=== PATIENT | male | born 1955 | race Caucasian/White ===

== ENCOUNTER → 2019-01-16 10:43 | Outpatient (CLI) | payer MEDICARE, SELFPAY ==
[2015-07-16 13:28] VITALS: BMI 28.0
[2019-01-16 12:12] LABS: Absolute Lymphocyte Count 1.48 X10^3/ul (0.83-4.51); Basophil# 0.03 X10^3/uL; Basophil% 0.5 % (0-1); Eosinophil# 0.41 X10^3/uL; Eosinophils% 6.5 % (0-5); Hematocrit 42.1 % (40-54); Hemoglobin 13.4 g/dl (13.0-16.5); Lymphocyte # 1.48 X10^3/ul (4.0); Lymphocyte % 23.5 % (19-41); Mean Corp Hgb Conc 31.8 g/gl (32-36); Mean Corpuscular Hgb 29.3 pg (27.0-32.0); Mean Corpuscular Volume 92.1 fL (80-94); Mean Platelet Vol. 10.6 fl (6.2-12.0); Monocyte# 0.39 X10^3/uL; Monocyte% 6.2 % (0-10); Neutrophil # 3.96 X10^3/uL (2.7-7.7); Platelet Count 262 K/mm3 (150-450); RBC Distribution Width CV 14.1 % (11.6-14.6); RBC Distribution Width SD 47.5 fl (35.1-43.9); Red Blood Count 4.57 M/mm3 (4.6-6.2); White Blood Count 6.3 K/mm3 (4.4-11.0)
[2019-01-16 12:13] LABS: POSITIVE COUNT NO; POSITIVE DIFFERENTIAL NO; POSITIVE MORPHOLOGY NO
[2019-01-16 13:02] LABS: ALB/GLOB Ratio 0.8 RATIO (0.9-2.4); AST(SGOT) 31 U/L (15-37); Alanine Aminotransfer ALT/SGPT 56 U/L (16-61); Albumin, Serum 3.7 g/dL (3.2-5.0); Alkaline Phosphatase 74 U/L (45-117); Anion Gap 12 (5-15); BUN 27 mg/dL (7-18); Calcium,Total 8.5 mg/dL (8.5-10.1); Chloride 110 mmol/L (98-107); Creatinine, Serum 2.07 mg/dL (0.70-1.30); EST Glomerular Filtration Rate 34 mL/min (>60); Est Glom Filt Rate - Afr Amer 42 mL/min (>60); Globulin 4.7 g/dL (2.2-4.2); Glucose 130 mg/dL (74-106); Potassium 4.5 mmol/L (3.5-5.1); Protein, Total 8.4 g/dL (6.4-8.2); Sodium Level 143 mmol/L (136-145); Thyroid Stim Hormone (TSH) 2.42 uIU/mL (0.358-3.74)
[2019-01-17 05:07] LABS: HEPATITIS B SURFACE AG Negative (Negative); Hepatitis A AB, Total Positive (Negative); Hepatitis A IgM Antibody Negative (Negative); Hepatitis B Core AB IgM Negative (Negative); Hepatitis B Core Ab Total Negative (Negative)
[2019-01-17 14:34] LABS: Hep B Surface Antibodies Non Reactive (.)
[2019-01-17 14:37] LABS: Hepatitis C Ab >11.0 s/co ratio (0.0-0.9)
== END ==
PROVIDERS: Family Provider Family Medicine; PCP Family Medicine; Referring Provider Family Medicine; Visit Provider Family Medicine
DX: R06.02 Shortness of breath (principal); Z86.19 Personal history of other infectious and parasitic diseases
CPT/HCPCS: 36415; 80053; 84403; 84443; 85025; 86704; 86705; 86706; 86708; 86709; 86803; 87340

== ENCOUNTER → 2019-02-02 17:03 | Outpatient (CLI) | payer MEDICARE, SELFPAY | PROVIDERS: Family Provider Family Medicine; PCP Family Medicine; Visit Provider Family Medicine | DX: B19.20 Unspecified viral hepatitis C without hepatic coma (principal) | CPT/HCPCS: 36415 ==

== ENCOUNTER → 2019-03-07 | Outpatient (CLI) | payer MEDICARE, SELFPAY ==
[2015-07-16 13:28] VITALS: BMI 28.0
[2019-03-11 03:05] LABS: HCV Quant. RNA PCR HCV Not Detected IU/mL (.)
== END | disposition home or self-care (01) ==
LOC: LAB 16:52
PROVIDERS: Family Provider Family Medicine; PCP Family Medicine; Referring Provider Internal Medicine Gastroenterology; Visit Provider Internal Medicine Gastroenterology
DX: B19.20 Unspecified viral hepatitis C without hepatic coma (principal)
CPT/HCPCS: 36415; 87522; 87902

== ENCOUNTER → 2019-05-25 | Outpatient (CLI) | payer MEDICARE, SELFPAY ==
[2015-07-16 13:28] VITALS: BMI 28.0
[2019-05-25 10:18] LABS: ALB/GLOB Ratio 0.8 RATIO (0.9-2.4); AST(SGOT) 34 U/L (15-37); Alanine Aminotransfer ALT/SGPT 54 U/L (16-61); Albumin, Serum 3.5 g/dL (3.2-5.0); Alkaline Phosphatase 79 U/L (45-117); Anion Gap 10 (5-15); BUN 23 mg/dL (7-18); BUN/Creat Ratio 13.3 RATIO (10-20); Calcium,Total 8.7 mg/dL (8.5-10.1); Chloride 108 mmol/L (98-107); Creatinine, Serum 1.73 mg/dL (0.70-1.30); EST Glomerular Filtration Rate 42 mL/min (>60); Est Glom Filt Rate - Afr Amer 51 mL/min (>60); Globulin 4.2 g/dL (2.2-4.2); Glucose 123 mg/dL (74-106); Potassium 4.1 mmol/L (3.5-5.1); Protein, Total 7.7 g/dL (6.4-8.2); Sodium Level 140 mmol/L (136-145)
== END | disposition home or self-care (01) ==
LOC: MFPLAB 08:49
PROVIDERS: Family Provider Family Medicine; PCP Family Medicine; Referring Provider Family Medicine; Visit Provider Family Medicine
DX: I10 Essential (primary) hypertension (principal)
CPT/HCPCS: 36415; 80053

== ENCOUNTER → 2019-10-17 16:52 | Outpatient (CLI) | payer MEDICARE, SELFPAY ==
[2015-07-16 13:28] VITALS: BMI 28.0
[2019-10-17 18:27] LABS: Anion Gap 5 (5-15); BUN 26 mg/dL (7-18); BUN/Creat Ratio 13.9 RATIO (10-20); Calcium,Total 8.7 mg/dL (8.5-10.1); Chloride 106 mmol/L (98-107); Cholesterol 174 mg/dL (200); Creatinine, Serum 1.87 mg/dL (0.70-1.30); EST Glomerular Filtration Rate 39 mL/min (>60); Est Glom Filt Rate - Afr Amer 47 mL/min (>60); Glucose 89 mg/dL (74-106); High Density Lipoprotein 21 mg/dL; Potassium 4.2 mmol/L (3.5-5.1); Sodium Level 137 mmol/L (136-145); Triglycerides 439 mg/dL
== END ==
PROVIDERS: Family Provider Family Medicine; PCP Family Medicine; Referring Provider Family Medicine; Visit Provider Family Medicine
DX: I10 Essential (primary) hypertension (principal)
CPT/HCPCS: 36415; 80048; 80061

== ENCOUNTER → 2020-11-26 16:30 | Outpatient (CLI) | payer MEDICARE, SELFPAY ==
[2015-07-16 13:28] VITALS: BMI 28.0
[2020-11-26 18:44] LABS: ALB/GLOB Ratio 0.8 RATIO (0.9-2.4); AST(SGOT) 38 U/L (15-37); Alanine Aminotransfer ALT/SGPT 50 U/L (16-61); Albumin, Serum 3.8 g/dL (3.2-5.0); Alkaline Phosphatase 73 U/L (45-117); Anion Gap 6 (5-15); BUN 32 mg/dL (7-18); BUN/Creat Ratio 17.8 RATIO (10-20); Calcium,Total 8.9 mg/dL (8.5-10.1); Chloride 109 mmol/L (98-107); Cholesterol 130 mg/dL (200); EST Glomerular Filtration Rate 40 mL/min (>60); Est Glom Filt Rate - Afr Amer 49 mL/min (>60); Globulin 4.9 g/dL (2.2-4.2); Glucose 82 mg/dL (74-106); High Density Lipoprotein 25 mg/dL; Potassium 3.9 mmol/L (3.5-5.1); Protein, Total 8.7 g/dL (6.4-8.2); Sodium Level 137 mmol/L (136-145); Triglycerides 412 mg/dL
[2020-11-27 08:16] LABS: SARS-COV-2 TOTAL ABS Reactive (Nonreactive)
== END ==
PROVIDERS: PCP Family Medicine; Referring Provider Family Medicine; Visit Provider Family Medicine
DX: E78.5 Hyperlipidemia, unspecified (principal); U07.1 COVID-19
CPT/HCPCS: 36415; 80053; 80061; 86769

== ENCOUNTER 2021-01-15 15:40 | Outpatient (RCR) | payer MEDICARE, SELFPAY ==
[2021-01-15] MEDS: COVID-19 VACC, MRNA(PFIZER)/PF 30 MCG/0.3 ML SYRINGE IM (17:08)
[2021-02-05] MEDS: COVID-19 VACC, MRNA(PFIZER)/PF 30 MCG/0.3 ML SYRINGE IM (16:54)
== END 2021-04-14 23:59 ==
LOC: IMMUN 15:40
PROVIDERS: PCP Family Medicine; Visit Provider Family Medicine
DX: Z23 Encounter for immunization (principal)
CPT/HCPCS: 0001A; 0002A; 91300

== ENCOUNTER → 2021-08-18 11:24 | Outpatient (CLI) | payer MEDICARE, SELFPAY ==
[2021-08-18 15:33] LABS: Anion Gap 6 (5-15); BUN 32 mg/dL (7-18); BUN/Creat Ratio 14.1 RATIO (10-20); Calcium,Total 9.1 mg/dL (8.5-10.1); Chloride 109 mmol/L (98-107); Creatinine, Serum 2.27 mg/dL (0.70-1.30); EST Glomerular Filtration Rate 31 mL/min (>60); Est Glom Filt Rate - Afr Amer 37 mL/min (>60); Glucose 147 mg/dL (74-106); Potassium 4.6 mmol/L (3.5-5.1); Sodium Level 141 mmol/L (136-145)
== END ==
PROVIDERS: PCP Family Medicine; Referring Provider Family Medicine; Visit Provider Family Medicine
DX: N40.0 Benign prostatic hyperplasia without lower urinary tract symptoms (principal); Z12.5 Encounter for screening for malignant neoplasm of prostate
CPT/HCPCS: 36415; 80048; 84153; G0103

== ENCOUNTER → 2022-05-20 | Outpatient (CLI) | payer MEDICARE, SELFPAY ==
--- NOTE | 2022-05-20 11:50 | RAD_ITS ---
STUDY: X-RAY - ABDOMEN/PELVIS REASON FOR EXAM: Male, 66 years old. ABDOMINAL PAIN TECHNIQUE: Supine and upright views. 4 images. COMPARISON: None. FINDINGS: Mildly dilated small bowel in the upper abdomen. Large amount stool in the ascending colon. Relative paucity of bowel gas in the left lower abdomen. No free air. No abnormal mass or calcification is seen. Lung bases are clear. RAD/Abd Inc Decub and/or Erect IMPRESSION: Nonspecific bowel gas pattern. Mildly dilated small bowel pattern may be consistent with enteritis or partial small bowel obstruction. Electronically Signed: Joyce Oliver MD at 5:51 EDT ,
[2022-05-20 14:59] LABS: Hemoglobin 11.3 g/dL (13.0-16.5); Mean Corp Hgb Conc 31.4 g/dL (32-36); Mean Corpuscular Volume 85.9 fL (80-94); Mean Platelet Vol. 10.2 fl (6.2-12.0); Platelet Count 374 K/mm3 (150-450); RBC Distribution Width CV 14.6 % (11.6-14.6); RBC Distribution Width SD 45.8 fl (35.1-43.9); Red Blood Count 4.19 M/mm3 (4.6-6.2); White Blood Count 8.1 K/mm3 (4.4-11.0)
[2022-05-20 15:20] LABS: ALB/GLOB Ratio 0.6 RATIO (0.9-2.4); AST(SGOT) 30 U/L (15-37); Alanine Aminotransfer ALT/SGPT 40 U/L (16-61); Albumin, Serum 3.4 g/dL (3.2-5.0); Alkaline Phosphatase 85 U/L (45-117); Anion Gap 6 (5-15); BUN 28 mg/dL (7-18); BUN/Creat Ratio 12.6 RATIO (10-20); Calcium,Total 9.6 mg/dL (8.5-10.1); Chloride 107 mmol/L (98-107); Creatinine, Serum 2.23 mg/dL (0.70-1.30); EST Glomerular Filtration Rate 31 mL/min (>60); Est Glom Filt Rate - Afr Amer 38 mL/min (>60); Globulin 5.8 g/dL (2.2-4.2); Glucose 166 mg/dL (74-106); Potassium 4.2 mmol/L (3.5-5.1); Protein, Total 9.2 g/dL (6.4-8.2); Sodium Level 136 mmol/L (136-145)
== END | disposition home or self-care (01) ==
PROVIDERS: PCP Family Medicine; Referring Provider Family Medicine; Visit Provider Family Medicine
DX: R10.9 Unspecified abdominal pain (principal)
CPT/HCPCS: 36415; 74019; 80053; 85027

== ENCOUNTER 2022-11-18 16:06 | Observation (INO) | payer MEDICARE, SELFPAY ==
[2022-11-18 16:07] VITALS: BP 104/67; PULSE 110; RESP 18; TEMP 36.1; O2SAT 98; BMI 34.9
[2022-11-18 16:16] VITALS: O2SAT 93
[2022-11-18 16:18] VITALS: BP 110/77; PULSE 113; RESP 18; TEMP 36.1; O2SAT 98
--- NOTE | 2022-11-18 16:26 | EKG12_ITS ---
Test Reason : SOB Blood Pressure : / mmHG Vent. Rate : 107 BPM Atrial Rate : 107 BPM P-R Int : 162 ms QRS Dur : 092 ms QT Int : 336 ms P-R-T Axes : 029 -34 045 degrees QTc Int : 448 ms Sinus tachycardia Left axis deviation Abnormal ECG Confirmed by ANGELITA CHERRY, ALYSSA ([id number]), continuity editor BARBARA VIEIRA ([id number]) on 11/22/2022 12:11:40 PM Referred By: Confirmed By:ALYSSA GOLDSTEIN MD
--- NOTE | 2022-11-18 16:27 | ED.VIS.DYS ---
HPI History of Present Illness Chief Complaint: Shortness of Breath Narrative Narrative: Patient presents with dyspnea. He also has about a 10 pound weight loss in the past few weeks. He thinks he has some night sweats and subjective fevers at times. Stools are normal color. He has no cough. He has no sick contacts. No abdominal pain no back pain no headache. PFSH PFSH Medical History (Updated 11/18/22 @ 21:[address] Bobby Alvarenga MD) BPH (benign prostatic hyperplasia) GERD (gastroesophageal reflux disease) History of B-cell lymphoma HTN (hypertension) Stroke Home Medications Acid Relief 1 ea PO/SL DAILY GERD 11/18/22 [History Last Taken 11/17/22] ibuprofen 200 mg tablet (Motrin IB) 800 mg PO Q6H PRN Fever 11/18/22 [History Last Taken 11/16/22] losartan 25 mg tablet 25 mg PO QHS BP 11/18/22 [History Last Taken 11/17/22] tamsulosin 0.4 mg capsule 0.4 mg PO DAILY PROSTATE 11/18/22 [History Last Taken 11/17/22] Allergy/AdvReac Type Severity Reaction Status Date / Time RAPID ACTING ANTIHYPERTENSIVE AdvReac Other Uncoded 11/18/22 16:07 Family History (Updated 11/18/22 @ 19:[address] Melodie Baker MD) Father COPD (chronic obstructive pulmonary disease) Lung cancer Mother COPD (chronic obstructive pulmonary disease) Surgical History (Updated 11/18/22 @ 19:[address] Melodie Baker MD) S/P bilateral inguinal hernia repair S/P tonsillectomy Social History (Updated 11/18/22 @ 19:[address] Melodie Baker MD) household members: spouse Smoking Status: Former smoker how long ago did patient quit smoking: Quit ~ 30 years prior, smoked 1.5 ppd since teen until quit. alcohol intake: current alcohol intake frequency: holidays/special occasions only substance use type: does not use ROS ROS ED ROS Narrative Past medical history: Reviewed Medications: Reviewed Social history: Noncontributory Review of systems: All systems negative except as indicated General: Generalized weakness, some subjective fevers Eyes: No visual changes ENT: No upper airway congestion, normal voice Neck: No neck pain Cardiovascular: No chest pain Respiratory: Exertional dyspnea Gastrointestinal: No abdominal pain, nausea vomiting or diarrhea Genitourinary: No dysuria Musculoskeletal: Denies myalgias Skin: No rash Neurological: No memory loss, confusion or any focal weakness Psych: No recent behavioral changes Hematologic: No easy bleeding or easy bruising EXAM Physical Exam Narrative Exam Narrative: Physical exam General: Patient appears pale he does not appear in any distress Head: Normocephalic, Atraumatic Eyes: Pale conjunctiva ENT: Slightly dry mucous membranes Neck: Supple, Nontender, No lymphadenopathy Cardiovascular: Regular rate, Regular rhythm Respiratory: No distress, CTA bilaterally Abdomen: Soft, Nontender, Nondistended Rectal: Normal rectal exam yellow stool. I did send for guaiac Back: Nontender, Normal Inspection. Negative for: CVA tenderness Extremities: Nontender, No edema Skin: He appears pale Neurological: Alert, Normal Strength, Normal Sensation Const Vital Signs: 11/18/22 16:07 11/18/22 16:16 11/18/22 16:18 Temperature 97.0 F L 97.0 F L Temperature Source Temporal Temporal Pulse Rate 110 H 113 H Respiratory Rate 18 18 Respiratory Effort Short of Breath Blood Pressure 104/67 110/77 Blood Pressure Mean 79 88 Pulse Ox 98 98 Oxygen Delivery Method Room Air Room Air Room Air MDM MDM MDM Narrative Medical decision making narrative: A. Problems addressed ( does not have to be diagnoses) Patient is anemic. He has weight loss and night sweats, therefore I am worried about potential malignancy. He also has a GI bleed. B. Amount and/or complexity of the data (2 out of 3) 1. I discussed the patient with who is in the room who was in the room 2. Independent interpretation of test Telemetry: Sinus rhythm with a rate in the 100s. No ectopy. Patient is found to have microcytic anemia. Electrolytes and coags were unremarkable. 3. Discussion of management with external healthcare provider Patient was discussed by Dr. Rehman with Dr. Salguero, his PCP who knows the patient well, he gave us history of present illness of the patient and his concerns about anemia, possible cancer. I discussed the patient with the hospitalist will admit. C. Risk of complications and/or morbidity Patient is quite anemic requiring transfusion. He is also quite symptomatic with shortness of breath. My worry is also for malignancy. He is given up packed red blood cells in the emergency department. I did not find any evidence of lung or cardiac involvement. I did think about ACS but he is an unremarkable EKG. I did think about pneumonia, pneumothorax or PE, these are less likely since the patient has a normal x-ray has clear lungs and I have an alternate diagnosis. He will be admitted for further work-up. Lab Data Labs: Laboratory Results - last 24 hr 11/18/22 11/18/22 11/18/22 16:30 16:30 16:30 WBC 11.6 H RBC 3.69 L Hgb 7.4 L Hct 26.4 L MCV 71.5 L MCH 20.1 L MCHC 28.0 L RDW Std Deviation 45.8 H RDW Coeff of Angel 17.9 H Plt Count 565 H MPV 9.3 Immature Gran % (Auto) 0.900 Neut % (Auto) 87.2 H Lymph % (Auto) 5.9 L [place] % (Auto) 4.5 Eos % (Auto) 1.1 Baso % (Auto) 0.4 Absolute Neuts (auto) 10.1 H Absolute Lymphs (auto) 0.69 L Nucleated RBC % 0 PT 16.3 H INR 1.3 Sodium 135 L Potassium 4.3 Chloride 107 Carbon Dioxide 19.0 L Anion Gap 9 BUN 38 H Creatinine 2.86 H Estim Creat Clear Calc 19.90 Est GFR (MDRD) Af Amer 28 L Est GFR (MDRD) Non-Af 23 L BUN/Creatinine Ratio 13.3 Glucose 176 H Calcium 8.7 Phosphorus Magnesium Total Bilirubin 0.40 AST 21 ALT 16 Alkaline Phosphatase 70 Troponin I High Sens < 3 L Total Protein 8.6 H Albumin 2.4 L Globulin 6.2 H Albumin/Globulin Ratio 0.4 L Blood Type Antibody Screen Crossmatch 11/18/22 11/18/22 16:30 17:15 WBC RBC Hgb Hct MCV MCH MCHC RDW Std Deviation RDW Coeff of Angel Plt Count MPV Immature Gran % (Auto) Neut % (Auto) Lymph % (Auto) [place] % (Auto) Eos % (Auto) Baso % (Auto) Absolute Neuts (auto) Absolute Lymphs (auto) Nucleated RBC % PT INR Sodium Potassium Chloride Carbon Dioxide Anion Gap BUN Creatinine Estim Creat Clear Calc Est GFR (MDRD) Af Amer Est GFR (MDRD) Non-Af BUN/Creatinine Ratio Glucose Calcium Phosphorus 3.7 Magnesium 2.3 Total Bilirubin AST ALT Alkaline Phosphatase Troponin I High Sens Total Protein Albumin Globulin Albumin/Globulin Ratio Blood Type O POSITIVE Antibody Screen NEGATIVE Crossmatch See Detail Radiography Diagnostic Testing: Clinical Impression(s) from Imaging Studies Chest X-Ray 11/18/22 16:53 IMPRESSION: No acute cardiopulmonary disease or major interval change. Electronically Signed: Tomás Quigley DO at 17:39 EST Reading Location ID and State: [address] [place] [address] Tel [phone], Service support , EKG Initial EKG: Comments: Sinus rhythm with a rate of 107. Normal [place] and QTc intervals, left axis deviation is seen. No obvious ischemic changes. Interpreted by emergency doctor. Discharge Plan Dx/Rx/DC Orders Clinical Impression: Anemia, Microcytosis, Acute dyspnea, Abnormal weight loss, GI bleed Disposition Disposition: Acute Care Hospital [facility] Discharge Date/Time: 11/18/22 18:51
[2022-11-18 16:47] LABS: Absolute Lymphocyte Count 0.69 X10^3/uL (0.83-4.51); Absolute Neutrophil Count 10.1 X10^3/uL (2.0-7.7); Basophil# 0.05 X10^3/uL; Basophil% 0.4 % (0-1); Eosinophil# 0.13 X10^3/uL; Eosinophils% 1.1 % (0-5); Hematocrit 26.4 % (40-54); Hemoglobin 7.4 g/dL (13.0-16.5); Lymphocyte # 0.69 X10^3/ul (0.83-4.51); Lymphocyte % 5.9 % (19-41); Mean Corpuscular Hgb 20.1 pg (27.0-32.0); Mean Corpuscular Volume 71.5 fL (80-94); Mean Platelet Vol. 9.3 fl (6.2-12.0); Monocyte# 0.52 X10^3/uL; Monocyte% 4.5 % (0-10); NRBC Flagged by Analyzer 0 % (0-5); Neutrophil # 10.11 X10^3/uL (2.7-7.7); Neutrophil % 87.2 % (47-70); Platelet Count 565 K/mm3 (150-450); RBC Distribution Width CV 17.9 % (11.6-14.6); RBC Distribution Width SD 45.8 fl (35.1-43.9); Red Blood Count 3.69 M/mm3 (4.6-6.2); White Blood Count 11.6 K/mm3 (4.4-11.0)
--- NOTE | 2022-11-18 16:53 | RAD_ITS ---
STUDY: X-RAY CHEST REASON FOR EXAM: Male, 66 years old. Increased shortness of breath. Sent in by PCP. TECHNIQUE: Single AP portable view of the chest. COMPARISON: May 13, 2015. FINDINGS: The lungs are clear and expanded. There is no demonstrated pleural abnormality. Normal size heart. Normal mediastinum and archana. Normal visualized pulmonary arteries. There is atherosclerotic calcification of the aortic arch with tortuosity. The thoracic spine is obscured by the mediastinum. Normal visualized ribs, clavicles, and shoulders. There is no demonstrated abnormality of the visualized soft tissue structures of the upper abdomen. RAD/Chest 1 View (Portable) IMPRESSION: No acute cardiopulmonary disease or major interval change. Electronically Signed: Tomás Quigley DO at 17:39 EST ,
[2022-11-18 16:57] LABS: International Normalized Ratio 1.3; Prothrombin Time (Protime)PT. 16.3 SECONDS (11.7-14.9)
[2022-11-18 17:06] LABS: ALB/GLOB Ratio 0.4 RATIO (0.9-2.4); AST(SGOT) 21 U/L (15-37); Alanine Aminotransfer ALT/SGPT 16 U/L (16-61); Albumin, Serum 2.4 g/dL (3.2-5.0); Alkaline Phosphatase 70 U/L (45-117); Anion Gap 9 (5-15); BUN 38 mg/dL (7-18); BUN/Creat Ratio 13.3 RATIO (10-20); Calcium,Total 8.7 mg/dL (8.5-10.1); Chloride 107 mmol/L (98-107); Creatinine, Serum 2.86 mg/dL (0.70-1.30); EST Glomerular Filtration Rate 23 mL/min (>60); Est Glom Filt Rate - Afr Amer 28 mL/min (>60); Globulin 6.2 g/dL (2.2-4.2); Glucose 176 mg/dL (74-106); Potassium 4.3 mmol/L (3.5-5.1); Protein, Total 8.6 g/dL (6.4-8.2); Sodium Level 135 mmol/L (136-145); Troponin-I HS < 3 pg/mL (3.0-78.0)
--- NOTE | 2022-11-18 17:31 | HP.PCM.HOS_ITS ---
HPI - General General Date of Admission: 11/18/22 Date of Service: 11/18/22 Chief Complaint: Dyspnea, worse with exertion, weight loss, fevers, night sweats. HPI Narrative The patient is a 66 y/o M w/ PMHx: Obesity, BPH, Hx Hepatitis C, GERD, Hx CVA with residual notable emotional lability, Hx B cell lymphoma s/p 6 rounds chemotherapy with declined radiation treatments at that time, Chronic anemia who presents to the [facility] ED on 11/18/22 with history of 6-8 weeks of progressively worsening dyspnea, worse with exertion, weight loss, subjective fevers, night sweats and intermittent diarrhea/constipation, abdominal bloating and severe intermittent abdominal cramping 10/10 sharp stabbing when occurs resolving usually over days and per his report often potentially related to certain foods, especially he reports vegetables with pale-yellow appearing stools but no overt BRBPR or tarry or maroon colored stools. In the ED upon current evaluation patient denies significant abdominal bloating or cramping at this time. Work-up in the ED included T 97, heart rate 113, BP 110/77, respiratory rate 18, 98% room air, CBC with WC 11.6, globin 7.4, MCV 71.5, platelet 565 with left shift and lymphopenia, coags with PT 16.3, INR 1.3, CMP with sodium 135, carbon oxide 19, BUN/creatinine 38/2.86, glucose 176, troponin less than 3, chest x-ray with no acute cardiopulmonary findings, guaiac noted to be occult blood positive. In the ED patient ordered 2 unit PRBC per ED physician and maintained on low-dose maintenance IV fluids. [facility] Medical History (Updated 11/18/22 @ 19:[address] Melodie Baker MD) BPH (benign prostatic hyperplasia) GERD (gastroesophageal reflux disease) History of B-cell lymphoma HTN (hypertension) Stroke Home Medications Acid Relief 1 ea PO/SL DAILY GERD 11/18/22 [History Last Taken 11/17/22] ibuprofen 200 mg tablet (Motrin IB) 800 mg PO Q6H PRN Fever 11/18/22 [History Last Taken 11/16/22] losartan 25 mg tablet 25 mg PO QHS BP 11/18/22 [History Last Taken 11/17/22] tamsulosin 0.4 mg capsule 0.4 mg PO DAILY PROSTATE 11/18/22 [History Last Taken 11/17/22] Allergy/AdvReac Type Severity Reaction Status Date / Time RAPID ACTING ANTIHYPERTENSIVE AdvReac Other Uncoded 11/18/22 16:07 Family History (Updated 11/18/22 @ 19:[address] Melodie Baker MD) Father COPD (chronic obstructive pulmonary disease) Lung cancer Mother COPD (chronic obstructive pulmonary disease) Surgical History (Updated 11/18/22 @ 19:[address] Melodie Baker MD) S/P bilateral inguinal hernia repair S/P tonsillectomy Social History (Updated 11/18/22 @ 19:[address] Melodie Baker MD) household members: spouse Smoking Status: Former smoker how long ago did patient quit smoking: Quit ~ 30 years prior, smoked 1.5 ppd since teen until quit. alcohol intake: current alcohol intake frequency: holidays/special occasions only substance use type: does not use ROS ROS Narrative Admission Review of Systems: CONSTITUTIONAL: No weight loss, + fever, weakness or fatigue. HEENT: + Dry mouth frequently. Eyes: No visual loss, blurred vision, double vision or yellow sclerae. Ears, Nose, Throat: No hearing loss, sneezing, congestion, runny nose or sore throat. SKIN: No rash or itching, lesions, wounds. CARDIOVASCULAR: No chest pain, chest pressure or chest discomfort, palpitations, edema, orthopnea, syncopal events. RESPIRATORY: + shortness of breath, No cough or sputum, wheezing, hemoptysis. GASTROINTESTINAL: + Anorexia, nausea without vomiting, intermittent diarrhea- constipation, abdominal pain and bloating, beltching, No melena, BRBPR. GENITOURINARY: No dysuria, frequency, urgency or retention. NEUROLOGICAL: No headache, dizziness, syncope, paralysis, ataxia, numbness or tingling in the extremities, focal weakness, change in bowel or bladder control, seizure. MUSCULOSKELETAL: + muscle, back pain, joint pain or stiffness. HEMATOLOGIC: + anemia, bleeding or bruising. LYMPHATICS: No enlarged nodes. No history of splenectomy. PSYCHIATRIC: + history of depression or anxiety. ENDOCRINOLOGIC: No reports of sweating, cold or heat intolerance. No polyuria or polydipsia. ALLERGIES: No history of asthma, hives, eczema or rhinitis. Vital Signs Vital Signs Vital Signs: 11/18/22 16:07 11/18/22 16:16 11/18/22 16:18 Temperature 97.0 F L 97.0 F L Temperature Source Temporal Temporal Pulse Rate 110 H 113 H Respiratory Rate 18 18 Respiratory Effort Short of Breath Blood Pressure 104/67 110/77 Blood Pressure Mean 79 88 Pulse Ox 98 98 Oxygen Delivery Method Room Air Room Air Room Air Weight Weight: 197 lb Body Mass Index (BMI) 34.9 Physical Exam Narrative Physical Examination: General: Awake, alert, oriented x 3 and cooperative, seated upright in the ED bed, fatigued, pale appearing, intermittently emotionally labile. Skin: Extremely pale color, normal turgor, no icterus, no cyanosis. HEENT: AT/NC, EOMI, PERRLA, dry MM, no carotid bruits or JVD noted. Lungs: Mildly diminished, greater bases, mildly decreased effort,, no rales, ronchi or wheezing. Heart: Mildly tachycardic with regular rhythm; no gallop, rub audible. Abdomen: Soft, obese, no obvious tenderness palpation all quadrants, currently does not appear distended which patient agrees, mildly hyperactive bowel sounds, mild HM concern. Extremities: No cyanosis, clubbing, or edema. Neurological: Patient awake, alert, oriented as noted, cognitive function intact; pupils equally reactive to light and accommodation, cranial nerves II- XII grossly normal, moving all 4 extremities, no focal deficits, strength moderately to severely Decreased secondary to acute presentation complaints. Psychiatric: Affect appears flat, fatigued with intermittent near crying with evidence of increased anxiety concurrently and depressive feelings with emotional liability which is chronic for this patient. Results Lab / Micro Data Result Diagrams: 11/18/22 16:30 11/18/22 16:30 Labs: Laboratory Results - last 24 hr 11/18/22 16:30: WBC 11.6 H, RBC 3.69 L, Hgb 7.4 L, Hct 26.4 L, MCV 71.5 L, MCH 20.1 L, MCHC 28.0 L, RDW Std Deviation 45.8 H, RDW Coeff of Angel 17.9 H, Plt Count 565 H, MPV 9.3, Immature Gran % (Auto) 0.900, Neut % (Auto) 87.2 H, Lymph % (Auto) 5.9 L, [place] % (Auto) 4.5, Eos % (Auto) 1.1, Baso % (Auto) 0.4, Absolute Neuts (auto) 10.1 H, Absolute Lymphs (auto) 0.69 L, Nucleated RBC % 0 11/18/22 16:30: PT 16.3 H, INR 1.3 11/18/22 16:30: Sodium 135 L, Potassium 4.3, Chloride 107, Carbon Dioxide 19.0 L , Anion Gap 9, BUN 38 H, Creatinine 2.86 H, Estim Creat Clear Calc 19.90, Est GFR (MDRD) Af Amer 28 L, Est GFR (MDRD) Non-Af 23 L, BUN/Creatinine Ratio 13.3, Glucose 176 H, Calcium 8.7, Total Bilirubin 0.40, AST 21, ALT 16, Alkaline Phosphatase 70, Troponin I High Sens < 3 L, Total Protein 8.6 H, Albumin 2.4 L, Globulin 6.2 H, Albumin/Globulin Ratio 0.4 L 11/18/22 17:15: Crossmatch See Detail Micro: Microbiology 11/18/22 15:25 Stool Stool Occult Blood (ROSALIE) - Final Occult Blood Positive Assessment & Plan Assessment/Plan (1) GI bleed: PLAN: Plan The patient is a 66 y/o M w/ PMHx: Obesity, BPH, Hx Hepatitis C, GERD, Hx CVA with residual notable emotional lability, Hx B cell lymphoma s/p 6 rounds chemotherapy with declined radiation treatments at that time, Chronic anemia who presents to the [facility] ED on 11/18/22 with history of 6-8 weeks of progressively worsening dyspnea, worse with exertion, weight loss, subjective fevers, night sweats and intermittent diarrhea/constipation, abdominal bloating and severe intermittent abdominal cramping 10/10 sharp stabbing when occurs resolving usually over days and per his report often potentially related to certain foods, especially he reports vegetables with pale-yellow appearing stools but no overt BRBPR or tarry or maroon colored stools. #1. Acute GI Bleed w/ resultant Acute Blood Loss Anemia on Chronic: Admission Hgb 7.4 with most recent prior to the 05/20/22 11.3 and prior to this 01/16/19 Hgb 13.4, but had been 9 range 2014 likely related with treatments, 2 u PRBC per ED initiated, will admit to [facility] given stable VS, maintain on IVFs, obtain serial H+Hs, maintain on IV PPI, given notable CA history and presentation symptoms concerned CA as source/possibly friable mass, awaiting GI evaluation. #2. Hyperglycemia: Admission glucose 176, no prior diabetic history, possibly stress response however to cautious will obtain hemoglobin A1c and if it is significant we will transition to Accu-Cheks every 6 hours with sliding scale. #3. Acute Renal Insufficiency on CKD stage III, unclear subtype: Admission BUN/creatinine 38/2.86, baseline creatinine noted prior 1.7-2.2, likely mild increase secondary to recent poor oral intake as well as intermittent diarrhea, if renal function does not improve or worsens would obtain UFeNa/renal US, UA requested. #4. Hyponatremia, mild, hypovolemic: Admission sodium 135, mildly decreased, likely secondary to GI losses and poor intake, will continue judicious hydration and repeat level in AM. #5. History CVA: Patient with emotional lability, given his description do suspect possibly frontal involvement, will hold aspirin, given low BP with acute presentation we will temporarily hold losartan and add back as long as things remain stable, not on statin therapy, defer at this time. Hemoglobin A1c has been requested given hyperglycemia as noted. #6. Hypertension: Patient with low normal BP upon presentation, holding regimen given acute presentation, add back once appropriate. #7. Obesity: Patient with reported weight loss despite patient's BMI, given current presentation and decreased oral intake nutrition will be involved. #8. History hepatitis C: Patient with noted prior history, status posttreatment, encourage continued out follow-up. #9. BPH: We will continue patient home Flomax. #10. GERD: Maintained on IV PPI. #11. DVT prophylaxis: SCDs, hold chemoprophylaxis given acute presentation. #12. CODE STATUS: Full code. Admission Evaluation Time spent evaluating chart, patient history, patient evaluation, care planning and discussion with specialists: 75 minutes. Charges/Coding Visit Charges Inpatient E&M: 69804 Init Hosp L3
[2022-11-18 18:30] VITALS: BMI 35.2
[2022-11-18 19:52] LABS: Magnesium 2.3 mg/dL (1.6-2.6); Phosphorus 3.7 mg/dL (2.5-4.9)
[2022-11-18 20:07] VITALS: BP 122/79; PULSE 101; RESP 18; TEMP 36.7; O2SAT 98
[2022-11-18] MEDS: 0.9% Normal Saline 1,000 ML 100 ML IV (20:28)
[2022-11-18 22:32] VITALS: BP 126/81; PULSE 98; RESP 18; TEMP 37.2; O2SAT 96
[2022-11-18 22:34] LABS: Hematocrit 24.5 % (40-54); Hemoglobin 6.8 g/dL (13.0-16.5)
--- NOTE | 2022-11-18 23:00 | CON.PCM.GI_ITS ---
HPI Consult Data Date of Consult: 11/19/22 HPI Narrative Reason for Consultation: anemia HPI Narrative: DARWIN MILLER, is a 66 M who presents with dyspnea.? He also has about a 10 pound weight loss in the past few weeks.? He thinks he has some night sweats and subjective fevers at times.? Stools are normal color.? He has no cough.? He has no sick contacts.? No abdominal pain no back pain no headache. He also has a past medical history of obesity, BPH, Hx Hepatitis C, GERD, Hx CVA with residual notable emotional lability, Hx B cell lymphoma s/p 6 rounds chemotherapy with declined radiation treatments at that time, Chronic anemia who presents to the [facility] ED on 11/18/22 with history of 6-8 weeks of progressively worsening dyspnea, worse with exertion, weight loss, subjective fevers, night sweats and intermittent diarrhea/constipation, abdominal bloating and severe intermittent abdominal cramping. Initial imaging with a chest x-ray and an abdominal x-ray did not show any acute findings. He was also discovered to have acute on chronic renal failure so a CT scan was not ordered. I was consulted for acute drop in hemoglobin. He has never had a colonoscopy. His hemoglobin was determined to be 6.8. [facility] Medical History (Updated 11/18/22 @ 21:[address] Bobby Alvarenga MD) BPH (benign prostatic hyperplasia) GERD (gastroesophageal reflux disease) History of B-cell lymphoma HTN (hypertension) Stroke Home Medications Acid Relief 1 ea PO/SL DAILY GERD 11/18/22 [History Last Taken 11/17/22] ibuprofen 200 mg tablet (Motrin IB) 800 mg PO Q6H PRN Fever 11/18/22 [History Last Taken 11/16/22] losartan 25 mg tablet 25 mg PO QHS BP 11/18/22 [History Last Taken 11/17/22] tamsulosin 0.4 mg capsule 0.4 mg PO DAILY PROSTATE 11/18/22 [History Last Taken 11/17/22] Allergy/AdvReac Type Severity Reaction Status Date / Time RAPID ACTING ANTIHYPERTENSIVE AdvReac Other Uncoded 11/18/22 16:07 Family History (Updated 11/18/22 @ 19:[address] Melodie Baker MD) Father COPD (chronic obstructive pulmonary disease) Lung cancer Mother COPD (chronic obstructive pulmonary disease) Surgical History (Updated 11/18/22 @ 19:[address] Melodie Baker MD) S/P bilateral inguinal hernia repair S/P tonsillectomy Social History (Updated 11/18/22 @ 19:[address] Melodie Baker MD) household members: spouse Smoking Status: Former smoker how long ago did patient quit smoking: Quit ~ 30 years prior, smoked 1.5 ppd since teen until quit. alcohol intake: current alcohol intake frequency: holidays/special occasions only substance use type: does not use ROS ROS Narrative Admission Review of Systems: CONSTITUTIONAL: No weight loss, + fever, weakness or fatigue. HEENT: + Dry mouth frequently. Eyes: No visual loss, blurred vision, double vision or yellow sclerae. Ears, Nose, Throat: No hearing loss, sneezing, congestion, runny nose or sore throat. SKIN: No rash or itching, lesions, wounds. CARDIOVASCULAR: No chest pain, chest pressure or chest discomfort, palpitations, edema, orthopnea, syncopal events. RESPIRATORY: + shortness of breath, No cough or sputum, wheezing, hemoptysis. GASTROINTESTINAL: + Anorexia, nausea without vomiting, intermittent diarrhea- constipation, abdominal pain and bloating, beltching, No melena, BRBPR. GENITOURINARY: No dysuria, frequency, urgency or retention. NEUROLOGICAL: No headache, dizziness, syncope, paralysis, ataxia, numbness or tingling in the extremities, focal weakness, change in bowel or bladder control, seizure. MUSCULOSKELETAL: + muscle, back pain, joint pain or stiffness. HEMATOLOGIC: + anemia, bleeding or bruising. LYMPHATICS: No enlarged nodes. No history of splenectomy. PSYCHIATRIC: + history of depression or anxiety. ENDOCRINOLOGIC: No reports of sweating, cold or heat intolerance. No polyuria or polydipsia. ALLERGIES: No history of asthma, hives, eczema or rhinitis. Physical Exam Narrative GENERAL: cooperative HEENT: Atraumatic; normocephalic EYES; Anicteric, Normal Conjunctiva NECK; supple, normal thyroid, RESPIRATORY: Diminished to auscultation CARDIOVASCULAR: Regular S1 S2, GI: soft, normoactive bowel sounds, : No Renal angle tenderness; EXTREMITIES: No edema, no clubbing, MUSCULOSKELETAL: no muscle wasting NEURO: Awake; no lateralizing signs. SKIN: No Rash PSYCH; Flat affect Medical Records Data Medical Nutrition Assessment Dietitian: Malnutrition Criteria Met Start: 11/19/22 09:52 Freq: Status: Active Protocol: Document 11/19/22 09:52 JASON (Rec: 11/19/22 09:52 SLA [id number]) Nutrition Malnutrition Evidence of Malnutrition Exists Yes Malnutrition (severe): Acute Illness/Injury Evidenced By Suboptimal Energy Intake ( Severe),Weight Loss (Severe) Clinical Problem Acute Disease or Injury Related Malnutrition Etiology related to impaired GI function w/ pt having issues w / intermittent constipation/ diarrhea/blood in stools making it difficult for pt to consume adequate nutrition to meet est nutritional needs Signs/Symptoms as evidenced by 7.2% wt loss and po intake meeting <75% of est 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 Problem Recommendation Dietitian Recommendations/Changes As medically able, rec diet as tolerated to Transitional w/ goal of Cardiac As medically able, rec ensure plus high protein w/ medpass for increased nutrition if consumed Lab / Micro Data Result Diagrams: 11/19/22 05:40 11/19/22 05:40 Labs: Laboratory Results - last 24 hr 11/18/22 16:30: WBC 11.6 H, RBC 3.69 L, Hgb 7.4 L, Hct 26.4 L, MCV 71.5 L, MCH 20.1 L, MCHC 28.0 L, RDW Std Deviation 45.8 H, RDW Coeff of Angel 17.9 H, Plt Count 565 H, MPV 9.3, Immature Gran % (Auto) 0.900, Neut % (Auto) 87.2 H, Lymph % (Auto) 5.9 L, [place] % (Auto) 4.5, Eos % (Auto) 1.1, Baso % (Auto) 0.4, Absolute Neuts (auto) 10.1 H, Absolute Lymphs (auto) 0.69 L, Nucleated RBC % 0 11/18/22 16:30: PT 16.3 H, INR 1.3 11/18/22 16:30: Sodium 135 L, Potassium 4.3, Chloride 107, Carbon Dioxide 19.0 L , Anion Gap 9, BUN 38 H, Creatinine 2.86 H, Estim Creat Clear Calc 19.90, Est GFR (MDRD) Af Amer 28 L, Est GFR (MDRD) Non-Af 23 L, BUN/Creatinine Ratio 13.3, Glucose 176 H, Calcium 8.7, Total Bilirubin 0.40, AST 21, ALT 16, Alkaline Phosphatase 70, Troponin I High Sens < 3 L, Total Protein 8.6 H, Albumin 2.4 L, Globulin 6.2 H, Albumin/Globulin Ratio 0.4 L 11/18/22 16:30: Phosphorus 3.7, Magnesium 2.3 11/18/22 17:15: Blood Type O POSITIVE, Antibody Screen NEGATIVE, Crossmatch See Detail 11/18/22 21:50: Hgb 6.8 L, Hct 24.5 L 11/18/22 22:55: POC Glucose 99 11/19/22 02:40: Hgb 8.0 L, Hct 28.2 L 11/19/22 04:52: POC Glucose 105 11/19/22 05:40: WBC 9.0, RBC 4.06 L, Hgb 8.9 L, Hct 31.0 L, MCV 76.4 L D, MCH 21.9 L, MCHC 28.7 L, RDW Std Deviation 54.7 H, RDW Coeff of Angel 20.0 H, Plt Count 439, MPV 9.4, Immature Gran % (Auto) 0.400, Neut % (Auto) 79.6 H, Lymph % (Auto) 11.4 L, [place] % (Auto) 6.3, Eos % (Auto) 1.7, Baso % (Auto) 0.6, Absolute Neuts (auto) 7.2, Absolute Lymphs (auto) 1.03, Nucleated RBC % 0 11/19/22 05:40: Sodium 136, Potassium 4.9, Chloride 110 H, Carbon Dioxide 17.0 L , Anion Gap 9, BUN 37 H, Creatinine 2.64 H, Estim Creat Clear Calc 21.55, Est GFR (MDRD) Af Amer 31 L, Est GFR (MDRD) Non-Af 26 L, BUN/Creatinine Ratio 14.0, Glucose 104, Calcium 8.2 L, Total Bilirubin 0.70, AST 22, ALT 11 L, Alkaline Phosphatase 59, Total Protein 7.4, Albumin 2.0 L, Globulin 5.4 H, Albumin/Globulin Ratio 0.4 L 11/19/22 05:40: Hemoglobin A1c 6.5 H Micro: Microbiology 11/18/22 15:25 Stool Stool Occult Blood (ROSALIE) - Final Occult Blood Positive Radiology Impression Chest X-Ray 11/18/22 16:53 IMPRESSION: No acute cardiopulmonary disease or major interval change. Electronically Signed: Tomás Quigley, DO at 17:39 EST Reading Location ID and State: [address] [place] [address] Tel [phone], Service support , Assessment & Plan Assessment/Plan (1) GI bleed: PLAN: The differential diagnosis for acute onset of abdominal pain with decreased hemoglobin and occasional melanotic stool would be an upper GI bleed or a GI bleed in the right side of the colon. He should undergo an upper endoscopy to evaluate his upper GI tract. If that is negative then he should get a colonoscopy has not had a colonoscopy recently. (2) Hepatitis C: PLAN: He should get work-up for chronic hepatitis C and undergo treatment. The differential diagnosis for his weight loss and fever is a associated vasculitis with his chronic hepatitis C and particularly polyarteritis nodosum. He does not have any lesions but he is at risk of other extraintestinal manifestations of chronic hepatitis C and particularly renal failure, liver failure and skin diseases. Charges/Coding Visit Charges Inpatient E&M: 09263 Init Hosp L2
[2022-11-18 23:02] VITALS: BP 111/79; PULSE 94; RESP 18; TEMP 37.2; O2SAT 97
[2022-11-18] MEDS: Ondansetron 4 MG/2 ML Vial IV (23:29)
[2022-11-18 23:36] LABS: Bedside Glucose 99 mg/dL (74-106)
[2022-11-19] VITALS (17 sets, daily range): BP systolic 93–134; BP diastolic 62–95; PULSE 71–108; RESP 16–20; TEMP 36.4–37.1; O2SAT 92–98
--- NOTE | 2022-11-19 | IMM_PTH ---
PATIENT: DARWIN MILLER LOC: MS2 U#:[id number] AGE/SX: 66/M [place] [facility] [place]18/[address]: Dr. Carlos Rocha MD : 1955 BED: 1 DIS: 11/20/2022 SPEC #: [id number] RECD: 11/22/22 14:10 STATUS: COLIN REQ #: [id number] YAIMA: 11/19/22 00:[address]: Rei Frazier DEPT: IMMUNOHISTOCHEMISTRY RECD BY: Anai Mathew ENTERED: 11/22/22 14:11 SP TYPE: IMMUNO OTHR DR: MD Dr. Carlos Hernandez MD Dr. Paul Nielsen, MD Tissues: Esophagus, NOS Procedures: P53 (initial) KI-67 (add) PHYSICIAN & INSTITUTION [place] [address] SPECIMEN INFORMATION: Tissue Source: Distal esophagus Clinical Info: Anemia Specimen Number: [id number] CPT code: 19233, 03542 METHODOLOGY: Deparaffinized sections of prefer/formalin-fixed tissue or PAP/DQ stained slides are incubated with monoclonal/polyclonal antibodies/oligonucleotide probes. Localization is made via biotin free immunoperoxidase method. Appropriate controls are performed and reacted as expected. Results on target cell population are indicated in the following table: RESULTS: ANTIBODY / CLONE RESULT P53 (DO-7) negative Ki-67 (30-9) negative These tests were developed and their performance characteristics determined by [facility]. They may not have been cleared or approved by the U.S. Food and Drug Administration. The FDA has determined that such clearance or approval is not necessary. The above immunohistochemical/dualISH markers are ordered and reviewed by the Pathologist. INTERPRETATION: Distal esophagus, biopsy: No evidence of dysplasia. AM:eddie 11/23/2022
[2022-11-19 02:58] LABS: Hematocrit 28.2 % (40-54)
[2022-11-19] MEDS: 0.9% Normal Saline 1,000 ML 100 ML IV ×2 (04:38→17:24)
[2022-11-19 05:16] LABS: Bedside Glucose 105 mg/dL (74-106)
[2022-11-19 05:57] LABS: Absolute Lymphocyte Count 1.03 X10^3/uL (0.83-4.51); Absolute Neutrophil Count 7.2 X10^3/uL (2.0-7.7); Basophil# 0.05 X10^3/uL; Basophil% 0.6 % (0-1); Eosinophil# 0.15 X10^3/uL; Eosinophils% 1.7 % (0-5); Hemoglobin 8.9 g/dL (13.0-16.5); Lymphocyte # 1.03 X10^3/ul (0.83-4.51); Lymphocyte % 11.4 % (19-41); Mean Corp Hgb Conc 28.7 g/dL (32-36); Mean Corpuscular Hgb 21.9 pg (27.0-32.0); Mean Corpuscular Volume 76.4 fL (80-94); Mean Platelet Vol. 9.4 fl (6.2-12.0); Monocyte# 0.57 X10^3/uL; Monocyte% 6.3 % (0-10); NRBC Flagged by Analyzer 0 % (0-5); Neutrophil # 7.16 X10^3/uL (2.7-7.7); Neutrophil % 79.6 % (47-70); Platelet Count 439 K/mm3 (150-450); RBC Distribution Width SD 54.7 fl (35.1-43.9); Red Blood Count 4.06 M/mm3 (4.6-6.2)
[2022-11-19 06:22] LABS: ALB/GLOB Ratio 0.4 RATIO (0.9-2.4); AST(SGOT) 22 U/L (15-37); Alanine Aminotransfer ALT/SGPT 11 U/L (16-61); Alkaline Phosphatase 59 U/L (45-117); Anion Gap 9 (5-15); BUN 37 mg/dL (7-18); Calcium,Total 8.2 mg/dL (8.5-10.1); Chloride 110 mmol/L (98-107); Creatinine, Serum 2.64 mg/dL (0.70-1.30); EST Glomerular Filtration Rate 26 mL/min (>60); Est Glom Filt Rate - Afr Amer 31 mL/min (>60); Estimated Creatinine Clearance 21.55 ml/min; Globulin 5.4 g/dL (2.2-4.2); Glucose 104 mg/dL (74-106); Potassium 4.9 mmol/L (3.5-5.1); Protein, Total 7.4 g/dL (6.4-8.2); Sodium Level 136 mmol/L (136-145)
--- NOTE | 2022-11-19 07:26 | PCM.PN.HOSP ---
Subjective Subjective Follow-up anemia Patient is a 66-year-old gentleman with history of B-cell lymphoma status post chemo sent from primary care physician's office with increasing shortness of breath with activity. Patient was found to be anemic with hemoglobin of 6.8 admitted to regular nursing floor for further management Objective Data Objective Data Vital Signs: Vital Signs Temp Pulse Resp BP Pulse Ox O2 Del Method 98 F 86 18 103/75 92 Room Air 11/19/22 04:05 11/19/22 04:05 11/19/22 04:05 11/19/22 04:05 11/19/22 04:05 11/19/22 04:05 Oxygen Delivery Method Room Air Weight: 91.8 kg Body Mass Index (BMI) 35.2 Intake & Output: Intake and Output for Last 24 Hours 11/17/22 11/18/22 11/19/22 23:59 23:59 23:59 Intake Total 110 / 110 1616.67 / 1616.67 Balance 110 / 110 1616.67 / 1616.67 Lab / Micro Data Result Diagrams: 11/19/22 05:40 11/19/22 05:40 Labs: Laboratory Results - last 24 hr 11/18/22 16:30: WBC 11.6 H, RBC 3.69 L, Hgb 7.4 L, Hct 26.4 L, MCV 71.5 L, MCH 20.1 L, MCHC 28.0 L, RDW Std Deviation 45.8 H, RDW Coeff of Angel 17.9 H, Plt Count 565 H, MPV 9.3, Immature Gran % (Auto) 0.900, Neut % (Auto) 87.2 H, Lymph % (Auto) 5.9 L, [place] % (Auto) 4.5, Eos % (Auto) 1.1, Baso % (Auto) 0.4, Absolute Neuts (auto) 10.1 H, Absolute Lymphs (auto) 0.69 L, Nucleated RBC % 0 11/18/22 16:30: PT 16.3 H, INR 1.3 11/18/22 16:30: Sodium 135 L, Potassium 4.3, Chloride 107, Carbon Dioxide 19.0 L, Anion Gap 9, BUN 38 H, Creatinine 2.86 H, Estim Creat Clear Calc 19.90, Est GFR (MDRD) Af Amer 28 L, Est GFR (MDRD) Non-Af 23 L, BUN/Creatinine Ratio 13.3, Glucose 176 H, Calcium 8.7, Total Bilirubin 0.40, AST 21, ALT 16, Alkaline Phosphatase 70, Troponin I High Sens < 3 L, Total Protein 8.6 H, Albumin 2.4 L, Globulin 6.2 H, Albumin/Globulin Ratio 0.4 L 11/18/22 16:30: Phosphorus 3.7, Magnesium 2.3 11/18/22 17:15: Blood Type O POSITIVE, Antibody Screen NEGATIVE, Crossmatch See Detail 11/18/22 21:50: Hgb 6.8 L, Hct 24.5 L 11/18/22 22:55: POC Glucose 99 11/19/22 02:40: Hgb 8.0 L, Hct 28.2 L 11/19/22 04:52: POC Glucose 105 11/19/22 05:40: WBC 9.0, RBC 4.06 L, Hgb 8.9 L, Hct 31.0 L, MCV 76.4 L D, MCH 21.9 L, MCHC 28.7 L, RDW Std Deviation 54.7 H, RDW Coeff of Angel 20.0 H, Plt Count 439, MPV 9.4, Immature Gran % (Auto) 0.400, Neut % (Auto) 79.6 H, Lymph % (Auto) 11.4 L, [place] % (Auto) 6.3, Eos % (Auto) 1.7, Baso % (Auto) 0.6, Absolute Neuts (auto) 7.2, Absolute Lymphs (auto) 1.03, Nucleated RBC % 0 11/19/22 05:40: Sodium 136, Potassium 4.9, Chloride 110 H, Carbon Dioxide 17.0 L, Anion Gap 9, BUN 37 H, Creatinine 2.64 H, Estim Creat Clear Calc 21.55, Est GFR (MDRD) Af Amer 31 L, Est GFR (MDRD) Non-Af 26 L, BUN/Creatinine Ratio 14.0, Glucose 104, Calcium 8.2 L, Total Bilirubin 0.70, AST 22, ALT 11 L, Alkaline Phosphatase 59, Total Protein 7.4, Albumin 2.0 L, Globulin 5.4 H, Albumin/Globulin Ratio 0.4 L Micro: Microbiology 11/18/22 15:25 Stool Stool Occult Blood (ROSALIE) - Final Occult Blood Positive Radiography Diagnostic Testing: Radiology Impression Chest X-Ray 11/18/22 16:53 IMPRESSION: No acute cardiopulmonary disease or major interval change. Electronically Signed: Tomás Quigley DO at 17:39 EST Reading Location ID and State: [address] [place] [address] Tel [phone], Service support , Physical Exam Narrative GENERAL: cooperative HEENT: Atraumatic; normocephalic EYES; Anicteric, Normal Conjunctiva NECK; supple, normal thyroid, RESPIRATORY: Diminished to auscultation CARDIOVASCULAR: Regular S1 S2, GI: soft, normoactive bowel sounds, : No Renal angle tenderness; EXTREMITIES: No edema, no clubbing, MUSCULOSKELETAL: no muscle wasting NEURO: Awake; no lateralizing signs. SKIN: No Rash PSYCH; Flat affect Assessment & Plan Assessment/Plan (1) GI bleed: PLAN: Plan Patient is a 66-year-old gentleman with history of B-cell lymphoma status post chemo sent from primary care physician's office with increasing shortness of breath with activity. Patient was found to be anemic with hemoglobin of 6.8 admitted to regular nursing floor for further management 1. Symptomatic anemia ? Hemoglobin on admission was 6.8. There is a suspicion of GI bleed. Patient has been admitted to regular nursing floor. Was transfused with 2 unit PRBC started on PPI and consultation placed to gastroenterology 2. Chronic kidney disease stage IV ? Patient kidney function close to baseline on IV fluid with daily BMPs ordered 3. History of B-cell lymphoma ? Status post chemo; patient has remained in remission for 6 years 4. History of frontal lobe CVA ? With history of emotional fragility. We will continue with monitoring 5. Essential hypertension ? Patient blood pressure on admission was low, patient is on losartan held 6. BPH ? Patient is on tamsulosin 0.4 mg p.o. daily did continue 7. Class II obesity with BMI of 36 ? Weight loss advised 8. History of hep C ? Patient did complete treatment has remained in remission 9. DVT prophylaxis -SCDs only given patient significant anemia Time spent in the patient's overall evaluation,decision-making process, review of diagnostic data, adjustment of management, discussion with other providers, nursing nursing and ancillary staff involved in patient's care documentation, 56 Minutes Charges/Coding Visit Charges Inpatient E&M: 62195 Subs Hosp L3
[2022-11-19 07:37] LABS: Hemoglobin A1c 6.5 % (3.8-5.6)
--- NOTE | 2022-11-19 10:12 | CASEMGMT ---
ZOHAIB CM in to pt room to complete assessment, pt is off of floor at this time.
--- NOTE | 2022-11-19 11:30 | EGD_PTH ---
PATIENT: DARWIN MILLER LOC: MS2 U#:[id number] AGE/SX: 66/M ROOM: [facility] [place] RE11/18/[address]: Dr. Carlos Rocha MD : 1955 BED: 1 DIS: 11/20/2022 SPEC #: [id number] RECD: 11/19/22 12:33 STATUS: COLIN [place] #: [id number] YAIMA: 11/19/22 11:[address]: Rei Frazier DEPT: SURGICAL PATHOLOGY RECD BY: Donna Tellez ENTERED: 11/19/22 13:07 SP TYPE: EGD BIOPSY OTHR DR: MD Dr. Carlos Hernandez MD Dr. Paul Nielsen, MD Tissues: Esophagus, NOS Procedures: Special Stain Group II Surgery Specimen Level IV Alcian Blue/PAS (control) Comments: @ Ordering doctor for SUIV edited from to @ by ROSA at 11/19/22 1450 @ Submitting doctor edited from to @ by RGOOD at 11/19/22 1457 HEADER OPERATION: EGD (MAC) PRE-OP DIAGNOSIS: Anemia TISSUE SUBMITTED: Distal esophagus biopsy MICROSCOPIC DIAGNOSIS Distal esophagus, biopsy: Gastroesophageal junctional mucosa with chronic inflammation. Goblet cell metaplasia consistent with Resendiz's esophagus. No evidence of dysplasia. See comment. AM:eddie 11/22/2022 COMMENT Alcian blue/PAS stain with matched control supports the above diagnosis. Immunohistochemistry ([id number]) for P53 and Ki-67 will be performed and results will be reported separately. MICROSCOPIC DESCRIPTION Slides are reviewed. GROSS DESCRIPTION Received in fixative is one container labeled with the patient's name and designated distal esophagus biopsy. The specimen consists of two irregular fragments of light desai soft tissue that in aggregate measure 0.8 x 0.4 x 0.1 cm. The specimen is totally submitted in one cassette. / SJ:eddie 11/19/2022 TC:3 CPT: 25463, 31065
--- NOTE | 2022-11-19 12:09 | OP.EGD_ITS ---
Patient Name: Lincoln Cedillo Procedure Date: 11/19/2022 11:45 AM Date of : 1955 Age: 66 Procedure: Upper GI endoscopy Indications: Iron deficiency anemia Providers: Rei Frazier DO Medicines: Monitored Anesthesia Care Patient Profile: This is a 66 year old male. Refer to note in patient chart for documentation of history and physical. Patient has symptoms of acute abdominal cramping and chronic heartburn. Complications: No immediate complications. Procedure: Pre-Anesthesia Assessment: - Prior to the procedure, a History and Physical was performed, and patient medications and allergies were reviewed. The risks and benefits of the procedure and the sedation options and risks were discussed with the patient. All questions were answered and informed consent was obtained. Patient identification and proposed procedure were verified by the physician in the pre-procedure area. Mental Status Examination: alert and oriented. Airway Examination: normal oropharyngeal airway and neck mobility. Respiratory Examination: clear to auscultation. CV Examination: normal. Prophylactic Antibiotics: The patient does not require prophylactic antibiotics. Prior Anticoagulants: The patient has taken no previous anticoagulant or antiplatelet agents. ASA Grade Assessment: II - A patient with mild systemic disease. After reviewing the risks and benefits, the patient was deemed in satisfactory condition to undergo the procedure. The anesthesia plan was to use monitored anesthesia care (MAC). Immediately prior to administration of medications, the patient was re-assessed for adequacy to receive sedatives. The heart rate, respiratory rate, oxygen saturations, blood pressure, adequacy of pulmonary ventilation, and response to care were monitored throughout the procedure. The physical status of the patient was re-assessed after the procedure. After obtaining informed consent, the endoscope was passed under direct vision. Throughout the procedure, the patient's blood pressure, pulse, and oxygen saturations were monitored continuously. The gastroscope was introduced through the mouth, and advanced to the second part of duodenum. The upper GI endoscopy was accomplished without difficulty. The patient tolerated the procedure well. Scope In: 11:59:30 AM Scope Out: 12:02:29 PM Total Procedure Duration Time 0 hours 2 minutes 59 seconds Findings: LA Grade A (one or more mucosal breaks less than 5 mm, not extending between tops of 2 mucosal folds) esophagitis with no bleeding was found 35 to 37 cm from the incisors. Biopsies were taken with a cold forceps for histology. Verification of patient identification for the specimen was done. Estimated blood loss was minimal. A small hiatal hernia was present. No other significant abnormalities were identified in a careful examination of the stomach. No gross lesions were noted in the second portion of the duodenum. One 5 mm sessile polyp with no bleeding and no stigmata of recent bleeding was found in the gastric body. The polyp was removed with a cold snare. Resection and retrieval were complete. Verification of patient identification for the specimen was done. Estimated blood loss was minimal. Impression: - LA Grade A reflux esophagitis. Biopsied. - Small hiatal hernia. - No gross lesions in the second portion of the duodenum. Recommendation: - Colonoscopy inpatient vs outpatient. No signs of active bleeding at this time. - Resume previous diet. - Continue present medications. - Await pathology results. Procedure Code(s): --- Professional --- 49092, Esophagogastroduodenoscopy, flexible, transoral; with removal of tumor(s), polyp(s), or other lesion(s) by snare technique 77321, 59, Esophagogastroduodenoscopy, flexible, transoral; with biopsy, single or multiple CPT copyright 2017 [employer]. All rights reserved. The codes documented in this report are preliminary and upon air intercept controller supervisor review may be revised to meet current compliance requirements. Rei Frazier DO 11/19/2022 12:09:13 PM This report has been signed electronically. Number of Addenda: 0 Note Initiated On: 11/19/2022 11:45 AM
--- NOTE | 2022-11-19 12:10 | OP.CCLET_ITS ---
11/19/2022 Bobby Salguero MD [address] [place] [address] Re : Upper GI endoscopy procedure for Lincoln Cedillo Dear Dr. Salguero This procedure was performed on Saturday, November 19, 2022. My impressions and recommendations are as follows: Impressions : - LA Grade A reflux esophagitis. Biopsied. - Small hiatal hernia. - No gross lesions in the second portion of the duodenum. Recommendations : - Colonoscopy inpatient vs outpatient. No signs of active bleeding at this time. - Resume previous diet. - Continue present medications. - Await pathology results. My findings are described in the full procedure note, which is enclosed. If I can be of further assistance, please feel free to contact me at . Sincerely, Rei Frazier, 11/19/2022 12:09:13 PM This report has been signed electronically.
--- NOTE | 2022-11-19 16:29 | CASEMGMT ---
ZOHAIB DALEY DC Planning Assessment: Face to face with patient for initial transition planning/care coordination assessment. ZOHAIB DALEY introduced self and role at [facility]. Pt voiced understanding. Pt alert, oriented x4, and agreeable to participating in assessment. Pt's at bedside. Care providers, pharmacy, and demographics verified. PCP: Augusto Specialists: denies Preferred Pharmacy: [facility] Insurance: [employer] MCR Prescription Benefit: yes Living Will/HPOA: None LNOK: Sandy Living arrangements: pt lives with his in a single story home with four steps to enter. Pt states he is independent with ADLs including household tasks and denies issues with navigating steps. Pt states he does become dyspneic with any activity and requires rest breaks when ambulating across the living room. Pt denies using any DME to assist with ambulation but states he does use a motorized scooter at the grocery store. Transportation: pt's drives, pt does not drive DME: grab bars, shower chair, hand held shower. Has but does not use: cane, walker, BSC, raised toilet seat. SNF/HHC: Pt denies any previous providers. Plan: Pt plans to return home with the support of his . Pt denies any questions or concerns at this time. Chris Rubio RN CM
[2022-11-19] MEDS: Tamsulosin HCl 0.4 MG Capsule PO (17:25)
[2022-11-19] MEDS: MELATONIN 3 MG TABLET PO (20:46)
[2022-11-19 22:01] LABS: Bedside Glucose 88 mg/dL (74-106)
[2022-11-20] MEDS: 0.9% Normal Saline 1,000 ML 100 ML IV (03:33)
[2022-11-20 03:34] VITALS: BP 110/62; PULSE 78; RESP 18; TEMP 37.1; O2SAT 92
[2022-11-20 06:17] LABS: Absolute Lymphocyte Count 0.91 X10^3/uL (0.83-4.51); Absolute Neutrophil Count 6.5 X10^3/uL (2.0-7.7); Basophil# 0.04 X10^3/uL; Basophil% 0.5 % (0-1); Eosinophil# 0.48 X10^3/uL; Eosinophils% 5.7 % (0-5); Hematocrit 28.4 % (40-54); Hemoglobin 8.4 g/dL (13.0-16.5); Lymphocyte # 0.91 X10^3/ul (0.83-4.51); Lymphocyte % 10.8 % (19-41); Mean Corp Hgb Conc 29.6 g/dL (32-36); Mean Corpuscular Hgb 22.3 pg (27.0-32.0); Mean Corpuscular Volume 75.3 fL (80-94); Mean Platelet Vol. 9.1 fl (6.2-12.0); Monocyte# 0.54 X10^3/uL; Monocyte% 6.4 % (0-10); NRBC Flagged by Analyzer 0 % (0-5); Neutrophil # 6.46 X10^3/uL (2.7-7.7); Neutrophil % 76.2 % (47-70); Platelet Count 397 K/mm3 (150-450); RBC Distribution Width CV 19.5 % (11.6-14.6); RBC Distribution Width SD 52.5 fl (35.1-43.9); Red Blood Count 3.77 M/mm3 (4.6-6.2); White Blood Count 8.5 K/mm3 (4.4-11.0)
[2022-11-20 06:46] LABS: AST(SGOT) 20 U/L (15-37); Alanine Aminotransfer ALT/SGPT 11 U/L (16-61); Albumin, Serum 1.8 g/dL (3.2-5.0); Alkaline Phosphatase 54 U/L (45-117); Anion Gap 9 (5-15); BUN 37 mg/dL (7-18); BUN/Creat Ratio 15.4 RATIO (10-20); Calcium,Total 7.8 mg/dL (8.5-10.1); Chloride 112 mmol/L (98-107); Creatinine, Serum 2.41 mg/dL (0.70-1.30); EST Glomerular Filtration Rate 29 mL/min (>60); Est Glom Filt Rate - Afr Amer 35 mL/min (>60); Estimated Creatinine Clearance 23.61 ml/min; Globulin 4.9 g/dL (2.2-4.2); Glucose 89 mg/dL (74-106); Phosphorus 3.8 mg/dL (2.5-4.9); Potassium 4.2 mmol/L (3.5-5.1); Protein, Total 6.7 g/dL (6.4-8.2); Sodium Level 139 mmol/L (136-145)
[2022-11-20 07:00] LABS: Bedside Glucose 91 mg/dL (74-106)
--- NOTE | 2022-11-20 07:42 | PN.HOSP_ITS ---
Subjective Subjective Follow-up anemia Patient underwent EGD by Dr. Frazier on 11/19/2022 findings included - LA Grade A reflux esophagitis.? Biopsied. - Small hiatal hernia. - No gross lesions in the second portion of the duodenum. Objective Data Objective Data Vital Signs: Vital Signs Temp Pulse Resp BP Pulse Ox O2 Del Method O2 Flow Rate 98.7 F 78 18 110/62 92 Room Air 2 11/20/22 03:34 11/20/22 03:34 11/20/22 03:34 11/20/22 03:34 11/20/22 03:34 11/20/22 03:35 11/19/22 12:15 Oxygen Flow Rate (L/min) 2 Oxygen Delivery Method Room Air Weight: 92.1 kg Body Mass Index (BMI) 35.2 Intake & Output: Intake and Output for Last 24 Hours 11/18/22 11/19/22 11/20/22 23:59 23:59 23:59 Intake Total 110 / 110 2726.67 / 2726.67 1000 / 1000 Balance 110 / 110 2726.67 / 2726.67 1000 / 1000 Medical Nutrition Assessment Dietitian: Malnutrition Criteria Met Start: 11/19/22 09:52 Freq: Status: Active Protocol: Document 11/19/22 09:52 [facility] (Rec: 11/19/22 09:52 [facility] [id number]) Nutrition Malnutrition Evidence of Malnutrition Exists Yes Malnutrition (severe): Acute Illness/Injury Evidenced By Suboptimal Energy Intake ( Severe),Weight Loss (Severe) Clinical Problem Acute Disease or Injury Related Malnutrition Etiology related to impaired GI function w/ pt having issues w / intermittent constipation/ diarrhea/blood in stools making it difficult for pt to consume adequate nutrition to meet est nutritional needs Signs/Symptoms as evidenced by 7.2% wt loss and po intake meeting <75% of est 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 Problem Recommendation Dietitian Recommendations/Changes As medically able, rec diet as tolerated to Transitional w/ goal of Cardiac As medically able, rec ensure plus high protein w/ medpass for increased nutrition if consumed Lab / Micro Data Result Diagrams: 11/20/22 06:02 11/20/22 06:02 Labs: Laboratory Results - last 24 hr 11/19/22 20:51: POC Glucose 88 11/20/22 03:40: POC Glucose 91 11/20/22 06:02: WBC 8.5, RBC 3.77 L, Hgb 8.4 L, Hct 28.4 L, MCV 75.3 L, MCH 22.3 L, MCHC 29.6 L, RDW Std Deviation 52.5 H, RDW Coeff of Angel 19.5 H, Plt Count 397, MPV 9.1, Immature Gran % (Auto) 0.400, Neut % (Auto) 76.2 H, Lymph % (Auto) 10.8 L, [place] % (Auto) 6.4, Eos % (Auto) 5.7 H, Baso % (Auto) 0.5, Absolute Neuts (auto) 6.5, Absolute Lymphs (auto) 0.91, Nucleated RBC % 0 11/20/22 06:02: Sodium 139, Potassium 4.2, Chloride 112 H, Carbon Dioxide 18.0 L , Anion Gap 9, BUN 37 H, Creatinine 2.41 H, Estim Creat Clear Calc 23.61, Est GFR (MDRD) Af Amer 35 L, Est GFR (MDRD) Non-Af 29 L, BUN/Creatinine Ratio 15.4, Glucose 89, Calcium 7.8 L, Phosphorus 3.8, Magnesium 2.0, Total Bilirubin 0.40, Direct Bilirubin 0.20, AST 20, ALT 11 L, Alkaline Phosphatase 54, Total Protein 6.7, Albumin 1.8 L, Globulin 4.9 H Micro: Microbiology 11/18/22 15:25 Stool Stool Occult Blood (ROSALIE) - Final Occult Blood Positive Physical Exam Narrative GENERAL: cooperative HEENT: Atraumatic; normocephalic EYES; Anicteric, Normal Conjunctiva NECK; supple, normal thyroid, RESPIRATORY: Diminished to auscultation CARDIOVASCULAR: Regular S1 S2, GI: soft, normoactive bowel sounds, : No Renal angle tenderness; EXTREMITIES: No edema, no clubbing, MUSCULOSKELETAL: no muscle wasting NEURO: Awake; no lateralizing signs. SKIN: No Rash PSYCH; Flat affect Assessment & Plan Assessment/Plan (1) GI bleed: PLAN: Plan Patient is a 66-year-old gentleman with history of B-cell lymphoma status post chemo sent from primary care physician's office with increasing shortness of breath with activity. Patient was found to be anemic with hemoglobin of 6.8 admitted to regular nursing floor for further management 1. Symptomatic anemia ? Hemoglobin on admission was 6.8. There is a suspicion of GI bleed. Patient has been admitted to regular nursing floor. Was transfused with 2 unit PRBC started on PPI and consultation placed to gastroenterology -11/20/2022 patient underwent EGD by Dr. Frazier on 11/19/2022 findings included - LA Grade A reflux esophagitis.? Biopsied. - Small hiatal hernia. - No gross lesions in the second portion of the duodenum. Patient placed on PPI. Plan is for patient to follow-up with GI as outpatient for colonoscopy 2. Chronic kidney disease stage IV ? Patient kidney function close to baseline on IV fluid with daily BMPs ordered 3. History of B-cell lymphoma ? Status post chemo; patient has remained in remission for 6 years 4. History of frontal lobe CVA ? With history of emotional fragility. We will continue with monitoring 5. Essential hypertension ? Patient blood pressure on admission was low, patient is on losartan held 6. BPH ? Patient is on tamsulosin 0.4 mg p.o. daily did continue 7. Class II obesity with BMI of 36 ? Weight loss advised 8. History of hep C ? Patient did complete treatment has remained in remission 9. DVT prophylaxis -SCDs only given patient significant anemia Time spent in the patient's overall evaluation,decision-making process, review of diagnostic data, adjustment of management, discussion with other providers, nursing nursing and ancillary staff involved in patient's care documentation, 36 Minutes Charges/Coding Visit Charges Inpatient E&M: 75451 Subs Hosp L2
--- NOTE | 2022-11-20 08:32 | PCM.PROGNOTE ---
Subjective Subjective Patient underwent an upper endoscopy yesterday for iron deficiency microcytic anemia. No etiology was seen and regarding his iron deficiency anemia and his not had a colonoscopy. Objective Data Objective Data Vital Signs: Vital Signs Temp Pulse Resp BP Pulse Ox O2 Del Method O2 Flow Rate 98.7 F 78 18 110/62 92 Room Air 2 11/20/22 03:34 11/20/22 03:34 11/20/22 03:34 11/20/22 03:34 11/20/22 03:34 11/20/22 07:54 11/19/22 12:15 Oxygen Flow Rate (L/min) 2 Oxygen Delivery Method Room Air Weight: 203 lb 0.732 oz Body Mass Index (BMI) 35.2 Intake & Output: Intake and Output for Last 24 Hours 11/18/22 11/19/22 11/20/22 23:59 23:59 23:59 Intake Total 110 / 110 2726.67 / 2726.67 1000 / 1000 Balance 110 / 110 2726.67 / 2726.67 1000 / 1000 Medical Nutrition Assessment Dietitian: Malnutrition Criteria Met Start: 11/19/22 09:52 Freq: Status: Active Protocol: Document 11/19/22 09:52 [facility] (Rec: 11/19/22 09:52 [facility] [id number]) Nutrition Malnutrition Evidence of Malnutrition Exists Yes Malnutrition (severe): Acute Illness/Injury Evidenced By Suboptimal Energy Intake ( Severe),Weight Loss (Severe) Clinical Problem Acute Disease or Injury Related Malnutrition Etiology related to impaired GI function w/ pt having issues w / intermittent constipation/ diarrhea/blood in stools making it difficult for pt to consume adequate nutrition to meet est nutritional needs Signs/Symptoms as evidenced by 7.2% wt loss and po intake meeting <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 Recommendation Dietitian Recommendations/Changes As medically able, rec diet as tolerated to Transitional w/ goal of Cardiac As medically able, rec ensure plus high protein w/ medpass for increased nutrition if consumed Lab / Micro Data Result Diagrams: 11/20/22 06:02 11/20/22 06:02 Labs: Laboratory Results - last 24 hr 11/19/22 20:51: POC Glucose 88 11/20/22 03:40: POC Glucose 91 11/20/22 06:02: WBC 8.5, RBC 3.77 L, Hgb 8.4 L, Hct 28.4 L, MCV 75.3 L, MCH 22.3 L, MCHC 29.6 L, RDW Std Deviation 52.5 H, RDW Coeff of Angel 19.5 H, Plt Count 397, MPV 9.1, Immature Gran % (Auto) 0.400, Neut % (Auto) 76.2 H, Lymph % (Auto) 10.8 L, [place] % (Auto) 6.4, Eos % (Auto) 5.7 H, Baso % (Auto) 0.5, Absolute Neuts (auto) 6.5, Absolute Lymphs (auto) 0.91, Nucleated RBC % 0 11/20/22 06:02: Sodium 139, Potassium 4.2, Chloride 112 H, Carbon Dioxide 18.0 L, Anion Gap 9, BUN 37 H, Creatinine 2.41 H, Estim Creat Clear Calc 23.61, Est GFR (MDRD) Af Amer 35 L, Est GFR (MDRD) Non-Af 29 L, BUN/Creatinine Ratio 15.4, Glucose 89, Calcium 7.8 L, Phosphorus 3.8, Magnesium 2.0, Total Bilirubin 0.40, Direct Bilirubin 0.20, AST 20, ALT 11 L, Alkaline Phosphatase 54, Total Protein 6.7, Albumin 1.8 L, Globulin 4.9 H Micro: Microbiology 11/18/22 15:25 Stool Stool Occult Blood (ROSALIE) - Final Occult Blood Positive Physical Exam Narrative GENERAL: cooperative HEENT: Atraumatic; normocephalic EYES; Anicteric, Normal Conjunctiva NECK; supple, normal thyroid, RESPIRATORY: Diminished to auscultation CARDIOVASCULAR: Regular S1 S2, GI: soft, normoactive bowel sounds, : No Renal angle tenderness; EXTREMITIES: No edema, no clubbing, MUSCULOSKELETAL: no muscle wasting NEURO: Awake; no lateralizing signs. SKIN: No Rash PSYCH; Flat affect Assessment & Plan Assessment/Plan (1) GI bleed: PLAN: He should have a colonoscopy for evaluation of his lower GI tract and possible capsule endoscopy to look for the etiology of his iron deficiency anemia. (2) Hepatitis C: PLAN: Genotyping with hepatitis C PCR RNA quantitative load and treatment as an outpatient Charges/Coding Visit Charges Inpatient E&M: 91101 Subs Hosp L2
[2022-11-20 09:35] VITALS: BP 132/86; PULSE 86; RESP 16; TEMP 36.8; O2SAT 95
--- NOTE | 2022-11-20 11:47 | PCM.DC.SUM ---
Providers Date of Admission: 11/18/22 Date of Discharge: 11/20/22 Primary Care Physician: Dr. Bobby Salguero MD Consultations 11/18/22 19:26 Consult: Gastroenterology Routine Consulting Provider: Maria T Gastroenterology Reason for Consult: Acute blood loss anemia, GI bleed EMERGENT Consult: No MD Notified: Yes Date Notified: 11/18/22 Time Notified: 19:02 Method of Notification: Text Reason For Visit: GI BLEED Diagnosis Discharge Diagnosis (1) GI bleed: Status: Acute Code(s): K92.2 - Gastrointestinal hemorrhage, unspecified Plan Patient is a 66-year-old gentleman with history of B-cell lymphoma status post chemo sent from primary care physician's office with increasing shortness of breath with activity. Patient was found to be anemic with hemoglobin of 6.8 admitted to regular nursing floor for further management 1. Symptomatic anemia ? Hemoglobin on admission was 6.8. There is a suspicion of GI bleed. Patient has been admitted to regular nursing floor. Was transfused with 2 unit PRBC started on PPI and consultation placed to gastroenterology -11/20/2022 patient underwent EGD by Dr. Frazier on 11/19/2022 findings included - LA Grade A reflux esophagitis.? Biopsied. - Small hiatal hernia. - No gross lesions in the second portion of the duodenum. Patient placed on PPI. Plan is for patient to follow-up with GI as outpatient for colonoscopy 2. Chronic kidney disease stage IV ? Patient kidney function close to baseline on IV fluid with daily BMPs ordered 3. History of B-cell lymphoma ? Status post chemo; patient has remained in remission for 6 years 4. History of frontal lobe CVA ? With history of emotional fragility. We will continue with monitoring 5. Essential hypertension ? Patient blood pressure on admission was low, patient is on losartan held 6. BPH ? Patient is on tamsulosin 0.4 mg p.o. daily did continue 7. Class II obesity with BMI of 36 ? Weight loss advised 8. History of hep C ? Patient did complete treatment has remained in remission 9. DVT prophylaxis -SCDs only given patient significant anemia Time spent in the patient's overall evaluation,decision-making process, review of diagnostic data, adjustment of management, discussion with other providers, nursing nursing and ancillary staff involved in patient's care documentation, 36 Minutes Medications at Discharge Home Medications Acid Relief 1 ea PO/SL DAILY GERD 11/18/22 losartan 25 mg tablet 25 mg PO QHS BP 11/18/22 tamsulosin 0.4 mg capsule 0.4 mg PO DAILY PROSTATE 11/18/22 pantoprazole 40 mg tablet,delayed release 40 mg PO BID #120 tabs 11/20/22 Hospital Course Summary of Care Provided Minutes Spent on Discharge: 36 Physical Exam Narrative GENERAL: cooperative HEENT: Atraumatic; normocephalic EYES; Anicteric, Normal Conjunctiva NECK; supple, normal thyroid, RESPIRATORY: Diminished to auscultation CARDIOVASCULAR: Regular S1 S2, GI: soft, normoactive bowel sounds, : No Renal angle tenderness; EXTREMITIES: No edema, no clubbing, MUSCULOSKELETAL: no muscle wasting NEURO: Awake; no lateralizing signs. SKIN: No Rash PSYCH; Flat affect Medical Records Data Medical Nutrition Assessment Dietitian: Malnutrition Criteria Met Start: 11/19/22 09:52 Freq: Status: Active Protocol: Document 11/19/22 09:52 [facility] (Rec: 11/19/22 09:52 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 Dietitian Recommendations/Changes As medically able, rec diet as tolerated to Transitional w/ goal of Cardiac As medically able, rec ensure plus high protein w/ medpass for increased nutrition if consumed Weight / BMI Weight Weight: 92.1 kg Body Mass Index (BMI) 35.2 ABG / Lab / Microbiology Data Result Diagrams: 11/20/22 06:02 11/20/22 06:02 Laboratory: Laboratory Results - last 24 hr 11/19/22 20:51: POC Glucose 88 11/20/22 03:40: POC Glucose 91 11/20/22 06:02: WBC 8.5, RBC 3.77 L, Hgb 8.4 L, Hct 28.4 L, MCV 75.3 L, MCH 22.3 L, MCHC 29.6 L, RDW Std Deviation 52.5 H, RDW Coeff of Angel 19.5 H, Plt Count 397, MPV 9.1, Immature Gran % (Auto) 0.400, Neut % (Auto) 76.2 H, Lymph % (Auto) 10.8 L, [place] % (Auto) 6.4, Eos % (Auto) 5.7 H, Baso % (Auto) 0.5, Absolute Neuts (auto) 6.5, Absolute Lymphs (auto) 0.91, Nucleated RBC % 0 11/20/22 06:02: Sodium 139, Potassium 4.2, Chloride 112 H, Carbon Dioxide 18.0 L, Anion Gap 9, BUN 37 H, Creatinine 2.41 H, Estim Creat Clear Calc 23.61, Est GFR (MDRD) Af Amer 35 L, Est GFR (MDRD) Non-Af 29 L, BUN/Creatinine Ratio 15.4, Glucose 89, Calcium 7.8 L, Phosphorus 3.8, Magnesium 2.0, Total Bilirubin 0.40, Direct Bilirubin 0.20, AST 20, ALT 11 L, Alkaline Phosphatase 54, Total Protein 6.7, Albumin 1.8 L, Globulin 4.9 H Microbiology: Microbiology 11/18/22 15:25 Stool Stool Occult Blood (ROSALIE) - Final Occult Blood Positive D/C Instructions Discharge Diet: No restrictions Discharge Activity: Return to Normal Activity Call your doctor if you observe: Fever of 101 or Higher, Shortness of breath, Fainting spells and Chest pain Meaningful Use Info Meaningful Use Diagnoses (Choose all that apply): None applicable Discharge Plan Admission Admit Date/Time: 11/18/22 17:32 Attending Provider: Carlos Rocha Primary Care Provider: Bobby Salguero Consulting Providers: Melodie Baker Discharge Orders/Prescriptions Prescriptions: New pantoprazole 40 mg tablet,delayed release (DR/EC) 40 mg PO BID Qty: 120 0RF Continued tamsulosin 0.4 mg capsule 0.4 mg PO DAILY Label Comments: TAKE 1 CAPSULE BY MOUTH EVERY DAY losartan 25 mg tablet 25 mg PO QHS Label Comments: TAKE 1 TABLET BY MOUTH EVERY DAY Acid Relief 1 ea PO/SL DAILY Discontinued ibuprofen [Motrin IB] 200 mg Tablet 800 mg PO Q6H PRN (Reason: Fever) Referrals / Follow Up: Bobby Salguero MD [Primary Care Provider] - In 1 Week FriendRei DO [Med Staff - Active Staff] - Within 2 Weeks (For outpatient colonoscopy) Disposition Disposition (needs filled in before D/C Order can be placed): Home, Self Care Charges/Coding Visit Charges Inpatient E&M: 16594 Disch Hosp >30min
[2022-11-20 15:30] VITALS: BP 128/76; PULSE 95; RESP 18; TEMP 36.6; O2SAT 95
[2022-11-20] MEDS: Loperamide 2 MG Capsule 4 MG PO (16:19)
== END 2022-11-20 16:20 | disposition home or self-care (01) | DRG 378 ==
LOC: ED 17:31 → MS2 11-19 06:49
PROVIDERS: Internal Medicine Gastroenterology; Admitting Provider Family Medicine; Emergency Provider Emergency Medicine; PCP Family Medicine; Visit Provider Internal Medicine
PROC: 0DJ08ZZ Inspection of Upper Intestinal Tract, Via Natural or Artificial Opening Endoscopic (ICD-10-PCS; CPT 43235; principal; 2022-11-19 11:25)
DX: K92.2 Gastrointestinal hemorrhage, unspecified (principal); N18.4 Chronic kidney disease, stage 4 (severe); D62 Acute posthemorrhagic anemia; E87.1 Hypo-osmolality and hyponatremia; K21.00 Gastro-esophageal reflux disease with esophagitis, without bleeding; I12.9 Hypertensive chronic kidney disease with stage 1 through stage 4 chronic kidney disease, or unspecified chronic kidney disease; K44.9 Diaphragmatic hernia without obstruction or gangrene; K31.7 Polyp of stomach and duodenum; R63.4 Abnormal weight loss; R73.9 Hyperglycemia, unspecified; N40.0 Benign prostatic hyperplasia without lower urinary tract symptoms; E66.9 Obesity, unspecified; Z68.34 Body mass index [BMI] 34.0-34.9, adult; Z79.899 Other long term (current) drug therapy; Z85.72 Personal history of non-Hodgkin lymphomas; Z92.21 Personal history of antineoplastic chemotherapy; Z87.891 Personal history of nicotine dependence; Z86.19 Personal history of other infectious and parasitic diseases; Z86.73 Personal history of transient ischemic attack (TIA), and cerebral infarction without residual deficits
CPT/HCPCS: 43239; 43251; 49082; 36415; 36430; 71045; 80048; 80053; 80076; 82274; 82962; 83036; 83735; 84100; 84484; 85014; 85018; 85025; 85610; 86850; 86900; 86901; 86920; 86922; 88305; 88313; 88341; 88342; 93005; 96361; 96365; 96366; 96375; 97802; 99221; 99252; 99283; J7030; P9016; A4216; G0378; G0463; J2405

== ENCOUNTER → 2022-11-26 | Outpatient (CLI) | payer MEDICARE, SELFPAY ==
[2022-11-26 15:22] LABS: Absolute Lymphocyte Count 0.74 X10^3/uL (0.83-4.51); Absolute Neutrophil Count 10.1 X10^3/uL (2.0-7.7); Basophil# 0.07 X10^3/uL; Basophil% 0.6 % (0-1); Eosinophil# 0.21 X10^3/uL; Eosinophils% 1.8 % (0-5); Hematocrit 35.5 % (40-54); Hemoglobin 10.3 g/dL (13.0-16.5); Lymphocyte # 0.74 X10^3/ul (0.83-4.51); Lymphocyte % 6.3 % (19-41); Mean Corpuscular Hgb 22.3 pg (27.0-32.0); Mean Corpuscular Volume 76.8 fL (80-94); Mean Platelet Vol. 9.9 fl (6.2-12.0); Monocyte# 0.54 X10^3/uL; Monocyte% 4.6 % (0-10); NRBC Flagged by Analyzer 0 % (0-5); Neutrophil # 10.13 X10^3/uL (2.7-7.7); POSITIVE MORPHOLOGY YES; Platelet Count 586 K/mm3 (150-450); RBC Distribution Width CV 21.4 % (11.6-14.6); RBC Distribution Width SD 58.4 fl (35.1-43.9); Red Blood Count 4.62 M/mm3 (4.6-6.2); White Blood Count 11.8 K/mm3 (4.4-11.0)
[2022-11-26 15:48] LABS: Differential Indicated SCAN CRITERIA MET
[2022-11-26 16:17] LABS: Anisocytosis 2+; Differential Comment SCANNED; Hypochromasia 1+; Macrocytosis 1+; Microcytosis 1+; Poikilocytosis 1+
== END | disposition home or self-care (01) ==
LOC: MFPLAB 14:32
PROVIDERS: PCP Family Medicine; Referring Provider Family Medicine; Visit Provider Family Medicine
DX: K92.2 Gastrointestinal hemorrhage, unspecified (principal)
CPT/HCPCS: 36415; 85025

== ENCOUNTER 2022-11-29 11:58 | Inpatient (IN) | payer MEDICARE, SELFPAY ==
[2022-11-29 12:00] VITALS: BP 88/71; PULSE 105; RESP 17; TEMP 35.8; O2SAT 99; BMI 36.6
--- NOTE | 2022-11-29 12:34 | EKG12_ITS ---
Test Reason : Blood Pressure : / mmHG Vent. Rate : 099 BPM Atrial Rate : 099 BPM P-R Int : 154 ms QRS Dur : 090 ms QT Int : 350 ms P-R-T Axes : 030 -37 047 degrees QTc Int : 449 ms Normal sinus rhythm Left axis deviation Low voltage QRS Poor R wave progression Abnormal ECG Confirmed by IAM CHERRY, DARIO ([id number]), editor department BARBARA VIEIRA ([id number]) on 12/01/2022 8:56:56 AM Referred By: MARIELENA Confirmed By:DARIO VITALE MD
--- NOTE | 2022-11-29 12:34 | ED.VIS.DYS ---
HPI <Dr. Star Titus MD - Last Filed: 11/30/22 16:50> History of Present Illness Chief Complaint: Shortness of Breath Informant: patient, spouse/S.O. and PCP Onset/Context/Timing Onset: Weeks (1-2) Context: gradual Timing: Continuous Quality: Positive for Dyspnea on exertion Current Severity: Severe Maximum Severity: Severe Worsened by: Exertion Relieved by: Rest Associated Symptoms Chest Pain: Positive for Intermittent (Substernal heaviness with exertion, resolves with rest) Narrative Narrative: Patient recently admitted for occult GI bleeding, had EGD inpatient, transfused with 2 units of packed red blood cells according to the hospitalist discharge summary that are reviewed independently. He was seen as an outpatient, his hemoglobin went from 7.4 up to 10.3 which was measured last 3 days ago. He was seen as a follow-up today in the office, his PCP was concerned because he looked poorly, his abdomen is very distended which the patient states has been the case but it is worse, he has not had imaging of that except for the scope, he has a history of B-cell lymphoma that apparently has been in remission for 6 years, and with this persistent distention and nausea and difficulty eating, he was sent in for further evaluation out of concern for something else going on. Patient states he still has chest pain and dyspnea with exertion. He denies any syncope. His dyspnea improves with rest but does not resolve, his chest pain does resolve with rest. He was started on a PPI, he has been on before or after the occult GI bleeding. He has seen no melena or bright red blood per rectum recently. No vomiting. He states his abdomen feels tight but denies any abdominal pains otherwise. He feels weak and denies any fevers recently since he was last seen. Additionally, for the past month or so since the patient had his EGD, he has had pain in the back of his throat with swallowing that has persisted. His PCP told him that his uvula was swollen and inflamed. [facility] <Dr. Star Titus MD - Last Filed: 11/30/22 16:50> [facility] Medical History BPH (benign prostatic hyperplasia) GERD (gastroesophageal reflux disease) History of B-cell lymphoma HTN (hypertension) Stroke Home Medications Acid Relief 1 ea PO/SL DAILY GERD 11/18/22 [History Last Taken 11/17/22] losartan 25 mg tablet 25 mg PO QHS BP 11/18/22 [History Last Taken 11/17/22] tamsulosin 0.4 mg capsule 0.4 mg PO DAILY PROSTATE 11/18/22 [History Last Taken 11/17/22] pantoprazole 40 mg tablet,delayed release 40 mg PO BID #120 tabs 11/20/22 [Rx Last Taken Unknown] Allergy/AdvReac Type Severity Reaction Status Date / Time RAPID ACTING ANTIHYPERTENSIVE AdvReac Other Uncoded 11/29/22 11:59 Family History (Updated 11/18/22 @ 19:[address] Melodie Baker MD) Father COPD (chronic obstructive pulmonary disease) Lung cancer Mother COPD (chronic obstructive pulmonary disease) Surgical History S/P bilateral inguinal hernia repair S/P tonsillectomy Social History household members: spouse Smoking Status: Former smoker how long ago did patient quit smoking: Quit ~ 30 years prior, smoked 1.5 ppd since teen until quit. alcohol intake: current alcohol intake frequency: holidays/special occasions only substance use type: does not use ROS <Dr. Star Titus MD - Last Filed: 11/30/22 16:50> ROS ED Constitutional Constitutional ED: Reports malaise and weakness; Denies chills or fever(s) Eyes Eyes: Denies change in vision or diplopia ENT ENT ED: Denies rhinorrhea or sore throat Cardiovascular Cardiovascular: Reports chest pain; Denies leg edema or palpitations Respiratory/Chest Respiratory/Chest: Reports dyspnea and dyspnea on exertion; Denies cough Gastrointestinal Gastrointestinal: Reports as per HPI, abdominal pain and nausea; Denies diarrhea, melena or vomiting Genitourinary Genitourinary ED: Denies dysuria or hematuria Musculoskeletal Musculoskeletal: Denies back pain or neck pain Integumentary Denies abscess or rash Neurologic Neurologic: Denies headache(s), paresthesias or weakness Psychiatric Psychiatric: Denies anxiety or suicidal thoughts EXAM <Dr. Star Titus MD - Last Filed: 11/30/22 16:50> Physical Exam Const Vital Signs: 11/29/22 16:53 11/29/22 17:30 Temperature 97.7 F L Temperature Source Oral Pulse Rate 99 Respiratory Rate 18 Respiratory Effort Normal Non-Labored Respiratory Depth Normal Respiratory Pattern Normal Blood Pressure 111/69 Blood Pressure Mean 82 Blood Pressure Source Monitor Blood Pressure Position Semi-Fowlers Blood Pressure Location Left Arm Pulse Ox 98 Oxygen Delivery Method Room Air Room Air Positive well nourished and well developed General Appearance ED: well developed and NAD HEENT Reports moist mucous membranes HEENT Narrative: Uvula mildly swollen mildly erythematous, no stridor, no trismus. normocephalic and atraumatic Eyes PERRL and EOMs intact bilaterally Neck full ROM, no lymphadenopathy, supple and no JVD Resp normal respiratory effort and clear to auscultation bilaterally Cardio regular rate, regular rhythm and no murmurs Rate: tachycardic GI GI Narrative: Hypoactive bowel sounds are present, abdomen grossly distended and taut. Nontender throughout. No palpable hernias. Auscultation: hypoactive bowel sounds Palpation: soft Back/Spine no CVA tenderness General Back: other FROM Extremity normal to inspection General Extremety ED: Negative for edema, pulses abnormal or tenderness General Extremity: Negative for edema or pulses abnormal Neuro oriented x3, CN's II-XII intact bilaterally and no sensory deficits noted Sensorium / Orientation: awake and alert Motor Exam: strength 5/5 throughout Skin no rashes or lesions noted and no wounds <Mauricio Amaya MD - Last Filed: 11/29/22 17:21> Physical Exam Const Vital Signs: 11/29/22 16:53 11/29/22 17:30 Temperature 97.7 F L Temperature Source Oral Pulse Rate 99 Respiratory Rate 18 Respiratory Effort Normal Non-Labored Respiratory Depth Normal Respiratory Pattern Normal Blood Pressure 111/69 Blood Pressure Mean 82 Blood Pressure Source Monitor Blood Pressure Position Semi-Fowlers Blood Pressure Location Left Arm Pulse Ox 98 Oxygen Delivery Method Room Air Room Air MDM <Dr. Star Titus MD - Last Filed: 11/30/22 16:50> [facility] MDM Narrative Medical decision making narrative: Concerned because patient has dyspnea and abdominal distention, the latter may be causing the former. He has not had any imaging of his chest and abdomen/pelvis except for a chest x-ray, which are repeated since it was unremarkable 1 or 2 weeks ago, it is not majorly different on my interpretation of the 1 view, but may show atelectasis versus infiltrate in the bases of which radiology is in agreement with. He does not have symptoms of pneumonia. His abdomen is very distended. Prior to advanced imaging, I obtained a D-dimer in addition to the rest of the work-up. His BNP is well within normal limits, however his D-dimer significantly elevated and his renal function is unexpectedly significantly worsening to the point where his EGFR is only 13. Therefore, I do not think it would be safe for his kidneys to inject contrast for CTA and IV contrast a CT of the abdomen/pelvis. Therefore these were canceled and I obtained a noncontrast CT of the abdomen/pelvis in addition to a VQ scan to evaluate for pulmonary embolus in this patient who was relatively low risk prior to getting the abnormal D-dimer. He was not anticoagulated prior to having the GI bleeding issues, nor is he now. His hemoglobin appears stable, 9.9 today. His troponin and EKG show no acute signs of myocardial infarction. Imaging is pending at this time, delayed due to other patients emergently bumping him from the CT scanner; plan is for admission. With regards to the patient's swollen/inflamed uvula I believe this is probably mechanical and there is nothing indicated for that right now except for symptomatic treatment and time. Since he recently had occult GI bleeding, I am not treated him empirically with anticoagulants until we see whether or not he truly has pulmonary embolus. Of note he was mildly hypotensive when he first was evaluated 88/71, he was given IV fluids 500 cc, and on reevaluation he is breathing well at rest, 132/81, 98% on room air, and his heart rate is decreased to around 100. Given this stability, I think it is safe for him to wait for the above testing prior to admission. Lab Data Attestation: I reviewed the patient's lab results. Labs: Laboratory Results - last 24 hr 11/29/22 11/29/22 11/29/22 12:40 12:40 12:40 WBC 11.3 H RBC 4.52 L Hgb 9.9 L Hct 34.5 L MCV 76.3 L MCH 21.9 L MCHC 28.7 L RDW Std Deviation 58.8 H RDW Coeff of Angel 21.5 H Plt Count 705 H MPV 9.2 Immature Gran % (Auto) 0.800 Neut % (Auto) 88.9 H Lymph % (Auto) 4.9 L Fayette % (Auto) 4.3 Eos % (Auto) 0.6 Baso % (Auto) 0.5 Absolute Neuts (auto) 10.1 H Absolute Lymphs (auto) 0.56 L Nucleated RBC % 0 Differential Comment Anisocytosis 2+ D-Dimer Quant (PE/DVT) Sodium 134 L Potassium 4.8 Chloride 110 H Carbon Dioxide 14.0 L Anion Gap 10 BUN 49 H Creatinine 4.90 H Estim Creat Clear Calc 11.61 Est GFR (MDRD) Af Amer 15 L Est GFR (MDRD) Non-Af 13 L BUN/Creatinine Ratio 10.0 Glucose 154 H Calcium 8.4 L Total Bilirubin 0.30 AST 42 H ALT 11 L Alkaline Phosphatase 64 Troponin I High Sens < 3 L B-Natriuretic Peptide 16.5 Total Protein 8.3 H Albumin 2.1 L Globulin 6.2 H Albumin/Globulin Ratio 0.3 L Lipase 130 Urine Color Urine Clarity Urine pH Ur Specific Marshall Urine Protein Urine Glucose (UA) Urine Ketones Urine Occult Blood Urine Nitrite Urine Bilirubin Urine Urobilinogen Ur Leukocyte Esterase Urine RBC Urine WBC Ur Squamous Epith Cells Amorphous Sediment Urine Bacteria Coarse Granular Casts Urine Mucus 11/29/22 11/29/22 12:50 14:10 WBC RBC Hgb Hct MCV MCH MCHC RDW Std Deviation RDW Coeff of Angel Plt Count MPV Immature Gran % (Auto) Neut % (Auto) Lymph % (Auto) Fayette % (Auto) Eos % (Auto) Baso % (Auto) Absolute Neuts (auto) Absolute Lymphs (auto) Nucleated RBC % Differential Comment Anisocytosis D-Dimer Quant (PE/DVT) > 20.00 H* Sodium Potassium Chloride Carbon Dioxide Anion Gap BUN Creatinine Estim Creat Clear Calc Est GFR (MDRD) Af Amer Est GFR (MDRD) Non-Af BUN/Creatinine Ratio Glucose Calcium Total Bilirubin AST ALT Alkaline Phosphatase Troponin I High Sens B-Natriuretic Peptide Total Protein Albumin Globulin Albumin/Globulin Ratio Lipase Urine Color Shabnam Urine Clarity Sl. Cloudy Urine pH 5.0 Ur Specific Marshall 1.025 Urine Protein 30 H Urine Glucose (UA) Normal Urine Ketones Negative Urine Occult Blood 25 H Urine Nitrite Negative Urine Bilirubin Negative Urine Urobilinogen Normal Ur Leukocyte Esterase 25 H Urine RBC 0 SEEN Urine WBC 0-5 SEEN Ur Squamous Epith Cells 0 SEEN Amorphous Sediment 2+ Urine Bacteria 0 SEEN Coarse Granular Casts 0-5 SEEN Urine Mucus 0 SEEN Radiography Diagnostic Testing: Clinical Impression(s) from Imaging Studies Chest X-Ray 11/29/22 13:03 IMPRESSION: Elevation of the right hemidiaphragm with increased markings at the lung bases more prominent at the left lung base suggestive of either bibasilar atelectasis and/or early infiltrates. Electronically Signed: John Paul Kahn MD at 13:19 EST , Abdomen/Pelvis CT 11/29/22 14:38 IMPRESSION: 1. Thick-walled ascending colon suspicious for malignancy versus infectious or inflammatory colitis. 2. Retroperitoneal adenopathy concerning for metastatic disease. Right lower quadrant adenopathy is nonspecific and may be due to malignancy versus infectious or inflammatory colon etiology. 3. Ascites. 4. Right renal hypodensities not characterized without contrast. Follow-up is not indicated per ACR guidelines. Electronically Signed: Sandrita Maya MD at 16:54 EST Reading Location ID and State: [place] / Tel , Service support , ADDENDUM: 11/29/22 1735 IMPRESSION: 1. Thick-walled ascending colon suspicious for malignancy versus infectious or inflammatory colitis. 2. Retroperitoneal adenopathy concerning for metastatic disease. Right lower quadrant adenopathy is nonspecific and may be due to malignancy versus infectious or inflammatory colon etiology. 3. Ascites. 4. Right renal hypodensities not characterized without contrast. Follow-up is not indicated per ACR guidelines. N.B. : Matthew Martínez RN, confirmed on 11/29/2022 17:28:11 (ET) that the healthcare facility has received the radiology report. Electronically Signed: Sandrita Maya MD at 16:54 EST Reading Location ID and State: [place] / Tel , Service support , Lung Scan-VQ NM 11/29/22 14:43 IMPRESSION: 1. NORMAL 99m Tc MAA pulmonary perfusion imaging examination, according to PIOPED II interpretive criteria. (Sotsnico et al, Radiology 246: 941, 2008 Solloyd et al, J Nucl Med 49: 1741, 2008). 2. Central clumping of the aerosol may be secondary to obstructive airway mechanics and or clinical tachypnea. Electronically Signed: Kumar Mccain, at 16:02 EST , Rhythm Strip Rhythm Strip: Sinus Tach Rate: 114 Ectopy: None EKG Initial EKG: Attestation: I personally reviewed and interpreted this EKG as follows: Interpretation: Sinus Rhythm, No Acute Injury Pattern and LAFB Prior EKG tracings: available for review Prior: Unchanged <Mauricio Amaya MD - Last Filed: 11/29/22 17:21> [facility] Lab Data Labs: Laboratory Results - last 24 hr 11/29/22 11/29/22 11/29/22 12:40 12:40 12:40 WBC 11.3 H RBC 4.52 L Hgb 9.9 L Hct 34.5 L MCV 76.3 L MCH 21.9 L MCHC 28.7 L RDW Std Deviation 58.8 H RDW Coeff of Angel 21.5 H Plt Count 705 H MPV 9.2 Immature Gran % (Auto) 0.800 Neut % (Auto) 88.9 H Lymph % (Auto) 4.9 L Fayette % (Auto) 4.3 Eos % (Auto) 0.6 Baso % (Auto) 0.5 Absolute Neuts (auto) 10.1 H Absolute Lymphs (auto) 0.56 L Nucleated RBC % 0 Differential Comment Anisocytosis 2+ D-Dimer Quant (PE/DVT) Sodium 134 L Potassium 4.8 Chloride 110 H Carbon Dioxide 14.0 L Anion Gap 10 BUN 49 H Creatinine 4.90 H Estim Creat Clear Calc 11.61 Est GFR (MDRD) Af Amer 15 L Est GFR (MDRD) Non-Af 13 L BUN/Creatinine Ratio 10.0 Glucose 154 H Calcium 8.4 L Total Bilirubin 0.30 AST 42 H ALT 11 L Alkaline Phosphatase 64 Troponin I High Sens < 3 L B-Natriuretic Peptide 16.5 Total Protein 8.3 H Albumin 2.1 L Globulin 6.2 H Albumin/Globulin Ratio 0.3 L Lipase 130 Urine Color Urine Clarity Urine pH Ur Specific Marshall Urine Protein Urine Glucose (UA) Urine Ketones Urine Occult Blood Urine Nitrite Urine Bilirubin Urine Urobilinogen Ur Leukocyte Esterase Urine RBC Urine WBC Ur Squamous Epith Cells Amorphous Sediment Urine Bacteria Coarse Granular Casts Urine Mucus 11/29/22 11/29/22 12:50 14:10 WBC RBC Hgb Hct MCV MCH MCHC RDW Std Deviation RDW Coeff of Angel Plt Count MPV Immature Gran % (Auto) Neut % (Auto) Lymph % (Auto) Fayette % (Auto) Eos % (Auto) Baso % (Auto) Absolute Neuts (auto) Absolute Lymphs (auto) Nucleated RBC % Differential Comment Anisocytosis D-Dimer Quant (PE/DVT) > 20.00 H* Sodium Potassium Chloride Carbon Dioxide Anion Gap BUN Creatinine Estim Creat Clear Calc Est GFR (MDRD) Af Amer Est GFR (MDRD) Non-Af BUN/Creatinine Ratio Glucose Calcium Total Bilirubin AST ALT Alkaline Phosphatase Troponin I High Sens B-Natriuretic Peptide Total Protein Albumin Globulin Albumin/Globulin Ratio Lipase Urine Color Shabnam Urine Clarity Sl. Cloudy Urine pH 5.0 Ur Specific Marshall 1.025 Urine Protein 30 H Urine Glucose (UA) Normal Urine Ketones Negative Urine Occult Blood 25 H Urine Nitrite Negative Urine Bilirubin Negative Urine Urobilinogen Normal Ur Leukocyte Esterase 25 H Urine RBC 0 SEEN Urine WBC 0-5 SEEN Ur Squamous Epith Cells 0 SEEN Amorphous Sediment 2+ Urine Bacteria 0 SEEN Coarse Granular Casts 0-5 SEEN Urine Mucus 0 SEEN Radiography Diagnostic Testing: Clinical Impression(s) from Imaging Studies Chest X-Ray 11/29/22 13:03 IMPRESSION: Elevation of the right hemidiaphragm with increased markings at the lung bases more prominent at the left lung base suggestive of either bibasilar atelectasis and/or early infiltrates. Electronically Signed: John Paul Kahn MD at 13:19 EST , Abdomen/Pelvis CT 11/29/22 14:38 IMPRESSION: 1. Thick-walled ascending colon suspicious for malignancy versus infectious or inflammatory colitis. 2. Retroperitoneal adenopathy concerning for metastatic disease. Right lower quadrant adenopathy is nonspecific and may be due to malignancy versus infectious or inflammatory colon etiology. 3. Ascites. 4. Right renal hypodensities not characterized without contrast. Follow-up is not indicated per ACR guidelines. Electronically Signed: Sandrita Maya MD at 16:54 EST Reading Location ID and State: [id number] / Tel , Service support , ADDENDUM: 11/29/22 1735 IMPRESSION: 1. Thick-walled ascending colon suspicious for malignancy versus infectious or inflammatory colitis. 2. Retroperitoneal adenopathy concerning for metastatic disease. Right lower quadrant adenopathy is nonspecific and may be due to malignancy versus infectious or inflammatory colon etiology. 3. Ascites. 4. Right renal hypodensities not characterized without contrast. Follow-up is not indicated per ACR guidelines. N.B. : Matthew Martínez RN, confirmed on 11/29/2022 17:28:11 (ET) that the healthcare facility has received the radiology report. Electronically Signed: Sandrita Maya MD at 16:54 EST Reading Location ID and State: [id number] / Tel , Service support , Lung Scan-VQ NM 11/29/22 14:43 IMPRESSION: 1. NORMAL 99m Tc MAA pulmonary perfusion imaging examination, according to PIOPED II interpretive criteria. (Sotsman et al, Radiology 246: 941, 2008 Solloyd et al, J Nucl Med 49: 1741, 2008). 2. Central clumping of the aerosol may be secondary to obstructive airway mechanics and or clinical tachypnea. Electronically Signed: Kumar Mccain, at 16:02 EST , Treatment and Re-Evaluation Narrative: Dr. Amaya: Patient was endorsed to me by Dr. Titus to check the VQ scan and the CT of the abdomen and pelvis in this patient being admitted. VQ scan has really turned normal according to PIOPED criteria, no VQ mismatch. I reviewed the radiology report of the CT and it does mention ascites and thick-walled ascending colon concerned for malignancy versus colitis. Given the patient's elevated D-dimer and with the presence of ascites and abdominal distention, the concern is more for malignancy. As he is being admitted, I will inform the hospitalist of the CT findings, and that they are available. Disposition is admit in stable condition. Discharge Plan Dx/Rx/DC Orders Clinical Impression: Acute renal failure (ARF), Abdominal distension, Dyspnea, Exertional chest pain Disposition Disposition: Acute Care Hospital [facility]
[2022-11-29 12:49] LABS: Absolute Lymphocyte Count 0.56 X10^3/uL (0.83-4.51); Absolute Neutrophil Count 10.1 X10^3/uL (2.0-7.7); Basophil# 0.06 X10^3/uL; Basophil% 0.5 % (0-1); Eosinophil# 0.07 X10^3/uL; Eosinophils% 0.6 % (0-5); Hematocrit 34.5 % (40-54); Hemoglobin 9.9 g/dL (13.0-16.5); Lymphocyte # 0.56 X10^3/ul (0.83-4.51); Lymphocyte % 4.9 % (19-41); Mean Corp Hgb Conc 28.7 g/dL (32-36); Mean Corpuscular Hgb 21.9 pg (27.0-32.0); Mean Corpuscular Volume 76.3 fL (80-94); Mean Platelet Vol. 9.2 fl (6.2-12.0); Monocyte# 0.49 X10^3/uL; Monocyte% 4.3 % (0-10); NRBC Flagged by Analyzer 0 % (0-5); Neutrophil # 10.05 X10^3/uL (2.7-7.7); Neutrophil % 88.9 % (47-70); POSITIVE DIFFERENTIAL YES; POSITIVE MORPHOLOGY YES; Platelet Count 705 K/mm3 (150-450); RBC Distribution Width CV 21.5 % (11.6-14.6); RBC Distribution Width SD 58.8 fl (35.1-43.9); Red Blood Count 4.52 M/mm3 (4.6-6.2); White Blood Count 11.3 K/mm3 (4.4-11.0)
--- NOTE | 2022-11-29 13:03 | RAD_ITS ---
STUDY: X-RAY CHEST REASON FOR EXAM: Male, 66 years old. Sob, cp TECHNIQUE: Single AP portable view of the chest. COMPARISON: Comparison is made with prior study dated 11/18/2022. FINDINGS: EKG electrodes are seen. Stable elevation of the right hemidiaphragm. Mild degree of increased linear markings at the lung bases more prominent at the left lung base suggestive of either atelectasis and/or early infiltrates. Follow-up is recommended. There is no demonstrated pleural abnormality. Normal size heart. Normal mediastinum and archana. Normal visualized pulmonary arteries. There is atherosclerotic tortuosity of the aortic arch and descending thoracic aorta. There are degenerative changes of the visualized thoracic spine. Normal visualized ribs, clavicles, and shoulders. There is no demonstrated abnormality of the visualized soft tissue structures of the upper abdomen. RAD/Chest 1 View (Portable) IMPRESSION: Elevation of the right hemidiaphragm with increased markings at the lung bases more prominent at the left lung base suggestive of either bibasilar atelectasis and/or early infiltrates. Electronically Signed: John Paul Kahn MD at 13:19 EST ,
[2022-11-29 13:12] LABS: ALB/GLOB Ratio 0.3 RATIO (0.9-2.4); AST(SGOT) 42 U/L (15-37); Alanine Aminotransfer ALT/SGPT 11 U/L (16-61); Albumin, Serum 2.1 g/dL (3.2-5.0); Alkaline Phosphatase 64 U/L (45-117); Anion Gap 10 (5-15); BUN 49 mg/dL (7-18); Calcium,Total 8.4 mg/dL (8.5-10.1); Chloride 110 mmol/L (98-107); EST Glomerular Filtration Rate 13 mL/min (>60); Est Glom Filt Rate - Afr Amer 15 mL/min (>60); Estimated Creatinine Clearance 11.61 ml/min; Globulin 6.2 g/dL (2.2-4.2); Glucose 154 mg/dL (74-106); Lipase 130 U/L (73-393); Potassium 4.8 mmol/L (3.5-5.1); Protein, Total 8.3 g/dL (6.4-8.2); Sodium Level 134 mmol/L (136-145); Troponin-I HS < 3 pg/mL (3.0-78.0)
[2022-11-29 13:16] LABS: Anisocytosis 2+; Differential Indicated SCAN CRITERIA MET
[2022-11-29 13:29] LABS: BNP,B-Type NATRIURETIC PEPTIDE 16.5 pg/mL (0-100)
[2022-11-29 14:00] VITALS: BP 132/81; PULSE 102; RESP 18; O2SAT 98
[2022-11-29 14:16] LABS: Bacteria 0 SEEN /hpf (None Seen); Mucous, Urine 0 SEEN /hpf (<or=2+); Red Blood Cells-Urine 0 SEEN /hpf (0-5); Squamous Epithelial Cells - UA 0 SEEN /hpf (0-5)
[2022-11-29 14:29] LABS: D-Dimer Quantitative (DVT/PE) > 20.00 FEU/ug/m (0.27-0.49)
[2022-11-29 14:30] LABS: Color, Urine Amber (Yellow); Glucose, Dipstick Normal (Normal); Ketone-Dipstick Negative (Negative); Leukocyte Esterase-Dipstick 25 /ul (Negative); Nitrite-Dipstick Negative (Negative); Occult Blood-Urine 25 /ul (Negative); Protein-Dipstick 30 mg/dl (Negative); Specific Gravity, Urine 1.025 (1.002-1.030); Urine Bilirubin Dipstick Negative (Negative); Urine Clarity Sl. Cloudy (Clear); Urine Urobilinogen Normal (Normal)
--- NOTE | 2022-11-29 14:38 | CT_ITS ---
ACR Level 3 findings have been noted. An addendum which confirms receipt of the report will follow. EXAM: CT ABDOMEN AND PELVIS WITHOUT INTRAVENOUS CONTRAST CLINICAL INDICATION: abd distension TECHNIQUE: Helically acquired images were obtained of the abdomen and pelvis without intravenous contrast. This CT exam was performed using one or more of the following dose reduction techniques: automated exposure control, adjustment of the mA and/or kV according to patient size, and/or use of iterative reconstruction technique. This report was created using [employer] report generation technology. COMPARISON: 05/10/2015. FINDINGS: LOWER THORAX: Unremarkable. Lung bases are clear. No cardiomegaly. No significant pericardial effusion. ABDOMEN: LIVER: Unremarkable. Homogeneous. GALLBLADDER AND BILE DUCTS: Unremarkable. No calcified gallstones. No gallbladder distention or wall edema. No intra- or extrahepatic biliary ductal dilation. PANCREAS: Unremarkable. No focal cystic mass. SPLEEN: Unremarkable. Normal size without focal cystic or solid mass. ADRENALS: Unremarkable. No nodules. KIDNEYS AND URETERS: Low-attenuation lesions arising from the right kidney measuring up to 2.2 cm, not characterized without contrast. Kidneys are otherwise unremarkable. No stones or hydronephrosis. STOMACH AND BOWEL: Moderate wall thickening of the cecum and distal ascending colon concerning for infectious or inflammatory colitis, or malignancy. No obstruction. PELVIS: APPENDIX: Normal visualized appendix. BLADDER: Unremarkable. REPRODUCTIVE: Unremarkable as visualized. No mass. ABDOMEN and PELVIS: INTRAPERITONEAL SPACE: Moderate ascites. No free air. BONES/JOINTS: Unremarkable. No suspicious lytic or blastic abnormality. SOFT TISSUES: Unremarkable. No discrete abdominal or pelvic wall hernia. VASCULATURE: Unremarkable. Abdominal aorta is normal in caliber. LYMPH NODES: Mild right lower quadrant adenopathy is nonspecific and may be due to infectious process or malignancy. Mild para-aortic adenopathy is concerning for malignancy. CT/Abdomen/Pelvis without Cont IMPRESSION: 1. Thick-walled ascending colon suspicious for malignancy versus infectious or inflammatory colitis. 2. Retroperitoneal adenopathy concerning for metastatic disease. Right lower quadrant adenopathy is nonspecific and may be due to malignancy versus infectious or inflammatory colon etiology. 3. Ascites. 4. Right renal hypodensities not characterized without contrast. Follow-up is not indicated per ACR guidelines. Electronically Signed: Sandrita Maya MD at 16:54 EST Reading Location ID and State: [place] / Tel , Service support ,
[2022-11-29 14:41] LABS: White Blood Cells 0-5 SEEN /hpf (0-5)
[2022-11-29 14:43] LABS: Amorphous Sediment 2+; Coarse Granular Cast 0-5 SEEN /lpf (0-5 /lpf)
--- NOTE | 2022-11-29 14:43 | NM_ITS ---
CLINICAL: 66-year-old male with history of shortness of breath and elevation of the d-dimer. VENTILATION-PERFUSION LUNG SCINTIGRAPHY COMPARISON: Plain film chest radiograph report 11/29/2022 FINDINGS: The patient was administered 42.7 mCi 99m Tc DTPA aerosol. The aerosol ventilation study demonstrates relatively uniform ventilation identified throughout the bilateral lung luna. Central clumping of the aerosol is noted in the bilateral hemithorax. Following the intravenous administration of 5.0 mCi of 99m Tc MAA the pulmonary perfusion study reveals uniform perfusion throughout both lung luna. There are no segmental or subsegmental perfusion defects identified. There are no ventilation-perfusion mismatches observed. NM/Lung Scan Vent/Perf IMPRESSION: 1. NORMAL 99m Tc MAA pulmonary perfusion imaging examination, according to PIOPED II interpretive criteria. (Sotsman et al, Radiology 246: 941, 2008 Solloyd et al, J Nucl Med 49: 1741, 2008). 2. Central clumping of the aerosol may be secondary to obstructive airway mechanics and or clinical tachypnea. Electronically Signed: Kumar Mccain, at 16:02 [facility] ,
--- NOTE | 2022-11-29 15:19 | HP.PCM.HOS_ITS ---
HPI - General General Date of Admission: 11/29/22 Date of Service: 11/29/22 Chief Complaint: shortness of breath HPI Narrative DARWIN MILLER, is a 66 M with a PMh as outlined who presents via the ED on 11/29/2022 with a complaint of shortness of breath. He went to see his PCP today with a complaitn of shortness of breath. He was admitted recently for acute on chronic anemia due to GI bleed. He got blood during that admission, and had an E GD which showed esophagitis,and was discharged home, to follow up for colonoscopy on outpatient basis. He saw his PCP today, who was concerned that he was looking very unwell, with abdominal distension. HE had associated chest pain and shortness of breath, and said his abdominal distension had been worsening. He denied any syncope, nausea, vomiting or diarrhea. He states he not been able to eat or drink and he feels satisfied quickly when he does eat. He is lost about 30 pounds since September and this was corroborated by his . He denies any bloody or dark stools but says he has difficulty with bowel movements and feels like he has to strain before he can go. Review of systems is otherwise negative. Vitals were blood pressure 111/69, pulse rate of 99 and respiratory of 18 and temperature of 97.7 Fahrenheit. Was saturating at 98% on room air. CBC showed hemoglobin of 9.9 with WBC of 11.3 and platelets of 705. D-dimer was markedly elevated at more than 20. Chemistry shows sodium of 134 with bicarb of 14 and anion gap of 10. Creatinine was 4.9 and EGFR was 13. Initial troponin was negative. Lipase was 130. Urinalysis showed no evidence of UTI with 0 bacteria and only [address] abdomen and pelvis showed ascites with thick-walled ascending colon suspicious for malignancy versus infectious or inflammatory colitis and retroperitoneal lymphadenopathy as well as right renal hypodensities. VQ scan done showed normal pulmonary perfusion and central clu mping of the aerosols may be secondary to obstructive airway mechanics and no clinical tachypnea. He has been admitted to be managed for ascites concerning for malignancy. [facility] Medical History BPH (benign prostatic hyperplasia) GERD (gastroesophageal reflux disease) History of B-cell lymphoma HTN (hypertension) Stroke Home Medications Acid Relief 1 ea PO/SL DAILY GERD 11/18/22 [History Last Taken 11/17/22] losartan 25 mg tablet 25 mg PO QHS BP 11/18/22 [History Last Taken 11/17/22] tamsulosin 0.4 mg capsule 0.4 mg PO DAILY PROSTATE 11/18/22 [History Last Taken 11/17/22] pantoprazole 40 mg tablet,delayed release 40 mg PO BID #120 tabs 11/20/22 [Rx Last Taken Unknown] Allergy/AdvReac Type Severity Reaction Status Date / Time RAPID ACTING ANTIHYPERTENSIVE AdvReac Other Uncoded 11/29/22 11:59 Family History (Updated 11/18/22 @ 19:[address] Melodie Baker MD) Father COPD (chronic obstructive pulmonary disease) Lung cancer Mother COPD (chronic obstructive pulmonary disease) Surgical History S/P bilateral inguinal hernia repair S/P tonsillectomy Social History household members: spouse Smoking Status: Former smoker how long ago did patient quit smoking: Quit ~ 30 years prior, smoked 1.5 ppd since teen until quit. alcohol intake: current alcohol intake frequency: holidays/special occasions only substance use type: does not use ROS Constitutional Constitutional: Reports anorexia, change in weight, fatigue and weakness; Denies chills or fever(s) Eyes Eyes: Denies change in vision ENT HEENT: Denies dysphagia, headache(s), hearing loss, nasal congestion or sore throat Cardiovascular Cardiovascular: Denies chest pain, dyspnea on exertion, edema, lightheadedness, orthopnea, palpitations, paroxysmal nocturnal dyspnea, rapid heart rate or syncope Respiratory/Chest Respiratory/Chest: Denies cough, dyspnea, shortness of breath at rest or shortness of breath with exertion Gastrointestinal Gastrointestinal: Reports abdominal pain, constipation, nausea and other Details: early satiety, abdominal distension ; Denies diarrhea, dyspepsia, hematemesis, hematochezia, loose stools, melena or vomiting Genitourinary Genitourinary: Denies burning urination, difficulty urinating or dysuria Musculoskeletal Musculoskeletal: Denies arthralgias or joint pain Neurologic Neurologic: Denies confusion, dizziness, focal weakness, headache(s), numbness, seizures or syncope Psychiatric Psychiatric: Denies anxiety or depression Endocrine Endocrinology: Reports change in body appearance Hematologic/Lymphatic Hematologic/Lymphatic: Denies anemia Vital Signs Vital Signs Vital Signs: 11/29/22 12:00 11/29/22 12:25 11/29/22 14:00 Temperature 96.4 F L Temperature Source Temporal Pulse Rate 105 H 102 H Respiratory Rate 17 18 Respiratory Effort Short of Breath Respiratory Pattern Tachypnea Blood Pressure 88/71 L 132/81 H Blood Pressure Mean 76 98 Pulse Ox 99 98 Oxygen Delivery Method Room Air Room Air Room Air Weight Weight: 206 lb 9.6 oz Body Mass Index (BMI) 36.6 Physical Exam Const alert and oriented x3 Constitutional Narrative: looks uncomfortable due to abdominal distension General Appearance: cooperative HEENT normocephalic, head/scalp atraumatic, hearing grossly normal bilaterally and moist oral mucous membranes Eyes PERRL, EOMs intact bilaterally and conjunctivae normal Neck no lymphadenopathy and supple Resp normal respiratory effort, no retractions, no use of accessory muscles and clear to auscultation bilaterally Cardio regular rate, regular rhythm, S1 normal heart sound, S2 normal heart sound and no murmurs GI GI Narrative: abdomen markedly distended, positive fluid thrill, mild generalised tenderness, no organomegaly. Extremity normal to inspection, full ROM and no clubbing, cyanosis or edema Neuro oriented x3, CN's II-XII intact bilaterally, moves all extremities and no focal motor deficits Sensorium / Orientation: awake and alert Speech: speech normal Motor Exam: strength 5/5 throughout Results Lab / Micro Data Result Diagrams: 11/29/22 12:40 11/29/22 12:40 Labs: Laboratory Results - last 24 hr 11/29/22 12:40: Sodium 134 L, Potassium 4.8, Chloride 110 H, Carbon Dioxide 14.0 L, Anion Gap 10, BUN 49 H, Creatinine 4.90 H, Estim Creat Clear Calc 11.61, Est GFR (MDRD) Af Amer 15 L, Est GFR (MDRD) Non-Af 13 L, BUN/Creatinine Ratio 10.0, Glucose 154 H, Calcium 8.4 L, Total Bilirubin 0.30, AST 42 H, ALT 11 L, Alkaline Phosphatase 64, Troponin I High Sens < 3 L, Total Protein 8.3 H, Albumin 2.1 L, Globulin 6.2 H, Albumin/Globulin Ratio 0.3 L, Lipase 130 11/29/22 12:40: B-Natriuretic Peptide 16.5 11/29/22 12:40: WBC 11.3 H, RBC 4.52 L, Hgb 9.9 L, Hct 34.5 L, MCV 76.3 L, MCH 21.9 L, MCHC 28.7 L, RDW Std Deviation 58.8 H, RDW Coeff of Angel 21.5 H, Plt Count 705 H, MPV 9.2, Immature Gran % (Auto) 0.800, Neut % (Auto) 88.9 H, Lymph % (Auto) 4.9 L, [place] % (Auto) 4.3, Eos % (Auto) 0.6, Baso % (Auto) 0.5, Absolute Neuts (auto) 10.1 H, Absolute Lymphs (auto) 0.56 L, Nucleated RBC % 0, Differential Comment , Anisocytosis 2+ 11/29/22 12:50: D-Dimer Quant (PE/DVT) > 20.00 H* 11/29/22 14:10: Urine Color Shabnam, Urine Clarity Sl. Cloudy, Urine pH 5.0, Ur Specific [place] 1.025, Urine Protein 30 H, Urine Glucose (UA) Normal, Urine Ketones Negative, Urine Occult Blood 25 H, Urine Nitrite Negative, Urine Bilirubin Negative, Urine Urobilinogen Normal, Ur Leukocyte Esterase 25 H, Urine RBC 0 SEEN, Urine WBC 0-5 SEEN, Ur Squamous Epith Cells 0 SEEN, Amorphous S ediment 2+, Urine Bacteria 0 SEEN, Coarse Granular Casts 0-5 SEEN, Urine Mucus 0 SEEN Rhythm Strip Rhythm Strip: Sinus Tach Rate: 114 Ectopy: None Radiology Impression Chest X-Ray 11/29/22 13:03 IMPRESSION: Elevation of the right hemidiaphragm with increased markings at the lung bases more prominent at the left lung base suggestive of either bibasilar atelectasis and/or early infiltrates. Electronically Signed: John Paul Kahn MD at 13:19 EST , Assessment & Plan Assessment/Plan (1) Acute renal failure (ARF): (2) Abdominal distension: PLAN: Plan #Marked ascites, concerning for malignancy * admit to PCU o.a of chest pain, though I think chest pain is more likely due to discomfort from massive ascites * CT abdomen and pelvis showed evidence of thickening in the ascending colon c oncerning for malignancy as well as retroperitoneal lymphadenopathy, concerning for metastatic malignancy * consult gastroenterology. He was due to have colonoscopy as part of work-up for anemia. Recent EGD done showed only esophagitis * Keep n.p.o. for now. * Will order this tomorrow. This will be a diagnostic and therapeutic paracentesis. * Hydrate very gently with IV fluids. * #Elevated D-dimer * This was concerning for PE. VQ scan done however showed normal perfusion. Did show central clumping of aerosol which may be secondary to obstructive airway mechanics or clinical tachypnea and indeed patient was short of breath. 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 * hasnt really been following up with oncology * #CKD IV * Cr today is 4.9 * egFR i 13. This is likely due to worsening ascites. * will hydrate gently with IVF and trend * #History of frontal lobe CVA: Has emotional fragility as a result. Will monitor. #Hyperension: losartan held due to ARACELI on CKD IV #BPH: on flomax #History of hepatitis C: s/p treatment. Says it is in remission. DVT prophylaxis; SCDs. CODE STATUS: Full code * Patient counseled extensively about different types of CODE STATUS including full code, DNR CCA and DNR CCA. Patient elects to be full code. * Total [id number] time 17 minutes. Charges/Coding Visit Charges Inpatient E&M: 32406 Init Hosp L3
--- NOTE | 2022-11-29 15:21 | NURSING ---
DR QUESADA FOR DR PEGUERO
[2022-11-29 15:26] VITALS: BP 132/81; PULSE 102; RESP 18; TEMP 36.4; O2SAT 96
--- NOTE | 2022-11-29 15:43 | NURSING ---
PCU DIPAK ARF, CP/SOB, ABD DISTENION
[2022-11-29 16:49] VITALS: BMI 36.0
[2022-11-29 16:53] VITALS: BP 111/69; PULSE 99; RESP 18; TEMP 36.5; O2SAT 98
[2022-11-29] MEDS: 0.9% Normal Saline 1,000 ML 75 ML IV (19:21)
[2022-11-29] MEDS: 0.9% Saline Lock 10 ML Syringe IV (19:21)
[2022-11-29 19:29] LABS: Troponin-I HS < 3 pg/mL (3.0-78.0)
--- NOTE | 2022-11-29 20:11 | CON.PCM.GI_ITS ---
HPI Consult Data Date of Consult: 11/29/22 HPI Narrative Reason for Consultation: Abnormal imaging HPI Narrative: DARWIN MILLER, is a 66 M who presents with dyspnea.? He also has about a 30 pound weight loss in the past few weeks.? He thinks he has some night sweats and subjective fevers at times.? Stools are normal color.? He has no cough.? He has no sick contacts.? No abdominal pain no back pain no headache. He also has a past medical history of obesity, BPH, Hx Hepatitis C, GERD, Hx CVA with residual notable emotional lability, Hx B cell lymphoma s/p 6 rounds chemotherapy with declined radiation treatments at that time, Chronic anemia who presents to the [facility] ED on 11/18/22 with history of 6-8 weeks of progressively worsening dyspnea, worse with exertion, weight loss, subjective fevers, night sweats and intermittent diarrhea/constipation, abdominal bloating and severe intermittent abdominal cramping. He underwent an upper endoscopy by myself in we do not see any etiology of his anemia. He comes back in today with a similar presentation of worsening shortness of breath and abdominal distention. A repeat CT scan abdomen pelvis did show some thickening in his colon possibly secondary to malignancy or ischemia or colitis. [facility] Medical History BPH (benign prostatic hyperplasia) GERD (gastroesophageal reflux disease) History of B-cell lymphoma HTN (hypertension) Stroke Home Medications Acid Relief 1 ea PO/SL DAILY GERD 11/18/22 [History Last Taken 11/17/22] losartan 25 mg tablet 25 mg PO QHS BP 11/18/22 [History Last Taken 11/17/22] tamsulosin 0.4 mg capsule 0.4 mg PO DAILY PROSTATE 11/18/22 [History Last Taken 11/17/22] pantoprazole 40 mg tablet,delayed release 40 mg PO BID #120 tabs 11/20/22 [Rx Last Taken Unknown] Allergy/AdvReac Type Severity Reaction Status Date / Time RAPID ACTING ANTIHYPERTENSIVE AdvReac Other Uncoded 11/29/22 11:59 Family History (Updated 11/18/22 @ 19:[address] Melodie Baker MD) Father COPD (chronic obstructive pulmonary disease) Lung cancer Mother COPD (chronic obstructive pulmonary disease) Surgical History S/P bilateral inguinal hernia repair S/P tonsillectomy Social History household members: spouse Smoking Status: Former smoker how long ago did patient quit smoking: Quit ~ 30 years prior, smoked 1.5 ppd since teen until quit. alcohol intake: current alcohol intake frequency: holidays/special occasions only substance use type: does not use ROS ROS Narrative Admission Review of Systems: CONSTITUTIONAL: No weight loss, + fever, weakness or fatigue. HEENT: + Dry mouth frequently. Eyes: No visual loss, blurred vision, double vision or yellow sclerae. Ears, Nose, Throat: No hearing loss, sneezing, congestion, runny nose or sore throat. SKIN: No rash or itching, lesions, wounds. CARDIOVASCULAR: No chest pain, chest pressure or chest discomfort, palpitations, edema, orthopnea, syncopal events. RESPIRATORY: + shortness of breath, No cough or sputum, wheezing, hemoptysis. GASTROINTESTINAL: + Anorexia, nausea without vomiting, intermittent diarrhea-constipation, abdominal pain and bloating, beltching, No melena, BRBPR. GENITOURINARY: No dysuria, frequency, urgency or retention. NEUROLOGICAL: No headache, dizziness, syncope, paralysis, ataxia, numbness or tingling in the extremities, focal weakness, change in bowel or bladder control, seizure. MUSCULOSKELETAL: + muscle, back pain, joint pain or stiffness. HEMATOLOGIC: + anemia, bleeding or bruising. LYMPHATICS: No enlarged nodes. No history of splenectomy. PSYCHIATRIC: + history of depression or anxiety. ENDOCRINOLOGIC: No reports of sweating, cold or heat intolerance. No polyuria or polydipsia. ALLERGIES: No history of asthma, hives, eczema or rhinitis. Constitutional Constitutional: Reports anorexia, change in weight, fatigue and weakness; Denies chills or fever(s) Eyes Eyes: Denies change in vision ENT HEENT: Denies dysphagia, headache(s), hearing loss, nasal congestion or sore throat Cardiovascular Cardiovascular: Denies chest pain, dyspnea on exertion, edema, lightheadedness, orthopnea, palpitations, paroxysmal nocturnal dyspnea, rapid heart rate or syncope Respiratory/Chest Respiratory/Chest: Denies cough, dyspnea, shortness of breath at rest or shortness of breath with exertion Gastrointestinal Gastrointestinal: Reports abdominal pain, constipation, nausea and other Details: early satiety, abdominal distension ; Denies diarrhea, dyspepsia, hematemesis, hematochezia, loose stools, melena or vomiting Genitourinary Genitourinary: Denies burning urination, difficulty urinating or dysuria Musculoskeletal Musculoskeletal: Denies arthralgias or joint pain Neurologic Neurologic: Denies confusion, dizziness, focal weakness, headache(s), numbness, seizures or syncope Psychiatric Psychiatric: Denies anxiety or depression Endocrine Endocrinology: Reports change in body appearance Hematologic/Lymphatic Hematologic/Lymphatic: Denies anemia Physical Exam Const alert and oriented x3 Constitutional Narrative: looks uncomfortable due to abdominal distension General Appearance: cooperative HEENT normocephalic, head/scalp atraumatic, hearing grossly normal bilaterally and moist oral mucous membranes Eyes PERRL, EOMs intact bilaterally and conjunctivae normal Neck no lymphadenopathy and supple Resp normal respiratory effort, no retractions, no use of accessory muscles and clear to auscultation bilaterally Cardio regular rate, regular rhythm, S1 normal heart sound, S2 normal heart sound and no murmurs GI GI Narrative: abdomen markedly distended, positive fluid thrill, mild generalised tenderness, no organomegaly. Extremity normal to inspection, full ROM and no clubbing, cyanosis or edema Neuro oriented x3, CN's II-XII intact bilaterally, moves all extremities and no focal motor deficits Sensorium / Orientation: awake and alert Speech: speech normal Motor Exam: strength 5/5 throughout Lab / Micro Data Result Diagrams: 11/29/22 12:40 11/29/22 12:40 Labs: Laboratory Results - last 24 hr 11/29/22 12:40: Sodium 134 L, Potassium 4.8, Chloride 110 H, Carbon Dioxide 14.0 L, Anion Gap 10, BUN 49 H, Creatinine 4.90 H, Estim Creat Clear Calc 11.61, Est GFR (MDRD) Af Amer 15 L, Est GFR (MDRD) Non-Af 13 L, BUN/Creatinine Ratio 10.0, Glucose 154 H, Calcium 8.4 L, Total Bilirubin 0.30, AST 42 H, ALT 11 L, Alkaline Phosphatase 64, Troponin I High Sens < 3 L, Total Protein 8.3 H, Albumin 2.1 L, Globulin 6.2 H, Albumin/Globulin Ratio 0.3 L, Lipase 130 11/29/22 12:40: B-Natriuretic Peptide 16.5 11/29/22 12:40: WBC 11.3 H, RBC 4.52 L, Hgb 9.9 L, Hct 34.5 L, MCV 76.3 L, MCH 21.9 L, MCHC 28.7 L, RDW Std Deviation 58.8 H, RDW Coeff of Angel 21.5 H, Plt Count 705 H, MPV 9.2, Immature Gran % (Auto) 0.800, Neut % (Auto) 88.9 H, Lymph % (Auto) 4.9 L, [place] % (Auto) 4.3, Eos % (Auto) 0.6, Baso % (Auto) 0.5, Absolute Neuts (auto) 10.1 H, Absolute Lymphs (auto) 0.56 L, Nucleated RBC % 0, Differential Comment , Anisocytosis 2+ 11/29/22 12:50: D-Dimer Quant (PE/DVT) > 20.00 H* 11/29/22 14:10: Urine Color Shabnam, Urine Clarity Sl. Cloudy, Urine pH 5.0, Ur Specific [place] 1.025, Urine Protein 30 H, Urine Glucose (UA) Normal, Urine Ketones Negative, Urine Occult Blood 25 H, Urine Nitrite Negative, Urine Bilirubin Negative, Urine Urobilinogen Normal, Ur Leukocyte Esterase 25 H, Urine RBC 0 SEEN, Urine WBC 0-5 SEEN, Ur Squamous Epith Cells 0 SEEN, Amorphous Sediment 2+, Urine Bacteria 0 SEEN, Coarse Granular Casts 0-5 SEEN, Urine Mucus 0 SEEN 11/29/22 18:46: Troponin I High Sens < 3 L Rhythm Strip Rhythm Strip: Sinus Tach Rate: 114 Ectopy: None Radiology Impression Chest X-Ray 11/29/22 13:03 IMPRESSION: Elevation of the right hemidiaphragm with increased markings at the lung bases more prominent at the left lung base suggestive of either bibasilar atelectasis and/or early infiltrates. Electronically Signed: John Paul Kahn MD at 13:19 EST , Abdomen/Pelvis CT 11/29/22 14:38 IMPRESSION: 1. Thick-walled ascending colon suspicious for malignancy versus infectious or inflammatory colitis. 2. Retroperitoneal adenopathy concerning for metastatic disease. Right lower quadrant adenopathy is nonspecific and may be due to malignancy versus infectious or inflammatory colon etiology. 3. Ascites. 4. Right renal hypodensities not characterized without contrast. Follow-up is not indicated per ACR guidelines. Electronically Signed: Sandrita Maya MD at 16:54 EST Reading Location ID and State: [id number] / Tel , Service support , ADDENDUM: 11/29/22 1735 IMPRESSION: 1. Thick-walled ascending colon suspicious for malignancy versus infectious or inflammatory colitis. 2. Retroperitoneal adenopathy concerning for metastatic disease. Right lower quadrant adenopathy is nonspecific and may be due to malignancy versus infectious or inflammatory colon etiology. 3. Ascites. 4. Right renal hypodensities not characterized without contrast. Follow-up is not indicated per ACR guidelines. N.B. : Matthew Martínez RN, confirmed on 11/29/2022 17:28:11 (ET) that the healthcare facility has received the radiology report. Electronically Signed: Sandrita Maya MD at 16:54 EST Reading Location ID and State: [id number] / Tel , Service support , Lung Scan-VQ NM 11/29/22 14:43 IMPRESSION: 1. NORMAL 99m Tc MAA pulmonary perfusion imaging examination, according to PIOPED II interpretive criteria. (Sotsman et al, Radiology 246: 941, 2008 Solloyd et al, J Nucl Med 49: 1741, 2008). 2. Central clumping of the aerosol may be secondary to obstructive airway mechanics and or clinical tachypnea. Electronically Signed: Kumar Mccain, at 16:02 EST , Assessment & Plan Assessment/Plan (1) Abnormal CT scan: PLAN: I will put in a prep for a colonoscopy to evaluate his lower GI tract. He was explained alternatives, risk, benefits including not withstanding bleeding, infection, sepsis, perforation, need for emergent surgery and . Have an ASA of 3. Charges/Coding Visit Charges Inpatient E&M: 30512 Init Hosp L2
[2022-11-29 21:34] LABS: Troponin-I HS < 3 pg/mL (3.0-78.0)
[2022-11-29 22:00] VITALS: BP 129/72; PULSE 105; RESP 18; TEMP 36.6; O2SAT 96
[2022-11-29] MEDS: Polyethylene Glycol 3350 BOWEL PREP PO (23:18)
[2022-11-29] MEDS: Bisacodyl 5 MG Tablet 20 MG PO (23:18)
[2022-11-30] VITALS (11 sets, daily range): BP systolic 86–126; BP diastolic 55–83; PULSE 96–111; RESP 16–20; TEMP 36.2–36.8; O2SAT 92–98; BMI 36.0
--- NOTE | 2022-11-30 | IMM_PTH ---
PATIENT: DARWIN MILLER LOC: [facility] U#:[id number] AGE/SX: 66/M ROOM: [facility] RE11/29/[address]: Dr. Erin Vigil MD : 1955 BED: 1 DIS: 12/13/2022 SPEC #: [id number] RECD: 12/02/22 13:52 STATUS: COLIN REQ #: [id number] YAIMA: 11/30/22 00:[address]: Carlos Rocha DEPT: IMMUNOHISTOCHEMISTRY RECD BY: Anai Mathew ENTERED: 12/02/22 13:56 SP TYPE: IMMUNO OTHR DR: MD Dr. Erin Bear MD Dr. Paul Nielsen, MD Tissues: PARACENTESIS FLUID Procedures: Synapto (add) RCC (add) CD56 (add) CEA (add) CHROMO (add) CK20 (add) CK5-6 (add) CK7 (add) CK8 (add) SANTIAGO-2 (add) HEP PAR (add) KI-67 (add) P53 (add) Pankeratin (initial) P40 (add) PSAP (add) NSE (add) PHYSICIAN & [place] [id number] SPECIMEN INFORMATION: Tissue Source: Paracentesis fluid Clinical Info: Ascites Specimen Number: [id number] CPT code: 63021, 42047 x16 METHODOLOGY: Deparaffinized sections of prefer/formalin-fixed tissue or PAP/DQ stained slides are incubated with monoclonal/polyclonal antibodies/oligonucleotide probes. Localization is made via biotin free immunoperoxidase method. Appropriate controls are performed and reacted as expected. Results on target cell population are indicated in the following table: RESULTS: ANTIBODY / CLONE RESULT AE1-3 (AE1/AE3/PCK26) positive CK7 (OV-TL12/30) negative CK8 (78fynlM96) positive CK20 (KS20.8) negative SANTIAGO-2 (SP21) positive CD56 (123C3.D5) negative Chromo (LK2H10) negative Synapto (polyclonal) negative NSE Neuron Specific Enolase negative HepPar (OCh1E5) negative RCC (PN-15) negative PSAP (PASE/4LJ) negative CK5-6 (D5 & 1684) negative P40 (BC28) negative CEA (11-7/TF-3HB-1) positive P53 (DO-7) positive, 5% Ki-67 (30-9) positive, >90% These tests were developed and their performance characteristics determined by [facility]. They may not have been cleared or approved by the U.S. Food and Drug Administration. The FDA has determined that such clearance or approval is not necessary. The above immunohistochemical/dualISH markers are ordered and reviewed by the Pathologist. INTERPRETATION: Paracentesis fluid (cell block): Positive for malignant cells, non-small cell carcinoma. See comment. AM:eddie 12/03/2022 Comment: A GI primary is favored.
[2022-11-30] MEDS: Ondansetron 4 MG/2 ML Vial IV (00:27)
[2022-11-30] MEDS: 0.9% Saline Lock 10 ML Syringe IV (00:27)
[2022-11-30 01:07] LABS: Troponin-I HS < 3 pg/mL (3.0-78.0)
[2022-11-30 05:42] LABS: Absolute Lymphocyte Count 0.55 X10^3/uL (0.83-4.51); Absolute Neutrophil Count 9.3 X10^3/uL (2.0-7.7); Basophil# 0.05 X10^3/uL; Basophil% 0.5 % (0-1); Eosinophil# 0.04 X10^3/uL; Eosinophils% 0.4 % (0-5); Hematocrit 30.9 % (40-54); Hemoglobin 8.9 g/dL (13.0-16.5); Lymphocyte # 0.55 X10^3/ul (0.83-4.51); Lymphocyte % 5.2 % (19-41); Mean Corp Hgb Conc 28.8 g/dL (32-36); Mean Corpuscular Hgb 21.8 pg (27.0-32.0); Mean Corpuscular Volume 75.7 fL (80-94); Mean Platelet Vol. 9.4 fl (6.2-12.0); Monocyte# 0.43 X10^3/uL; Monocyte% 4.1 % (0-10); NRBC Flagged by Analyzer 0 % (0-5); Neutrophil # 9.34 X10^3/uL (2.7-7.7); POSITIVE DIFFERENTIAL YES; POSITIVE MORPHOLOGY YES; Platelet Count 653 K/mm3 (150-450); RBC Distribution Width CV 21.4 % (11.6-14.6); RBC Distribution Width SD 57.7 fl (35.1-43.9); Red Blood Count 4.08 M/mm3 (4.6-6.2); White Blood Count 10.5 K/mm3 (4.4-11.0)
[2022-11-30 05:55] LABS: Differential Indicated SCAN CRITERIA MET
[2022-11-30 06:13] LABS: Anisocytosis 2+; Microcytosis 1+; Platelet Estimate MKD INC (ADEQ)
[2022-11-30 06:16] LABS: ALB/GLOB Ratio 0.3 RATIO (0.9-2.4); AST(SGOT) 41 U/L (15-37); Alanine Aminotransfer ALT/SGPT 10 U/L (16-61); Albumin, Serum 1.9 g/dL (3.2-5.0); Alkaline Phosphatase 64 U/L (45-117); Anion Gap 13 (5-15); BUN 56 mg/dL (7-18); BUN/Creat Ratio 11.3 RATIO (10-20); Calcium,Total 8.3 mg/dL (8.5-10.1); Chloride 108 mmol/L (98-107); Creatinine, Serum 4.94 mg/dL (0.70-1.30); EST Glomerular Filtration Rate 13 mL/min (>60); Est Glom Filt Rate - Afr Amer 15 mL/min (>60); Estimated Creatinine Clearance 11.52 ml/min; Globulin 5.7 g/dL (2.2-4.2); Glucose 106 mg/dL (74-106); LDH 377 U/L (87-241); Potassium 4.9 mmol/L (3.5-5.1); Protein, Total 7.6 g/dL (6.4-8.2); Sodium Level 136 mmol/L (136-145)
--- NOTE | 2022-11-30 07:00 | US_ITS ---
PROCEDURE: Ultrasound guided paracentesis. DATE OF EXAMINATION: 11/30/2022. INDICATION: Male, 66 years old. Ascites. PHYSICIAN: John Paul Kahn M.D. TECHNIQUE: The risks, benefits, and alternatives to the procedure were explained to the patient. The specific risks of bleeding, infection, and damage to bowel were detailed and accepted. Witnessed informed consent was obtained. The abdomen was ultrasonographically surveyed. An appropriate pocket of fluid was identified at the right lower quadrant. The skin were cleaned and prepped in the usual sterile fashion. Using ultrasound guidance, the peritoneal cavity was accessed with a 5-Kenyan paracentesis needle/catheter system. The trocar was removed. A total of 5950 ml of lorenzo-colored fluid were removed from the peritoneal cavity. The catheter was removed and a sterile dressing was applied. A 100 mL sample was sent to the laboratory for testing. The procedure was well tolerated. US/Paracentesis with US IMPRESSION: Ultrasound guided paracentesis. Electronically Signed: John Paul Kahn MD at 14:50 EST ,
--- NOTE | 2022-11-30 10:36 | PN.HOSP_ITS ---
Subjective Subjective Follow-up ascites Patient is a 66-year-old gentleman with history of B-cell lymphoma recently discharged from the hospital following admission for symptomatic anemia he underwent EGD found to have grade a reflux esophagitis. Presented back to the emergency department with significant abdominal distention and worsening kidney function Objective Data Objective Data Vital Signs: Vital Signs Temp Pulse Resp BP Pulse Ox O2 Del Method 97.9 F 96 16 113/83 H 97 Room Air 11/30/22 08:33 11/30/22 08:33 11/30/22 08:33 11/30/22 08:33 11/30/22 08:33 11/30/22 09:07 Oxygen Delivery Method Room Air Weight: 92.2 kg Body Mass Index (BMI) 36.0 Intake & Output: Intake and Output for Last 24 Hours 11/28/22 11/29/22 11/30/22 23:59 23:59 23:59 Intake Total 500 / 1500 1000 / 1000 Balance 500 / 1500 1000 / 1000 Lab / Micro Data Result Diagrams: 11/30/22 04:36 11/30/22 04:36 Labs: Laboratory Results - last 24 hr 11/29/22 12:40: Sodium 134 L, Potassium 4.8, Chloride 110 H, Carbon Dioxide 14.0 L, Anion Gap 10, BUN 49 H, Creatinine 4.90 H, Estim Creat Clear Calc 11.61, Est GFR (MDRD) Af Amer 15 L, Est GFR (MDRD) Non-Af 13 L, BUN/Creatinine Ratio 10.0, Glucose 154 H, Calcium 8.4 L, Total Bilirubin 0.30, AST 42 H, ALT 11 L, Alkaline Phosphatase 64, Troponin I High Sens < 3 L, Total Protein 8.3 H, Albumin 2.1 L, Globulin 6.2 H, Albumin/Globulin Ratio 0.3 L, Lipase 130 11/29/22 12:40: B-Natriuretic Peptide 16.5 11/29/22 12:40: WBC 11.3 H, RBC 4.52 L, Hgb 9.9 L, Hct 34.5 L, MCV 76.3 L, MCH 21.9 L, MCHC 28.7 L, RDW Std Deviation 58.8 H, RDW Coeff of Angel 21.5 H, Plt Count 705 H, MPV 9.2, Immature Gran % (Auto) 0.800, Neut % (Auto) 88.9 H, Lymph % (Auto) 4.9 L, Sampson % (Auto) 4.3, Eos % (Auto) 0.6, Baso % (Auto) 0.5, Absolute Neuts (auto) 10.1 H, Absolute Lymphs (auto) 0.56 L, Nucleated RBC % 0, Differential Comment , Anisocytosis 2+ 11/29/22 12:50: D-Dimer Quant (PE/DVT) > 20.00 H* 11/29/22 14:10: Urine Color Shabnam, Urine Clarity Sl. Cloudy, Urine pH 5.0, Ur Specific [place] 1.025, Urine Protein 30 H, Urine Glucose (UA) Normal, Urine Ketones Negative, Urine Occult Blood 25 H, Urine Nitrite Negative, Urine Bilirubin Negative, Urine Urobilinogen Normal, Ur Leukocyte Esterase 25 H, Urine RBC 0 SEEN, Urine WBC 0-5 SEEN, Ur Squamous Epith Cells 0 SEEN, Amorphous Sediment 2+, Urine Bacteria 0 SEEN, Coarse Granular Casts 0-5 SEEN, Urine Mucus 0 SEEN 11/29/22 18:46: Troponin I High Sens < 3 L 11/29/22 20:45: Troponin I High Sens < 3 L 11/30/22 00:42: Troponin I High Sens < 3 L 11/30/22 04:36: WBC 10.5, RBC 4.08 L, Hgb 8.9 L, Hct 30.9 L, MCV 75.7 L, MCH 21.8 L, MCHC 28.8 L, RDW Std Deviation 57.7 H, RDW Coeff of Angel 21.4 H, Plt Count 653 H, MPV 9.4, Immature Gran % (Auto) 0.800, Neut % (Auto) 89.0 H, Lymph % (Auto) 5.2 L, Sampson % (Auto) 4.1, Eos % (Auto) 0.4, Baso % (Auto) 0.5, Absolute Neuts (auto) 9.3 H, Absolute Lymphs (auto) 0.55 L, Nucleated RBC % 0, Platelet Estimate MKD INC, Anisocytosis 2+, Microcytosis 1+ 11/30/22 04:36: Sodium 136, Potassium 4.9, Chloride 108 H, Carbon Dioxide 15.0 L , Anion Gap 13, BUN 56 H, Creatinine 4.94 H, Estim Creat Clear Calc 11.52, Est GFR (MDRD) Af Amer 15 L, Est GFR (MDRD) Non-Af 13 L, BUN/Creatinine Ratio 11.3, Glucose 106, Calcium 8.3 L, Total Bilirubin 0.30, AST 41 H, ALT 10 L, Alkaline Phosphatase 64, Lactate Dehydrogenase 377 H, Total Protein 7.6, Albumin 1.9 L, Globulin 5.7 H, Albumin/Globulin Ratio 0.3 L Radiography Diagnostic Testing: Radiology Impression Chest X-Ray 11/29/22 13:03 IMPRESSION: Elevation of the right hemidiaphragm with increased markings at the lung bases more prominent at the left lung base suggestive of either bibasilar atelectasis and/or early infiltrates. Electronically Signed: John Paul Kahn MD at 13:19 EST , Abdomen/Pelvis CT 11/29/22 14:38 IMPRESSION: 1. Thick-walled ascending colon suspicious for malignancy versus infectious or inflammatory colitis. 2. Retroperitoneal adenopathy concerning for metastatic disease. Right lower quadrant adenopathy is nonspecific and may be due to malignancy versus infectious or inflammatory colon etiology. 3. Ascites. 4. Right renal hypodensities not characterized without contrast. Follow-up is not indicated per ACR guidelines. Electronically Signed: Sandrita Maya MD at 16:54 EST Reading Location ID and State: [id number] / Tel , Service support , ADDENDUM: 11/29/22 2750 IMPRESSION: 1. Thick-walled ascending colon suspicious for malignancy versus infectious or inflammatory colitis. 2. Retroperitoneal adenopathy concerning for metastatic disease. Right lower quadrant adenopathy is nonspecific and may be due to malignancy versus infectious or inflammatory colon etiology. 3. Ascites. 4. Right renal hypodensities not characterized without contrast. Follow-up is not indicated per ACR guidelines. N.B. : Matthew Martínez RN, confirmed on 11/29/2022 17:28:11 (ET) that the healthcare facility has received the radiology report. Electronically Signed: Sandrita Maya MD at 16:54 EST , Lung Scan-VQ NM 11/29/22 14:43 IMPRESSION: 1. NORMAL 99m Tc MAA pulmonary perfusion imaging examination, according to PIOPED II interpretive criteria. (Sotsman et al, Radiology 246: 941, 2008 Solloyd et al, J Nucl Med 49: 1741, 2008). 2. Central clumping of the aerosol may be secondary to obstructive airway mechanics and or clinical tachypnea. Electronically Signed: Kumar Mccain at 16:02 EST , Rhythm Strip Rhythm Strip: Sinus Tach Rate: 114 Ectopy: None Physical Exam Narrative GENERAL: cooperative HEENT: Atraumatic; normocephalic EYES; Anicteric, Normal Conjunctiva NECK; supple, normal thyroid, RESPIRATORY: Diminished to auscultation CARDIOVASCULAR: Regular S1 S2, GI: marked distention of the abdomen : No Renal angle tenderness; EXTREMITIES: No edema, no clubbing, MUSCULOSKELETAL: no muscle wasting NEURO: Awake; no lateralizing signs. SKIN: No Rash PSYCH; Flat affect Assessment & Plan Assessment/Plan (1) Acute renal failure (ARF): (2) Abdominal distension: PLAN: Plan Patient is a 66-year-old gentleman with history of B-cell lymphoma recently discharged from the hospital following admission for symptomatic anemia he underwent EGD found to have grade a reflux esophagitis. Presented back to the emergency department with significant abdominal distention and worsening kidney function 1. Marked ascites ? Patient scheduled to undergo ultrasound-guided paracentesis with plans to send for cytology in addition to other studies. GI has been consulted 2. Anemia ? Patient underwent patient underwent EGD by Dr. Frazier on 11/19/2022 findings included -?LA Grade A reflux esophagitis.? Biopsied. - Small hiatal hernia. - No gross lesions in the second portion of the duodenum. Patient placed on PPI.? CT of the abdomen and pelvis demonstrated thickening of the ascending colon concerning for malignancy as well as retroperitoneal lymphadenopathy. Plan is for patient to undergo colonoscopy in the hospital 3. Elevated D-dimer ? VQ scan was negative for pulmonary embolism 4.? Acute on chronic kidney disease stage IV Patient presented with worsening kidney function. Creatinine on discharge was 2.41, creatinine on admission was 4.90. Attributed to third spacing. Consult placed to nephrology. Daily monitoring with BMPs ordered 5.? History of B-cell lymphoma ? Status post chemo; patient has remained in remission for 6 years 6.? History of frontal lobe CVA ? With history of emotional fragility.? We will continue with monitoring 7.? Essential hypertension ? Patient blood pressure on admission was low, patient is on losartan held 8.? BPH ? Patient is on tamsulosin 0.4 mg p.o. daily did continue 9.? Class II obesity with BMI of 36 ? Weight loss advised 10.? History of hep C ? Patient did complete treatment has remained in remission 9.? DVT prophylaxis -SCDs only given patient significant anemia Time spent in the patient's overall evaluation,decision-making process, review of diagnostic data, adjustment of management, discussion with other providers, nursing nursing and ancillary staff involved in patient's care documentation, 55 Minutes Charges/Coding Visit Charges Inpatient E&M: 46307 Subs Hosp L3
--- NOTE | 2022-11-30 11:55 | CASEMGMT ---
ZOHAIB DALEY chart review: Patient was admitted 11/18-11/20/22 for GI bleed. See ZOHAIB DALEY assessment from 11/19/22. Patient was discharged home with outpatient follow-up. Patient attended follow-up appt with PCP and was sent to [facility] ED for increased SOB. Patient was admitted to PCU for acute renal failure and scheduled to have paracentesis later today. ZOHAIB DALEY back to discuss discharge planning with patient. Patient states he was taking his medications as prescribed and following up with PCP. Patient declining needs at discharge. CM will continue to follow this patient and plan for a safe discharge.
[2022-11-30] MEDS: Lidocaine 2% (20 ml mdv) 20 ML Vial INFILT (13:43)
--- NOTE | 2022-11-30 13:45 | FLU_PTH ---
PATIENT: DARWIN MILLER LOC: [facility] U#:[id number] AGE/SX: 66/M ROOM: [facility] RE11/29/[address]: Dr. Eirn Vigil MD : 1955 BED: 1 DIS: 12/13/2022 SPEC #: [id number] RECD: 11/30/22 14:22 STATUS: COLIN REDallas #: [id number] YAIMA: 11/30/22 13:[address]: Carlos Rocha DEPT: CYTOLOGY RECD BY: Jack Hunt ENTERED: 12/01/22 08:12 SP TYPE: Fluid OTHR DR: MD Dr. Erin Bear MD Dr. Paul Nielsen, MD Tissues: PARACENTESIS FLUID Procedures: Special Stain Group II Surgery Specimen Level IV Cytospin Fluid HEADER OPERATION: Paracentesis PRE-OP DIAGNOSIS: Ascites TISSUE SUBMITTED: Paracentesis fluid for cytology DIAGNOSIS CYTOLOGY Paracentesis fluid for cytology (cytospin and cell block): Positive for malignant cells, non-small cell carcinoma. See comment. AM:eddie 12/03/2022 COMMENT Immunohistochemistry ([id number]) supports the above diagnosis. A GI primary is favored. Please correlate with corresponding surgical report ([id number]). Case has been reviewed in consultation with Dr. Jurado who concurs with the above diagnosis. IDC:SJ CYTOLOGY STUDY Slides are reviewed. CYTOLOGY GROSS Received is 85 ml of hazy yellow fluid labeled with the patient's name and and designated per the requisition as paracentesis. Submitted for cytology preparation including cell block. / eddie 12/01/2022 TC:0 CPT: 40358, 32742
[2022-11-30 14:24] LABS: Cytology, Body Fluid / CSF SEE PATHOLOGY REPORT
[2022-11-30 14:42] LABS: Body Fluid Mononuclear WBC # 0.371 10^3/uL; Body Fluid Mononuclear WBC % 65.4 %; Body Fluid Polynuclear WBC # 0.197 10^3/uL; Body Fluid Polynuclear WBC % 34.6 %; Body Fluid Total Cells Counted 0.675 10^3/ul; White Blood Count/Body Fluid 0.568 10^3/uL
[2022-11-30 15:07] LABS: Glucose, Body Fluid 74 mg/dL (40-70); LDH,Body Fluid 1602 Units/l (Not Establ.); Protein, Body Fluid 5.3 g/dL (Not Establ.)
--- NOTE | 2022-11-30 16:30 | COLBX_PTH ---
PATIENT: DARWIN MILLER LOC: [facility] U#:[id number] AGE/SX: 66/M ROOM: [facility] RE11/29/[address]: Dr. Erin Vigil MD : 1955 BED: 1 DIS: 12/13/2022 SPEC #: [id number] RECD: 11/30/22 17:06 STATUS: COLIN MONDRAGON #: [id number] YAIMA: 11/30/22 16:[address]: Rei Frazier DEPT: SURGICAL PATHOLOGY RECD BY: Jack Hunt ENTERED: 12/01/22 08:19 SP TYPE: COLON BX OTHR DR: MD Dr. Yariel Dye MD Dr. Nana Yaa Koram, MD Dr. Paul Nielsen, MD Tissues: COLON BIOPSY Procedures: Special Stain Group II Mucicarmine Stain (control) Surgery Specimen Level IV HEADER OPERATION: Colonoscopy with biopsy and injection of spot marker (MAC) PRE-OP DIAGNOSIS: Anemia TISSUE SUBMITTED: Hepatic flexure mass biopsy MICROSCOPIC DIAGNOSIS Colonic mass at hepatic flexure, biopsy: Poorly differentiated adenocarcinoma. See comment. AM:eddie 12/02/2022 COMMENT Immunohistochemistry ([id number]) supports the above diagnosis. Mucin stain with matched control was used in the evaluation of this case. Please see corresponding cytology report ([id number]). Case has been reviewed in consultation with Dr. Jurado who concurs with the above diagnosis. IDC:TARAN MICROSCOPIC DESCRIPTION Slides are reviewed. GROSS DESCRIPTION Received in fixative is one container labeled with the patient's name and designated hepatic flexure mass biopsy. The specimen consists of multiple irregular fragments of light desai soft tissue that in aggregate measure 1.5 x 0.5 x 0.1 cm. The specimen is totally submitted in one cassette. / TARAN:eddie 12/01/2022 TC:0 CPT: 57447, 47449
--- NOTE | 2022-11-30 16:30 | IMM_PTH ---
PATIENT: DARWIN MILLER LOC: [facility] U#:[id number] AGE/SX: 66/M ROOM: [facility] RE11/29/[address]: Dr. Erin Vigil MD : 1955 BED: 1 DIS: 12/13/2022 SPEC #: [id number] RECD: 12/01/22 14:24 STATUS: COLIN REQ #: [id number] YAIMA: 11/30/22 16:[address]: Rei Frazier DEPT: IMMUNOHISTOCHEMISTRY RECD BY: Anai Mathew ENTERED: 12/01/22 14:25 SP TYPE: IMMUNO OTHR DR: MD Dr. Yariel Dye MD Dr. Nana Yaa Koram, MD Dr. Paul Nielsen, MD Tissues: COLON BIOPSY Procedures: Synapto (add) MSH2 (add) MLH-1 (add) MSH6 (add) Anti-PMS2 (add) CD56 (add) CEA (add) CHROMO (add) CK20 (add) CK7 (add) CK8 (add) SANTIAGO-2 (add) KI-67 (add) P53 (add) Pankeratin (initial) NSE (add) Comments: @ Ordering doctor for H.PYLORI edited from to @ by ROSA at 12/01/22 1426 @ Submitting doctor edited from to @ by JOVANIOD at 12/01/22 1426 PHYSICIAN & INSTITUTION [address] [address] SPECIMEN INFORMATION: Tissue Source: Hepatic flexure mass Clinical Info: Anemia Specimen Number: [id number] CPT code: 61958, 40520 x15 METHODOLOGY: Deparaffinized sections of prefer/formalin-fixed tissue or PAP/DQ stained slides are incubated with monoclonal/polyclonal antibodies/oligonucleotide probes. Localization is made via biotin free immunoperoxidase method. Appropriate controls are performed and reacted as expected. Results on target cell population are indicated in the following table: RESULTS: ANTIBODY / CLONE RESULT AE1-3 (AE1/AE3/PCK26) positive CK7 (OV-TL12/30) negative CK8 (17jbobF17) positive CK20 (KS20.8) negative CD56 (123C3.D5) negative Chromo (LK2H10) negative Synapto (polyclonal) negative NSE Neuron Specific Enolase negative CEA (11-7/TF-3HB-1) positive SANTIAGO-2 (SP21) positive MLH-1 (M1) negative MSH2 (25D12) negative MSH6 (44) negative PMS2 (LMA3087) positive Ki-67 (30-9) positive, >90% P53 (DO-7) positive, 56% These tests were developed and their performance characteristics determined by [facility]. They may not have been cleared or approved by the U.S. Food and Drug Administration. The FDA has determined that such clearance or approval is not necessary. The above immunohistochemical/dualISH markers are ordered and reviewed by the Pathologist. INTERPRETATION: Hepatic flexure mass, biopsy: Invasive poorly differentiated adenocarcinoma. Result of Microsatellite Instability Study: Positive (loss of mismatch protein; microsatellite instability detected). Complete loss of MLH1, MSH2 and MSH6. AM:eddie 12/03/2022
--- NOTE | 2022-11-30 16:58 | OP.COLON_ITS ---
Patient Name: Lincoln Cedillo Procedure Date: 11/30/2022 4:32 PM Date of : 1955 Age: 66 Procedure: Colonoscopy Indications: Iron deficiency anemia Providers: Rei Frazier DO Medicines: Monitored Anesthesia Care Patient Profile: This is a 66 year old male. Refer to note in patient chart for documentation of history and physical. Last Colonoscopy: date unknown. Unable to locate last colonoscopy report. Complications: No immediate complications. Procedure: Pre-Anesthesia Assessment: - Prior to the procedure, a History and Physical was performed, and patient medications and allergies were reviewed. The patient is competent. The risks and benefits of the procedure and the sedation options and risks were discussed with the patient. All questions were answered and informed consent was obtained. Patient identification and proposed procedure were verified by the physician. Mental Status Examination: alert and oriented. Airway Examination: normal oropharyngeal airway and neck mobility. Respiratory Examination: clear to auscultation. CV Examination: normal. Prophylactic Antibiotics: The patient does not require prophylactic antibiotics. Prior Anticoagulants: The patient has taken no previous anticoagulant or antiplatelet agents. After reviewing the risks and benefits, the patient was deemed in satisfactory condition to undergo the procedure. The anesthesia plan was to use monitored anesthesia care (MAC). Immediately prior to administration of medications, the patient was re-assessed for adequacy to receive sedatives. The heart rate, respiratory rate, oxygen saturations, blood pressure, adequacy of pulmonary ventilation, and response to care were monitored throughout the procedure. The physical status of the patient was re-assessed after the procedure. After I obtained informed consent, the scope was passed under direct vision. Throughout the procedure, the patient's blood pressure, pulse, and oxygen saturations were monitored continuously. The Colonoscope was introduced through the anus and advanced to the hepatic flexure. The colonoscopy was performed without difficulty. The patient tolerated the procedure well. The quality of the bowel preparation was good. Scope In: 4:41:37 PM Scope Out: 4:52:48 PM Total Procedure Duration Time 0 hours 11 minutes 11 seconds Findings: The perianal and digital rectal examinations were normal. A malignant-appearing, intrinsic severe stenosis was found at the hepatic flexure and was non-traversed. Biopsies were taken with a cold forceps for histology. Verification of patient identification for the specimen was done. Estimated blood loss was minimal. Area was successfully injected with 5 mL Priscilla ink for tattooing. Estimated blood loss was minimal. Impression: - Stricture at the hepatic flexure. Biopsied. Injected. Recommendation: - Return patient to [facility] for ongoing care. - Full liquid diet. - Continue present medications. - Await pathology results. - Repeat colonoscopy for surveillance based on pathology results. -CT scan of the chest abdomen pelvis restaging a CEA level -Consult surgery Procedure Code(s): --- Professional --- 51167, 52, Colonoscopy, flexible; with directed submucosal injection(s), any substance 12609, 52, Colonoscopy, flexible; with biopsy, single or multiple CPT copyright 2017 [employer]. All rights reserved. The codes documented in this report are preliminary and upon tractor trailer operator review may be revised to meet current compliance requirements. Rei Frazier DO 11/30/2022 4:58:02 PM This report has been signed electronically. Number of Addenda: 0 Note Initiated On: 11/30/2022 4:32 PM
--- NOTE | 2022-11-30 16:59 | OP.CCLET_ITS ---
11/30/2022 Bobby Salguero MD [address] [place] [address] Re : Colonoscopy procedure for Lincoln Cedillo Dear Dr. Salguero This procedure was performed on Wednesday, November 30, 2022. My impressions and recommendations are as follows: Impressions : - Stricture at the hepatic flexure. Biopsied. Injected. Recommendations : - Return patient to [facility] for ongoing care. - Full liquid diet. - Continue present medications. - Await pathology results. - Repeat colonoscopy for surveillance based on pathology results. -CT scan of the chest abdomen pelvis restaging a CEA level -Consult surgery My findings are described in the full procedure note, which is enclosed. If I can be of further assistance, please feel free to contact me at . Sincerely, Rei Friend, 11/30/2022 4:58:02 PM This report has been signed electronically.
[2022-11-30 17:41] LABS: Auto B Fluid Analyzer BKGD Ct COUNTS W/IN LIMITS (W/IN LIMITS); Lymphocytes 17 %; Macrophages 16 %; Mesothelial Cells 6 %; Monocytes 14 %; Neutrophil (Segs) 47 %
[2022-11-30 17:42] LABS: Appearance/Body Fluid CLEAR; Color/Body Fluid YELLOW; Red Cell Count/Body Fluid 438 /mm3; Source- Body Fluid PERITONEAL FLUID
[2022-11-30 17:43] LABS: Body Fluid QC Type(s) BF2Q,BF3Q
[2022-12-01 03:00] VITALS: BP 104/79; PULSE 99; RESP 18; TEMP 37.1; O2SAT 94
[2022-12-01 06:28] LABS: Absolute Lymphocyte Count 0.76 X10^3/uL (0.83-4.51); Absolute Neutrophil Count 9.5 X10^3/uL (2.0-7.7); Basophil# 0.06 X10^3/uL; Basophil% 0.5 % (0-1); Eosinophil# 0.14 X10^3/uL; Eosinophils% 1.3 % (0-5); Hematocrit 29.7 % (40-54); Hemoglobin 8.7 g/dL (13.0-16.5); Lymphocyte # 0.76 X10^3/ul (0.83-4.51); Lymphocyte % 6.8 % (19-41); Mean Corp Hgb Conc 29.3 g/dL (32-36); Mean Corpuscular Hgb 21.9 pg (27.0-32.0); Mean Corpuscular Volume 74.6 fL (80-94); Mean Platelet Vol. 9.3 fl (6.2-12.0); Monocyte# 0.61 X10^3/uL; Monocyte% 5.5 % (0-10); NRBC Flagged by Analyzer 0.2 % (0-5); Neutrophil # 9.49 X10^3/uL (2.7-7.7); POSITIVE MORPHOLOGY YES; Platelet Count 636 K/mm3 (150-450); RBC Distribution Width CV 21.4 % (11.6-14.6); RBC Distribution Width SD 57.6 fl (35.1-43.9); Red Blood Count 3.98 M/mm3 (4.6-6.2); White Blood Count 11.2 K/mm3 (4.4-11.0)
[2022-12-01 06:30] LABS: Differential Indicated SCAN CRITERIA MET
[2022-12-01 06:55] LABS: AST(SGOT) 44 U/L (15-37); Alanine Aminotransfer ALT/SGPT 10 U/L (16-61); Albumin, Serum 1.8 g/dL (3.2-5.0); Alkaline Phosphatase 61 U/L (45-117); Anion Gap 10 (5-15); BUN 57 mg/dL (7-18); BUN/Creat Ratio 12.6 RATIO (10-20); Bilirubin, Direct 0.08 mg/dL (0.00-0.30); Calcium,Total 7.9 mg/dL (8.5-10.1); Chloride 108 mmol/L (98-107); Creatinine, Serum 4.54 mg/dL (0.70-1.30); EST Glomerular Filtration Rate 14 mL/min (>60); Est Glom Filt Rate - Afr Amer 17 mL/min (>60); Estimated Creatinine Clearance 12.53 ml/min; Globulin 5.1 g/dL (2.2-4.2); Glucose 106 mg/dL (74-106); Magnesium 2.3 mg/dL (1.6-2.6); Phosphorus 6.1 mg/dL (2.5-4.9); Potassium 4.8 mmol/L (3.5-5.1); Protein, Total 6.9 g/dL (6.4-8.2); Sodium Level 134 mmol/L (136-145)
[2022-12-01 07:07] LABS: Anisocytosis 2+; Microcytosis 1+; Platelet Estimate MKD INC (ADEQ)
[2022-12-01 08:18] VITALS: BP 108/85; PULSE 107; RESP 16; TEMP 36.9; O2SAT 94
[2022-12-01] MEDS: Tamsulosin HCl 0.4 MG Capsule PO (08:30)
--- NOTE | 2022-12-01 08:53 | PN.HOSP_ITS ---
Subjective Subjective Follow-up ascites Patient underwent colonoscopy by Dr. Frazier on 11/30/2022 findings included stricture at the hepatic flexure.? Biopsied.? Injected. Patient also underwent ultrasound-guided paracentesis on 11/30/2022; A total of 5950 ml of ? lorenzo- colored fluid? were removed from the peritoneal cavity.? Objective Data Objective Data Vital Signs: Vital Signs Temp Pulse Resp BP Pulse Ox O2 Del Method O2 Flow Rate 98.5 F 107 H 16 108/85 H 94 Room Air 2 12/01/22 08:18 12/01/22 08:18 12/01/22 08:18 12/01/22 08:18 12/01/22 08:18 12/01/22 08:25 11/30/22 17:10 Oxygen Flow Rate (L/min) 2 Oxygen Delivery Method [3] Room Air Oxygen Delivery Method [2] Room Air Oxygen Delivery Method [1 ( Room Air Initial Baseline)] Oxygen Delivery Method Room Air Weight: 92.2 kg Body Mass Index (BMI) 36.0 Intake & Output: Intake and Output for Last 24 Hours 11/29/22 11/30/22 12/01/22 23:59 23:59 23:59 Intake Total 500 / 1500 2000 / 2000 Output Total 5950 / 5950 Balance 500 / 1500 -3950 / -3950 Medical Nutrition Assessment Dietitian: Malnutrition Criteria Met Start: 11/30/22 13:40 Freq: Status: Active Protocol: Document 11/30/22 13:40 AG (Rec: 11/30/22 13:40 AG [id number]) Nutrition Malnutrition Evidence of Malnutrition Exists Yes Malnutrition (severe): Acute Illness/Injury Evidenced By Suboptimal Energy Intake ( Severe),Weight Loss (Severe) Clinical Problem Acute Disease or Injury Related Malnutrition Etiology severe, acute malnutrition related to inadequate oral intake d/t GI dysfunction Signs/Symptoms as evidenced by estimated PO intake meeting <50% of estimated energy needs >5 days ; unintentional wt loss of 16. 7#/8% wt loss <1 month Status Active Problem Recommendation Dietitian Recommendations/Changes regular/sodium restricted diet as tolerated; ensure plus high protein 120mL 4x/day w/ medpass when diet advanced Lab / Micro Data Result Diagrams: 12/01/22 05:44 12/01/22 05:44 Labs: Laboratory Results - last 24 hr 11/30/22 13:45: Fluid Glucose 74 H, Fluid Total Protein 5.3, Fluid LDH 1602 11/30/22 13:45: Fluid Source PERITONEAL FLUID, Fluid Color YELLOW, Fluid Appearance CLEAR, Fluid WBC 0.568, Fluid RBC 438, Fluid Tot Cell Count 0.675, Fld Polynuclear WBCs # 0.197, Fld Polynuclear WBCs % 34.6, Fluid Mononuclear WBCs 0.371, Fld Mononuclear WBCs % 65.4, Fluid Neutrophils 47, Fluid Lymphocytes 17, Fluid Monocytes 14, Fluid Macrophages 16, Fld Mesothelial Cells 6, Fl Pathologist Comment May follow, Fluid Comment 2 SEE COMMENT 12/01/22 05:44: WBC 11.2 H, RBC 3.98 L, Hgb 8.7 L, Hct 29.7 L, MCV 74.6 L, MCH 21.9 L, MCHC 29.3 L, RDW Std Deviation 57.6 H, RDW Coeff of Angel 21.4 H, Plt Count 636 H, MPV 9.3, Immature Gran % (Auto) 0.900, Neut % (Auto) 85.0 H, Lymph % (Auto) 6.8 L, [place] % (Auto) 5.5, Eos % (Auto) 1.3, Baso % (Auto) 0.5, Absolute Neuts (auto) 9.5 H, Absolute Lymphs (auto) 0.76 L, Nucleated RBC % 0.2, Platelet Estimate MKD INC, Anisocytosis 2+, Microcytosis 1+ 12/01/22 05:44: Sodium 134 L, Potassium 4.8, Chloride 108 H, Carbon Dioxide 16.0 L, Anion Gap 10, BUN 57 H, Creatinine 4.54 H, Estim Creat Clear Calc 12.53, Est GFR (MDRD) Af Amer 17 L, Est GFR (MDRD) Non-Af 14 L, BUN/Creatinine Ratio 12.6, Glucose 106, Calcium 7.9 L, Phosphorus 6.1 H, Magnesium 2.3, Total Bilirubin 0.20, Direct Bilirubin 0.08, AST 44 H, ALT 10 L, Alkaline Phosphatase 61, Total Protein 6.9, Albumin 1.8 L, Globulin 5.1 H Radiography Diagnostic Testing: Radiology Impression Paracentesis Ultrasound 11/30/22 07:00 IMPRESSION: Ultrasound guided paracentesis. Electronically Signed: John Paul Kahn MD at 14:50 EST , Rhythm Strip Rhythm Strip: Sinus Tach Rate: 114 Ectopy: None Physical Exam Narrative GENERAL: cooperative HEENT: Atraumatic; normocephalic EYES; Anicteric, Normal Conjunctiva NECK; supple, normal thyroid, RESPIRATORY: Diminished to auscultation CARDIOVASCULAR: Regular S1 S2, GI: marked distention of the abdomen : No Renal angle tenderness; EXTREMITIES: No edema, no clubbing, MUSCULOSKELETAL: no muscle wasting NEURO: Awake; no lateralizing signs. SKIN: No Rash PSYCH; Flat affect Assessment & Plan Assessment/Plan (1) Acute renal failure (ARF): (2) Abdominal distension: PLAN: Plan Patient is a 66-year-old gentleman with history of B-cell lymphoma recently discharged from the hospital following admission for symptomatic anemia he underwent EGD found to have grade a reflux esophagitis. Presented back to the emergency department with significant abdominal distention and worsening kidney function 1. Marked ascites ? Patient scheduled to undergo ultrasound-guided paracentesis with plans to send for cytology in addition to other studies. GI has been consulted 12/01/2022 patient underwent ultrasound-guided paracentesis on 11/30/2022; A total of 5950 ml of ? lorenzo-colored fluid? were removed from the peritoneal cavity.? 2. Anemia ? Patient underwent patient underwent EGD by Dr. Frazier on 11/19/2022 findings included -?LA Grade A reflux esophagitis.? Biopsied. - Small hiatal hernia. - No gross lesions in the second portion of the duodenum. Patient placed on PPI.? CT of the abdomen and pelvis demonstrated thickening of the ascending colon concerning for malignancy as well as retroperitoneal lymphadenopathy. Plan is for patient to undergo colonoscopy in the hospital -12/01/2022 patient underwent colonoscopy by Dr. Frazier on 11/30/2022 findings included stricture at the hepatic flexure.? Biopsied.? Injected. 3. Elevated D-dimer ? VQ scan was negative for pulmonary embolism 4.? Acute on chronic kidney disease stage IV Patient presented with worsening kidney function. Creatinine on discharge was 2.41, creatinine on admission was 4.90. Attributed to third spacing. Consult placed to nephrology. Daily monitoring with BMPs ordered 5.? History of B-cell lymphoma ? Status post chemo; patient has remained in remission for 6 years 6.? History of frontal lobe CVA ? With history of emotional fragility.? We will continue with monitoring 7.? Essential hypertension ? Patient blood pressure on admission was low, patient is on losartan held 8.? BPH ? Patient is on tamsulosin 0.4 mg p.o. daily did continue 9.? Class II obesity with BMI of 36 ? Weight loss advised 10.? History of hep C ? Patient did complete treatment has remained in remission 9.? DVT prophylaxis -SCDs only given patient significant anemia Time spent in the patient's overall evaluation,decision-making process, review of diagnostic data, adjustment of management, discussion with other providers, nursing nursing and ancillary staff involved in patient's care documentation, 38 Minutes Charges/Coding Visit Charges Inpatient E&M: 63830 Subs Hosp L2
--- NOTE | 2022-12-01 11:32 | PCM.CONS.R ---
Assessment & Plan Assessment/Plan (1) Acute renal failure (ARF): PLAN: Baseline creatinine as of May 2022 was around 1.8. He was admitted here about 3 weeks ago with anemia, at that time his creatinine was around 2.2-2.4. Presented with a creatinine of 4.9. Slightly better today. CT abdomen reviewed, no hydronephrosis. Bladder is empty. He says he has not voided much for the last several days. Minimal oral intake for several days. S/p paracentesis. It is possible that ascites is malignancy related. He says he feels somewhat better after paracentesis abdominal pressure is better. Breathing is back to baseline. VQ scan negative. I will give him 1 more liter of fluid. Urine output is slightly better today. Creatinine is better today. Urine analysis is not impressive Stage IV. Baseline creatinine 2.2. HPI Consult Data Date of Consult: 12/01/22 HPI Narrative Reason for Consultation: ACute renal failure HPI Narrative: DARWIN MILLER, is a 66 M who presents to the hospital with progressively worsening shortness of breath, abdominal distention. He was recently admitted here with anemia, endoscopy was negative. Scheduled for colonoscopy as outpatient. Presented with above complaints. VQ scan in ER was negative. CT abdomen showed possible colon mass, ascites. S/p colonoscopy yesterday, was found to have large mass which was biopsied. Surgery consult was placed. He does have history of lymphoma and is s/p chemotherapy. He also had paracentesis with about 6 L of volume removal. Feels better today. He says he has not been eating or drinking for the last several days now. Urine output has been minimal for several days. It seems she has CKD stage IV with baseline creatinine around 2.4 when he was admitted here last month. Before that his creatinine was around 1.8 as of May 2022. Denies taking any NSAIDs, no new medications. [facility] Medical History BPH (benign prostatic hyperplasia) GERD (gastroesophageal reflux disease) History of B-cell lymphoma HTN (hypertension) Stroke Home Medications Acid Relief 1 ea PO/SL DAILY GERD 11/18/22 [History Last Taken 11/17/22] losartan 25 mg tablet 25 mg PO QHS BP 11/18/22 [History Last Taken 11/17/22] tamsulosin 0.4 mg capsule 0.4 mg PO DAILY PROSTATE 11/18/22 [History Last Taken 11/17/22] pantoprazole 40 mg tablet,delayed release 40 mg PO BID #120 tabs 11/20/22 [Rx Last Taken Unknown] Allergy/AdvReac Type Severity Reaction Status Date / Time RAPID ACTING ANTIHYPERTENSIVE AdvReac Other Uncoded 11/29/22 11:59 Family History (Updated 11/18/22 @ 19:[address] Melodie Baker MD) Father COPD (chronic obstructive pulmonary disease) Lung cancer Mother COPD (chronic obstructive pulmonary disease) Surgical History S/P bilateral inguinal hernia repair S/P tonsillectomy Social History household members: spouse Smoking Status: Former smoker how long ago did patient quit smoking: Quit ~ 30 years prior, smoked 1.5 ppd since teen until quit. alcohol intake: current alcohol intake frequency: holidays/special occasions only substance use type: does not use ROS ROS Narrative Negative except above Physical Exam Narrative Alert awake oriented x 3 no obvious distress no pallor no icterus no JVD s1s2 no murmurs lungs clear abdomen soft no organomegaly no edema no cyanosis Medical Records Data Medical Nutrition Assessment Dietitian: Malnutrition Criteria Met Start: 11/30/22 13:40 Freq: Status: Active Protocol: Document 11/30/22 13:40 AG (Rec: 11/30/22 13:40 [id number]) Nutrition Malnutrition Evidence of Malnutrition Exists Yes Malnutrition (severe): Acute Illness/Injury Evidenced By Suboptimal Energy Intake ( Severe),Weight Loss (Severe) Clinical Problem Acute Disease or Injury Related Malnutrition Etiology severe, acute malnutrition related to inadequate oral intake d/t GI dysfunction Signs/Symptoms as evidenced by estimated PO intake meeting <50% of estimated energy needs >5 days ; unintentional wt loss of 16. 7#/8% wt loss <1 month Status Active Problem Recommendation Dietitian Recommendations/Changes regular/sodium restricted diet as tolerated; ensure plus high protein 120mL 4x/day w/ medpass when diet advanced Lab / Micro Data Result Diagrams: 12/01/22 05:44 12/01/22 05:44 Labs: Laboratory Results - last 24 hr 11/30/22 13:45: Fluid Glucose 74 H, Fluid Total Protein 5.3, Fluid LDH 1602 11/30/22 13:45: Fluid Source PERITONEAL FLUID, Fluid Color YELLOW, Fluid Appearance CLEAR, Fluid WBC 0.568, Fluid RBC 438, Fluid Tot Cell Count 0.675, Fld Polynuclear WBCs # 0.197, Fld Polynuclear WBCs % 34.6, Fluid Mononuclear WBCs 0.371, Fld Mononuclear WBCs % 65.4, Fluid Neutrophils 47, Fluid Lymphocytes 17, Fluid Monocytes 14, Fluid Macrophages 16, Fld Mesothelial Cells 6, Fl Pathologist Comment May follow, Fluid Comment 2 SEE COMMENT 12/01/22 05:44: WBC 11.2 H, RBC 3.98 L, Hgb 8.7 L, Hct 29.7 L, MCV 74.6 L, MCH 21.9 L, MCHC 29.3 L, RDW Std Deviation 57.6 H, RDW Coeff of Angel 21.4 H, Plt Count 636 H, MPV 9.3, Immature Gran % (Auto) 0.900, Neut % (Auto) 85.0 H, Lymph % (Auto) 6.8 L, [place] % (Auto) 5.5, Eos % (Auto) 1.3, Baso % (Auto) 0.5, Absolute Neuts (auto) 9.5 H, Absolute Lymphs (auto) 0.76 L, Nucleated RBC % 0.2, Platelet Estimate MKD INC, Anisocytosis 2+, Microcytosis 1+ 12/01/22 05:44: Sodium 134 L, Potassium 4.8, Chloride 108 H, Carbon Dioxide 16.0 L, Anion Gap 10, BUN 57 H, Creatinine 4.54 H, Estim Creat Clear Calc 12.53, Est GFR (MDRD) Af Amer 17 L, Est GFR (MDRD) Non-Af 14 L, BUN/Creatinine Ratio 12.6, Glucose 106, Calcium 7.9 L, Phosphorus 6.1 H, Magnesium 2.3, Total Bilirubin 0.20, Direct Bilirubin 0.08, AST 44 H, ALT 10 L, Alkaline Phosphatase 61, Total Protein 6.9, Albumin 1.8 L, Globulin 5.1 H Rhythm Strip Rhythm Strip: Sinus Tach Rate: 114 Ectopy: None Radiology Impression Paracentesis Ultrasound 11/30/22 07:00 IMPRESSION: Ultrasound guided paracentesis. Electronically Signed: John Paul Kahn MD at 14:50 EST ,
[2022-12-01] MEDS: 0.9% Normal Saline 1,000 ML 100 ML IV (11:44)
[2022-12-01 13:00] VITALS: BP 99/80; PULSE 90; RESP 15; TEMP 36.3; O2SAT 95
--- NOTE | 2022-12-01 15:51 | PCM.PROGNOTE ---
Subjective Subjective Patient underwent colonoscopy yesterday. Mass at the level of the hepatic flexure. Ct scan of the Abdomen pelvis had displayed a lot of ascites. Cytology is pending. Objective Data Objective Data Vital Signs: Vital Signs Temp Pulse Resp BP Pulse Ox O2 Del Method O2 Flow Rate 97.3 F L 90 15 99/80 95 Room Air 2 12/01/22 13:00 12/01/22 13:00 12/01/22 13:00 12/01/22 13:00 12/01/22 13:00 12/01/22 13:30 11/30/22 17:10 Oxygen Flow Rate (L/min) 2 Oxygen Delivery Method [3] Room Air Oxygen Delivery Method [2] Room Air Oxygen Delivery Method [1 ( Room Air Initial Baseline)] Oxygen Delivery Method Room Air Weight: 203 lb 4.259 oz Body Mass Index (BMI) 36.0 Intake & Output: Intake and Output for Last 24 Hours 11/29/22 11/30/22 12/01/22 23:59 23:59 23:59 Intake Total 500 / 1500 2000 / 2000 Output Total 5950 / 5950 Balance 500 / 1500 -3950 / -3950 Medical Nutrition Assessment Dietitian: Malnutrition Criteria Met Start: 11/30/22 13:40 Freq: Status: Active Protocol: Document 11/30/22 13:40 AG (Rec: 11/30/22 13:40 AG [id number]) Nutrition Malnutrition Evidence of Malnutrition Exists Yes Malnutrition (severe): Acute Illness/Injury Evidenced By Suboptimal Energy Intake ( Severe),Weight Loss (Severe) Clinical Problem Acute Disease or Injury Related Malnutrition Etiology severe, acute malnutrition related to inadequate oral intake d/t GI dysfunction Signs/Symptoms as evidenced by estimated PO intake meeting <50% of estimated energy needs >5 days ; unintentional wt loss of 16. 7#/8% wt loss <1 month Status Active Problem Recommendation Dietitian Recommendations/Changes regular/sodium restricted diet as tolerated; ensure plus high protein 120mL 4x/day w/ medpass when diet advanced Lab / Micro Data Result Diagrams: 12/01/22 05:44 12/01/22 05:44 Labs: Laboratory Results - last 24 hr 11/30/22 13:45: Fluid Source PERITONEAL FLUID, Fluid Color YELLOW, Fluid Appearance CLEAR, Fluid WBC 0.568, Fluid RBC 438, Fluid Tot Cell Count 0.675, Fld Polynuclear WBCs # 0.197, Fld Polynuclear WBCs % 34.6, Fluid Mononuclear WBCs 0.371, Fld Mononuclear WBCs % 65.4, Fluid Neutrophils 47, Fluid Lymphocytes 17, Fluid Monocytes 14, Fluid Macrophages 16, Fld Mesothelial Cells 6, Fl Pathologist Comment May follow, Fluid Comment 2 SEE COMMENT 12/01/22 05:44: WBC 11.2 H, RBC 3.98 L, Hgb 8.7 L, Hct 29.7 L, MCV 74.6 L, MCH 21.9 L, MCHC 29.3 L, RDW Std Deviation 57.6 H, RDW Coeff of Angel 21.4 H, Plt Count 636 H, MPV 9.3, Immature Gran % (Auto) 0.900, Neut % (Auto) 85.0 H, Lymph % (Auto) 6.8 L, [place] % (Auto) 5.5, Eos % (Auto) 1.3, Baso % (Auto) 0.5, Absolute Neuts (auto) 9.5 H, Absolute Lymphs (auto) 0.76 L, Nucleated RBC % 0.2, Platelet Estimate MKD INC, Anisocytosis 2+, Microcytosis 1+ 12/01/22 05:44: Sodium 134 L, Potassium 4.8, Chloride 108 H, Carbon Dioxide 16.0 L, Anion Gap 10, BUN 57 H, Creatinine 4.54 H, Estim Creat Clear Calc 12.53, Est GFR (MDRD) Af Amer 17 L, Est GFR (MDRD) Non-Af 14 L, BUN/Creatinine Ratio 12.6, Glucose 106, Calcium 7.9 L, Phosphorus 6.1 H, Magnesium 2.3, Total Bilirubin 0.20, Direct Bilirubin 0.08, AST 44 H, ALT 10 L, Alkaline Phosphatase 61, Total Protein 6.9, Albumin 1.8 L, Globulin 5.1 H Rhythm Strip Rhythm Strip: Sinus Tach Rate: 114 Ectopy: None Physical Exam Narrative Alert awake oriented x 3 no obvious distress no pallor no icterus no JVD s1s2 no murmurs lungs clear abdomen soft no organomegaly no edema no cyanosis Assessment & Plan Assessment/Plan (1) Acute renal failure (ARF): (2) Abdominal distension: PLAN: Asites: ultrasound-guided paracentesis with plans to send for cytology in addition to other studies. 12/01/2022 patient underwent ultrasound-guided paracentesis on 11/30/2022; A total of 5950 ml of ? lorenzo-colored fluid? were removed from the peritoneal cavity.?He has a Low SAAG gradient that is not consistent with cirrhosis. 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 (3) Anemia: PLAN: Anemia secondary to GI bleed from right sided colonic mass. Hgb seems to stable for now. Recommend surgical evaluation because he will eventual obstruct. Charges/Coding Visit Charges Inpatient E&M: 90888 Subs Hosp L3
[2022-12-01 17:56] VITALS: BP 117/78; PULSE 97; RESP 16; TEMP 36.6; O2SAT 98
[2022-12-01 23:42] VITALS: BP 105/70; PULSE 84; RESP 16; TEMP 36.4; O2SAT 95
[2022-12-02 04:47] LABS: Absolute Lymphocyte Count 0.73 X10^3/uL (0.83-4.51); Absolute Neutrophil Count 7.2 X10^3/uL (2.0-7.7); Basophil# 0.06 X10^3/uL; Basophil% 0.7 % (0-1); Eosinophil# 0.38 X10^3/uL; Eosinophils% 4.2 % (0-5); Hematocrit 30.2 % (40-54); Hemoglobin 8.8 g/dL (13.0-16.5); Lymphocyte # 0.73 X10^3/ul (0.83-4.51); Lymphocyte % 8.1 % (19-41); Mean Corp Hgb Conc 29.1 g/dL (32-36); Mean Corpuscular Hgb 21.9 pg (27.0-32.0); Mean Corpuscular Volume 75.3 fL (80-94); Mean Platelet Vol. 9.4 fl (6.2-12.0); Monocyte# 0.58 X10^3/uL; Monocyte% 6.4 % (0-10); NRBC Flagged by Analyzer 0 % (0-5); Neutrophil # 7.18 X10^3/uL (2.7-7.7); Neutrophil % 79.8 % (47-70); POSITIVE MORPHOLOGY YES; Platelet Count 615 K/mm3 (150-450); RBC Distribution Width CV 21.2 % (11.6-14.6); RBC Distribution Width SD 57.1 fl (35.1-43.9); Red Blood Count 4.01 M/mm3 (4.6-6.2)
[2022-12-02 04:54] LABS: Differential Indicated SCAN CRITERIA MET
[2022-12-02 05:26] LABS: AST(SGOT) 40 U/L (15-37); Alanine Aminotransfer ALT/SGPT 12 U/L (16-61); Albumin, Serum 1.6 g/dL (3.2-5.0); Alkaline Phosphatase 54 U/L (45-117); Anion Gap 10 (5-15); BUN 55 mg/dL (7-18); BUN/Creat Ratio 13.9 RATIO (10-20); Bilirubin, Direct < 0.05 mg/dL (0.00-0.30); Calcium,Total 7.8 mg/dL (8.5-10.1); Chloride 108 mmol/L (98-107); Creatinine, Serum 3.97 mg/dL (0.70-1.30); EST Glomerular Filtration Rate 16 mL/min (>60); Est Glom Filt Rate - Afr Amer 19 mL/min (>60); Estimated Creatinine Clearance 14.33 ml/min; Glucose 94 mg/dL (74-106); Protein, Total 6.6 g/dL (6.4-8.2); Sodium Level 134 mmol/L (136-145)
[2022-12-02 05:53] LABS: Anisocytosis 2+; Microcytosis 1+; Platelet Estimate MKD INC (ADEQ)
--- NOTE | 2022-12-02 08:55 | PN.HOSP_ITS ---
Subjective Subjective Follow-up ascites Patient complains of bloating this AM. Biopsy and cytology from his recent colonoscopy and paracentesis respectively pending. Objective Data Objective Data Vital Signs: Vital Signs Temp Pulse Resp BP Pulse Ox O2 Del Method O2 Flow Rate 97.5 F L 84 16 105/70 95 Room Air 2 12/01/22 23:42 12/01/22 23:42 12/01/22 23:42 12/01/22 23:42 12/01/22 23:42 12/01/22 23:42 11/30/22 17:10 Oxygen Flow Rate (L/min) 2 Oxygen Delivery Method [3] Room Air Oxygen Delivery Method [2] Room Air Oxygen Delivery Method [1 ( Room Air Initial Baseline)] Oxygen Delivery Method Room Air Weight: 92.2 kg Body Mass Index (BMI) 36.0 Intake & Output: Intake and Output for Last 24 Hours 11/30/22 12/01/22 12/02/22 23:59 23:59 23:59 Intake Total 1999 / 1999 1000 / 1000 Output Total 5950 / 5950 Balance -3950 / -3950 1000 / 1000 Medical Nutrition Assessment Dietitian: Malnutrition Criteria Met Start: 11/30/22 13:40 Freq: Status: Active Protocol: Document 11/30/22 13:40 AG (Rec: 11/30/22 13:40 [id number]) Nutrition Malnutrition Evidence of Malnutrition Exists Yes Malnutrition (severe): Acute Illness/Injury Evidenced By Suboptimal Energy Intake ( Severe),Weight Loss (Severe) Clinical Problem Acute Disease or Injury Related Malnutrition Etiology severe, acute malnutrition related to inadequate oral intake d/t GI dysfunction Signs/Symptoms as evidenced by estimated PO intake meeting <50% of estimated energy needs >5 days ; unintentional wt loss of 16. 7#/8% wt loss <1 month Status Active Problem Recommendation Dietitian Recommendations/Changes regular/sodium restricted diet as tolerated; ensure plus high protein 120mL 4x/day w/ medpass when diet advanced Lab / Micro Data Result Diagrams: 12/02/22 04:08 12/02/22 04:08 Labs: Laboratory Results - last 24 hr 12/02/22 04:08: WBC 9.0, RBC 4.01 L, Hgb 8.8 L, Hct 30.2 L, MCV 75.3 L, MCH 21.9 L, MCHC 29.1 L, RDW Std Deviation 57.1 H, RDW Coeff of Angel 21.2 H, Plt Count 615 H, MPV 9.4, Immature Gran % (Auto) 0.800, Neut % (Auto) 79.8 H, Lymph % (Auto) 8 .1 L, [place] % (Auto) 6.4, Eos % (Auto) 4.2, Baso % (Auto) 0.7, Absolute Neuts (auto) 7.2, Absolute Lymphs (auto) 0.73 L, Nucleated RBC % 0, Platelet Estimate MKD INC, Anisocytosis 2+, Microcytosis 1+ 12/02/22 04:08: Sodium 134 L, Potassium 5.0, Chloride 108 H, Carbon Dioxide 16.0 L, Anion Gap 10, BUN 55 H, Creatinine 3.97 H, Estim Creat Clear Calc 14.33, Est GFR (MDRD) Af Amer 19 L, Est GFR (MDRD) Non-Af 16 L, BUN/Creatinine Ratio 13.9, Glucose 94, Calcium 7.8 L, Total Bilirubin 0.30, Direct Bilirubin < 0.05, AST 40 H, ALT 12 L, Alkaline Phosphatase 54, Total Protein 6.6, Albumin 1.6 L, Globulin 5.0 H Rhythm Strip Rhythm Strip: Sinus Tach Rate: 114 Ectopy: None Physical Exam Narrative GENERAL: cooperative HEENT: Atraumatic; normocephalic EYES; Anicteric, Normal Conjunctiva NECK; supple, normal thyroid, RESPIRATORY: Diminished to auscultation CARDIOVASCULAR: Regular S1 S2, GI: marked distention of the abdomen : No Renal angle tenderness; EXTREMITIES: No edema, no clubbing, MUSCULOSKELETAL: no muscle wasting NEURO: Awake; no lateralizing signs. SKIN: No Rash PSYCH; Flat affect Assessment & Plan Assessment/Plan (1) Acute renal failure (ARF): (2) Abdominal distension: PLAN: Plan Patient is a 66-year-old gentleman with history of B-cell lymphoma recently discharged from the hospital following admission for symptomatic anemia he underwent EGD found to have grade a reflux esophagitis. Presented back to the emergency department with significant abdominal distention and worsening kidney function 1. Marked ascites ? Patient scheduled to undergo ultrasound-guided paracentesis with plans to send for cytology in addition to other studies. GI has been consulted 12/01/2022 patient underwent ultrasound-guided paracentesis on 11/30/2022; A total of 5950 ml of ? lorenzo-colored fluid? were removed from the peritoneal cavity. ? 12/02/2022; Patient complains of bloating this AM. Biopsy and cytology from his recent colonoscopy and paracentesis respectively pending.. Repeat paracentesis ordered for a.m. 2. Anemia ? Patient underwent patient underwent EGD by Dr. Frazier on 11/19/2022 findings included -?LA Grade A reflux esophagitis.? Biopsied. - Small hiatal hernia. - No gross lesions in the second portion of the duodenum. Patient placed on PPI.? CT of the abdomen and pelvis demonstrated thickening of the ascending colon concerning for malignancy as well as retroperitoneal lymphadenopathy. Plan is for patient to undergo colonoscopy in the hospital -12/01/2022 patient underwent colonoscopy by Dr. Frazier on 11/30/2022 findings included stricture at the hepatic flexure.? Biopsied.? Injected. ? 12/02/2022; biopsy result pending 3. Elevated D-dimer ? VQ scan was negative for pulmonary embolism 4.? Acute on chronic kidney disease stage IV Patient presented with worsening kidney function. Creatinine on discharge was 2.41, creatinine on admission was 4.90. Attributed to third spacing. Consult placed to nephrology. Daily monitoring with BMPs ordered 5.? History of B-cell lymphoma ? Status post chemo; patient has remained in remission for 6 years 6.? History of frontal lobe CVA ? With history of emotional fragility.? We will continue with monitoring 7.? Essential hypertension ? Patient blood pressure on admission was low, patient is on losartan held 8.? BPH ? Patient is on tamsulosin 0.4 mg p.o. daily did continue 9.? Class II obesity with BMI of 36 ? Weight loss advised 10.? History of hep C ? Patient did complete treatment has remained in remission 9.? DVT prophylaxis -SCDs 10. ?Severe, acute malnutrition -related to inadequate oral intake d/t GI dysfunction as evidenced by estimated PO intake meeting <50% of estimated energy needs >5 days; unintentional wt loss of 16.7#/8% wt loss <1 month. Plan for regular/sodium restricted diet as tolerated; ensure plus high protein 120mL 4x/day w/medpass when diet advanced. Time spent in the patient's overall evaluation,decision-making process, review of diagnostic data, adjustment of management, discussion with other providers, nursing nursing and ancillary staff involved in patient's care documentation, 38 Minutes Charges/Coding Visit Charges Inpatient E&M: 65421 Subs Hosp L2
[2022-12-02 09:00] VITALS: BP 98/69; PULSE 92; RESP 16; TEMP 36.9; O2SAT 94
[2022-12-02] MEDS: Tamsulosin HCl 0.4 MG Capsule PO (09:02)
[2022-12-02 10:03] VITALS: O2SAT 94
--- NOTE | 2022-12-02 14:03 | PN.RENAL_ITS ---
Subjective Subjective No new events Objective Data Objective Data Vital Signs: Vital Signs Temp Pulse Resp BP Pulse Ox O2 Del Method O2 Flow Rate 98.5 F 92 16 98/69 94 Room Air 2 12/02/22 09:00 12/02/22 09:00 12/02/22 09:00 12/02/22 09:00 12/02/22 10:03 12/02/22 09:00 11/30/22 17:10 Oxygen Flow Rate (L/min) 2 Oxygen Delivery Method [3] Room Air Oxygen Delivery Method [2] Room Air Oxygen Delivery Method [1 ( Room Air Initial Baseline)] Oxygen Delivery Method Room Air Weight: 92.2 kg Body Mass Index (BMI) 36.0 Intake & Output: Intake and Output for Last 24 Hours 11/30/22 12/01/22 12/02/22 23:59 23:59 23:59 Intake Total 1999 / 1999 1000 / 1000 Output Total 5950 / 5950 Balance -3950 / -3950 1000 / 1000 Medical Nutrition Assessment Dietitian: Malnutrition Criteria Met Start: 11/30/22 13:40 Freq: Status: Active Protocol: Document 11/30/22 13:40 AG (Rec: 11/30/22 13:40 AG [id number]) Nutrition Malnutrition Evidence of Malnutrition Exists Yes Malnutrition (severe): Acute Illness/Injury Evidenced By Suboptimal Energy Intake ( Severe),Weight Loss (Severe) Clinical Problem Acute Disease or Injury Related Malnutrition Etiology severe, acute malnutrition related to inadequate oral intake d/t GI dysfunction Signs/Symptoms as evidenced by estimated PO intake meeting <50% of estimated energy needs >5 days ; unintentional wt loss of 16. 7#/8% wt loss <1 month Status Active Problem Recommendation Dietitian Recommendations/Changes regular/sodium restricted diet as tolerated; ensure plus high protein 120mL 4x/day w/ medpass when diet advanced Lab / Micro Data Result Diagrams: 12/02/22 04:08 12/02/22 04:08 Labs: Laboratory Results - last 24 hr 12/02/22 04:08: WBC 9.0, RBC 4.01 L, Hgb 8.8 L, Hct 30.2 L, MCV 75.3 L, MCH 21.9 L, MCHC 29.1 L, RDW Std Deviation 57.1 H, RDW Coeff of Angel 21.2 H, Plt Count 615 H, MPV 9.4, Immature Gran % (Auto) 0.800, Neut % (Auto) 79.8 H, Lymph % (Auto) 8.1 L, [place] % (Auto) 6.4, Eos % (Auto) 4.2, Baso % (Auto) 0.7, Absolute Neuts (auto) 7.2, Absolute Lymphs (auto) 0.73 L, Nucleated RBC % 0, Platelet Estimate MKD INC, Anisocytosis 2+, Microcytosis 1+ 12/02/22 04:08: Sodium 134 L, Potassium 5.0, Chloride 108 H, Carbon Dioxide 16.0 L, Anion Gap 10, BUN 55 H, Creatinine 3.97 H, Estim Creat Clear Calc 14.33, Est GFR (MDRD) Af Amer 19 L, Est GFR (MDRD) Non-Af 16 L, BUN/Creatinine Ratio 13.9, Glucose 94, Calcium 7.8 L, Total Bilirubin 0.30, Direct Bilirubin < 0.05, AST 40 H, ALT 12 L, Alkaline Phosphatase 54, Total Protein 6.6, Albumin 1.6 L, Globulin 5.0 H Rhythm Strip Rhythm Strip: Sinus Tach Rate: 114 Ectopy: None Physical Exam Narrative Alert awake oriented x 3 no obvious distress no pallor no icterus no JVD s1s2 no murmurs lungs clear abdomen soft no organomegaly no edema no cyanosis Assessment & Plan Assessment/Plan (1) Acute renal failure (ARF): PLAN: Baseline creatinine as of May 2022 was around 1.8. He was admitted here about 3 weeks ago with anemia, at that time his creatinine was around 2.2-2.4. Presented with a creatinine of 4.9. better today. CT abdomen reviewed, no hydronephrosis. Bladder is empty. He says he has not voided much for the last several days. Minimal oral intake for several days. S/p paracentesis. It is possible that ascites is malignancy related. He says he feels somewhat better after paracentesis abdominal pressure is better. Breathing is back to baseline. VQ scan negative. Creatinine has been improving. Urine output has improved. Likely all volume depletion. Hold IV fluids for now. He states abdomen is feeling distended again. Might need paracentesis. CKD Stage IV. Baseline creatinine 2.2.
[2022-12-02 15:00] VITALS: BP 117/79; PULSE 95; RESP 16; TEMP 36.6; O2SAT 97
[2022-12-02] MEDS: Morphine 2 MG/ML Syringe IV (15:46)
[2022-12-02] MEDS: 0.9% Saline Lock 10 ML Syringe IV (15:46)
[2022-12-02 21:38] VITALS: BP 121/83; PULSE 100; RESP 20; TEMP 36.7; O2SAT 96
[2022-12-03 04:16] VITALS: BP 132/91; PULSE 108; RESP 20; TEMP 36.6; O2SAT 96
[2022-12-03 06:10] LABS: Absolute Lymphocyte Count 0.55 X10^3/uL (0.83-4.51); Absolute Neutrophil Count 7.9 X10^3/uL (2.0-7.7); Basophil# 0.08 X10^3/uL; Basophil% 0.8 % (0-1); Eosinophil# 0.29 X10^3/uL; Eosinophils% 3.1 % (0-5); Hematocrit 31.2 % (40-54); Hemoglobin 9.3 g/dL (13.0-16.5); Lymphocyte # 0.55 X10^3/ul (0.83-4.51); Lymphocyte % 5.8 % (19-41); Mean Corp Hgb Conc 29.8 g/dL (32-36); Mean Corpuscular Hgb 22.1 pg (27.0-32.0); Mean Corpuscular Volume 74.1 fL (80-94); Mean Platelet Vol. 9.1 fl (6.2-12.0); Monocyte# 0.58 X10^3/uL; Monocyte% 6.1 % (0-10); NRBC Flagged by Analyzer 0 % (0-5); Neutrophil # 7.89 X10^3/uL (2.7-7.7); Neutrophil % 83.3 % (47-70); POSITIVE DIFFERENTIAL YES; POSITIVE MORPHOLOGY YES; Platelet Count 667 K/mm3 (150-450); RBC Distribution Width CV 21.3 % (11.6-14.6); RBC Distribution Width SD 55.7 fl (35.1-43.9); Red Blood Count 4.21 M/mm3 (4.6-6.2); White Blood Count 9.5 K/mm3 (4.4-11.0)
[2022-12-03 06:12] LABS: Differential Indicated SCAN CRITERIA MET
[2022-12-03 06:28] LABS: Anisocytosis 2+; Macrocytosis 1+; Platelet Estimate MKD INC (ADEQ)
[2022-12-03 06:38] LABS: AST(SGOT) 42 U/L (15-37); Alanine Aminotransfer ALT/SGPT 13 U/L (16-61); Albumin, Serum 1.7 g/dL (3.2-5.0); Alkaline Phosphatase 59 U/L (45-117); Anion Gap 10 (5-15); BUN 52 mg/dL (7-18); BUN/Creat Ratio 13.6 RATIO (10-20); Bilirubin, Direct 0.09 mg/dL (0.00-0.30); Calcium,Total 8.5 mg/dL (8.5-10.1); Chloride 108 mmol/L (98-107); Creatinine, Serum 3.81 mg/dL (0.70-1.30); EST Glomerular Filtration Rate 17 mL/min (>60); Est Glom Filt Rate - Afr Amer 20 mL/min (>60); Estimated Creatinine Clearance 14.93 ml/min; Globulin 5.4 g/dL (2.2-4.2); Glucose 152 mg/dL (74-106); Potassium 5.4 mmol/L (3.5-5.1); Protein, Total 7.1 g/dL (6.4-8.2); Sodium Level 133 mmol/L (136-145)
--- NOTE | 2022-12-03 08:00 | US_ITS ---
PROCEDURE: Ultrasound guided paracentesis. DATE OF EXAMINATION: 12/03/2022. INDICATION: Male, 66 years old. Ascites. PHYSICIAN: John Paul Kahn M.D. TECHNIQUE: The risks, benefits, and alternatives to the procedure were explained to the patient. The specific risks of bleeding, infection, and damage to bowel were detailed and accepted. Witnessed informed consent was obtained. The abdomen was ultrasonographically surveyed. An appropriate pocket of fluid was identified at the right lower quadrant. The skin were cleaned and prepped in the usual sterile fashion. Using ultrasound guidance, the peritoneal cavity was accessed with a 5-[place]oc[place] paracentesis needle/catheter system. The trocar was removed. A total of 3200 ml of lorenzo-colored fluid were removed from the peritoneal cavity. The catheter was removed and a sterile dressing was applied. The procedure was well tolerated. US/Paracentesis with US IMPRESSION: Ultrasound guided paracentesis. Electronically Signed: John Paul Kahn MD at 10:42 EST ,
[2022-12-03] MEDS: Tamsulosin HCl 0.4 MG Capsule PO (08:39)
--- NOTE | 2022-12-03 09:39 | PN.HOSP_ITS ---
Subjective Subjective Patient underwent repeat ultrasound-guided paracentesis with almost 3.5 L of ascitic fluid taken off. Reviewed patient pathology report following his colonoscopy demonstrated poorly differentiated adenocarcinoma Case discussed with Dr. Jacob with oncology. Objective Data Objective Data Vital Signs: Vital Signs Temp Pulse Resp BP Pulse Ox O2 Del Method O2 Flow Rate 97.8 F 108 H 20 H 132/91 H 96 Room Air 2 12/03/22 04:16 12/03/22 04:16 12/03/22 04:16 12/03/22 04:16 12/03/22 04:16 12/03/22 04:16 11/30/22 17:10 Oxygen Flow Rate (L/min) 2 Oxygen Delivery Method [3] Room Air Oxygen Delivery Method [2] Room Air Oxygen Delivery Method [1 ( Room Air Initial Baseline)] Oxygen Delivery Method Room Air Weight: 92.2 kg Body Mass Index (BMI) 36.0 Intake & Output: Intake and Output for Last 24 Hours 12/01/22 12/02/22 12/03/22 23:59 23:59 23:59 Intake Total 1000 / 1000 240 / 240 Balance 1000 / 1000 240 / 240 Medical Nutrition Assessment Dietitian: Malnutrition Criteria Met Start: 11/30/22 13:40 Freq: Status: Active Protocol: Document 11/30/22 13:40 AG (Rec: 11/30/22 13:40 [id number]) Nutrition Malnutrition Evidence of Malnutrition Exists Yes Malnutrition (severe): Acute Illness/Injury Evidenced By Suboptimal Energy Intake ( Severe),Weight Loss (Severe) Clinical Problem Acute Disease or Injury Related Malnutrition Etiology severe, acute malnutrition related to inadequate oral intake d/t GI dysfunction Signs/Symptoms as evidenced by estimated PO intake meeting <50% of estimated energy needs >5 days ; unintentional wt loss of 16. 7#/8% wt loss <1 month Status Active Problem Recommendation Dietitian Recommendations/Changes regular/sodium restricted diet as tolerated; ensure plus high protein 120mL 4x/day w/ medpass when diet advanced Lab / Micro Data Result Diagrams: 12/03/22 05:03 12/03/22 05:03 Labs: Laboratory Results - last 24 hr 12/03/22 05:03: WBC 9.5, RBC 4.21 L, Hgb 9.3 L, Hct 31.2 L, MCV 74.1 L, MCH 22.1 L, MCHC 29.8 L, RDW Std Deviation 55.7 H, RDW Coeff of Angel 21.3 H, Plt Count 667 H, MPV 9.1, Immature Gran % (Auto) 0.900, Neut % (Auto) 83.3 H, Lymph % (Auto) 5.8 L, [place] % (Auto) 6.1, Eos % (Auto) 3.1, Baso % (Auto) 0.8, Absolute Neuts (auto) 7.9 H, Absolute Lymphs (auto) 0.55 L, Nucleated RBC % 0, Platelet Estimate MKD INC, Anisocytosis 2+, Macrocytosis 1+ 12/03/22 05:03: Sodium 133 L, Potassium 5.4 H, Chloride 108 H, Carbon Dioxide 15.0 L, Anion Gap 10, BUN 52 H, Creatinine 3.81 H, Estim Creat Clear Calc 14.93, Est GFR (MDRD) Af Amer 20 L, Est GFR (MDRD) Non-Af 17 L, BUN/Creatinine Ratio 13.6, Glucose 152 H, Calcium 8.5, Total Bilirubin 0.20, Direct Bilirubin 0.09, AST 42 H, ALT 13 L, Alkaline Phosphatase 59, Total Protein 7.1, Albumin 1.7 L, Globulin 5.4 H Rhythm Strip Rhythm Strip: Sinus Tach Rate: 114 Ectopy: None Physical Exam Narrative GENERAL: cooperative HEENT: Atraumatic; normocephalic EYES; Anicteric, Normal Conjunctiva NECK; supple, normal thyroid, RESPIRATORY: Diminished to auscultation CARDIOVASCULAR: Regular S1 S2, GI: distention of the abdomen : No Renal angle tenderness; EXTREMITIES: No edema, no clubbing, MUSCULOSKELETAL: no muscle wasting NEURO: Awake; no lateralizing signs. SKIN: No Rash PSYCH; Flat affect Assessment & Plan Assessment/Plan (1) Acute renal failure (ARF): (2) Abdominal distension: PLAN: Plan Patient is a 66-year-old gentleman with history of B-cell lymphoma recently discharged from the hospital following admission for symptomatic anemia he underwent EGD found to have grade a reflux esophagitis. Presented back to the emergency department with significant abdominal distention and worsening kidney function 1. Marked ascites ? Patient scheduled to undergo ultrasound-guided paracentesis with plans to send for cytology in addition to other studies. GI has been consulted 12/01/2022 patient underwent ultrasound-guided paracentesis on 11/30/2022; A total of 5950 ml of ? lorenzo-colored fluid? were removed from the peritoneal cavity. ? 12/02/2022; Patient complains of bloating this AM. Biopsy and cytology from his recent colonoscopy and paracentesis respectively pending.. Repeat paracentesis ordered for a.m. ? 12/03/2022 patient underwent repeat paracentesis. Cytology from patient's initial paracentesis pending 2. Anemia ? Patient underwent patient underwent EGD by Dr. Frazier on 11/19/2022 findings included -?LA Grade A reflux esophagitis.? Biopsied. - Small hiatal hernia. - No gross lesions in the second portion of the duodenum. Patient placed on PPI.? CT of the abdomen and pelvis demonstrated thickening of the ascending colon concerning for malignancy as well as retroperitoneal lymphadenopathy. Plan is for patient to undergo colonoscopy in the hospital -12/01/2022 patient underwent colonoscopy by Dr. Frazier on 11/30/2022 findings included stricture at the hepatic flexure.? Biopsied.? Injected. ? 12/02/2022; biopsy result pending ? 12/03/2022 pathology report; Invasive poorly differentiated adenocarcinoma. Case discussed with Dr. Jacob plan is to review imaging studies with radiology regarding peritoneal masses whether consistent with metastatic disease. Subsequently ordered iron studies and CEA and CT of the chest to assist with staging. Cytology report from patient ascitic fluid still pending 3. Elevated D-dimer ? VQ scan was negative for pulmonary embolism 4.? Acute on chronic kidney disease stage IV Patient presented with worsening kidney function. Creatinine on discharge was 2.41, creatinine on admission was 4.90. Attributed to third spacing. Consult placed to nephrology. Daily monitoring with BMPs ordered 5.? History of B-cell lymphoma ? Status post chemo; patient has remained in remission for 6 years 6.? History of frontal lobe CVA ? With history of emotional fragility.? We will continue with monitoring 7.? Essential hypertension ? Patient blood pressure on admission was low, patient is on losartan held 8.? BPH ? Patient is on tamsulosin 0.4 mg p.o. daily did continue 9.? Class II obesity with BMI of 36 ? Weight loss advised 10.? History of hep C ? Patient did complete treatment has remained in remission 9.? DVT prophylaxis -SCDs 10. ?Severe, acute malnutrition -related to inadequate oral intake d/t GI dysfunction as evidenced by estimated PO intake meeting <50% of estimated energy needs >5 days; unintentional wt loss of 16.7#/8% wt loss <1 month. Plan for regular/sodium restricted diet as tolerated; ensure plus high protein 120mL 4x/day w/medpass when diet advanced. Time spent in the patient's overall evaluation,decision-making process, review of diagnostic data, adjustment of management, discussion with other providers, nursing nursing and ancillary staff involved in patient's care documentation, wellness discussion of pathology report with patient and the ; 55 Minutes Charges/Coding Visit Charges Inpatient E&M: 15762 Subs Hosp L3
[2022-12-03 09:47] VITALS: BP 119/79; BP 123/76; PULSE 111; PULSE 114; RESP 18; RESP 22; TEMP 36.5; O2SAT 95
[2022-12-03] MEDS: Lidocaine 2% (20 ml mdv) 20 ML Vial INFILT (10:03)
[2022-12-03 10:15] VITALS: BP 107/82; PULSE 103; RESP 18; TEMP 36.8; O2SAT 95
[2022-12-03 10:45] LABS: Pathologist Comment/Body Fluid Reviewed
--- NOTE | 2022-12-03 10:47 | PCM.PN.REN ---
Documented by User: TEODORA Ellis 12/03/22 10:54 Subjective Subjective Just returned from paracentesis. Resting in bed. at bedside. No complaints. Objective Data Objective Data Vital Signs: Vital Signs Temp Pulse Resp BP Pulse Ox O2 Del Method O2 Flow Rate 97.7 F L 114 H 22 H 119/79 96 Room Air 2 12/03/22 09:47 12/03/22 09:47 12/03/22 09:47 12/03/22 09:47 12/03/22 04:16 12/03/22 09:47 11/30/22 17:10 Oxygen Flow Rate (L/min) 2 Oxygen Delivery Method [2] Room Air Oxygen Delivery Method [1 ( Room Air Initial Baseline)] Oxygen Delivery Method [3] Room Air Oxygen Delivery Method [2] Room Air Oxygen Delivery Method [1 ( Room Air Initial Baseline)] Oxygen Delivery Method Room Air Weight: 92.2 kg Body Mass Index (BMI) 36.0 Intake & Output: Intake and Output for Last 24 Hours 12/01/22 12/02/22 12/03/22 23:59 23:59 23:59 Intake Total 1000 / 1000 240 / 240 Output Total 3200 / 3200 Balance 1000 / 1000 -2960 / -2960 Medical Nutrition Assessment Dietitian: Malnutrition Criteria Met Start: 11/30/22 13:40 Freq: Status: Active Protocol: Document 11/30/22 13:40 AG (Rec: 11/30/22 13:40 AG [id number]) Nutrition Malnutrition Evidence of Malnutrition Exists Yes Malnutrition (severe): Acute Illness/Injury Evidenced By Suboptimal Energy Intake ( Severe),Weight Loss (Severe) Clinical Problem Acute Disease or Injury Related Malnutrition Etiology severe, acute malnutrition related to inadequate oral intake d/t GI dysfunction Signs/Symptoms as evidenced by estimated PO intake meeting <50% of estimated energy needs >5 days ; unintentional wt loss of 16. 7#/8% wt loss <1 month Status Active Problem Recommendation Dietitian Recommendations/Changes regular/sodium restricted diet as tolerated; ensure plus high protein 120mL 4x/day w/ medpass when diet advanced Lab / Micro Data Result Diagrams: 12/03/22 05:03 12/03/22 05:03 Labs: Laboratory Results - last 24 hr 11/30/22 13:45: Fl Pathologist Comment Reviewed 12/03/22 05:03: WBC 9.5, RBC 4.21 L, Hgb 9.3 L, Hct 31.2 L, MCV 74.1 L, MCH 22.1 L, MCHC 29.8 L, RDW Std Deviation 55.7 H, RDW Coeff of Angel 21.3 H, Plt Count 667 H, MPV 9.1, Immature Gran % (Auto) 0.900, Neut % (Auto) 83.3 H, Lymph % (Auto) 5.8 L, [place] % (Auto) 6.1, Eos % (Auto) 3.1, Baso % (Auto) 0.8, Absolute Neuts (auto) 7.9 H, Absolute Lymphs (auto) 0.55 L, Nucleated RBC % 0, Platelet Estimate MKD INC, Anisocytosis 2+, Macrocytosis 1+ 12/03/22 05:03: Sodium 133 L, Potassium 5.4 H, Chloride 108 H, Carbon Dioxide 15.0 L, Anion Gap 10, BUN 52 H, Creatinine 3.81 H, Estim Creat Clear Calc 14.93, Est GFR (MDRD) Af Amer 20 L, Est GFR (MDRD) Non-Af 17 L, BUN/Creatinine Ratio 13.6, Glucose 152 H, Calcium 8.5, Total Bilirubin 0.20, Direct Bilirubin 0.09, AST 42 H, ALT 13 L, Alkaline Phosphatase 59, Total Protein 7.1, Albumin 1.7 L, Globulin 5.4 H Rhythm Strip Rhythm Strip: Sinus Tach Rate: 114 Ectopy: None Physical Exam Narrative Alert awake oriented x 3, no obvious distress s1s2 no murmurs lungs clear abdomen soft no edema no cyanosis Assessment & Plan Assessment/Plan (1) Acute renal failure (ARF): PLAN: - ARACELI on CKD: Creatinine 4.9 mg/dL on admission, currently creatinine 3.81 mg/dL. Patient has good urine output. Volume status good, no significant hypervolemia. Overall renal function improving. 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 Likely all volume depletion. Hold IV fluids for now. - CKD Stage IV: Baseline creatinine as of May 2022 was around 1.8. He was admitted here about 3 weeks ago with anemia, at that time his creatinine was around 2.2-2.4. CT abdomen reviewed, no hydronephrosis -Ascites; patient underwent paracentesis again today with around 3 L fluid removed per patient. Cytology and biopsy from recent paracentesis and colonoscopy pending. -Potassium is 5.4 today. Patient has been eating tomato soup as he was on liquid diet. Diet has been advanced. We will add low potassium restrictions. States has been having loose bowel movements last few days. If potassium again elevated tomorrow, he will likely need Kayexalate. -Anemia: Patient underwent EGD with findings of esophagitis, biopsied, small hiatal hernia. CT abdomen and pelvis demonstrated thickening of ascending colon concerning for malignancy and retroperitoneal lymphadenopathy. C-scope done 11/30. Documented by User: Dr. Yariel Stuart MD 12/03/22 14:33 Objective Data Lab / Micro Data Result Diagrams: 12/03/22 05:03 12/03/22 05:03 Assessment & Plan Assessment/Plan (1) Acute renal failure (ARF): PLAN: - ARACELI on CKD: Creatinine 4.9 mg/dL on admission, currently creatinine 3.81 mg/dL. Patient has good urine output. Volume status good, no significant hypervolemia. Overall renal function improving. 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 Likely all volume depletion. Hold IV fluids for now. - CKD Stage IV: Baseline creatinine as of May 2022 was around 1.8. He was admitted here about 3 weeks ago with anemia, at that time his creatinine was around 2.2-2.4. CT abdomen reviewed, no hydronephrosis -Ascites; patient underwent paracentesis again today with around 3 L fluid removed per patient. Cytology and biopsy from recent paracentesis and colonoscopy pending. -Potassium is 5.4 today. Patient has been eating tomato soup as he was on liquid diet. Diet has been advanced. We will add low potassium restrictions. States has been having loose bowel movements last few days. If potassium again elevated tomorrow, he will likely need Kayexalate. -Anemia: Patient underwent EGD with findings of esophagitis, biopsied, small hiatal hernia. CT abdomen and pelvis demonstrated thickening of ascending colon concerning for malignancy and retroperitoneal lymphadenopathy. C-scope done 11/30. Addendum Cr better. likely still depleted intravascularly but also has recurrent ascitis hence unable to give fluids. will add oral bicarbonate. K borderline likely due to ARACELI and acidosis. hold SPS for now
--- NOTE | 2022-12-03 13:46 | CT_ITS ---
STUDY: CT CHEST WITHOUT CONTRAST REASON FOR EXAM: Male, 66 years old. Ascites. RADIATION DOSAGE (If Supplied By Facility): CTDIvol = ( 14.62 ) mGy, DLP = ( 474.90 ) mGycm TECHNIQUE: Transaxial imaging was performed without the administration of intravenous contrast material. Multiplanar coronal and sagittal images were reformatted. Individualized dose optimization techniques were used for this CT. COMPARISON: Comparison is made with prior chest radiograph dated 11/29/2022. FINDINGS: CHEST Increased linear markings in the posterior aspect of the left upper lobe abutting the major fissure suggestive of atelectasis. Increased markings in the right lower lobe suggestive of scarring. Minimal degree of pleural thickening at the left lung base with a pleural plaque formation. There are calcifications of the coronary arteries. Normal mediastinum. Normal hilar regions. Normal unenhanced pulmonary arteries. Normal aorta arch and descending thoracic aorta. There are multi-level degenerative changes of the thoracic spine. Ascites. Findings suggestive of omental metastasis. CT/Chest without Contrast IMPRESSION: Increased markings in the posterior aspect of the right upper lobe suggestive of atelectasis and/or scarring as well as at the lung bases. Ascites. Omental metastasis. Electronically Signed: John Paul Kahn MD at 14:59 EST ,
[2022-12-03 14:34] LABS: Ferritin 63 ng/mL (26-388); Iron 19 ug/dL (65-175); Iron Binding Capacity,Total 187 ug/dL (250-450); PERCENT IRON SATURATION 10.2 % (15.0-55.0)
[2022-12-03 16:00] VITALS: BP 116/82; PULSE 109; RESP 18; TEMP 36.8; O2SAT 96
--- NOTE | 2022-12-03 16:46 | PN_ITS ---
Subjective Subjective Patient underwent repeat paracentesis today. He does feel a lot better. 3.5 L was removed. Objective Data Objective Data Vital Signs: Vital Signs Temp Pulse Resp BP Pulse Ox O2 Del Method O2 Flow Rate 98.3 F 103 H 18 107/82 H 95 Room Air 2 12/03/22 10:15 12/03/22 10:15 12/03/22 10:15 12/03/22 10:15 12/03/22 10:15 12/03/22 10:15 11/30/22 17:10 Oxygen Flow Rate (L/min) 2 Oxygen Delivery Method [2] Room Air Oxygen Delivery Method [1 ( Room Air Initial Baseline)] Oxygen Delivery Method [3] Room Air Oxygen Delivery Method [2] Room Air Oxygen Delivery Method [1 ( Room Air Initial Baseline)] Oxygen Delivery Method Room Air Weight: 203 lb 4.259 oz Body Mass Index (BMI) 36.0 Intake & Output: Intake and Output for Last 24 Hours 12/01/22 12/02/22 12/03/22 23:59 23:59 23:59 Intake Total 1000 / 1000 240 / 240 Output Total 3200 / 3200 Balance 1000 / 1000 -2960 / -2960 Medical Nutrition Assessment Dietitian: Malnutrition Criteria Met Start: 11/30/22 13:40 Freq: Status: Active Protocol: Document 12/03/22 11:50 AG (Rec: 12/03/22 11:51 AG [id number]) Nutrition Malnutrition Evidence of Malnutrition Exists Yes Malnutrition (severe): Acute Illness/Injury Evidenced By Suboptimal Energy Intake ( Severe),Weight Loss (Severe) Clinical Problem Acute Disease or Injury Related Malnutrition Etiology severe, acute malnutrition related to inadequate oral intake d/t GI dysfunction Signs/Symptoms as evidenced by estimated PO intake meeting <50% of estimated energy needs >5 days ; unintentional wt loss of 16. 7#/8% wt loss <1 month Status Active Problem Recommendation Dietitian Recommendations/Changes continue renal- general diet; will monitor PO intake, labs and adjust diet/add ONS as indicated Lab / Micro Data Result Diagrams: 12/03/22 05:03 12/03/22 05:03 Labs: Laboratory Results - last 24 hr 11/30/22 13:45: Fl Pathologist Comment Reviewed 12/03/22 05:03: WBC 9.5, RBC 4.21 L, Hgb 9.3 L, Hct 31.2 L, MCV 74.1 L, MCH 22.1 L, MCHC 29.8 L, RDW Std Deviation 55.7 H, RDW Coeff of Angel 21.3 H, Plt Count 667 H, MPV 9.1, Immature Gran % (Auto) 0.900, Neut % (Auto) 83.3 H, Lymph % (Auto) 5.8 L, [place] % (Auto) 6.1, Eos % (Auto) 3.1, Baso % (Auto) 0.8, Absolute Neuts (auto) 7.9 H, Absolute Lymphs (auto) 0.55 L, Nucleated RBC % 0, Platelet Estimate MKD INC, Anisocytosis 2+, Macrocytosis 1+ 12/03/22 05:03: Sodium 133 L, Potassium 5.4 H, Chloride 108 H, Carbon Dioxide 15.0 L, Anion Gap 10, BUN 52 H, Creatinine 3.81 H, Estim Creat Clear Calc 14.93, Est GFR (MDRD) Af Amer 20 L, Est GFR (MDRD) Non-Af 17 L, BUN/Creatinine Ratio 13.6, Glucose 152 H, Calcium 8.5, Total Bilirubin 0.20, Direct Bilirubin 0.09, AST 42 H, ALT 13 L, Alkaline Phosphatase 59, Total Protein 7.1, Albumin 1.7 L, Globulin 5.4 H 12/03/22 05:03: Iron 19 L, TIBC 187 L, Iron Saturation 10.2 L, Ferritin 63 Radiography Diagnostic Testing: Radiology Impression Chest CT 12/03/22 13:46 IMPRESSION: Increased markings in the posterior aspect of the right upper lobe suggestive of atelectasis and/or scarring as well as at the lung bases. Ascites. Omental metastasis. Electronically Signed: John Paul Kahn MD at 14:59 EST , Rhythm Strip Rhythm Strip: Sinus Tach Rate: 114 Ectopy: None Physical Exam Narrative Alert awake oriented x 3, no obvious distress s1s2 no murmurs lungs clear abdomen soft no edema no cyanosis Assessment & Plan Assessment/Plan (1) Acute renal failure (ARF): (2) Abdominal distension: PLAN: Asites: ultrasound-guided paracentesis with plans to send for cytology in addition to other studies. 12/01/2022 patient underwent ultrasound-guided paracentesis on 11/30/2022; A total of 5950 ml of ? lorenzo-colored fluid? were removed from the peritoneal cavity.?He has a Low SAAG gradient that is not consistent with cirrhosis. 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 (3) Anemia: PLAN: Anemia secondary to GI bleed from right sided colonic mass. Hgb seems to stable for now. Recommend surgical evaluation because he will eventual obstruct. PLAN: Plan pathology report following his colonoscopy demonstrated poorly differentiated a denocarcinoma Case discussed with Dr. Jacob with oncology. Poor prognosis in the setting of cirrhosis and the need for chemotherapy. Charges/Coding Visit Charges Inpatient E&M: 74802 Subs Hosp L3
[2022-12-03] MEDS: Sodium Bicarbonate 650 MG Tablet 1300 MG PO ×2 (16:59→20:55)
--- NOTE | 2022-12-03 17:19 | ONC.CONSULT ---
Assessment & Plan Assessment/Plan (1) Anemia: Status: Acute Code(s): D64.9 - Anemia, unspecified (2) Metastatic colon cancer to liver: Status: Acute Code(s): C18.9 - Malignant neoplasm of colon, unspecified; C78.7 - Secondary malignant neoplasm of liver and intrahepatic bile duct (3) Microcytosis: Status: Acute Code(s): R71.8 - Other abnormality of red blood cells (4) Hepatitis C: Status: Chronic Code(s): B19.20 - Unspecified viral hepatitis C without hepatic coma (5) Malignant ascites: Status: Acute Code(s): R18.0 - Malignant ascites (6) CKD (chronic kidney disease): Status: Chronic Code(s): N18.9 - Chronic kidney disease, unspecified Plan: Impression: -In summary, the patient is a 66-year-old male who has a past medical history significant for 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 -Now with metastatic colon cancer with carcinomatosis and malignant ascites. -MMR deficient. -History of hepatitis C. Evidently received treatment in [place] in 2014. Hepatitis C viral RNA not detected on testing 03/2019. -Chronic kidney disease. -Cirrhosis? -Microcytic anemia. Iron indexes indicate iron deficiency in the setting of chronic kidney disease as well as anemia of chronic disease. -Hypoalbuminemia. -KPS is 40% -Given the mismatch repair status, patient would be a candidate for immunotherapy, i.e. pembrolizumab. He is at increased risk of both renal and hepatic toxicity given compromise of those organ systems already but the drug potentially could extend benefit in terms of palliation (approximate 45% response rate) and increase overall progression free survival. The main problem right now is recurrent malignant ascites. Recommendations: -Will discuss diagnosis of cirrhosis with Dr. Frazier. -Please repeat testing for hepatitis B and C. -Administer parenteral iron. -Consult general surgery for abdominal catheter placement. -Discussed with Dr. Rocha. -Can see in the office next week after discharge. Please call with any questions. Time spent >60 min on the date of the service which included preparing to see the patient, [id number] patient care, completing clinical documentation, obtaining and/or reviewing separately obtained history, performing a medically appropriate examination, counseling and educating the patient/family/caregiver, independently interpreting results (reviewing CT images), communicating results to the patient/family/caregiver, and care coordination (not separately reported).? HPI Consult Data Date of Service:: 12/05/22 PCP / Referring Provider: Dr. Bobby Salguero MD Attending: Dr. Carlos Rocha MD Chief Complaint Chief Complaint: Metastatic colon cancer History of Present Illness History of Present Illness: Per Dr. Cameron's most recent OV note from 07/03/2015: HPI: This is a 59-year-old gentleman with history of hypertension status post CVA in 2000 who presented with a two-month history of sinus congestion and tonsillitis. He was initially treated with antibiotics without improvement. Patient is an ex-smoker of 20+-pack-year quit 4 years ago. Patient also has history of gastrointestinal reflux disease. No history of alcohol use. ? Patient saw Dr. Muñoz, ENT for further evaluation. Patient had right tonsillectomy with biopsy on November 21, 2014. His preop CT scan of the neck revealed bilateral tonsillar mass and nasopharyngeal masses extension from the right tonsillar mass to the right side of the nasopharynx (1.8x2.5x3.9 cm ) there were no cervical adenopathy. Paranasal sinus appeared to be normal with multiple degenerative changes of the cervical spine. ? Pathology: Right tonsillar mass; diffuse large B-cell lymphoma. Immunohistochemical profile revealed a follicular Center origin with CD5 positive. High Ki-67, cyclin D 1/BCL 1 negative. ? Patient has complained of increased fatigue and decreased appetite but no significant weight loss. Also complained of low-grade fever and night sweats. Patient also has chronic reflux symptoms and heartburn for several years. Patient complete his staging workup including bone marrow biopsy and PET scan last month. Additional study; he is HIV negative but hepatitis C +. 2-D echocardiogram from 2010 was normal with the LV EF of 50%. Patient returned today to discuss treatment option for his stage I diffuse large B cell lymphoma of follicular Center origin. Patient had a liver biopsy showed early, grade 1 stage II disease. ? Current treatment: CHOP-Neulasta x 6. ( ME by PET after 3 cycles ) 02/12/2015 - 06/18/2015 Patient went to [place] for second opinion and has not been seen in our office since. He was admitted to the hospital on 11/18/2022 with an approximate 6 to 8-week history of progressively worsening shortness of breath with exertion, weight loss subjective fevers night sweats and intermittent diarrhea with constipation as well as abdominal bloating and severe intermittent abdominal cramping. He was found to have microcytic anemia. He underwent work-up including EGD after receiving a 2 unit red blood cell transfusion. EGD on 11/19/2022 LA Grade A (one or more mucosal breaks less than 5 mm, not extending ?? ? between tops of 2 mucosal folds) esophagitis with no bleeding was found ?? ? 35 to 37 cm from the incisors. Biopsies were taken with a cold forceps ?? ? for histology. Verification of patient identification for the specimen ?? ? was done. Estimated blood loss was minimal. ?? ? A small hiatal hernia was present. ?? ? No other significant abnormalities were identified in a careful ?? ? examination of the stomach. ?? ? No gross lesions were noted in the second portion of the duodenum. ?? ? One 5 mm sessile polyp with no bleeding and no stigmata of recent ?? ? bleeding was found in the gastric body. The polyp was removed with a ?? ? cold snare. Resection and retrieval were complete. Verification of ?? ? patient identification for the specimen was done. Estimated blood loss ?? ? was minimal. He was treated with a PPI. He was to follow-up with gastroenterology as outpatient for colonoscopy. He was readmitted on 11/29 After seeing his PCP that day for complaints of abdominal distention. He had a CT of the abdomen pelvis Thick-walled ascending colon suspicious for malignancy versus infectious or inflammatory colitis. ? 2.? Retroperitoneal adenopathy concerning for metastatic disease.? Right lower quadrant adenopathy is nonspecific and may be due to malignancy versus infectious or inflammatory colon etiology. ? 3.? Ascites. ? 4.? Right renal hypodensities not characterized without contrast. He underwent paracentesis on 11/30/2022. ?5950 ml of lorenzo-colored fluid? were removed from the peritoneal cavity.?He has a Low SAAG gradient that is not consistent with cirrhosis. 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 The fluid was positive for malignant cells, non-small cell carcinoma. Comment indicated IHC supported GI primary. Underwent colonoscopy on 11/30. A malignant appearing intrinsic severe stenosis was found at the hepatic flexure and was not traversed. Biopsies were obtained. Pathology: Poorly differentiated adenocarcinoma. Result of Microsatellite Instability Study: Positive (loss of mismatch protein; microsatellite instability detected). Complete loss of MLH1, MSH2 and MSH6. Repeat paracentesis on 12/02 of 3.5 L continued to demonstrate malignant cells, non-small cell carcinoma favoring GI primary. Advanced Directives Power of Color Control Supervisor: No Living Will: No PFSH Medical History (Updated 12/04/22 @ 16:[address] Minaya Friend, DO) BPH (benign prostatic hyperplasia) GERD (gastroesophageal reflux disease) History of B-cell lymphoma HTN (hypertension) Stroke Home Medications Acid Relief 1 ea PO/SL DAILY GERD 11/18/22 [History Last Taken 11/17/22] losartan 25 mg tablet 25 mg PO QHS BP 11/18/22 [History Last Taken 11/17/22] tamsulosin 0.4 mg capsule 0.4 mg PO DAILY PROSTATE 11/18/22 [History Last Taken 11/17/22] pantoprazole 40 mg tablet,delayed release 40 mg PO BID #120 tabs 11/20/22 [Rx Last Taken Unknown] Allergy/AdvReac Type Severity Reaction Status Date / Time RAPID ACTING ANTIHYPERTENSIVE AdvReac Other Uncoded 11/29/22 11:59 Family History (Updated 11/18/22 @ 19:[address] Melodie Baker MD) Father COPD (chronic obstructive pulmonary disease) Lung cancer Mother COPD (chronic obstructive pulmonary disease) Surgical History S/P bilateral inguinal hernia repair S/P tonsillectomy Social History household members: spouse Smoking Status: Former smoker how long ago did patient quit smoking: Quit ~ 30 years prior, smoked 1.5 ppd since teen until quit. alcohol intake: current alcohol intake frequency: holidays/special occasions only substance use type: does not use Physical Exam Const alert and oriented x3 Neck no lymphadenopathy Lymph Lymphatic: no lymphadenopathy noted Resp normal respiratory effort Cardio regular rhythm GI GI Narrative: Abdomen distended. Tympany on top. Fluid wave. Extremity Extremity Narrative: Minimal swelling b/l Skin Skin Narrative: No jaundice Vital Signs Temperature 98.2 F 12/03/22 16:00 Temperature Source Oral 12/03/22 16:00 Pulse Rate 109 H 12/03/22 16:00 Pulse Strength Normal (2+) 12/01/22 08:22 Respiratory Rate 18 12/03/22 16:00 Respiratory Effort Non-Labored 12/01/22 22:00 Respiratory Depth Normal 12/01/22 22:00 Respiratory Pattern Normal 12/01/22 22:00 Blood Pressure 116/82 H 12/03/22 16:00 Blood Pressure Mean 93 12/03/22 16:00 Blood Pressure Source Monitor 12/03/22 16:00 Blood Pressure Position Semi-Fowlers 12/03/22 16:00 Blood Pressure Location Left Arm 12/03/22 16:00 Baseline BP 126/80 11/30/22 17:15 Pulse Ox 96 12/03/22 16:00 Oxygen Delivery Method Room Air 12/03/22 16:00 Oxygen Flow Rate (L/min) 2 11/30/22 17:10 Laboratory Results - last 24 hr 11/30/22 13:45: Fl Pathologist Comment Reviewed 12/03/22 05:03: WBC 9.5, RBC 4.21 L, Hgb 9.3 L, Hct 31.2 L, MCV 74.1 L, MCH 22.1 L, MCHC 29.8 L, RDW Std Deviation 55.7 H, RDW Coeff of Angel 21.3 H, Plt Count 667 H, MPV 9.1, Immature Gran % (Auto) 0.900, Neut % (Auto) 83.3 H, Lymph % (Auto) 5.8 L, [place] % (Auto) 6.1, Eos % (Auto) 3.1, Baso % (Auto) 0.8, Absolute Neuts (auto) 7.9 H, Absolute Lymphs (auto) 0.55 L, Nucleated RBC % 0, Platelet Estimate MKD INC, Anisocytosis 2+, Macrocytosis 1+ 12/03/22 05:03: Sodium 133 L, Potassium 5.4 H, Chloride 108 H, Carbon Dioxide 15.0 L, Anion Gap 10, BUN 52 H, Creatinine 3.81 H, Estim Creat Clear Calc 14.93, Est GFR (MDRD) Af Amer 20 L, Est GFR (MDRD) Non-Af 17 L, BUN/Creatinine Ratio 13.6, Glucose 152 H, Calcium 8.5, Total Bilirubin 0.20, Direct Bilirubin 0.09, AST 42 H, ALT 13 L, Alkaline Phosphatase 59, Total Protein 7.1, Albumin 1.7 L, Globulin 5.4 H 12/03/22 05:03: Iron 19 L, TIBC 187 L, Iron Saturation 10.2 L, Ferritin 63 Diagnostic Data Chest X-Ray 11/29/22 13:03 IMPRESSION: Elevation of the right hemidiaphragm with increased markings at the lung bases more prominent at the left lung base suggestive of either bibasilar atelectasis and/or early infiltrates. Electronically Signed: John Paul Kahn MD at 13:19 EST , Abdomen/Pelvis CT 11/29/22 14:38 IMPRESSION: 1. Thick-walled ascending colon suspicious for malignancy versus infectious or inflammatory colitis. 2. Retroperitoneal adenopathy concerning for metastatic disease. Right lower quadrant adenopathy is nonspecific and may be due to malignancy versus infectious or inflammatory colon etiology. 3. Ascites. 4. Right renal hypodensities not characterized without contrast. Follow-up is not indicated per ACR guidelines. Electronically Signed: Sandrita Maya MD at 16:54 EST Reading Location ID and State: [place] / Tel , Service support , ADDENDUM: 11/29/22 1735 IMPRESSION: 1. Thick-walled ascending colon suspicious for malignancy versus infectious or inflammatory colitis. 2. Retroperitoneal adenopathy concerning for metastatic disease. Right lower quadrant adenopathy is nonspecific and may be due to malignancy versus infectious or inflammatory colon etiology. 3. Ascites. 4. Right renal hypodensities not characterized without contrast. Follow-up is not indicated per ACR guidelines. N.B. : Matthew Martínez RN, confirmed on 11/29/2022 17:28:11 (ET) that the healthcare facility has received the radiology report. Electronically Signed: Sandrita Maya MD at 16:54 EST Reading Location ID and State: [place] / Tel , Service support , Lung Scan-VQ NM 11/29/22 14:43 IMPRESSION: 1. NORMAL 99m Tc MAA pulmonary perfusion imaging examination, according to PIOPED II interpretive criteria. (Sotsman et al, Radiology 246: 941, 2008 Solloyd et al, J Nucl Med 49: 1741, 2008). 2. Central clumping of the aerosol may be secondary to obstructive airway mechanics and or clinical tachypnea. Electronically Signed: Kumar Mccain at 16:02 EST , Chest CT 12/03/22 13:46 IMPRESSION: Increased markings in the posterior aspect of the right upper lobe suggestive of atelectasis and/or scarring as well as at the lung bases. Ascites. Omental metastasis. Electronically Signed: John Paul Kahn MD at 14:59 EST ,
[2022-12-03] MEDS: Morphine 2 MG/ML Syringe IV (21:00)
[2022-12-03 21:03] LABS: Hepatitis B Surface Antibody Non-Reactive; Hepatitis B Surface Antigen Non-Reactive (Nonreactive); Hepatitis C Antibody Preliminary Reactive (Nonreactive)
[2022-12-03 22:00] VITALS: BP 121/79; PULSE 112; RESP 16; RESP 18; TEMP 36.3; O2SAT 96
[2022-12-04 04:00] VITALS: BP 106/69; PULSE 106; RESP 16; TEMP 36.8; O2SAT 95
[2022-12-04 07:07] LABS: Absolute Lymphocyte Count 0.64 X10^3/uL (0.83-4.51); Absolute Neutrophil Count 10.1 X10^3/uL (2.0-7.7); Basophil% 0.8 % (0-1); Eosinophil# 0.27 X10^3/uL; Eosinophils% 2.2 % (0-5); Hematocrit 32.8 % (40-54); Hemoglobin 9.8 g/dL (13.0-16.5); Lymphocyte # 0.64 X10^3/ul (0.83-4.51); Lymphocyte % 5.3 % (19-41); Mean Corp Hgb Conc 29.9 g/dL (32-36); Mean Corpuscular Volume 73.5 fL (80-94); Mean Platelet Vol. 9.1 fl (6.2-12.0); Monocyte% 6.7 % (0-10); NRBC Flagged by Analyzer 0 % (0-5); Neutrophil # 10.12 X10^3/uL (2.7-7.7); Neutrophil % 84.2 % (47-70); POSITIVE MORPHOLOGY YES; Platelet Count 688 K/mm3 (150-450); RBC Distribution Width CV 21.3 % (11.6-14.6); Red Blood Count 4.46 M/mm3 (4.6-6.2)
[2022-12-04 07:15] LABS: Differential Indicated SCAN CRITERIA MET
[2022-12-04] MEDS: Tamsulosin HCl 0.4 MG Capsule PO (07:41)
[2022-12-04 07:45] LABS: AST(SGOT) 41 U/L (15-37); Alanine Aminotransfer ALT/SGPT 14 U/L (16-61); Albumin, Serum 1.7 g/dL (3.2-5.0); Alkaline Phosphatase 62 U/L (45-117); Anion Gap 10 (5-15); BUN 59 mg/dL (7-18); BUN/Creat Ratio 15.2 RATIO (10-20); Bilirubin, Direct 0.11 mg/dL (0.00-0.30); Calcium,Total 8.4 mg/dL (8.5-10.1); Chloride 108 mmol/L (98-107); Creatinine, Serum 3.87 mg/dL (0.70-1.30); EST Glomerular Filtration Rate 17 mL/min (>60); Est Glom Filt Rate - Afr Amer 20 mL/min (>60); Globulin 5.5 g/dL (2.2-4.2); Glucose 141 mg/dL (74-106); Potassium 5.4 mmol/L (3.5-5.1); Protein, Total 7.2 g/dL (6.4-8.2); Sodium Level 133 mmol/L (136-145)
[2022-12-04 08:19] LABS: Anisocytosis 2+; Differential Comment SCANNED; Hypochromasia 1+; Macrocytosis 1+; Microcytosis 1+; Ovalocyte 1+; Platelet Estimate MOD INC (ADEQ); Poikilocytosis 1+
--- NOTE | 2022-12-04 08:57 | PN.HOSP_ITS ---
Subjective Subjective Patient biopsy report came back positive for carcinoma of the colon with mets to the omentum. Case was discussed with Dr. Jacob with [facility]. Plan is to consult general surgery for placement of abdominal Pleurx catheter for drainage of recurrent ascites Objective Data Objective Data Vital Signs: Vital Signs Temp Pulse Resp BP Pulse Ox O2 Del Method O2 Flow Rate 98.2 F 106 H 16 106/69 95 Room Air 2 12/04/22 04:00 12/04/22 04:00 12/04/22 04:00 12/04/22 04:00 12/04/22 04:00 12/04/22 07:40 11/30/22 17:10 Oxygen Flow Rate (L/min) 2 Oxygen Delivery Method [2] Room Air Oxygen Delivery Method [1 ( Room Air Initial Baseline)] Oxygen Delivery Method [3] Room Air Oxygen Delivery Method [2] Room Air Oxygen Delivery Method [1 ( Room Air Initial Baseline)] Oxygen Delivery Method Room Air Weight: 92.2 kg Body Mass Index (BMI) 36.0 Intake & Output: Intake and Output for Last 24 Hours 12/02/22 12/03/22 12/04/22 23:59 23:59 23:59 Intake Total 240 / 240 Output Total 3200 / 3200 Balance -2960 / -2960 Medical Nutrition Assessment Dietitian: Malnutrition Criteria Met Start: 11/30/22 13:40 Freq: Status: Active Protocol: Document 12/03/22 11:50 AG (Rec: 12/03/22 11:51 AG [id number]) Nutrition Malnutrition Evidence of Malnutrition Exists Yes Malnutrition (severe): Acute Illness/Injury Evidenced By Suboptimal Energy Intake ( Severe),Weight Loss (Severe) Clinical Problem Acute Disease or Injury Related Malnutrition Etiology severe, acute malnutrition related to inadequate oral intake d/t GI dysfunction Signs/Symptoms as evidenced by estimated PO intake meeting <50% of estimated energy needs >5 days ; unintentional wt loss of 16. 7#/8% wt loss <1 month Status Active Problem Recommendation Dietitian Recommendations/Changes continue renal- general diet; will monitor PO intake, labs and adjust diet/add ONS as indicated Lab / Micro Data Result Diagrams: 12/04/22 06:50 12/04/22 06:50 Labs: Laboratory Results - last 24 hr 11/30/22 13:45: Fl Pathologist Comment Reviewed 12/03/22 05:03: Iron 19 L, TIBC 187 L, Iron Saturation 10.2 L, Ferritin 63 12/03/22 19:40: Hep Bs Antigen Non-Reactive, Hep Bs Antibody Non-Reactive, Hepatitis C Antibody Preliminary Reactive 12/04/22 06:50: WBC 12.0 H, RBC 4.46 L, Hgb 9.8 L, Hct 32.8 L, MCV 73.5 L, MCH 22.0 L, MCHC 29.9 L, RDW Std Deviation 56.0 H, RDW Coeff of Angel 21.3 H, Plt Count 688 H, MPV 9.1, Immature Gran % (Auto) 0.800, Neut % (Auto) 84.2 H, Lymph % (Auto) 5.3 L, [place] % (Auto) 6.7, Eos % (Auto) 2.2, Baso % (Auto) 0.8, Absolute Neuts (auto) 10.1 H, Absolute Lymphs (auto) 0.64 L, Nucleated RBC % 0, Differential Comment SCANNED, Platelet Estimate MOD INC, Hypochromasia 1+, Poikilocytosis 1+, Anisocytosis 2+, Microcytosis 1+, Macrocytosis 1+, Ovalocytes 1+ 12/04/22 06:50: Sodium 133 L, Potassium 5.4 H, Chloride 108 H, Carbon Dioxide 15.0 L, Anion Gap 10, BUN 59 H, Creatinine 3.87 H, Estim Creat Clear Calc 14.70, Est GFR (MDRD) Af Amer 20 L, Est GFR (MDRD) Non-Af 17 L, BUN/Creatinine Ratio 15.2, Glucose 141 H, Calcium 8.4 L, Total Bilirubin 0.40, Direct Bilirubin 0.11, AST 41 H, ALT 14 L, Alkaline Phosphatase 62, Total Protein 7.2, Albumin 1.7 L, Globulin 5.5 H Radiography Diagnostic Testing: Radiology Impression Chest CT 12/03/22 13:46 IMPRESSION: Increased markings in the posterior aspect of the right upper lobe suggestive of atelectasis and/or scarring as well as at the lung bases. Ascites. Omental metastasis. Electronically Signed: John Paul Kahn MD at 14:59 EST , Rhythm Strip Rhythm Strip: Sinus Tach Rate: 114 Ectopy: None Physical Exam Narrative GENERAL: cooperative HEENT: Atraumatic; normocephalic EYES; Anicteric, Normal Conjunctiva NECK; supple, normal thyroid, RESPIRATORY: Diminished to auscultation CARDIOVASCULAR: Regular S1 S2, GI: distention of the abdomen : No Renal angle tenderness; EXTREMITIES: No edema, no clubbing, MUSCULOSKELETAL: no muscle wasting NEURO: Awake; no lateralizing signs. SKIN: No Rash PSYCH; Flat affect Assessment & Plan Assessment/Plan (1) Acute renal failure (ARF): (2) Abdominal distension: PLAN: Plan Patient is a 66-year-old gentleman with history of B-cell lymphoma recently discharged from the hospital following admission for symptomatic anemia he underwent EGD found to have grade a reflux esophagitis. Presented back to the emergency department with significant abdominal distention and worsening kidney function 1. Marked ascites ? Patient scheduled to undergo ultrasound-guided paracentesis with plans to send for cytology in addition to other studies. GI has been consulted 12/01/2022 patient underwent ultrasound-guided paracentesis on 11/30/2022; A total of 5950 ml of ? lorenzo-colored fluid? were removed from the peritoneal cavity. ? 12/02/2022; Patient complains of bloating this AM. Biopsy and cytology from his recent colonoscopy and paracentesis respectively pending.. Repeat paracentesis ordered for a.m. ? 12/03/2022 patient underwent repeat paracentesis. Cytology from patient's initial paracentesis pending ? 12/04/2022 patient ascitic fluid cytology came back positive for malignant cells non-small cell carcinoma. Plan is for patient to have a abdominal Pleurx catheter placed for drainage of his recurrent ascites. Dr. Dubois subsequently consulted 2. Newly diagnosed colon cancer pathology report; Invasive poorly differentiated adenocarcinoma with mets to the omentum. Case discussed with Dr. Jacob plan is for patient to have a abdominal Pleurx catheter placed for drainage of his recurrent ascites 3. Anemia secondary to iron deficiency anemia from: CA ? Patient underwent patient underwent EGD by Dr. Frazier on 11/19/2022 findings included -?LA Grade A reflux esophagitis.? Biopsied. - Small hiatal hernia. - No gross lesions in the second portion of the duodenum. Patient placed on PPI.? CT of the abdomen and pelvis demonstrated thickening of the ascending colon concerning for malignancy as well as retroperitoneal lymphadenopathy. Plan is for patient to undergo colonoscopy in the hospital -12/01/2022 patient underwent colonoscopy by Dr. Frazier on 11/30/2022 findings included stricture at the hepatic flexure.? Biopsied.? Injected. ? 12/02/2022; biopsy result pending ? 12/03/2022 pathology report; Invasive poorly differentiated adenocarcinoma. Case discussed with Dr. Jacob plan is to review imaging studies with radiology regarding peritoneal masses whether consistent with metastatic disease. Subsequently ordered iron studies and CEA and CT of the chest to assist with s taging. Cytology report from patient ascitic fluid still pending ? 12/04/2022 plan is for patient to be started on parenteral iron 4.? Acute on chronic kidney disease stage IV Patient presented with worsening kidney function. Creatinine on discharge was 2.41, creatinine on admission was 4.90. Attributed to third spacing. Consult placed to nephrology. Daily monitoring with BMPs ordered 5.? History of B-cell lymphoma ? Status post chemo; patient has remained in remission for 6 years 6.? History of frontal lobe CVA ? With history of emotional fragility.? We will continue with monitoring 7.? Essential hypertension ? Patient blood pressure on admission was low, patient is on losartan held 8.? BPH ? Patient is on tamsulosin 0.4 mg p.o. daily did continue 9.? Class II obesity with BMI of 36 ? Weight loss advised 10.? History of hep C ? Patient did complete treatment has remained in remission 9.? DVT prophylaxis -SCDs 10. ?Severe, acute malnutrition -related to inadequate oral intake d/t GI dysfunction as evidenced by estimated PO intake meeting <50% of estimated energy needs >5 days; unintentional wt loss of 16.7#/8% wt loss <1 month. Plan for regular/sodium restricted diet as tolerated; ensure plus high protein 120mL 4x/day w/medpass when diet advanced. Time spent in the patient's overall evaluation,decision-making process, review of diagnostic data, adjustment of management, discussion with other providers, nursing nursing and ancillary staff involved in patient's care documentation, wellness discussion of pathology report with patient and the ; 55 Minutes Charges/Coding Visit Charges Inpatient E&M: 24403 Subs Hosp L3
[2022-12-04 10:00] VITALS: BP 117/80; PULSE 105; RESP 18; TEMP 36.4; O2SAT 97
[2022-12-04] MEDS: Sodium Bicarbonate 650 MG Tablet 1300 MG PO ×2 (12:59→20:09)
--- NOTE | 2022-12-04 14:31 | NURSING ---
This RN taking over care at this time
[2022-12-04 15:44] VITALS: BP 122/81; PULSE 112; RESP 18; TEMP 36.4; O2SAT 98
--- NOTE | 2022-12-04 16:10 | PN.RENAL_ITS ---
Subjective Subjective Following for acute kidney injury on chronic kidney disease. The patient denies chest pain or shortness of breath at rest. There is no nausea, vomiting, or diarrhea. Appetite is still poor. The patient is still making urine without LUTS. Objective Data Objective Data Vital Signs: Vital Signs Temp Pulse Resp BP Pulse Ox O2 Del Method O2 Flow Rate 97.6 F L 112 H 18 122/81 H 98 Room Air 2 12/04/22 15:44 12/04/22 15:44 12/04/22 15:44 12/04/22 15:44 12/04/22 15:44 12/04/22 15:44 11/30/22 17:10 Oxygen Flow Rate (L/min) 2 Oxygen Delivery Method [2] Room Air Oxygen Delivery Method [1 ( Room Air Initial Baseline)] Oxygen Delivery Method [3] Room Air Oxygen Delivery Method [2] Room Air Oxygen Delivery Method [1 ( Room Air Initial Baseline)] Oxygen Delivery Method Room Air Weight: 92.2 kg Body Mass Index (BMI) 36.0 Intake & Output: Intake and Output for Last 24 Hours 12/02/22 12/03/22 12/04/22 23:59 23:59 23:59 Intake Total 240 / 240 480 / 480 Output Total 3200 / 3200 Balance -2960 / -2960 480 / 480 Medical Nutrition Assessment Dietitian: Malnutrition Criteria Met Start: 11/30/22 13:40 Freq: Status: Active Protocol: Document 12/03/22 11:50 AG (Rec: 12/03/22 11:51 AG [id number]) Nutrition Malnutrition Evidence of Malnutrition Exists Yes Malnutrition (severe): Acute Illness/Injury Evidenced By Suboptimal Energy Intake ( Severe),Weight Loss (Severe) Clinical Problem Acute Disease or Injury Related Malnutrition Etiology severe, acute malnutrition related to inadequate oral intake d/t GI dysfunction Signs/Symptoms as evidenced by estimated PO intake meeting <50% of estimated energy needs >5 days ; unintentional wt loss of 16. 7#/8% wt loss <1 month Status Active Problem Recommendation Dietitian Recommendations/Changes continue renal- general diet; will monitor PO intake, labs and adjust diet/add ONS as indicated Lab / Micro Data Result Diagrams: 12/04/22 06:50 12/04/22 06:50 Labs: Laboratory Results - last 24 hr 12/03/22 19:40: Hep Bs Antigen Non-Reactive, Hep Bs Antibody Non-Reactive, Hepatitis C Antibody Preliminary Reactive 12/04/22 06:50: WBC 12.0 H, RBC 4.46 L, Hgb 9.8 L, Hct 32.8 L, MCV 73.5 L, MCH 22.0 L, MCHC 29.9 L, RDW Std Deviation 56.0 H, RDW Coeff of Angel 21.3 H, Plt Count 688 H, MPV 9.1, Immature Gran % (Auto) 0.800, Neut % (Auto) 84.2 H, Lymph % (Auto) 5.3 L, [place] % (Auto) 6.7, Eos % (Auto) 2.2, Baso % (Auto) 0.8, Absolute Neuts (auto) 10.1 H, Absolute Lymphs (auto) 0.64 L, Nucleated RBC % 0, Differential Comment SCANNED, Platelet Estimate MOD INC, Hypochromasia 1+, Poikilocytosis 1+, Anisocytosis 2+, Microcytosis 1+, Macrocytosis 1+, Ovalocytes 1+ 12/04/22 06:50: Sodium 133 L, Potassium 5.4 H, Chloride 108 H, Carbon Dioxide 15.0 L, Anion Gap 10, BUN 59 H, Creatinine 3.87 H, Estim Creat Clear Calc 14.70, Est GFR (MDRD) Af Amer 20 L, Est GFR (MDRD) Non-Af 17 L, BUN/Creatinine Ratio 15.2, Glucose 141 H, Calcium 8.4 L, Total Bilirubin 0.40, Direct Bilirubin 0.11, AST 41 H, ALT 14 L, Alkaline Phosphatase 62, Total Protein 7.2, Albumin 1.7 L, Globulin 5.5 H Radiography Diagnostic Testing: Radiology Impression Paracentesis Ultrasound 12/03/22 08:00 IMPRESSION: Ultrasound guided paracentesis. Electronically Signed: John Paul Kahn MD at 10:42 EST , Rhythm Strip Rhythm Strip: Sinus Tach Rate: 114 Ectopy: None Physical Exam Narrative Alert awake oriented x 3, no obvious distress Heart tone is normal s1s2 no murmurs lungs clear to auscultation anteriorly abdomen is distended. However, abdomen is not tense. There is no pain, guarding or rebound on palpation. no lower extremity edema no cyanosis Assessment & Plan Assessment/Plan (1) ARACELI (acute kidney injury): (2) Chronic kidney disease, stage 4 (severe): (3) Hyperkalemia: (4) Metabolic acidosis: (5) Anemia: PLAN: Plan Impression/plan: The patient is a 66-year-old man with past history of hypertension, stroke, BPH, GERD, hepatitis C status post treatment with antiviral, and B-cell lymphoma. The patient was admitted to the hospital on 11/29/2022 with acute respiratory failure and new onset ascites. He was diagnosed with metastatic colon cancer and cirrhosis. Nephrology is following for acute kidney injury on chronic kidney disease. Acute kidney injury on chronic kidney disease stage IV. Baseline serum creatinine 3 weeks prior to admission was 2.2 to 2.4 mg/dL. Suspect ARACELI secondary to ischemic ATN. No evidence of obstruction on CT of the abdomen/pelvis on 11/29/2022. Urinalysis was benign on 11/29/2022 as well. There was no significant proteinuria or RBCs on urinalysis. Low suspicion for other causes of ARACELI at this point. Thus far, serum creatinine has peaked at 4.54 mg deciliter on 12/01/2022. Renal function is stable, and serum creatinine has been stable in the last 2 d ays at 3.81-3.87 mg/dL. The patient is at risk for hepatorenal syndrome, but I have low suspicion at this point since he is not oliguric. Continue to hold losartan which she was taking at home. Keep MAP above 65 to 70 mmHg. We will continue to monitor renal function, volume status, acid-base status and electrolytes. Hyperkalemia. The patient is mildly hyperkalemic with potassium level at 5.4 mmol/L. We are holding losartan. Continue effort to treat metabolic acidosis with sodium bicarbonate. Limit potassium in diet to 2 g/day. Metabolic acidosis. Serum bicarbonate level is low but stable at 15 mmol/L. The patient is on sodium bicarbonate at 1.3 g 3 times a day which will be continued. Recheck serum bicarbonate level again tomorrow.
--- NOTE | 2022-12-04 16:40 | PN_ITS ---
Subjective Subjective Patient is understandably down about his diagnosis of colon cancer. Cytology for the ascitic fluid was positive for malignant cells from the colon. He has having more liquid stools. Objective Data Objective Data Vital Signs: Vital Signs Temp Pulse Resp BP Pulse Ox O2 Del Method O2 Flow Rate 97.6 F L 112 H 18 122/81 H 98 Room Air 2 12/04/22 15:44 12/04/22 15:44 12/04/22 15:44 12/04/22 15:44 12/04/22 15:44 12/04/22 15:44 11/30/22 17:10 Oxygen Flow Rate (L/min) 2 Oxygen Delivery Method [2] Room Air Oxygen Delivery Method [1 ( Room Air Initial Baseline)] Oxygen Delivery Method [3] Room Air Oxygen Delivery Method [2] Room Air Oxygen Delivery Method [1 ( Room Air Initial Baseline)] Oxygen Delivery Method Room Air Weight: 203 lb 4.259 oz Body Mass Index (BMI) 36.0 Intake & Output: Intake and Output for Last 24 Hours 12/02/22 12/03/22 12/04/22 23:59 23:59 23:59 Intake Total 240 / 240 480 / 480 Output Total 3200 / 3200 Balance -2960 / -2960 480 / 480 Medical Nutrition Assessment Dietitian: Malnutrition Criteria Met Start: 11/30/22 13:40 Freq: Status: Active Protocol: Document 12/03/22 11:50 AG (Rec: 12/03/22 11:51 AG [id number]) Nutrition Malnutrition Evidence of Malnutrition Exists Yes Malnutrition (severe): Acute Illness/Injury Evidenced By Suboptimal Energy Intake ( Severe),Weight Loss (Severe) Clinical Problem Acute Disease or Injury Related Malnutrition Etiology severe, acute malnutrition related to inadequate oral intake d/t GI dysfunction Signs/Symptoms as evidenced by estimated PO intake meeting <50% of estimated energy needs >5 days ; unintentional wt loss of 16. 7#/8% wt loss <1 month Status Active Problem Recommendation Dietitian Recommendations/Changes continue renal- general diet; will monitor PO intake, labs and adjust diet/add ONS as indicated Lab / Micro Data Result Diagrams: 12/04/22 06:50 12/04/22 06:50 Labs: Laboratory Results - last 24 hr 12/03/22 19:40: Hep Bs Antigen Non-Reactive, Hep Bs Antibody Non-Reactive, Hepatitis C Antibody Preliminary Reactive 12/04/22 06:50: WBC 12.0 H, RBC 4.46 L, Hgb 9.8 L, Hct 32.8 L, MCV 73.5 L, MCH 22.0 L, MCHC 29.9 L, RDW Std Deviation 56.0 H, RDW Coeff of Angel 21.3 H, Plt Count 688 H, MPV 9.1, Immature Gran % (Auto) 0.800, Neut % (Auto) 84.2 H, Lymph % (Auto) 5.3 L, [place] % (Auto) 6.7, Eos % (Auto) 2.2, Baso % (Auto) 0.8, Absolute Neuts (auto) 10.1 H, Absolute Lymphs (auto) 0.64 L, Nucleated RBC % 0, Differential Comment SCANNED, Platelet Estimate MOD INC, Hypochromasia 1+, Poikilocytosis 1+, Anisocytosis 2+, Microcytosis 1+, Macrocytosis 1+, Ovalocytes 1+ 12/04/22 06:50: Sodium 133 L, Potassium 5.4 H, Chloride 108 H, Carbon Dioxide 15.0 L, Anion Gap 10, BUN 59 H, Creatinine 3.87 H, Estim Creat Clear Calc 14.70, Est GFR (MDRD) Af Amer 20 L, Est GFR (MDRD) Non-Af 17 L, BUN/Creatinine Ratio 15.2, Glucose 141 H, Calcium 8.4 L, Total Bilirubin 0.40, Direct Bilirubin 0.11, AST 41 H, ALT 14 L, Alkaline Phosphatase 62, Total Protein 7.2, Albumin 1.7 L, Globulin 5.5 H Radiography Diagnostic Testing: Radiology Impression Paracentesis Ultrasound 12/03/22 08:00 IMPRESSION: Ultrasound guided paracentesis. Electronically Signed: John Paul Kahn MD at 10:42 EST , Rhythm Strip Rhythm Strip: Sinus Tach Rate: 114 Ectopy: None Physical Exam Narrative Alert awake oriented x 3, no obvious distress s1s2 no murmurs lungs clear abdomen soft no edema no cyanosis Assessment & Plan Assessment/Plan (1) Acute renal failure (ARF): (2) Abdominal distension: PLAN: Asites: ultrasound-guided paracentesis with plans to send for cytology in addition to other studies. 12/01/2022 patient underwent ultrasound-guided paracentesis on 11/30/2022; A total of 5950 ml of ? lorenzo-colored fluid? were removed from the peritoneal cavity.?He has a Low SAAG gradient that is not consistent with cirrhosis. 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 12/04/2022 malignant ascites confirmed by positive cytology (3) Anemia: PLAN: Anemia secondary to GI bleed from right sided colonic mass. Hgb seems to stable for now. Recommend surgical evaluation because he will eventual obstru ct. (4) Primary colon cancer with invasion or adherence to other organ or structure (T4b): PLAN: He has a malignant stricture at the level of the hepatic flexure and at this time is not a surgical candidate due to peritoneal carcinomatosis. He will have to undergo a colonic stent placement. We will likely order the stent on Tuesday for placement on 12/07/2022. (5) Cirrhosis: PLAN: Decompensated cirrhosis with a meld of 14, child Almeida class C, due to his ascites. He did not have any varices and is esophagus or stomach on his upper endoscopy. He needs alpha-fetoprotein, ammonia level. I will start him on Xifaxan 550 mg p.o. twice daily. I would not give him neomycin due to his renal failure.??Colorectal cancer patients with liver cirrhosis have poorer OS compared to those without liver cirrhosis; however, the PRF rates are similar. It might be due to the mortality from the liver, and surgical treatment should be actively considered for patients with MELD-Na score <10. His hemoglobin and platelet count have been very good. PLAN: Plan pathology report following his colonoscopy demonstrated poorly differentiated adenocarcinoma Case discussed with Dr. Jacob with oncology. Poor prognosis in the setting of cirrhosis and the need for chemotherapy/immunotherapy. Charges/Coding Visit Charges Inpatient E&M: 74121 Subs Hosp L3
[2022-12-04] MEDS: Morphine 2 MG/ML Syringe IV (20:11)
[2022-12-04] MEDS: 0.9% Saline Lock 10 ML Syringe IV (20:14)
--- NOTE | 2022-12-04 20:14 | NURSING ---
Patient requesting meds early wanting to rest
[2022-12-04 21:40] VITALS: BP 103/77; PULSE 120; RESP 18; TEMP 36.8; O2SAT 99
[2022-12-05 03:40] VITALS: BP 93/76; PULSE 102; RESP 18; TEMP 36.6; O2SAT 94
[2022-12-05] MEDS: Sodium Bicarbonate 650 MG Tablet 1300 MG PO ×3 (05:53→21:49)
[2022-12-05 07:05] LABS: Albumin, Serum 1.6 g/dL (3.2-5.0); BUN 66 mg/dL (7-18); BUN/Creat Ratio 16.3 RATIO (10-20); Calcium,Total 8.4 mg/dL (8.5-10.1); Chloride 106 mmol/L (98-107); Creatinine, Serum 4.04 mg/dL (0.70-1.30); EST Glomerular Filtration Rate 16 mL/min (>60); Est Glom Filt Rate - Afr Amer 19 mL/min (>60); Estimated Creatinine Clearance 14.08 ml/min; Glucose 117 mg/dL (74-106); Phosphorus 6.4 mg/dL (2.5-4.9); Potassium 5.7 mmol/L (3.5-5.1); Sodium Level 134 mmol/L (136-145)
[2022-12-05] MEDS: Tamsulosin HCl 0.4 MG Capsule PO (08:08)
--- NOTE | 2022-12-05 08:12 | EX.PCM.CON.S ---
Assessment & Plan Assessment/Plan (1) Cirrhosis: (2) Primary colon cancer with invasion or adherence to other organ or structure (T4b): PLAN: Plan The patient has a hepatic flexure mass that was seen by GI. There was plan in the chart for stenting as the patient also has carcinomatosis and positive cells in the fluid. I was consulted for placement of Pleurx catheter to deal with his ascites while he is undergoing treatment. I discussed this with him in detail. I discussed placing a Pleurx catheter into the abdominal cavity for management of ascites with him. I discussed the risks and benefits. Currently the patient is not very distended or tense so I will wait 1 more day to see if more fluid collects and possibly place at the bedside tomorrow. Gallo Dubois MD Pager: [facility] [address] [place] [address], [address] [place] [address] Office: HPI Consult Data Date of Consult: 12/05/22 HPI Narrative HPI Narrative: DARWIN MILLER, is a 66 M who is admitted with colon cancer and ascites. Patient has required paracentesis and had a rapid repeated buildup of ascites. Oncology requested peritoneal Pleurx catheter placement for drainage of ascites while he is undergoing treatment. [facility] Medical History (Updated 12/04/22 @ 16:[address] Minaya Friend, DO) BPH (benign prostatic hyperplasia) GERD (gastroesophageal reflux disease) History of B-cell lymphoma HTN (hypertension) Stroke Home Medications Acid Relief 1 ea PO/SL DAILY GERD 11/18/22 [History Last Taken 11/17/22] losartan 25 mg tablet 25 mg PO QHS BP 11/18/22 [History Last Taken 11/17/22] tamsulosin 0.4 mg capsule 0.4 mg PO DAILY PROSTATE 11/18/22 [History Last Taken 11/17/22] pantoprazole 40 mg tablet,delayed release 40 mg PO BID #120 tabs 11/20/22 [Rx Last Taken Unknown] Allergy/AdvReac Type Severity Reaction Status Date / Time RAPID ACTING ANTIHYPERTENSIVE AdvReac Other Uncoded 11/29/22 11:59 Family History (Updated 11/18/22 @ 19:[address] Melodie Baker MD) Father COPD (chronic obstructive pulmonary disease) Lung cancer Mother COPD (chronic obstructive pulmonary disease) Surgical History S/P bilateral inguinal hernia repair S/P tonsillectomy Social History household members: spouse Smoking Status: Former smoker how long ago did patient quit smoking: Quit ~ 30 years prior, smoked 1.5 ppd since teen until quit. alcohol intake: current alcohol intake frequency: holidays/special occasions only substance use type: does not use ROS Constitutional Constitutional: Reports anorexia; Denies chills, fatigue or fever(s) Eyes Eyes: Denies blurry vision ENT HEENT: Denies abnormal hearing Cardiovascular Cardiovascular: Denies chest pain Respiratory/Chest Respiratory/Chest: Denies cough Gastrointestinal Gastrointestinal: Reports abdominal pain; Denies constipation or hematemesis Genitourinary Genitourinary: Denies change in urinary stream Musculoskeletal Musculoskeletal: Denies abnormal gait or difficulty walking Physical Exam Const alert and oriented x3 HEENT normocephalic Eyes PERRL Resp normal respiratory effort Cardio Rate: regular rate Rhythm: regular rhythm GI soft to palpation, non-tender and non-distended Skin no rashes or lesions noted Neuro CN's II-XII intact bilaterally Medical Records Data Medical Nutrition Assessment Dietitian: Malnutrition Criteria Met Start: 11/30/22 13:40 Freq: Status: Active Protocol: Document 12/03/22 11:50 AG (Rec: 12/03/22 11:51 AG [id number]) Nutrition Malnutrition Evidence of Malnutrition Exists Yes Malnutrition (severe): Acute Illness/Injury Evidenced By Suboptimal Energy Intake ( Severe),Weight Loss (Severe) Clinical Problem Acute Disease or Injury Related Malnutrition Etiology severe, acute malnutrition related to inadequate oral intake d/t GI dysfunction Signs/Symptoms as evidenced by estimated PO intake meeting <50% of estimated energy needs >5 days ; unintentional wt loss of 16. 7#/8% wt loss <1 month Status Active Problem Recommendation Dietitian Recommendations/Changes continue renal- general diet; will monitor PO intake, labs and adjust diet/add ONS as indicated Lab / Micro Data Result Diagrams: 12/04/22 06:50 12/05/22 05:55 Labs: Laboratory Results - last 24 hr 12/04/22 06:50: Differential Comment SCANNED, Platelet Estimate MOD INC, Hypochromasia 1+, Poikilocytosis 1+, Anisocytosis 2+, Microcytosis 1+, Macrocytosis 1+, Ovalocytes 1+ 12/05/22 05:55: Sodium 134 L, Potassium 5.7 H, Chloride 106, Carbon Dioxide 17.0 L, BUN 66 H, Creatinine 4.04 H, Estim Creat Clear Calc 14.08, Est GFR (MDRD) Af Amer 19 L, Est GFR (MDRD) Non-Af 16 L, BUN/Creatinine Ratio 16.3, Glucose 117 H, Calcium 8.4 L, Phosphorus 6.4 H, Albumin 1.6 L Rhythm Strip Rhythm Strip: Sinus Tach Rate: 114 Ectopy: None Radiology Impression Paracentesis Ultrasound 12/03/22 08:00 IMPRESSION: Ultrasound guided paracentesis. Electronically Signed: John Paul Kahn MD at 10:42 EST ,
[2022-12-05 09:40] VITALS: BP 106/80; PULSE 105; RESP 18; TEMP 36.6; O2SAT 97
--- NOTE | 2022-12-05 10:58 | PN.HOSP_ITS ---
Subjective Subjective Patient seen diagnostic data reviewed significant for potassium of 5.7 Kayexalate given.. Case was discussed with Dr. Frazier with GI patient will need stenting to prevent complete obstruction of his colon Objective Data Objective Data Vital Signs: Vital Signs Temp Pulse Resp BP Pulse Ox O2 Del Method O2 Flow Rate 97.8 F 105 H 18 106/80 97 Room Air 2 12/05/22 09:40 12/05/22 09:40 12/05/22 09:40 12/05/22 09:40 12/05/22 09:40 12/05/22 09:40 11/30/22 17:10 Oxygen Flow Rate (L/min) 2 Oxygen Delivery Method [2] Room Air Oxygen Delivery Method [1 ( Room Air Initial Baseline)] Oxygen Delivery Method [3] Room Air Oxygen Delivery Method [2] Room Air Oxygen Delivery Method [1 ( Room Air Initial Baseline)] Oxygen Delivery Method Room Air Weight: 92.2 kg Body Mass Index (BMI) 36.0 Intake & Output: Intake and Output for Last 24 Hours 12/03/22 12/04/22 12/05/22 23:59 23:59 23:59 Intake Total 240 / 240 480 / 480 Output Total 3200 / 3200 Balance -2960 / -2960 480 / 480 Medical Nutrition Assessment Dietitian: Malnutrition Criteria Met Start: 11/30/22 13:40 Freq: Status: Active Protocol: Document 12/03/22 11:50 AG (Rec: 12/03/22 11:51 AG [id number]) Nutrition Malnutrition Evidence of Malnutrition Exists Yes Malnutrition (severe): Acute Illness/Injury Evidenced By Suboptimal Energy Intake ( Severe),Weight Loss (Severe) Clinical Problem Acute Disease or Injury Related Malnutrition Etiology severe, acute malnutrition related to inadequate oral intake d/t GI dysfunction Signs/Symptoms as evidenced by estimated PO intake meeting <50% of estimated energy needs >5 days ; unintentional wt loss of 16. 7#/8% wt loss <1 month Status Active Problem Recommendation Dietitian Recommendations/Changes continue renal- general diet; will monitor PO intake, labs and adjust diet/add ONS as indicated Lab / Micro Data Result Diagrams: 12/04/22 06:50 12/05/22 05:55 Labs: Laboratory Results - last 24 hr 12/05/22 05:55: Sodium 134 L, Potassium 5.7 H, Chloride 106, Carbon Dioxide 17.0 L, BUN 66 H, Creatinine 4.04 H, Estim Creat Clear Calc 14.08, Est GFR (MDRD) Af Amer 19 L, Est GFR (MDRD) Non-Af 16 L, BUN/Creatinine Ratio 16.3, Glucose 117 H, Calcium 8.4 L, Phosphorus 6.4 H, Albumin 1.6 L Rhythm Strip Rhythm Strip: Sinus Tach Rate: 114 Ectopy: None Physical Exam Narrative GENERAL: cooperative HEENT: Atraumatic; normocephalic EYES; Anicteric, Normal Conjunctiva NECK; supple, normal thyroid, RESPIRATORY: Diminished to auscultation CARDIOVASCULAR: Regular S1 S2, GI: distention of the abdomen : No Renal angle tenderness; EXTREMITIES: No edema, no clubbing, MUSCULOSKELETAL: no muscle wasting NEURO: Awake; no lateralizing signs. SKIN: No Rash PSYCH; Flat affect Assessment & Plan Assessment/Plan (1) Acute renal failure (ARF): (2) Abdominal distension: PLAN: Plan Patient is a 66-year-old gentleman with history of B-cell lymphoma recently discharged from the hospital following admission for symptomatic anemia he underwent EGD found to have grade a reflux esophagitis. Presented back to the emergency department with significant abdominal distention and worsening kidney function 1. Marked ascites ? Patient scheduled to undergo ultrasound-guided paracentesis with plans to send for cytology in addition to other studies. GI has been consulted 12/01/2022 patient underwent ultrasound-guided paracentesis on 11/30/2022; A total of 5950 ml of ? lorenoz-colored fluid? were removed from the peritoneal cavity. ? 12/02/2022; Patient complains of bloating this AM. Biopsy and cytology from his recent colonoscopy and paracentesis respectively pending.. Repeat paracentesis ordered for a.m. ? 12/03/2022 patient underwent repeat paracentesis. Cytology from patient's initial paracentesis pending ? 12/04/2022 patient ascitic fluid cytology came back positive for malignant cells non-small cell carcinoma. Plan is for patient to have a abdominal Pleurx catheter placed for drainage of his recurrent ascites. Dr. Dubois subsequently consulted 2. Newly diagnosed colon cancer pathology report; Invasive poorly differentiated adenocarcinoma with mets to the omentum. Case discussed with Dr. Jacob plan is for patient to have a abdominal Pleurx catheter placed for drainage of his recurrent ascites ? 12/05/2022. Case was discussed with Dr. Frazier the day prior plan is for patient to undergo stenting to prevent complete obstruction of his colon. 3. Anemia secondary to iron deficiency anemia from: CA ? Patient underwent patient underwent EGD by Dr. Frazier on 11/19/2022 findings included -?LA Grade A reflux esophagitis.? Biopsied. - Small hiatal hernia. - No gross lesions in the second portion of the duodenum. Patient placed on PPI.? CT of the abdomen and pelvis demonstrated thickening of the ascending colon concerning for malignancy as well as retroperitoneal l ymphadenopathy. Plan is for patient to undergo colonoscopy in the hospital -12/01/2022 patient underwent colonoscopy by Dr. Frazier on 11/30/2022 findings included stricture at the hepatic flexure.? Biopsied.? Injected. ? 12/02/2022; biopsy result pending ? 12/03/2022 pathology report; Invasive poorly differentiated adenocarcinoma. Case discussed with Dr. Jacob plan is to review imaging studies with radiology regarding peritoneal masses whether consistent with metastatic disease. Subsequently ordered iron studies and CEA and CT of the chest to assist with staging. Cytology report from patient ascitic fluid still pending ? 12/04/2022 plan is for patient to be started on parenteral iron 4.? Acute on chronic kidney disease stage IV Patient presented with worsening kidney function. Creatinine on discharge was 2.41, creatinine on admission was 4.90. Attributed to third spacing. Consult placed to nephrology. Daily monitoring with BMPs ordered 5.? History of B-cell lymphoma ? Status post chemo; patient has remained in remission for 6 years 6.? History of frontal lobe CVA ? With history of emotional fragility.? We will continue with monitoring 7.? Essential hypertension ? Patient blood pressure on admission was low, patient is on losartan held 8.? BPH ? Patient is on tamsulosin 0.4 mg p.o. daily did continue 9.? Class II obesity with BMI of 36 ? Weight loss advised 10.? History of hep C ? Patient did complete treatment has remained in remission 9.? DVT prophylaxis -SCDs 10. ?Severe, acute malnutrition -related to inadequate oral intake d/t GI dysfunction as evidenced by estimated PO intake meeting <50% of estimated energy needs >5 days; unintentional wt loss of 16.7#/8% wt loss <1 month. Plan for regular/sodium restricted diet as tolerated; ensure plus high protein 120mL 4x/day w/medpass when diet advanced. 11. Hyperkalemia ? Patient potassium 5.7 Kayexalate given, BMP ordered to assess response to therapy. Time spent in the patient's overall evaluation,decision-making process, review of diagnostic data, adjustment of management, discussion with other providers, nursing nursing and ancillary staff involved in patient's care documentation, wellness discussion of pathology report with patient and the ; 52 Minutes Charges/Coding Visit Charges Inpatient E&M: 93326 Subs Hosp L3
[2022-12-05] MEDS: Sodium Polystyrene Sulfonate 15 GM/60 ML UDC 30 GM PO (11:19)
[2022-12-05 14:51] LABS: Anion Gap 11 (5-15); BUN 63 mg/dL (7-18); BUN/Creat Ratio 15.2 RATIO (10-20); Calcium,Total 8.6 mg/dL (8.5-10.1); Chloride 107 mmol/L (98-107); Creatinine, Serum 4.14 mg/dL (0.70-1.30); EST Glomerular Filtration Rate 15 mL/min (>60); Est Glom Filt Rate - Afr Amer 19 mL/min (>60); Estimated Creatinine Clearance 13.74 ml/min; Glucose 155 mg/dL (74-106); Potassium 5.1 mmol/L (3.5-5.1); Sodium Level 136 mmol/L (136-145)
[2022-12-05 15:40] VITALS: BP 122/85; PULSE 117; RESP 18; TEMP 37; O2SAT 97
[2022-12-05] MEDS: Morphine 2 MG/ML Syringe IV (18:05)
[2022-12-05] MEDS: 0.9% Saline Lock 10 ML Syringe IV (18:06)
--- NOTE | 2022-12-05 20:23 | PCM.PN.REN ---
Subjective Subjective Following for acute kidney injury on chronic kidney disease. Appetite and oral intake remains poor. The patient has occasional nausea but no vomiting. Has been no diarrhea. He denies chest pain or shortness of breath at rest. Objective Data Objective Data Vital Signs: Vital Signs Temp Pulse Resp BP Pulse Ox O2 Del Method O2 Flow Rate 98.6 F 117 H 18 122/85 H 97 Room Air 2 12/05/22 15:40 12/05/22 15:40 12/05/22 15:40 12/05/22 15:40 12/05/22 15:40 12/05/22 15:40 11/30/22 17:10 Oxygen Flow Rate (L/min) 2 Oxygen Delivery Method [2] Room Air Oxygen Delivery Method [1 ( Room Air Initial Baseline)] Oxygen Delivery Method [3] Room Air Oxygen Delivery Method [2] Room Air Oxygen Delivery Method [1 ( Room Air Initial Baseline)] Oxygen Delivery Method Room Air Weight: 92.2 kg Body Mass Index (BMI) 36.0 Intake & Output: Intake and Output for Last 24 Hours 12/03/22 12/04/22 12/05/22 23:59 23:59 23:59 Intake Total 240 / 240 480 / 480 840 / 840 Output Total 3200 / 3200 Balance -2960 / -2960 480 / 480 840 / 840 Medical Nutrition Assessment Dietitian: Malnutrition Criteria Met Start: 11/30/22 13:40 Freq: Status: Active Protocol: Document 12/03/22 11:50 AG (Rec: 12/03/22 11:51 AG [id number]) Nutrition Malnutrition Evidence of Malnutrition Exists Yes Malnutrition (severe): Acute Illness/Injury Evidenced By Suboptimal Energy Intake ( Severe),Weight Loss (Severe) Clinical Problem Acute Disease or Injury Related Malnutrition Etiology severe, acute malnutrition related to inadequate oral intake d/t GI dysfunction Signs/Symptoms as evidenced by estimated PO intake meeting <50% of estimated energy needs >5 days ; unintentional wt loss of 16. 7#/8% wt loss <1 month Status Active Problem Recommendation Dietitian Recommendations/Changes continue renal- general diet; will monitor PO intake, labs and adjust diet/add ONS as indicated Lab / Micro Data Result Diagrams: 12/04/22 06:50 12/05/22 14:24 Labs: Laboratory Results - last 24 hr 12/05/22 05:55: Sodium 134 L, Potassium 5.7 H, Chloride 106, Carbon Dioxide 17.0 L, BUN 66 H, Creatinine 4.04 H, Estim Creat Clear Calc 14.08, Est GFR (MDRD) Af Amer 19 L, Est GFR (MDRD) Non-Af 16 L, BUN/Creatinine Ratio 16.3, Glucose 117 H, Calcium 8.4 L, Phosphorus 6.4 H, Albumin 1.6 L 12/05/22 14:24: Sodium 136, Potassium 5.1, Chloride 107, Carbon Dioxide 18.0 L, Anion Gap 11, BUN 63 H, Creatinine 4.14 H, Estim Creat Clear Calc 13.74, Est GFR (MDRD) Af Amer 19 L, Est GFR (MDRD) Non-Af 15 L, BUN/Creatinine Ratio 15.2, Glucose 155 H, Calcium 8.6 Rhythm Strip Rhythm Strip: Sinus Tach Rate: 114 Ectopy: None Physical Exam Narrative Alert awake oriented x 3, no obvious distress Heart tone is normal s1s2 no murmurs lungs clear to auscultation anteriorly abdomen is distended. However, abdomen is not tense. There is no pain, guarding or rebound on palpation. no lower extremity edema no cyanosis Assessment & Plan Assessment/Plan (1) ARACELI (acute kidney injury): (2) Chronic kidney disease, stage 4 (severe): (3) Hyperkalemia: (4) Metabolic acidosis: (5) Anemia: PLAN: Plan Impression/plan: The patient is a 66-year-old man with past history of hypertension, stroke, BPH, GERD, hepatitis C status post treatment with antiviral, and B-cell lymphoma. The patient was admitted to the hospital on 11/29/2022 with acute respiratory failure and new onset ascites. He was diagnosed with metastatic colon cancer and cirrhosis. Nephrology is following for acute kidney injury on chronic kidney disease. Acute kidney injury on chronic kidney disease stage IV. Baseline serum creatinine 3 weeks prior to admission was 2.2 to 2.4 mg/dL. Suspect ARACELI secondary to ischemic ATN. No evidence of obstruction on CT of the abdomen/pelvis on 11/29/2022. Urinalysis was benign on 11/29/2022 as well. There was no significant proteinuria or RBCs on urinalysis. Low suspicion for other causes of ARACELI at this point. Thus far, serum creatinine has peaked at 4.54 mg deciliter on 12/01/2022. Serum creatinine decreased to 3.81 mg/dL on 12/03/2022, but serum creatinine has increased again up to 4.14 mg/dL today. Fluctuation in renal function in the past 3 days may be due to fluctuation in volume. The patient is at risk for hepatorenal syndrome, but I have low suspicion at this point since he is not oliguric. Continue to hold losartan which he was taking at home. Encourage patient to push oral solute/fluid intake. Appetite has remained poor. If renal function worsens tomorrow, we will give limited fluid bolus (500 to 1 L of isotonic IV fluid). There is no need for kidney replacement therapy. Keep MAP above 65 to 70 mmHg. We will continue to monitor renal function, volume status, acid-base status and electrolytes. Hyperkalemia. The patient is mildly hyperkalemic with potassium level at 5.7 mmol/L earlier today. He was given sodium polystyrene sulfonate. Repeat serum potassium later this afternoon was better at 5.1 mmol/L. We are holding losartan. Continue effort to treat metabolic acidosis with sodium bicarbonate. Limit potassium in diet to 2 g/day. Metabolic acidosis. Serum bicarbonate level is low but stable at 18 mmol/L. The patient is on sodium bicarbonate at 1.3 g 3 times a day which will be continued. Recheck serum bicarbonate level again tomorrow.
[2022-12-05 21:40] VITALS: BP 116/74; PULSE 115; RESP 18; TEMP 36.1; O2SAT 93
[2022-12-05 22:31] LABS: Carcinoembryonic Antigen 7.3 ng/mL (0.0-4.7)
[2022-12-06 03:40] VITALS: BP 126/86; PULSE 114; RESP 18; TEMP 37.3; O2SAT 94
[2022-12-06 06:17] LABS: Absolute Lymphocyte Count 0.46 X10^3/uL (0.83-4.51); Basophil# 0.09 X10^3/uL; Basophil% 0.7 % (0-1); Eosinophil# 0.35 X10^3/uL; Eosinophils% 2.8 % (0-5); Hematocrit 31.6 % (40-54); Hemoglobin 9.6 g/dL (13.0-16.5); Lymphocyte # 0.46 X10^3/ul (0.83-4.51); Lymphocyte % 3.7 % (19-41); Mean Corp Hgb Conc 30.4 g/dL (32-36); Mean Corpuscular Volume 72.5 fL (80-94); Mean Platelet Vol. 9.3 fl (6.2-12.0); Monocyte% 4.8 % (0-10); NRBC Flagged by Analyzer 0 % (0-5); Neutrophil # 10.97 X10^3/uL (2.7-7.7); POSITIVE DIFFERENTIAL YES; POSITIVE MORPHOLOGY YES; Platelet Count 708 K/mm3 (150-450); RBC Distribution Width CV 21.4 % (11.6-14.6); RBC Distribution Width SD 55.5 fl (35.1-43.9); Red Blood Count 4.36 M/mm3 (4.6-6.2); White Blood Count 12.6 K/mm3 (4.4-11.0)
[2022-12-06 06:18] LABS: Differential Indicated SCAN CRITERIA MET
[2022-12-06] MEDS: Sodium Bicarbonate 650 MG Tablet 1300 MG PO ×3 (06:19→21:10)
[2022-12-06] MEDS: Morphine 2 MG/ML Syringe IV ×2 (06:23→14:24)
[2022-12-06] MEDS: 0.9% Saline Lock 10 ML Syringe IV ×2 (06:24→14:24)
[2022-12-06 06:52] LABS: Anion Gap 13 (5-15); BUN 66 mg/dL (7-18); Calcium,Total 8.3 mg/dL (8.5-10.1); Chloride 104 mmol/L (98-107); Creatinine, Serum 4.12 mg/dL (0.70-1.30); EST Glomerular Filtration Rate 15 mL/min (>60); Est Glom Filt Rate - Afr Amer 19 mL/min (>60); Estimated Creatinine Clearance 13.81 ml/min; Glucose 123 mg/dL (74-106); Magnesium 2.4 mg/dL (1.6-2.6); Potassium 4.8 mmol/L (3.5-5.1); Sodium Level 134 mmol/L (136-145)
[2022-12-06 07:10] LABS: Anisocytosis 2+; Microcytosis 2+; Platelet Estimate MKD INC (ADEQ)
--- NOTE | 2022-12-06 09:02 | PCM.PN.HOSP ---
Subjective Subjective Some right upper quadrant pain as he feels he is becoming more distended had good stool output after Kayexalate yesterday for his hyperkalemia, did not sleep well from a pain and feeling restless standpoint Objective Data Objective Data Vital Signs: Vital Signs Temp Pulse Resp BP Pulse Ox O2 Del Method O2 Flow Rate 99.1 F 114 H 18 126/86 H 94 Room Air 2 12/06/22 03:40 12/06/22 03:40 12/06/22 03:40 12/06/22 03:40 12/06/22 03:40 12/06/22 03:40 11/30/22 17:10 Oxygen Flow Rate (L/min) 2 Oxygen Delivery Method [2] Room Air Oxygen Delivery Method [1 ( Room Air Initial Baseline)] Oxygen Delivery Method [3] Room Air Oxygen Delivery Method [2] Room Air Oxygen Delivery Method [1 ( Room Air Initial Baseline)] Oxygen Delivery Method Room Air Weight: 92.2 kg Body Mass Index (BMI) 36.0 Intake & Output: Intake and Output for Last 24 Hours 12/04/22 12/05/22 12/06/22 23:59 23:59 23:59 Intake Total 480 / 480 840 / 840 Balance 480 / 480 840 / 840 Medical Nutrition Assessment Dietitian: Malnutrition Criteria Met Start: 11/30/22 13:40 Freq: Status: Active Protocol: Document 12/03/22 11:50 AG (Rec: 12/03/22 11:51 AG [id number]) Nutrition Malnutrition Evidence of Malnutrition Exists Yes Malnutrition (severe): Acute Illness/Injury Evidenced By Suboptimal Energy Intake ( Severe),Weight Loss (Severe) Clinical Problem Acute Disease or Injury Related Malnutrition Etiology severe, acute malnutrition related to inadequate oral intake d/t GI dysfunction Signs/Symptoms as evidenced by estimated PO intake meeting <50% of estimated energy needs >5 days ; unintentional wt loss of 16. 7#/8% wt loss <1 month Status Active Problem Recommendation Dietitian Recommendations/Changes continue renal- general diet; will monitor PO intake, labs and adjust diet/add ONS as indicated Lab / Micro Data Result Diagrams: 12/06/22 05:13 12/06/22 05:13 Labs: Laboratory Results - last 24 hr 12/04/22 06:50: Carcinoembryonic Ag 7.3 H 12/05/22 14:24: Sodium 136, Potassium 5.1, Chloride 107, Carbon Dioxide 18.0 L, Anion Gap 11, BUN 63 H, Creatinine 4.14 H, Estim Creat Clear Calc 13.74, Est GFR (MDRD) Af Amer 19 L, Est GFR (MDRD) Non-Af 15 L, BUN/Creatinine Ratio 15.2, Glucose 155 H, Calcium 8.6 12/06/22 05:13: WBC 12.6 H, RBC 4.36 L, Hgb 9.6 L, Hct 31.6 L, MCV 72.5 L, MCH 22.0 L, MCHC 30.4 L, RDW Std Deviation 55.5 H, RDW Coeff of Angel 21.4 H, Plt Count 708 H, MPV 9.3, Immature Gran % (Auto) 1.000 H, Neut % (Auto) 87.0 H, Lymph % (Auto) 3.7 L, [place] % (Auto) 4.8, Eos % (Auto) 2.8, Baso % (Auto) 0.7, Absolute Neuts (auto) 11.0 H, Absolute Lymphs (auto) 0.46 L, Nucleated RBC % 0, Platelet Estimate MKD INC, Anisocytosis 2+, Microcytosis 2+ 12/06/22 05:13: Sodium 134 L, Potassium 4.8, Chloride 104, Carbon Dioxide 17.0 L, Anion Gap 13, BUN 66 H, Creatinine 4.12 H, Estim Creat Clear Calc 13.81, Est GFR (MDRD) Af Amer 19 L, Est GFR (MDRD) Non-Af 15 L, BUN/Creatinine Ratio 16.0, Glucose 123 H, Calcium 8.3 L, Magnesium 2.4 Rhythm Strip Rhythm Strip: Sinus Tach Rate: 114 Ectopy: None Physical Exam Narrative General: Alert, oriented, no apparent distress HEENT: Atraumatic, normocephalic Eyes: Anicteric, normal conjunctiva, extraocular movements grossly intact Neck: Supple Respiratory: Clear to auscultation bilaterally, normal respiratory effort Cardiovascular: Regular rate and rhythm GI: Moderate distention, dull to percussion, slight diffuse tenderness without rebound, guarding, rigidity Extremities: No edema Musculoskeletal: Moving all extremities Neuro: No overt focal neurological deficits Skin: No rashes appreciated Psych: Cooperative Assessment & Plan Assessment/Plan (1) ARACELI (acute kidney injury): (2) Chronic kidney disease, stage 4 (severe): (3) Hyperkalemia: (4) Metabolic acidosis: (5) Anemia: PLAN: Plan Patient is a 66-year-old gentleman with history of B-cell lymphoma recently discharged from the hospital following admission for symptomatic anemia he underwent EGD found to have grade a reflux esophagitis.? 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 Jacob at [facility] to initiate immunotherapy Dr. Frazier with GI also on board and plan is to undergo colonic stenting to prevent complete obstruction as there was hepatic flexure stricture on colonoscopy, stenting likely tomorrow. N.p.o. at midnight and bowel prep ordered #Marked abdominal ascites On 11/30 he had ultrasound-guided paracentesis with a total of 6 L of lorenzo-colored fluid removed. Had reaccumulation and had repeat paracentesis on 12/03. Ascitic fluid culture came back positive for malignant cells and plan is for abdominal Pleurx catheter for drainage, drain placed today per surgery and to liters were drained #Anemia secondary to iron deficiency from adenocarcinoma of the colon Patient underwent patient underwent EGD by Dr. Frazier on 11/19/2022 findings included -?LA Grade A reflux esophagitis.? Biopsied. - Small hiatal hernia. - No gross lesions in the second portion of the duodenum. Subsequently had CT of abdomen pelvis which demonstrated thickening of the ascending colon concerning for malignancy as well as retroperitoneal lymphadenopathy and he underwent colonoscopy 11/30 with findings including stricture of hepatic flexure which was biopsied and path report positive for invasive poorly differentiated adenocarcinoma and given paracentesis results it was determined he had metastatic adenocarcinoma and oncology consulted Started on IV iron #Acute on chronic stage IV kidney disease Most recent creatinine was 2.41 and then on admission was 4.90 Nephrology consulted No obstruction on CT abdomen pelvis on 11/29 and UA benign on 11/29 as well #History of B-cell lymphoma Status postchemotherapy and has been in remission from that for 6 years #History of frontal lobe CVA Continue monitoring #History of hep C Did complete treatment in 2014 in [place] and has remained in remission #Decompensated liver cirrhosis MELD 14 and child Almeida class C due to his ascites No varices on recent EGD Rifaximin started #Severe, acute malnutrition -related to inadequate oral intake d/t GI dysfunction as evidenced by estimated PO intake meeting <50% of estimated energy needs >5 days; unintentional wt loss of 16.7#/8% wt loss <1 month. Plan for regular/sodium restricted diet as tolerated; ensure plus high protein 120mL 4x/day w/medpass when diet advanced. #DVT ppx: SCDs Vidhya Bryson MD time spent in the patient's overall evaluation,decision-making process, review of diagnostic data, adjustment of management, discussion with other providers, nursing nursing and ancillary staff involved in patient's care documentation, 30 minutes Charges/Coding Visit Charges Inpatient E&M: 70355 Subs Hosp L2
[2022-12-06 09:27] VITALS: BP 116/86; PULSE 101; RESP 16; TEMP 36.6; O2SAT 96
[2022-12-06] MEDS: Tamsulosin HCl 0.4 MG Capsule PO (09:31)
--- NOTE | 2022-12-06 15:10 | PN.RENAL_ITS ---
Subjective Subjective No new events Objective Data Objective Data Vital Signs: Vital Signs Temp Pulse Resp BP Pulse Ox O2 Del Method O2 Flow Rate 97.8 F 101 H 16 116/86 H 96 Room Air 2 12/06/22 09:27 12/06/22 09:27 12/06/22 09:27 12/06/22 09:27 12/06/22 09:27 12/06/22 09:27 11/30/22 17:10 Oxygen Flow Rate (L/min) 2 Oxygen Delivery Method [2] Room Air Oxygen Delivery Method [1 ( Room Air Initial Baseline)] Oxygen Delivery Method [3] Room Air Oxygen Delivery Method [2] Room Air Oxygen Delivery Method [1 ( Room Air Initial Baseline)] Oxygen Delivery Method Room Air Weight: 92.2 kg Body Mass Index (BMI) 36.0 Intake & Output: Intake and Output for Last 24 Hours 12/04/22 12/05/22 12/06/22 23:59 23:59 23:59 Intake Total 480 / 480 840 / 840 525 / 525 Balance 480 / 480 840 / 840 525 / 525 Medical Nutrition Assessment Dietitian: Malnutrition Criteria Met Start: 11/30/22 13:40 Freq: Status: Active Protocol: Document 12/06/22 13:17 RMA (Rec: 12/06/22 13:17 RMA [id number]) Nutrition Malnutrition Evidence of Malnutrition Exists Yes Malnutrition (severe): Acute Illness/Injury Evidenced By Suboptimal Energy Intake ( Severe),Weight Loss (Severe) Clinical Problem Acute Disease or Injury Related Malnutrition Etiology severe, acute malnutrition related to inadequate oral intake d/t GI dysfunction Signs/Symptoms as evidenced by estimated PO intake meeting <50% of estimated energy needs >5 days ; unintentional wt loss of 16. 7#/8% wt loss <1 month Status Active Problem Recommendation Dietitian Recommendations/Changes PO/appetite poor and pt with signs/symptoms of malnutrition , will liberalize diet to sodium-restricted in an effort to improve oral intake at meals; fluid restriction as per nephrology as needed. Will try Nepro 120 ml PO TID w / meals as tolerated. Lab / Micro Data Result Diagrams: 12/06/22 05:13 12/06/22 05:13 Labs: Laboratory Results - last 24 hr 11/30/22 13:45: Miscellaneous Cytology SEE PATHOLOGY REPORT 12/04/22 06:50: Carcinoembryonic Ag 7.3 H 12/06/22 05:13: WBC 12.6 H, RBC 4.36 L, Hgb 9.6 L, Hct 31.6 L, MCV 72.5 L, MCH 22.0 L, MCHC 30.4 L, RDW Std Deviation 55.5 H, RDW Coeff of Angel 21.4 H, Plt Count 708 H, MPV 9.3, Immature Gran % (Auto) 1.000 H, Neut % (Auto) 87.0 H, Lymph % (Auto) 3.7 L, [place] % (Auto) 4.8, Eos % (Auto) 2.8, Baso % (Auto) 0.7, Absolute Neuts (auto) 11.0 H, Absolute Lymphs (auto) 0.46 L, Nucleated RBC % 0, Platelet Estimate MKD INC, Anisocytosis 2+, Microcytosis 2+ 12/06/22 05:13: Sodium 134 L, Potassium 4.8, Chloride 104, Carbon Dioxide 17.0 L , Anion Gap 13, BUN 66 H, Creatinine 4.12 H, Estim Creat Clear Calc 13.81, Est GFR (MDRD) Af Amer 19 L, Est GFR (MDRD) Non-Af 15 L, BUN/Creatinine Ratio 16.0, Glucose 123 H, Calcium 8.3 L, Magnesium 2.4 Rhythm Strip Rhythm Strip: Sinus Tach Rate: 114 Ectopy: None Physical Exam Narrative Alert awake oriented x 3, no obvious distress Heart tone is normal s1s2 no murmurs lungs clear to auscultation anteriorly abdomen is distended. However, abdomen is not tense. There is no pain, guarding or rebound on palpation. no lower extremity edema no cyanosis Assessment & Plan Assessment/Plan (1) ARACELI (acute kidney injury): (2) Chronic kidney disease, stage 4 (severe): (3) Hyperkalemia: (4) Metabolic acidosis: (5) Anemia: PLAN: Plan Impression/plan: The patient is a 66-year-old man with past history of hypertension, stroke, BPH, GERD, hepatitis C status post treatment with antiviral, and B-cell lymphoma. The patient was admitted to the hospital on 11/29/2022 with acute respiratory failure and new onset ascites. He was diagnosed with metastatic colon cancer and cirrhosis. Nephrology is following for acute kidney injury on chronic kidney disease. Acute kidney injury on chronic kidney disease stage IV. Baseline serum creatinine 3 weeks prior to admission was 2.2 to 2.4 mg/dL. Suspect ARACELI secondary to ischemic ATN. No evidence of obstruction on CT of the abdomen/pelvis on 11/29/2022. Urinalysis was benign on 11/29/2022 as well. There was no significant proteinuria or RBCs on urinalysis. Low suspicion for other causes of ARACELI at this point. Creatinine continues to trend up. Reaccumulating peritoneal fluid. Peritoneal fluid and hepatic flexure biopsy consistent with colon primary and metastatic malignant ascites. He will follow-up with oncology at [facility]. Creatinine is higher. Scheduled for Pleurx catheter placement today. We will give a dose of albumin.
--- NOTE | 2022-12-06 15:34 | OP.PCM_ITS ---
Report of Operation Date of Procedure: 12/06/22 Pre-Operative Diagnosis: Ascites and colon cancer Post-Operative Diagnosis: Same Surgery/Procedure Performed:: Ultrasound-guided placement of tunneled abdominal Pleurx catheter Description of Procedure: After obtaining signed consent the patient's right side was inspected with ultrasound and a large pocket of fluid was identified. The area overlying this was prepped and draped in usual sterile fashion. 2 areas were injected with local anesthetic and small nicks were made in each area with a scalpel. Under ultrasound guidance through the more superior incision the access needle was alka brissa into the fluid cavity and clear fluid was aspirated. The needle was removed leaving the catheter in place and then the guidewire was placed to the catheter and then the catheter was removed. The Pleurx was tunneled from the lower incision to the upper incision and then the peel-away sheath was placed over the guidewire into the abdomen and the guidewire was removed. The introducer was removed and the catheter was placed into the peel-away sheath. There was copious ascites draining throughout the procedure. Peel-away sheath was removed and the catheter was successfully placed into the abdomen. The cuff was aligned under the skin and then the superior incision was sutured closed and then glued with Dermabond. The catheter was placed to suction and 2 L of ascites was removed and discarded. The catheter was then capped and dressing was applied. Patient tolerated the procedure well. Grafts/Implants Used: Pleurx catheter, intraperitoneal
--- NOTE | 2022-12-06 17:20 | PN_ITS ---
Subjective Subjective Patient underwent Pleurx catheter placement at the bedside by surgery today. 2 L of fluid was drained. Objective Data Objective Data Vital Signs: Vital Signs Temp Pulse Resp BP Pulse Ox O2 Del Method O2 Flow Rate 97.8 F 101 H 16 116/86 H 96 Room Air 2 12/06/22 09:27 12/06/22 09:27 12/06/22 09:27 12/06/22 09:27 12/06/22 09:27 12/06/22 09:27 11/30/22 17:10 Oxygen Flow Rate (L/min) 2 Oxygen Delivery Method [2] Room Air Oxygen Delivery Method [1 ( Room Air Initial Baseline)] Oxygen Delivery Method [3] Room Air Oxygen Delivery Method [2] Room Air Oxygen Delivery Method [1 ( Room Air Initial Baseline)] Oxygen Delivery Method Room Air Weight: 203 lb 4.259 oz Body Mass Index (BMI) 36.0 Intake & Output: Intake and Output for Last 24 Hours 12/04/22 12/05/22 12/06/22 23:59 23:59 23:59 Intake Total 480 / 480 840 / 840 525 / 525 Balance 480 / 480 840 / 840 525 / 525 Medical Nutrition Assessment Dietitian: Malnutrition Criteria Met Start: 11/30/22 13:40 Freq: Status: Active Protocol: Document 12/06/22 13:17 RMA (Rec: 12/06/22 13:17 RMA [id number]) Nutrition Malnutrition Evidence of Malnutrition Exists Yes Malnutrition (severe): Acute Illness/Injury Evidenced By Suboptimal Energy Intake ( Severe),Weight Loss (Severe) Clinical Problem Acute Disease or Injury Related Malnutrition Etiology severe, acute malnutrition related to inadequate oral intake d/t GI dysfunction Signs/Symptoms as evidenced by estimated PO intake meeting <50% of estimated energy needs >5 days ; unintentional wt loss of 16. 7#/8% wt loss <1 month Status Active Problem Recommendation Dietitian Recommendations/Changes PO/appetite poor and pt with signs/symptoms of malnutrition , will liberalize diet to sodium-restricted in an effort to improve oral intake at meals; fluid restriction as per nephrology as needed. Will try Nepro 120 ml PO TID w / meals as tolerated. Lab / Micro Data Result Diagrams: 12/06/22 05:13 12/06/22 05:13 Labs: Laboratory Results - last 24 hr 11/30/22 13:45: Miscellaneous Cytology SEE PATHOLOGY REPORT 12/04/22 06:50: Carcinoembryonic Ag 7.3 H 12/06/22 05:13: WBC 12.6 H, RBC 4.36 L, Hgb 9.6 L, Hct 31.6 L, MCV 72.5 L, MCH 22.0 L, MCHC 30.4 L, RDW Std Deviation 55.5 H, RDW Coeff of Angel 21.4 H, Plt Count 708 H, MPV 9.3, Immature Gran % (Auto) 1.000 H, Neut % (Auto) 87.0 H, Lym ph % (Auto) 3.7 L, [place] % (Auto) 4.8, Eos % (Auto) 2.8, Baso % (Auto) 0.7, Ab solute Neuts (auto) 11.0 H, Absolute Lymphs (auto) 0.46 L, Nucleated RBC % 0, Platelet Estimate MKD INC, Anisocytosis 2+, Microcytosis 2+ 12/06/22 05:13: Sodium 134 L, Potassium 4.8, Chloride 104, Carbon Dioxide 17.0 L , Anion Gap 13, BUN 66 H, Creatinine 4.12 H, Estim Creat Clear Calc 13.81, Est GFR (MDRD) Af Amer 19 L, Est GFR (MDRD) Non-Af 15 L, BUN/Creatinine Ratio 16.0, Glucose 123 H, Calcium 8.3 L, Magnesium 2.4 Rhythm Strip Rhythm Strip: Sinus Tach Rate: 114 Ectopy: None Physical Exam Const alert and no apparent distress Constitutional Narrative: Oriented HEENT normocephalic and head/scalp atraumatic Eyes Eyes Narrative: EOM grossly intact, anicteric Neck supple Resp normal respiratory effort and clear to auscultation bilaterally Cardio regular rate and regular rhythm GI soft to palpation, non-tender and non-distended Extremity Extremity Narrative: No edema appreciated Neuro moves all extremities Neuro Narrative: No overt focal deficits appreciated Psych Psych Narrative: Cooperative Assessment & Plan Assessment/Plan (1) Acute renal failure (ARF): (2) Abdominal distension: PLAN: Asites: ultrasound-guided paracentesis with plans to send for cytology in addition to other studies. 12/01/2022 patient underwent ultrasound-guided paracentesis on 11/30/2022; A total of 5950 ml of ? lorenzo-colored fluid? were removed from the peritoneal cavity.?He has a Low SAAG gradient that is not consistent with cirrhosis. 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 12/04/2022 malignant ascites confirmed by positive cytology 12/06/2022 Pleurx catheter was placed at the bedside (3) Anemia: PLAN: Anemia secondary to GI bleed from right sided colonic mass. Hgb seems to stable for now. Recommend surgical evaluation because he will eventual obstruct. (4) Primary colon cancer with invasion or adherence to other organ or structure (T4b): PLAN: He has a malignant stricture at the level of the hepatic flexure and at this time is not a surgical candidate due to peritoneal carcinomatosis. He will have to undergo a colonic stent placement. We will likely order the stent on Tuesday for placement on 12/07/2022. (5) Cirrhosis: PLAN: Decompensated cirrhosis with a meld of 14, child Almeida class C, due to his ascites. He did not have any varices and is esophagus or stomach on his upper endoscopy. He needs alpha-fetoprotein, ammonia level. I will start him on Xifaxan 550 mg p.o. twice daily. I would not give him neomycin due to his renal failure.??Colorectal cancer patients with liver cirrhosis have poorer OS compared to those without liver cirrhosis; however, the PRF rates are similar. It might be due to the mortality from the liver, and surgical treatment should be actively considered for patients with MELD-Na score <10. His hemoglobin and platelet count have been very good. PLAN: Plan pathology report following his colonoscopy demonstrated poorly differentiated adenocarcinoma Case discussed with Dr. Jacob with oncology. Poor prognosis in the setting of cirrhosis and the need for chemotherapy/immunotherapy. Charges/Coding Visit Charges Inpatient E&M: 04795 Subs Hosp L3
[2022-12-06] MEDS: Bisacodyl 5 MG Tablet 20 MG PO (17:57)
[2022-12-06 18:00] VITALS: BP 112/83; PULSE 115; RESP 16; TEMP 36.8; O2SAT 96
[2022-12-06] MEDS: Albumin Human 25% (100 mL) 25 GM/100 ML BAG IV (18:06)
[2022-12-06] MEDS: Polyethylene Glycol 3350 BOWEL PREP PO (19:01)
[2022-12-06 19:07] LABS: HCV Quant. RNA PCR HCV Not Detected IU/mL (.)
[2022-12-06 20:00] VITALS: PULSE 110; RESP 16
[2022-12-06] MEDS: Ondansetron 4 MG/2 ML Vial IV (21:12)
[2022-12-07] VITALS (12 sets, daily range): BP systolic 80–128; BP diastolic 60–83; PULSE 64–110; RESP 14–16; TEMP 36.1–36.8; O2SAT 90–98; BMI 36.0
[2022-12-07] MEDS: Menthol/Lanolin/Calamine/Znox 113 GM Tube 1 APPLIC TOPICAL (00:26)
[2022-12-07] MEDS: Morphine 2 MG/ML Syringe IV ×3 (00:30→18:07)
[2022-12-07] MEDS: Sodium Bicarbonate 650 MG Tablet 1300 MG PO ×2 (04:58→21:55)
[2022-12-07 06:20] LABS: Absolute Lymphocyte Count 0.56 X10^3/uL (0.83-4.51); Absolute Neutrophil Count 10.6 X10^3/uL (2.0-7.7); Basophil# 0.06 X10^3/uL; Basophil% 0.5 % (0-1); Eosinophil# 0.19 X10^3/uL; Eosinophils% 1.6 % (0-5); Hematocrit 31.2 % (40-54); Hemoglobin 9.5 g/dL (13.0-16.5); Lymphocyte # 0.56 X10^3/ul (0.83-4.51); Lymphocyte % 4.6 % (19-41); Mean Corp Hgb Conc 30.4 g/dL (32-36); Mean Corpuscular Hgb 22.3 pg (27.0-32.0); Mean Corpuscular Volume 73.2 fL (80-94); Mean Platelet Vol. 9.3 fl (6.2-12.0); Monocyte# 0.69 X10^3/uL; Monocyte% 5.7 % (0-10); NRBC Flagged by Analyzer 0 % (0-5); Neutrophil # 10.59 X10^3/uL (2.7-7.7); Neutrophil % 86.9 % (47-70); POSITIVE DIFFERENTIAL YES; POSITIVE MORPHOLOGY YES; Platelet Count 669 K/mm3 (150-450); RBC Distribution Width CV 21.5 % (11.6-14.6); RBC Distribution Width SD 56.2 fl (35.1-43.9); Red Blood Count 4.26 M/mm3 (4.6-6.2); White Blood Count 12.2 K/mm3 (4.4-11.0)
[2022-12-07 06:23] LABS: Differential Indicated SCAN CRITERIA MET
[2022-12-07 06:40] LABS: Ovalocyte 1+
[2022-12-07 06:41] LABS: Anisocytosis 3+; Macrocytosis 1+; Microcytosis 2+; Polychromasia RARE
[2022-12-07 06:48] LABS: ALB/GLOB Ratio 0.4 RATIO (0.9-2.4); AST(SGOT) 48 U/L (15-37); Alanine Aminotransfer ALT/SGPT 12 U/L (16-61); Albumin, Serum 2.1 g/dL (3.2-5.0); Alkaline Phosphatase 84 U/L (45-117); Anion Gap 12 (5-15); BUN 65 mg/dL (7-18); BUN/Creat Ratio 16.5 RATIO (10-20); Calcium,Total 8.3 mg/dL (8.5-10.1); Chloride 103 mmol/L (98-107); Creatinine, Serum 3.95 mg/dL (0.70-1.30); EST Glomerular Filtration Rate 16 mL/min (>60); Est Glom Filt Rate - Afr Amer 20 mL/min (>60); Estimated Creatinine Clearance 14.41 ml/min; Globulin 5.3 g/dL (2.2-4.2); Glucose 130 mg/dL (74-106); Potassium 4.3 mmol/L (3.5-5.1); Protein, Total 7.4 g/dL (6.4-8.2); Sodium Level 135 mmol/L (136-145)
--- NOTE | 2022-12-07 07:24 | PCM.PN.SRG ---
Subjective Subjective Patient has no acute abdominal pain. He underwent bowel prep yesterday evening for colonoscopy today. Objective Data Objective Data Vital Signs: Vital Signs Temp Pulse Resp BP Pulse Ox O2 Del Method O2 Flow Rate 98.2 F 104 H 16 128/80 H 97 Room Air 2 12/07/22 06:00 12/07/22 06:00 12/07/22 06:00 12/07/22 06:00 12/07/22 06:00 12/07/22 06:00 11/30/22 17:10 Oxygen Flow Rate (L/min) 2 Oxygen Delivery Method [2] Room Air Oxygen Delivery Method [1 ( Room Air Initial Baseline)] Oxygen Delivery Method [3] Room Air Oxygen Delivery Method [2] Room Air Oxygen Delivery Method [1 ( Room Air Initial Baseline)] Oxygen Delivery Method Room Air Weight: 203 lb 4.259 oz Body Mass Index (BMI) 36.0 Intake & Output: Intake and Output for Last 24 Hours 12/05/22 12/06/22 12/07/22 23:59 23:59 23:59 Intake Total 840 / 840 975 / 975 100 / 100 Output Total 1999 / 1999 Balance 840 / 840 -1025 / -1025 100 / 100 Medical Nutrition Assessment Dietitian: Malnutrition Criteria Met Start: 11/30/22 13:40 Freq: Status: Active Protocol: Document 12/06/22 13:17 RMA (Rec: 12/06/22 13:17 RMA [id number]) Nutrition Malnutrition Evidence of Malnutrition Exists Yes Malnutrition (severe): Acute Illness/Injury Evidenced By Suboptimal Energy Intake ( Severe),Weight Loss (Severe) Clinical Problem Acute Disease or Injury Related Malnutrition Etiology severe, acute malnutrition related to inadequate oral intake d/t GI dysfunction Signs/Symptoms as evidenced by estimated PO intake meeting <50% of estimated energy needs >5 days ; unintentional wt loss of 16. 7#/8% wt loss <1 month Status Active Problem Recommendation Dietitian Recommendations/Changes PO/appetite poor and pt with signs/symptoms of malnutrition , will liberalize diet to sodium-restricted in an effort to improve oral intake at meals; fluid restriction as per nephrology as needed. Will try Nepro 120 ml PO TID w / meals as tolerated. Lab / Micro Data Result Diagrams: 12/07/22 05:22 12/07/22 05:22 Labs: Laboratory Results - last 24 hr 11/30/22 13:45: Miscellaneous Cytology SEE PATHOLOGY REPORT 12/04/22 06:50: HCV RNA Quant (PCR) HCV Not Detected, HCV RNA (PCR) IU log10 TNP, HCV RNA PCR Test Info Comment 12/07/22 05:22: WBC 12.2 H, RBC 4.26 L, Hgb 9.5 L, Hct 31.2 L, MCV 73.2 L, MCH 22.3 L, MCHC 30.4 L, RDW Std Deviation 56.2 H, RDW Coeff of Angel 21.5 H, Plt Count 669 H, MPV 9.3, Immature Gran % (Auto) 0.700, Neut % (Auto) 86.9 H, Lymph % (Auto) 4.6 L, [place] % (Auto) 5.7, Eos % (Auto) 1.6, Baso % (Auto) 0.5, Absolute Neuts (auto) 10.6 H, Absolute Lymphs (auto) 0.56 L, Nucleated RBC % 0, Polychromasia RARE, Anisocytosis 3+, Microcytosis 2+, Macrocytosis 1+, Ovalocytes 1+ 12/07/22 05:22: Sodium 135 L, Potassium 4.3, Chloride 103, Carbon Dioxide 20.0 L, Anion Gap 12, BUN 65 H, Creatinine 3.95 H, Estim Creat Clear Calc 14.41, Est GFR (MDRD) Af Amer 20 L, Est GFR (MDRD) Non-Af 16 L, BUN/Creatinine Ratio 16.5, Glucose 130 H, Calcium 8.3 L, Total Bilirubin 0.30, AST 48 H, ALT 12 L, Alkaline Phosphatase 84, Total Protein 7.4, Albumin 2.1 L, Globulin 5.3 H, Albumin/Globulin Ratio 0.4 L Rhythm Strip Rhythm Strip: Sinus Tach Rate: 114 Ectopy: None Assessment & Plan Assessment/Plan (1) Primary colon cancer with invasion or adherence to other organ or structure (T4b): PLAN: I placed a Pleurx catheter in the peritoneal cavity yesterday. I drained 2 L of ascites off. I gave the patient my card and I would like him to follow-up a few days after discharge for drain teaching in my office. His Pleurx supplies were ordered to his house by my office. Patient is having colonoscopy today with colonic stenting. I also discussed port placement in case that is necessary so if he needs a port he can follow-up with me and I will schedule him for surgery. Gallo Dubois MD Pager: [facility] [address] [place] [address], [address] [place] [address] Office:
--- NOTE | 2022-12-07 09:34 | CASEMGMT ---
ZOHAIB DALEY called Dr. Dubois's office regarding pleurex catheter supplies being ordered. Dr. Dubois's nurse is working on order for supplies and will arranged setup. Dr. Dubois's office requested patient be sent home with a few bottles for at home until supplies are delivered. ZOHAIB DALEY updated floor nurse. ZOHAIB DALEY will discuss HHC with patient and arrange for setup if patient is agreeable. CM will continue to follow this patient and plan for a safe discharge.
[2022-12-07] MEDS: 0.9% Normal Saline 1,000 ML 15 ML IV (10:53)
--- NOTE | 2022-12-07 12:40 | RAD_ITS ---
STUDY: INTRAOPERATIVE FLUOROSCOPY TECHNIQUE: The examination was performed with referring physician in attendance. Under fluoroscopic observation, fluoroscopic images were obtained. Radiologist was not present for the study. Radiologist did not perform the procedure. This dictation is for documentation of the radiation dosage only. There is no interpretation of the images. TOTAL NUMBER OF IMAGES: 1 COMPARISON: None RADIATION DOSE: 113 mGy FLUOROSCOPY TIME: 142 seconds REASON FOR EXAM: COLONIC STENT PLACEMENT Male, 66 years old. FINDINGS: Colonoscopy visualized. Guidewire visualized. Placement of stent. RAD/Abdomen Single View IMPRESSION: Fluoroscopic assistance images were obtained. Dictation for documentation purposes only. Electronically Signed: Larry Galvez MD at 14:47 EST ,
--- NOTE | 2022-12-07 14:40 | OP.COLON_ITS ---
Patient Name: Lincoln Cedillo Procedure Date: 12/07/2022 12:11 PM Date of : 1955 Age: 66 Procedure: Colonoscopy Indications: Colorectal cancer Providers: Rei Frazier DO Medicines: Monitored Anesthesia Care Patient Profile: This is a 66 year old male. Refer to note in patient chart for documentation of history and physical. Last Colonoscopy: 1 week ago. Complications: No immediate complications. Procedure: Pre-Anesthesia Assessment: - Prior to the procedure, a History and Physical was performed, and patient medications and allergies were reviewed. The patient is competent. The risks and benefits of the procedure and the sedation options and risks were discussed with the patient. All questions were answered and informed consent was obtained. Patient identification and proposed procedure were verified by the physician in the pre-procedure area. Mental Status Examination: alert and oriented. Airway Examination: normal oropharyngeal airway and neck mobility. CV Examination: normal. Prophylactic Antibiotics: The patient does not require prophylactic antibiotics. Prior Anticoagulants: The patient has taken no previous anticoagulant or antiplatelet agents. ASA Grade Assessment: II - A patient with mild systemic disease. After reviewing the risks and benefits, the patient was deemed in satisfactory condition to undergo the procedure. The anesthesia plan was to use monitored anesthesia care (MAC). Immediately prior to administration of medications, the patient was re-assessed for adequacy to receive sedatives. The heart rate, respiratory rate, oxygen saturations, blood pressure, adequacy of pulmonary ventilation, and response to care were monitored throughout the procedure. The physical status of the patient was re-assessed after the procedure. After I obtained informed consent, the scope was passed under direct vision. Throughout the procedure, the patient's blood pressure, pulse, and oxygen saturations were monitored continuously. The Colonoscope was introduced through the anus and advanced to the ascending colon to examine a stricture. This was the intended extent. The colonoscopy was performed without difficulty. The patient tolerated the procedure well. The quality of the bowel preparation was good. Scope In: 1:32:41 PM Scope Out: 2:20:27 PM Total Procedure Duration Time 0 hours 47 minutes 46 seconds Findings: The perianal and digital rectal examinations were normal. An ulcerated completely obstructing large mass was found at the hepatic flexure. The mass was circumferential. The mass measured six cm in length. In addition, its diameter measured four mm. Oozing was present. Area was successfully injected with 5 mL of a 1:10,000 solution of epinephrine for drug delivery. Coagulation for hemostasis using heater probe was successful. A guide wire was placed, then the scope was withdrawn. Using the wire as a guide, dilation with a 10-11-12 mm colonic balloon dilator was performed under fluoroscopic guidance. The dilation site was examined and showed moderate improvement in luminal narrowing. The scope was withdrawn and replaced with the adult endoscope in order to accomplish the maneuver. Placement of a 0.035 inch x 260 cm angled stiff Hydra Jagwire was attempted. This passed successfully. This was stented with a 25 mm x 9 cm WallFlex stent. Estimated blood loss was minimal. Impression: - Malignant completely obstructing tumor at the hepatic flexure. Injected. Treated with a heater probe. Dilated. Prosthesis placed. - No specimens collected. Recommendation: - Return patient [facility] for [facility] care. - Full liquid diet. - Continue present medications. - Await pathology results. - No recommendation at this time regarding repeat colonoscopy due to age. Procedure Code(s): --- Professional --- 32731, 52, Colonoscopy, flexible; with endoscopic stent placement (includes pre- and post-dilation and guide wire passage, when performed) 72673, 59,52, Colonoscopy, flexible; with control of bleeding, any method 93328, Intraluminal dilation of strictures and/or obstructions (eg, esophagus), radiological supervision and interpretation CPT copyright 2017 [employer]. All rights reserved. The codes documented in this report are preliminary and upon senior sas developer review may be revised to meet current compliance requirements. Rei Frazier DO 12/07/2022 2:39:51 PM This report has been signed electronically. Number of Addenda: 0 Note Initiated On: 12/07/2022 12:11 PM
--- NOTE | 2022-12-07 14:40 | OP.CCLET_ITS ---
12/07/2022 Bobby Salguero MD [address] [id number] Re : Colonoscopy procedure for Lincoln Cedillo Dear Dr. Salguero This procedure was performed on Wednesday, December 07, 2022. My impressions and recommendations are as follows: Impressions : - Malignant completely obstructing tumor at the hepatic flexure. Injected. Treated with a heater probe. Dilated. Prosthesis placed. - No specimens collected. Recommendations : - Return patient to [facility] for [facility] care. - Full liquid diet. - Continue present medications. - Await pathology results. - No recommendation at this time regarding repeat colonoscopy due to age. My findings are described in the full procedure note, which is enclosed. If I can be of further assistance, please feel free to contact me at . Sincerely, Rei Frazier, 12/07/2022 2:39:51 PM This report has been signed electronically.
--- NOTE | 2022-12-07 15:24 | PCM.PN.REN ---
Objective Data Objective Data Vital Signs: Vital Signs Temp Pulse Resp BP Pulse Ox O2 Del Method O2 Flow Rate 97 F L 105 H 16 99/81 H 93 Nasal Cannula 2 12/07/22 14:55 12/07/22 14:55 12/07/22 14:55 12/07/22 14:55 12/07/22 14:55 12/07/22 14:55 12/07/22 14:55 Oxygen Flow Rate (L/min) 2 Oxygen Delivery Method [2] Room Air Oxygen Delivery Method [1 ( Room Air Initial Baseline)] Oxygen Delivery Method [3] Room Air Oxygen Delivery Method [2] Room Air Oxygen Delivery Method [1 ( Room Air Initial Baseline)] Oxygen Delivery Method Nasal Cannula Weight: 92.2 kg Body Mass Index (BMI) 36.0 Intake & Output: Intake and Output for Last 24 Hours 12/05/22 12/06/22 12/07/22 23:59 23:59 23:59 Intake Total 840 / 840 975 / 975 100 / 100 Output Total 1999 / 1999 Balance 840 / 840 -1025 / -1025 100 / 100 Medical Nutrition Assessment Dietitian: Malnutrition Criteria Met Start: 11/30/22 13:40 Freq: Status: Active Protocol: Document 12/06/22 13:17 RMA (Rec: 12/06/22 13:17 RMA [id number]) Nutrition Malnutrition Evidence of Malnutrition Exists Yes Malnutrition (severe): Acute Illness/Injury Evidenced By Suboptimal Energy Intake ( Severe),Weight Loss (Severe) Clinical Problem Acute Disease or Injury Related Malnutrition Etiology severe, acute malnutrition related to inadequate oral intake d/t GI dysfunction Signs/Symptoms as evidenced by estimated PO intake meeting <50% of estimated energy needs >5 days ; unintentional wt loss of 16. 7#/8% wt loss <1 month Status Active Problem Recommendation Dietitian Recommendations/Changes PO/appetite poor and pt with signs/symptoms of malnutrition , will liberalize diet to sodium-restricted in an effort to improve oral intake at meals; fluid restriction as per nephrology as needed. Will try Nepro 120 ml PO TID w / meals as tolerated. Lab / Micro Data Result Diagrams: 12/07/22 05:22 12/07/22 05:22 Labs: Laboratory Results - last 24 hr 12/04/22 06:50: HCV RNA Quant (PCR) HCV Not Detected, HCV RNA (PCR) IU log10 TNP, HCV RNA PCR Test Info Comment 12/07/22 05:22: WBC 12.2 H, RBC 4.26 L, Hgb 9.5 L, Hct 31.2 L, MCV 73.2 L, MCH 22.3 L, MCHC 30.4 L, RDW Std Deviation 56.2 H, RDW Coeff of Angel 21.5 H, Plt Count 669 H, MPV 9.3, Immature Gran % (Auto) 0.700, Neut % (Auto) 86.9 H, Lymph % (Auto) 4.6 L, [place] % (Auto) 5.7, Eos % (Auto) 1.6, Baso % (Auto) 0.5, Absolute Neuts (auto) 10.6 H, Absolute Lymphs (auto) 0.56 L, Nucleated RBC % 0, Polychromasia RARE, Anisocytosis 3+, Microcytosis 2+, Macrocytosis 1+, Ovalocytes 1+ 12/07/22 05:22: Sodium 135 L, Potassium 4.3, Chloride 103, Carbon Dioxide 20.0 L, Anion Gap 12, BUN 65 H, Creatinine 3.95 H, Estim Creat Clear Calc 14.41, Est GFR (MDRD) Af Amer 20 L, Est GFR (MDRD) Non-Af 16 L, BUN/Creatinine Ratio 16.5, Glucose 130 H, Calcium 8.3 L, Total Bilirubin 0.30, AST 48 H, ALT 12 L, Alkaline Phosphatase 84, Total Protein 7.4, Albumin 2.1 L, Globulin 5.3 H, Albumin/Globulin Ratio 0.4 L Radiography Diagnostic Testing: Radiology Impression KUB X-Ray 12/07/22 12:40 IMPRESSION: Fluoroscopic assistance images were obtained. Dictation for documentation purposes only. Electronically Signed: Larry Galvez MD at 14:47 EST , Rhythm Strip Rhythm Strip: Sinus Tach Rate: 114 Ectopy: None Assessment & Plan Assessment/Plan (1) Chronic kidney disease, stage 4 (severe): PLAN: Plan patient currently not in the room, went for procedures. Creatinine is slightly better.
--- NOTE | 2022-12-07 15:58 | CASEMGMT ---
RN CM in to discuss discharge planning with patient. RN CM discussed possible HHC at discharge for nursing and therapy. Patient is agreeable to HHC. A list of HHC providers including quality and resource use data and consistent with the patient?s preferred geographical region, medical needs, and insurance network were provided from the [employer] Guide. Patient and daughter to review list and provided preferences. CM will follow-up with patient in the morning with choices.
[2022-12-07] MEDS: 0.9% Saline Lock 10 ML Syringe IV ×3 (17:57→21:55)
[2022-12-07] MEDS: Ondansetron 4 MG/2 ML Vial IV (17:57)
--- NOTE | 2022-12-07 18:16 | PN.HOSP_ITS ---
Subjective Subjective Seen prior to going for stent, reports he is feeling better since drain was placed and does not report any discomfort there, no significant abdominal pain. Objective Data Objective Data Vital Signs: Vital Signs Temp Pulse Resp BP Pulse Ox O2 Del Method O2 Flow Rate 97.5 F L 100 14 106/79 98 Room Air 2 12/07/22 18:02 12/07/22 18:02 12/07/22 18:02 12/07/22 18:02 12/07/22 18:02 12/07/22 18:02 12/07/22 14:55 Oxygen Flow Rate (L/min) 2 Oxygen Delivery Method [2] Room Air Oxygen Delivery Method [1 ( Room Air Initial Baseline)] Oxygen Delivery Method [3] Room Air Oxygen Delivery Method [2] Room Air Oxygen Delivery Method [1 ( Room Air Initial Baseline)] Oxygen Delivery Method Room Air Weight: 92.2 kg Body Mass Index (BMI) 36.0 Intake & Output: Intake and Output for Last 24 Hours 12/05/22 12/06/22 12/07/22 23:59 23:59 23:59 Intake Total 840 / 840 975 / 975 579.75 / 579.75 Output Total 1999 / 1999 Balance 840 / 840 -1025 / -1025 579.75 / 579.75 Medical Nutrition Assessment Dietitian: Malnutrition Criteria Met Start: 11/30/22 13:40 Freq: Status: Active Protocol: Document 12/06/22 13:17 RMA (Rec: 12/06/22 13:17 RMA [id number]) Nutrition Malnutrition Evidence of Malnutrition Exists Yes Malnutrition (severe): Acute Illness/Injury Evidenced By Suboptimal Energy Intake ( Severe),Weight Loss (Severe) Clinical Problem Acute Disease or Injury Related Malnutrition Etiology severe, acute malnutrition related to inadequate oral intake d/t GI dysfunction Signs/Symptoms as evidenced by estimated PO intake meeting <50% of estimated energy needs >5 days ; unintentional wt loss of 16. 7#/8% wt loss <1 month Status Active Problem Recommendation Dietitian Recommendations/Changes PO/appetite poor and pt with signs/symptoms of malnutrition , will liberalize diet to sodium-restricted in an effort to improve oral intake at meals; fluid restriction as per nephrology as needed. Will try Nepro 120 ml PO TID w / meals as tolerated. Lab / Micro Data Result Diagrams: 12/07/22 05:22 12/07/22 05:22 Labs: Laboratory Results - last 24 hr 12/04/22 06:50: HCV RNA Quant (PCR) HCV Not Detected, HCV RNA (PCR) IU log10 TNP, HCV RNA PCR Test Info Comment 12/07/22 05:22: WBC 12.2 H, RBC 4.26 L, Hgb 9.5 L, Hct 31.2 L, MCV 73.2 L, MCH 22.3 L, MCHC 30.4 L, RDW Std Deviation 56.2 H, RDW Coeff of Angel 21.5 H, Plt Count 669 H, MPV 9.3, Immature Gran % (Auto) 0.700, Neut % (Auto) 86.9 H, Lymph % (Auto) 4.6 L, [place] % (Auto) 5.7, Eos % (Auto) 1.6, Baso % (Auto) 0.5, Absolute Neuts (auto) 10.6 H, Absolute Lymphs (auto) 0.56 L, Nucleated RBC % 0, Polychromasia RARE, Anisocytosis 3+, Microcytosis 2+, Macrocytosis 1+, Ovalocytes 1+ 12/07/22 05:22: Sodium 135 L, Potassium 4.3, Chloride 103, Carbon Dioxide 20.0 L , Anion Gap 12, BUN 65 H, Creatinine 3.95 H, Estim Creat Clear Calc 14.41, Est GFR (MDRD) Af Amer 20 L, Est GFR (MDRD) Non-Af 16 L, BUN/Creatinine Ratio 16.5, Glucose 130 H, Calcium 8.3 L, Total Bilirubin 0.30, AST 48 H, ALT 12 L, Alkaline Phosphatase 84, Total Protein 7.4, Albumin 2.1 L, Globulin 5.3 H, Albumin/Globulin Ratio 0.4 L Radiography Diagnostic Testing: Radiology Impression KUB X-Ray 12/07/22 12:40 IMPRESSION: Fluoroscopic assistance images were obtained. Dictation for documentation purposes only. Electronically Signed: Larry Galvez MD at 14:47 EST , Rhythm Strip Rhythm Strip: Sinus Tach Rate: 114 Ectopy: None Physical Exam Narrative General: Alert, oriented, no apparent distress HEENT: Atraumatic, normocephalic Eyes: Anicteric, normal conjunctiva, extraocular movements grossly intact Neck: Supple Respiratory: Clear to auscultation bilaterally, normal respiratory effort Cardiovascular: Regular rate and rhythm GI: Distention somewhat improved, softer, nontender without rebound, guarding, rigidity Extremities: No edema Musculoskeletal: Moving all extremities Neuro: No overt focal neurological deficits Skin: No rashes appreciated Psych: Cooperative Assessment & Plan Assessment/Plan (1) ARACELI (acute kidney injury): (2) Chronic kidney disease, stage 4 (severe): (3) Hyperkalemia: (4) Metabolic acidosis: (5) Anemia: PLAN: Plan Patient is a 66-year-old gentleman with history of B-cell lymphoma recently discharged from the hospital following admission for symptomatic anemia he underwent EGD found to have grade a reflux esophagitis.? 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 Jacob at [facility] to initiate immunotherapy Dr. Frazier with GI also on board and plan is to undergo colonic stenting to prevent complete obstruction as there was hepatic flexure stricture on colonoscopy, stenting likely tomorrow. N.p.o. at midnight and bowel prep ordered 12/07: Colonoscopy today showed the obstructing tumor in the hepatic flexure was injected and treated with heater probe and then dilated and a prosthesis was placed. #Marked abdominal ascites On 11/30 he had ultrasound-guided paracentesis with a total of 6 L of lorenzo- colored fluid removed. Had reaccumulation and had repeat paracentesis on 12/03. Ascitic fluid culture came back positive for malignant cells and plan is for abdominal Pleurx catheter for drainage, drain placed today per surgery and to liters were drained 12/07: He will follow with Dr. Dubois in the office on discharge in several days for drain teaching. #Anemia secondary to iron deficiency from adenocarcinoma of the colon Patient underwent patient underwent EGD by Dr. Frazier on 11/19/2022 findings included -?LA Grade A reflux esophagitis.? Biopsied. - Small hiatal hernia. - No gross lesions in the second portion of the duodenum. Subsequently had CT of abdomen pelvis which demonstrated thickening of the ascending colon concerning for malignancy as well as retroperitoneal lymphadenopathy and he underwent colonoscopy 11/30 with findings including stricture of hepatic flexure which was biopsied and path report positive for invasive poorly differentiated adenocarcinoma and given paracentesis results it was determined he had metastatic adenocarcinoma and oncology consulted Started on IV iron #Acute on chronic stage IV kidney disease Most recent creatinine was 2.41 and then on admission was 4.90 Nephrology consulted No obstruction on CT abdomen pelvis on 11/29 and UA benign on 11/29 as well 12/07: Slightly improved today #History of B-cell lymphoma Status postchemotherapy and has been in remission from that for 6 years #History of frontal lobe CVA Continue monitoring #History of hep C Did complete treatment in 2014 in [place] and has remained in remission #Decompensated liver cirrhosis MELD 12 and child Almeida class C due to his ascites No varices on recent EGD Rifaximin started #Severe, acute malnutrition -related to inadequate oral intake d/t GI dysfunction as evidenced by estimated PO intake meeting <50% of estimated energy needs >5 days; unintentional wt loss of 16.7#/8% wt loss <1 month. Plan for regular/sodium restricted diet as tolerated; ensure plus high protein 120mL 4x/day w/medpass when diet advanced. #DVT ppx: SCDs Vidhya Bryson MD time spent in the patient's overall evaluation,decision-making process, review of diagnostic data, adjustment of management, discussion with other providers, nursing nursing and ancillary staff involved in patient's care documentation, 30 minutes Charges/Coding Visit Charges Inpatient E&M: 91779 Subs Hosp L2
[2022-12-07] MEDS: Morphine 4 MG/ML Syringe IV (21:55)
[2022-12-08 02:55] VITALS: BP 110/81; PULSE 100; RESP 16; TEMP 36.8; O2SAT 92
[2022-12-08] MEDS: Sodium Bicarbonate 650 MG Tablet 1300 MG PO ×3 (05:00→21:20)
[2022-12-08 05:37] LABS: Absolute Neutrophil Count 10.2 X10^3/uL (2.0-7.7); Basophil# 0.08 X10^3/uL; Basophil% 0.7 % (0-1); Eosinophil# 0.19 X10^3/uL; Eosinophils% 1.6 % (0-5); Hematocrit 35.4 % (40-54); Hemoglobin 10.3 g/dL (13.0-16.5); Lymphocyte % 6.6 % (19-41); Mean Corp Hgb Conc 29.1 g/dL (32-36); Mean Corpuscular Hgb 21.9 pg (27.0-32.0); Mean Corpuscular Volume 75.2 fL (80-94); Mean Platelet Vol. 9.3 fl (6.2-12.0); Monocyte# 0.68 X10^3/uL; Monocyte% 5.6 % (0-10); NRBC Flagged by Analyzer 0.2 % (0-5); Neutrophil # 10.23 X10^3/uL (2.7-7.7); Neutrophil % 84.8 % (47-70); POSITIVE MORPHOLOGY YES; Platelet Count 698 K/mm3 (150-450); RBC Distribution Width CV 21.7 % (11.6-14.6); RBC Distribution Width SD 57.6 fl (35.1-43.9); Red Blood Count 4.71 M/mm3 (4.6-6.2); White Blood Count 12.1 K/mm3 (4.4-11.0)
[2022-12-08 05:45] LABS: Differential Indicated SCAN CRITERIA MET
[2022-12-08 06:03] LABS: Anion Gap 12 (5-15); BUN 71 mg/dL (7-18); BUN/Creat Ratio 17.1 RATIO (10-20); Calcium,Total 8.5 mg/dL (8.5-10.1); Chloride 102 mmol/L (98-107); Creatinine, Serum 4.16 mg/dL (0.70-1.30); EST Glomerular Filtration Rate 15 mL/min (>60); Est Glom Filt Rate - Afr Amer 18 mL/min (>60); Estimated Creatinine Clearance 13.68 ml/min; Glucose 110 mg/dL (74-106); Potassium 4.7 mmol/L (3.5-5.1); Sodium Level 135 mmol/L (136-145)
[2022-12-08 06:12] LABS: Anisocytosis 2+; Differential Comment SCANNED; Hypochromasia RARE; Microcytosis 2+; Ovalocyte RARE; Platelet Estimate MKD INC (ADEQ)
--- NOTE | 2022-12-08 08:02 | PN.HOSP_ITS ---
Subjective Subjective Continues to feel better especially after stomach drained. Eating better as well Objective Data Objective Data Vital Signs: Vital Signs Temp Pulse Resp BP Pulse Ox O2 Del Method O2 Flow Rate 98.2 F 100 16 110/81 H 92 Room Air 2 12/08/22 02:55 12/08/22 02:55 12/08/22 02:55 12/08/22 02:55 12/08/22 02:55 12/08/22 02:55 12/07/22 14:55 Oxygen Flow Rate (L/min) 2 Oxygen Delivery Method [2] Room Air Oxygen Delivery Method [1 ( Room Air Initial Baseline)] Oxygen Delivery Method [3] Room Air Oxygen Delivery Method [2] Room Air Oxygen Delivery Method [1 ( Room Air Initial Baseline)] Oxygen Delivery Method Room Air Weight: 92.2 kg Body Mass Index (BMI) 36.0 Intake & Output: Intake and Output for Last 24 Hours 12/06/22 12/07/22 12/08/22 23:59 23:59 23:59 Intake Total 975 / 975 579.75 / 609.75 60 / 60 Output Total 1999 Balance -1025 / -1025 579.75 / 609.75 60 / 60 Medical Nutrition Assessment Dietitian: Malnutrition Criteria Met Start: 11/30/22 13:4 0 Freq: Status: Active Protocol: Document 12/06/22 13:17 RMA (Rec: 12/06/22 13:17 RMA [id number]) Nutrition Malnutrition Evidence of Malnutrition Exists Yes Malnutrition (severe): Acute Illness/Injury Evidenced By Suboptimal Energy Intake ( Severe),Weight Loss (Severe) Clinical Problem Acute Disease or Injury Related Malnutrition Etiology severe, acute malnutrition related to inadequate oral intake d/t GI dysfunction Signs/Symptoms as evidenced by estimated PO intake meeting <50% of estimated energy needs >5 days ; unintentional wt loss of 16. 7#/8% wt loss <1 month Status Active Problem Recommendation Dietitian Recommendations/Changes PO/appetite poor and pt with signs/symptoms of malnutrition , will liberalize diet to sodium-restricted in an effort to improve oral intake at meals; fluid restriction as per nephrology as needed. Will try Nepro 120 ml PO TID w / meals as tolerated. Lab / Micro Data Result Diagrams: 12/08/22 04:52 12/08/22 04:52 Labs: Laboratory Results - last 24 hr 12/08/22 04:52: WBC 12.1 H, RBC 4.71, Hgb 10.3 L, Hct 35.4 L, MCV 75.2 L, MCH 21.9 L, MCHC 29.1 L, RDW Std Deviation 57.6 H, RDW Coeff of Angel 21.7 H, Plt Count 698 H, MPV 9.3, Immature Gran % (Auto) 0.700, Neut % (Auto) 84.8 H, Lymph % (Auto) 6.6 L, [place] % (Auto) 5.6, Eos % (Auto) 1.6, Baso % (Auto) 0.7, Absolute Neuts (auto) 10.2 H, Absolute Lymphs (auto) 0.80 L, Nucleated RBC % 0.2, Differential Comment SCANNED, Platelet Estimate MKD INC, Hypochromasia RARE, Anisocytosis 2+, Microcytosis 2+, Ovalocytes RARE 12/08/22 04:52: Sodium 135 L, Potassium 4.7, Chloride 102, Carbon Dioxide 21.0, Anion Gap 12, BUN 71 H, Creatinine 4.16 H, Estim Creat Clear Calc 13.68, Est GFR (MDRD) Af Amer 18 L, Est GFR (MDRD) Non-Af 15 L, BUN/Creatinine Ratio 17.1, Glucose 110 H, Calcium 8.5 Radiography Diagnostic Testing: Radiology Impression KUB X-Ray 12/07/22 12:40 IMPRESSION: Fluoroscopic assistance images were obtained. Dictation for documentation purposes only. Electronically Signed: Larry Galvez MD at 14:47 EST Reading Location ID and State: [facility] / [place] , Service support , Rhythm Strip Rhythm Strip: Sinus Tach Rate: 114 Ectopy: None Physical Exam Narrative General: Alert, oriented, no apparent distress HEENT: Atraumatic, normocephalic Eyes: Anicteric, normal conjunctiva, extraocular movements grossly intact Neck: Supple Respiratory: Clear to auscultation bilaterally, normal respiratory effort Cardiovascular: Regular rate and rhythm GI: Distention improved, softer, nontender without rebound, guarding, rigidity Extremities: No edema Musculoskeletal: Moving all extremities Neuro: No overt focal neurological deficits Skin: No rashes appreciated Psych: Cooperative Assessment & Plan Assessment/Plan (1) ARACELI (acute kidney injury): (2) Chronic kidney disease, stage 4 (severe): (3) Hyperkalemia: (4) Metabolic acidosis: (5) Anemia: PLAN: Plan Patient is a 66-year-old gentleman with history of B-cell lymphoma recently discharged from the hospital following admission for symptomatic anemia he underwent EGD found to have grade a reflux esophagitis.? 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 Jacob at [facility] to initiate immunotherapy Dr. Frazier with GI also on board and plan is to undergo colonic stenting to prevent complete obstruction as there was hepatic flexure stricture on colonoscopy, stenting likely tomorrow. N.p.o. at midnight and bowel prep ordered 12/07: Colonoscopy today showed the obstructing tumor in the hepatic flexure was injected and treated with heater probe and then dilated and a prosthesis was placed. 12/08: Discussed with GI, diet advanced and he was started on Colace twice daily #Marked abdominal ascites On 11/30 he had ultrasound-guided paracentesis with a total of 6 L of lorenzo- colored fluid removed. Had reaccumulation and had repeat paracentesis on 12/03. Ascitic fluid culture came back positive for malignant cells and plan is for abdominal Pleurx catheter for drainage, drain placed today per surgery and to liters were drained 12/07: He will follow with Dr. Dubois in the office on discharge in several days for drain teaching. 12/08: Was given drain trainging, he and have declined home health #Anemia secondary to iron deficiency from adenocarcinoma of the colon Patient underwent patient underwent EGD by Dr. Frazier on 11/19/2022 findings included -?LA Grade A reflux esophagitis.? Biopsied. - Small hiatal hernia. - No gross lesions in the second portion of the duodenum. Subsequently had CT of abdomen pelvis which demonstrated thickening of the ascending colon concerning for malignancy as well as retroperitoneal lymphadenopathy and he underwent colonoscopy 11/30 with findings including stricture of hepatic flexure which was biopsied and path report positive for invasive poorly differentiated adenocarcinoma and given paracentesis results it was determined he had metastatic adenocarcinoma and oncology consulted Started on IV iron #Acute on chronic stage IV kidney disease Most recent creatinine was 2.41 and then on admission was 4.90 Nephrology consulted No obstruction on CT abdomen pelvis on 11/29 and UA benign on 11/29 as well 12/07: Slightly improved today 12/08: Slightly worse today but overall only fluctuating slightly, nephrology following, discussed with effervescent salts compounder today and they would be comfortable with discharge home tomorrow with follow-up with nephrology on DC if stable #History of B-cell lymphoma Status postchemotherapy and has been in remission from that for 6 years #History of frontal lobe CVA Continue monitoring #History of hep C Did complete treatment in 2014 in [place] and has remained in remission #Decompensated liver cirrhosis MELD 14 and child Almeida class C due to his ascites No varices on recent EGD Rifaximin started #Severe, acute malnutrition -related to inadequate oral intake d/t GI dysfunction as evidenced by estimated PO intake meeting <50% of estimated energy needs >5 days; unintentional wt loss of 16.7#/8% wt loss <1 month. Plan for regular/sodium restricted diet as tolerated; ensure plus high protein 120mL 4x/day w/medpass when diet advanced. #DVT ppx: SCDs Vidhya Bryson MD time spent in the patient's overall evaluation,decision-making process, review of diagnostic data, adjustment of management, discussion with other providers, nursing nursing and ancillary staff involved in patient's care documentation, 30 minutes Charges/Coding Visit Charges Inpatient E&M: 83122 Subs Hosp L2
[2022-12-08] MEDS: Tamsulosin HCl 0.4 MG Capsule PO (08:18)
[2022-12-08 08:58] VITALS: BP 115/82; PULSE 108; RESP 16; TEMP 36.4; O2SAT 98
--- NOTE | 2022-12-08 10:50 | PCM.PN.REN ---
Subjective Subjective Follow-up on CKD4, baseline creatinine around 4. Feels good today, surrounded by family. Still on the full liquid diet. Denies shortness of breath, PND, orthopnea. Wonders if he needs another paracentesis Objective Data Objective Data Vital Signs: Vital Signs Temp Pulse Resp BP Pulse Ox O2 Del Method O2 Flow Rate 97.6 F L 108 H 16 115/82 H 98 Room Air 2 12/08/22 08:58 12/08/22 08:58 12/08/22 08:58 12/08/22 08:58 12/08/22 08:58 12/08/22 08:58 12/07/22 14:55 Oxygen Flow Rate (L/min) 2 Oxygen Delivery Method [2] Room Air Oxygen Delivery Method [1 ( Room Air Initial Baseline)] Oxygen Delivery Method [3] Room Air Oxygen Delivery Method [2] Room Air Oxygen Delivery Method [1 ( Room Air Initial Baseline)] Oxygen Delivery Method Room Air Weight: 92.2 kg Body Mass Index (BMI) 36.0 Intake & Output: Intake and Output for Last 24 Hours 12/06/22 12/07/22 12/08/22 23:59 23:59 23:59 Intake Total 975 / 975 579.75 / 609.75 60 / 60 Output Total 1999 Balance -1025 / -1025 579.75 / 609.75 60 / 60 Medical Nutrition Assessment Dietitian: Malnutrition Criteria Met Start: 11/30/22 13:40 Freq: Status: Active Protocol: Document 12/06/22 13:17 RMA (Rec: 12/06/22 13:17 RMA [id number]) Nutrition Malnutrition Evidence of Malnutrition Exists Yes Malnutrition (severe): Acute Illness/Injury Evidenced By Suboptimal Energy Intake ( Severe),Weight Loss (Severe) Clinical Problem Acute Disease or Injury Related Malnutrition Etiology severe, acute malnutrition related to inadequate oral intake d/t GI dysfunction Signs/Symptoms as evidenced by estimated PO intake meeting <50% of estimated energy needs >5 days ; unintentional wt loss of 16. 7#/8% wt loss <1 month Status Active Problem Recommendation Dietitian Recommendations/Changes PO/appetite poor and pt with signs/symptoms of malnutrition , will liberalize diet to sodium-restricted in an effort to improve oral intake at meals; fluid restriction as per nephrology as needed. Will try Nepro 120 ml PO TID w / meals as tolerated. Lab / Micro Data Attestation: I reviewed the patient's lab results. Result Diagrams: 12/08/22 04:52 12/08/22 04:52 Labs: Laboratory Results - last 24 hr 12/08/22 04:52: WBC 12.1 H, RBC 4.71, Hgb 10.3 L, Hct 35.4 L, MCV 75.2 L, MCH 21.9 L, MCHC 29.1 L, RDW Std Deviation 57.6 H, RDW Coeff of Angel 21.7 H, Plt Count 698 H, MPV 9.3, Immature Gran % (Auto) 0.700, Neut % (Auto) 84.8 H, Lymph % (Auto) 6.6 L, [place] % (Auto) 5.6, Eos % (Auto) 1.6, Baso % (Auto) 0.7, Absolute Neuts (auto) 10.2 H, Absolute Lymphs (auto) 0.80 L, Nucleated RBC % 0.2, Differential Comment SCANNED, Platelet Estimate MKD INC, Hypochromasia RARE, Anisocytosis 2+, Microcytosis 2+, Ovalocytes RARE 12/08/22 04:52: Sodium 135 L, Potassium 4.7, Chloride 102, Carbon Dioxide 21.0, Anion Gap 12, BUN 71 H, Creatinine 4.16 H, Estim Creat Clear Calc 13.68, Est GFR (MDRD) Af Amer 18 L, Est GFR (MDRD) Non-Af 15 L, BUN/Creatinine Ratio 17.1, Glucose 110 H, Calcium 8.5 Radiography Diagnostic Testing: Radiology Impression KUB X-Ray 12/07/22 12:40 IMPRESSION: Fluoroscopic assistance images were obtained. Dictation for documentation purposes only. Electronically Signed: Larry Galvez MD at 14:47 EST , Rhythm Strip Rhythm Strip: Sinus Tach Rate: 114 Ectopy: None Physical Exam Const alert, oriented x3, no apparent distress and average body habitus General Appearance: well developed Orientation / Consciousness: oriented to person, oriented to place and oriented to time HEENT normocephalic Head and Scalp: atraumatic Eyes PERRL Neck no lymphadenopathy Resp no use of accessory muscles Cardio regular rate and no rub GI GI Narrative: Abdomen is distended with ascites, no tenderness, hypoactive bowel sounds Skin no rashes or lesions noted Neuro moves all extremities and no focal motor deficits Psych cooperative Assessment & Plan Assessment/Plan (1) Chronic kidney disease, stage 4 (severe): PLAN: His creatinine lately has been around 4, and it is stable today, he has no significant acidosis, he is normokalemic and continues to make urine. He does not need dialysis, but needs close monitoring (2) ARACELI (acute kidney injury): PLAN: Monitor kidney function, avoid nephrotoxins and hypotension
--- NOTE | 2022-12-08 11:01 | CASEMGMT ---
ZOHAIB DALEY in to follow-up regarding HHC. Patient and family declining HHC at this time. ZOHAIB DALEY instructed patient and family that should they reconsider to follow up with PCP. Patient and family voiced understanding. Patient and family had no further questions or concerns at this time.
[2022-12-08 11:38] VITALS: BP 113/79; PULSE 116; RESP 16; TEMP 36.5; O2SAT 95
--- NOTE | 2022-12-08 11:39 | NURSING ---
Nurse made aware of the high pulse
[2022-12-08] MEDS: Morphine 4 MG/ML Syringe 2 MG IV ×3 (14:09→21:02)
[2022-12-08 15:00] VITALS: BP 106/75; PULSE 111; RESP 18; TEMP 36.6; O2SAT 95
--- NOTE | 2022-12-08 16:51 | PCM.PROGNOTE ---
Subjective Subjective Patient underwent decompressive colonoscopy yesterday with colonic stent placement. He is not having much abdominal pain. He still is having bloating from his ascites but he is able to tolerate a liquid diet. Objective Data Objective Data Vital Signs: Vital Signs Temp Pulse Resp BP Pulse Ox O2 Del Method O2 Flow Rate 97.8 F 111 H 18 106/75 95 Room Air 2 12/08/22 15:00 12/08/22 15:00 12/08/22 15:00 12/08/22 15:00 12/08/22 15:00 12/08/22 15:00 12/07/22 14:55 Oxygen Flow Rate (L/min) 2 Oxygen Delivery Method [2] Room Air Oxygen Delivery Method [1 ( Room Air Initial Baseline)] Oxygen Delivery Method [3] Room Air Oxygen Delivery Method [2] Room Air Oxygen Delivery Method [1 ( Room Air Initial Baseline)] Oxygen Delivery Method Room Air Weight: 203 lb 4.259 oz Body Mass Index (BMI) 36.0 Intake & Output: Intake and Output for Last 24 Hours 12/06/22 12/07/22 12/08/22 23:59 23:59 23:59 Intake Total 975 / 975 579.75 / 609.75 420 / 420 Output Total 1999 Balance -1025 / -1025 579.75 / 609.75 420 / 420 Medical Nutrition Assessment Dietitian: Malnutrition Criteria Met Start: 11/30/22 13:40 Freq: Status: Active Protocol: Document 12/06/22 13:17 RMA (Rec: 12/06/22 13:17 RMA [id number]) Nutrition Malnutrition Evidence of Malnutrition Exists Yes Malnutrition (severe): Acute Illness/Injury Evidenced By Suboptimal Energy Intake ( Severe),Weight Loss (Severe) Clinical Problem Acute Disease or Injury Related Malnutrition Etiology severe, acute malnutrition related to inadequate oral intake d/t GI dysfunction Signs/Symptoms as evidenced by estimated PO intake meeting <50% of estimated energy needs >5 days ; unintentional wt loss of 16. 7#/8% wt loss <1 month Status Active Problem Recommendation Dietitian Recommendations/Changes PO/appetite poor and pt with signs/symptoms of malnutrition , will liberalize diet to sodium-restricted in an effort to improve oral intake at meals; fluid restriction as per nephrology as needed. Will try Nepro 120 ml PO TID w / meals as tolerated. Lab / Micro Data Result Diagrams: 12/08/22 04:52 12/08/22 04:52 Labs: Laboratory Results - last 24 hr 12/08/22 04:52: WBC 12.1 H, RBC 4.71, Hgb 10.3 L, Hct 35.4 L, MCV 75.2 L, MCH 21.9 L, MCHC 29.1 L, RDW Std Deviation 57.6 H, RDW Coeff of Angel 21.7 H, Plt Count 698 H, MPV 9.3, Immature Gran % (Auto) 0.700, Neut % (Auto) 84.8 H, Lymph % (Auto) 6.6 L, [place] % (Auto) 5.6, Eos % (Auto) 1.6, Baso % (Auto) 0.7, Absolute Neuts (auto) 10.2 H, Absolute Lymphs (auto) 0.80 L, Nucleated RBC % 0.2, Differential Comment SCANNED, Platelet Estimate MKD INC, Hypochromasia RARE, Anisocytosis 2+, Microcytosis 2+, Ovalocytes RARE 12/08/22 04:52: Sodium 135 L, Potassium 4.7, Chloride 102, Carbon Dioxide 21.0, Anion Gap 12, BUN 71 H, Creatinine 4.16 H, Estim Creat Clear Calc 13.68, Est GFR (MDRD) Af Amer 18 L, Est GFR (MDRD) Non-Af 15 L, BUN/Creatinine Ratio 17.1, Glucose 110 H, Calcium 8.5 Rhythm Strip Rhythm Strip: Sinus Tach Rate: 114 Ectopy: None Physical Exam Const alert, oriented x3, no apparent distress and average body habitus General Appearance: well developed Orientation / Consciousness: oriented to person, oriented to place and oriented to time HEENT normocephalic Head and Scalp: atraumatic Eyes PERRL Neck no lymphadenopathy Resp no use of accessory muscles Cardio regular rate and no rub GI GI Narrative: Abdomen is distended with ascites, no tenderness, hypoactive bowel sounds Skin no rashes or lesions noted Neuro moves all extremities and no focal motor deficits Psych cooperative Assessment & Plan Assessment/Plan (1) Acute renal failure (ARF): (2) Abdominal distension: PLAN: Asites: ultrasound-guided paracentesis with plans to send for cytology in addition to other studies. 12/01/2022 patient underwent ultrasound-guided paracentesis on 11/30/2022; A total of 5950 ml of ? lorenzo-colored fluid? were removed from the peritoneal cavity.?He has a Low SAAG gradient that is not consistent with cirrhosis. 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 12/04/2022 malignant ascites confirmed by positive cytology 12/06/2022 Pleurx catheter was placed at the bedside (3) Anemia: PLAN: Anemia secondary to GI bleed from right sided colonic mass. Hgb seems to stable for now. (4) Primary colon cancer with invasion or adherence to other organ or structure (T4b): PLAN: He has a malignant stricture at the level of the hepatic flexure and at this time is not a surgical candidate due to peritoneal carcinomatosis. He will have to undergo a colonic stent placement. 12/07/2022-fully covered colonic stent was placed at the hepatic flexure into the ascending colon with good expansion. Recommend Colace 100 mg p.o. twice daily. (5) Cirrhosis: PLAN: Decompensated cirrhosis with a meld of 14, child Almeida class C, due to his ascites. He did not have any varices and is esophagus or stomach on his upper endoscopy. He needs alpha-fetoprotein, ammonia level. I will start him on Xifaxan 550 mg p.o. twice daily. I would not give him neomycin due to his renal failure.??Colorectal cancer patients with liver cirrhosis have poorer OS compared to those without liver cirrhosis; however, the PRF rates are similar. It might be due to the mortality from the liver, and surgical treatment should be actively considered for patients with MELD-Na score <10. His hemoglobin and platelet count have been very good. PLAN: Plan pathology report following his colonoscopy demonstrated poorly differentiated adenocarcinoma Case discussed with Dr. Jacob with oncology. Poor prognosis in the setting of cirrhosis and the need for chemotherapy/immunotherapy. Charges/Coding Visit Charges Inpatient E&M: 00650 Subs Hosp L3
[2022-12-08 21:06] VITALS: BP 125/82; PULSE 84; RESP 18; TEMP 37.4; O2SAT 98
[2022-12-08] MEDS: Menthol/Lanolin/Calamine/Znox 113 GM Tube 1 APPLIC TOPICAL (21:21)
[2022-12-09] MEDS: Morphine 4 MG/ML Syringe 2 MG IV ×2 (00:38→04:55)
[2022-12-09] MEDS: 0.9% Saline Lock 10 ML Syringe IV ×3 (00:41→08:32)
[2022-12-09 04:59] VITALS: BP 108/78; PULSE 111; RESP 20; TEMP 36.6; O2SAT 98
[2022-12-09 06:32] LABS: Absolute Lymphocyte Count 0.76 X10^3/uL (0.83-4.51); Absolute Neutrophil Count 10.5 X10^3/uL (2.0-7.7); Basophil# 0.07 X10^3/uL; Basophil% 0.6 % (0-1); Eosinophil# 0.22 X10^3/uL; Eosinophils% 1.8 % (0-5); Hematocrit 33.9 % (40-54); Lymphocyte # 0.76 X10^3/ul (0.83-4.51); Lymphocyte % 6.1 % (19-41); Mean Corp Hgb Conc 29.5 g/dL (32-36); Mean Corpuscular Hgb 21.9 pg (27.0-32.0); Mean Corpuscular Volume 74.3 fL (80-94); Mean Platelet Vol. 9.5 fl (6.2-12.0); Monocyte# 0.81 X10^3/uL; Monocyte% 6.5 % (0-10); NRBC Flagged by Analyzer 0.2 % (0-5); Neutrophil # 10.47 X10^3/uL (2.7-7.7); Neutrophil % 84.2 % (47-70); POSITIVE MORPHOLOGY YES; Platelet Count 671 K/mm3 (150-450); RBC Distribution Width CV 21.6 % (11.6-14.6); RBC Distribution Width SD 56.1 fl (35.1-43.9); Red Blood Count 4.56 M/mm3 (4.6-6.2); White Blood Count 12.4 K/mm3 (4.4-11.0)
[2022-12-09 06:39] LABS: Differential Indicated SCAN CRITERIA MET
[2022-12-09 07:16] LABS: Anisocytosis 2+; Ovalocyte 1+; Platelet Morphology LARGE
[2022-12-09 07:18] LABS: ALB/GLOB Ratio 0.3 RATIO (0.9-2.4); AST(SGOT) 40 U/L (15-37); Alanine Aminotransfer ALT/SGPT 9 U/L (16-61); Albumin, Serum 1.7 g/dL (3.2-5.0); Alkaline Phosphatase 75 U/L (45-117); Anion Gap 14 (5-15); BUN 75 mg/dL (7-18); BUN/Creat Ratio 17.7 RATIO (10-20); Calcium,Total 8.4 mg/dL (8.5-10.1); Chloride 101 mmol/L (98-107); Creatinine, Serum 4.23 mg/dL (0.70-1.30); EST Glomerular Filtration Rate 15 mL/min (>60); Est Glom Filt Rate - Afr Amer 18 mL/min (>60); Estimated Creatinine Clearance 13.45 ml/min; Globulin 5.7 g/dL (2.2-4.2); Glucose 135 mg/dL (74-106); Potassium 4.6 mmol/L (3.5-5.1); Protein, Total 7.4 g/dL (6.4-8.2); Sodium Level 133 mmol/L (136-145)
[2022-12-09] MEDS: Tamsulosin HCl 0.4 MG Capsule PO (07:40)
[2022-12-09] MEDS: Morphine 2 MG/ML Syringe IV (08:32)
--- NOTE | 2022-12-09 08:40 | PN.HOSP_ITS ---
Subjective Subjective Has been having some pelvic pain radiating to his penis after urination since yesterday, with scant is not retaining. Additionally kidney function worsened slightly today Objective Data Objective Data Vital Signs: Vital Signs Temp Pulse Resp BP Pulse Ox O2 Del Method O2 Flow Rate 97.8 F 111 H 20 H 108/78 98 Room Air 2 12/09/22 04:59 12/09/22 04:59 12/09/22 04:59 12/09/22 04:59 12/09/22 04:59 12/09/22 07:40 12/07/22 14:55 Oxygen Flow Rate (L/min) 2 Oxygen Delivery Method [2] Room Air Oxygen Delivery Method [1 ( Room Air Initial Baseline)] Oxygen Delivery Method [3] Room Air Oxygen Delivery Method [2] Room Air Oxygen Delivery Method [1 ( Room Air Initial Baseline)] Oxygen Delivery Method Room Air Weight: 92.2 kg Body Mass Index (BMI) 36.0 Intake & Output: Intake and Output for Last 24 Hours 12/07/22 12/08/22 12/09/22 23:59 23:59 23:59 Intake Total 579.75 / 609.75 900 / 1200 300 / 300 Balance 579.75 / 609.75 900 / 1200 300 / 300 Medical Nutrition Assessment Dietitian: Malnutrition Criteria Met Start: 11/30/22 13:40 Freq: Status: Active Protocol: Document 12/06/22 13:17 RMA (Rec: 12/06/22 13:17 RMA [id number]) Nutrition Malnutrition Evidence of Malnutrition Exists Yes Malnutrition (severe): Acute Illness/Injury Evidenced By Suboptimal Energy Intake ( Severe),Weight Loss (Severe) Clinical Problem Acute Disease or Injury Related Malnutrition Etiology severe, acute malnutrition related to inadequate oral intake d/t GI dysfunction Signs/Symptoms as evidenced by estimated PO intake meeting <50% of estimated energy needs >5 days ; unintentional wt loss of 16. 7#/8% wt loss <1 month Status Active Problem Recommendation Dietitian Recommendations/Changes PO/appetite poor and pt with signs/symptoms of malnutrition , will liberalize diet to sodium-restricted in an effort to improve oral intake at meals; fluid restriction as per nephrology as needed. Will try Nepro 120 ml PO TID w / meals as tolerated. Lab / Micro Data Result Diagrams: 12/09/22 05:22 12/09/22 05:22 Labs: Laboratory Results - last 24 hr 12/09/22 05:22: WBC 12.4 H, RBC 4.56 L, Hgb 10.0 L, Hct 33.9 L, MCV 74.3 L, MCH 21.9 L, MCHC 29.5 L, RDW Std Deviation 56.1 H, RDW Coeff of Angel 21.6 H, Plt Count 671 H, MPV 9.5, Immature Gran % (Auto) 0.800, Neut % (Auto) 84.2 H, Lymph % (Auto) 6.1 L, [place] % (Auto) 6.5, Eos % (Auto) 1.8, Baso % (Auto) 0.6, Absolute Neuts (auto) 10.5 H, Absolute Lymphs (auto) 0.76 L, Nucleated RBC % 0.2, Plt Morphology Comment LARGE, Anisocytosis 2+, Ovalocytes 1+ 12/09/22 05:22: Sodium 133 L, Potassium 4.6, Chloride 101, Carbon Dioxide 18.0 L , Anion Gap 14, BUN 75 H, Creatinine 4.23 H, Estim Creat Clear Calc 13.45, Est GFR (MDRD) Af Amer 18 L, Est GFR (MDRD) Non-Af 15 L, BUN/Creatinine Ratio 17.7, Glucose 135 H, Calcium 8.4 L, Total Bilirubin 0.40, AST 40 H, ALT 9 L, Alkaline Phosphatase 75, Total Protein 7.4, Albumin 1.7 L, Globulin 5.7 H, Albumin/Globulin Ratio 0.3 L Rhythm Strip Rhythm Strip: Sinus Tach Rate: 114 Ectopy: None Physical Exam Narrative General: Alert, oriented, no apparent distress HEENT: Atraumatic, normocephalic Eyes: Anicteric, normal conjunctiva, extraocular movements grossly intact Neck: Supple Respiratory: Clear to auscultation bilaterally, normal respiratory effort Cardiovascular: Regular rate and rhythm GI: Distention improved, softer, nontender without rebound, guarding, rigidity Extremities: No edema Musculoskeletal: Moving all extremities Neuro: No overt focal neurological deficits Skin: No rashes appreciated Psych: Cooperative Assessment & Plan Assessment/Plan (1) ARACELI (acute kidney injury): (2) Chronic kidney disease, stage 4 (severe): (3) Hyperkalemia: (4) Metabolic acidosis: (5) Anemia: PLAN: Plan Patient is a 66-year-old gentleman with history of B-cell lymphoma recently discharged from the hospital following admission for symptomatic anemia he underwent EGD found to have grade a reflux esophagitis.? 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 Jacob at [facility] to initiate immunotherapy Dr. Frazier with GI also on board and plan is to undergo colonic stenting to prevent complete obstruction as there was hepatic flexure stricture on colonosc opy, stenting likely tomorrow. N.p.o. at midnight and bowel prep ordered 12/07: Colonoscopy today showed the obstructing tumor in the hepatic flexure was injected and treated with heater probe and then dilated and a prosthesis was placed. 12/08: Discussed with GI, diet advanced and he was started on Colace twice daily 12/09: Will transition to oral pain medication to begin preparation for discharge which may be tomorrow as his creatinine worsened and he is having pelvic pain #Burning on urination Is reporting some burning on urination and lower pelvic discomfort Had bladder scan with no retention UA unremarkable, did report burning was mostly after urination may be that he is just dehydrated. #Marked abdominal ascites On 11/30 he had ultrasound-guided paracentesis with a total of 6 L of lorenzo- colored fluid removed. Had reaccumulation and had repeat paracentesis on 12/03. Ascitic fluid culture came back positive for malignant cells and plan is for abdominal Pleurx catheter for drainage, drain placed today per surgery and to liters were drained 12/07: He will follow with Dr. Dubois in the office on discharge in several days for drain teaching. 12/08: Was given drain training, he and have declined home health 12/09: Has had fluid drained off abdomen multiple times, give albumin #Anemia secondary to iron deficiency from adenocarcinoma of the colon Patient underwent patient underwent EGD by Dr. Frazier on 11/19/2022 findings included -?LA Grade A reflux esophagitis.? Biopsied. - Small hiatal hernia. - No gross lesions in the second portion of the duodenum. Subsequently had CT of abdomen pelvis which demonstrated thickening of the ascending colon concerning for malignancy as well as retroperitoneal lymphadenopathy and he underwent colonoscopy 11/30 with findings including stricture of hepatic flexure which was biopsied and path report positive for in vasive poorly differentiated adenocarcinoma and given paracentesis results it was determined he had metastatic adenocarcinoma and oncology consulted Started on IV iron #Acute on chronic stage IV kidney disease Most recent creatinine was 2.41 and then on admission was 4.90 Nephrology consulted No obstruction on CT abdomen pelvis on 11/29 and UA benign on 11/29 as well 12/07: Slightly improved today 12/08: Slightly worse today but overall only fluctuating slightly, nephrology following, discussed with customer service supervisor today and they would be comfortable with discharge home tomorrow with follow-up with nephrology on DC if stable 12/09: Somewhat worse today, will give some gentle hydration and encourage i ncreasing p.o. we will additionally give albumin. Nephrology following #History of B-cell lymphoma Status postchemotherapy and has been in remission from that for 6 years #History of frontal lobe CVA Continue monitoring #History of hep C Did complete treatment in 2014 in [place] and has remained in remission #Decompensated liver cirrhosis MELD 14 and child Almeida class C due to his ascites No varices on recent EGD Rifaximin started #Severe, acute malnutrition -related to inadequate oral intake d/t GI dysfunction as evidenced by estimated PO intake meeting <50% of estimated energy needs >5 days; unintentional wt loss of 16.7#/8% wt loss <1 month. Plan for regular/sodium restricted diet as tolerated; ensure plus high protein 120mL 4x/day w/medpass when diet advanced. #DVT ppx: SCDs Vidhya Bryson MD time spent in the patient's overall evaluation,decision-making process, review o f diagnostic data, adjustment of management, discussion with other providers, nursing nursing and ancillary staff involved in patient's care documentation, 30 minutes Charges/Coding Visit Charges Inpatient E&M: 66238 Subs Hosp L2
[2022-12-09] MEDS: 0.9% Normal Saline 1,000 ML 100 ML IV (09:04)
[2022-12-09 11:00] VITALS: BP 97/77; PULSE 112; RESP 18; TEMP 36.7; O2SAT 96
--- NOTE | 2022-12-09 11:13 | PN.RENAL_ITS ---
Subjective Subjective Follow-up on acute on chronic kidney disease. He feels fair, continues to have poor oral intake. Had paracentesis yesterday with 6 L removed, and not sure if he has received albumin. He states he cannot tolerate sodium bicarb. Currently on maintenance IV at 100 cc/h. No respiratory compromise. Objective Data Objective Data Vital Signs: Vital Signs Temp Pulse Resp BP Pulse Ox O2 Del Method O2 Flow Rate 98.1 F 112 H 18 97/77 96 Room Air 2 12/09/22 11:00 12/09/22 11:00 12/09/22 11:00 12/09/22 11:00 12/09/22 11:12/09/22 11:00 12/07/22 14:55 Oxygen Flow Rate (L/min) 2 Oxygen Delivery Method [2] Room Air Oxygen Delivery Method [1 ( Room Air Initial Baseline)] Oxygen Delivery Method [3] Room Air Oxygen Delivery Method [2] Room Air Oxygen Delivery Method [1 ( Room Air Initial Baseline)] Oxygen Delivery Method Room Air Weight: 92.2 kg Body Mass Index (BMI) 36.0 Intake & Output: Intake and Output for Last 24 Hours 12/07/22 12/08/22 12/09/22 23:59 23:59 23:59 Intake Total 579.75 / 609.75 900 / 1200 300 / 300 Balance 579.75 / 609.75 900 / 1200 300 / 300 Medical Nutrition Assessment Dietitian: Malnutrition Criteria Met Start: 11/30/22 13:40 Freq: Status: Active Protocol: Document 12/06/22 13:17 RMA (Rec: 12/06/22 13:17 RMA [id number]) Nutrition Malnutrition Evidence of Malnutrition Exists Yes Malnutrition (severe): Acute Illness/Injury Evidenced By Suboptimal Energy Intake ( Severe),Weight Loss (Severe) Clinical Problem Acute Disease or Injury Related Malnutrition Etiology severe, acute malnutrition related to inadequate oral intake d/t GI dysfunction Signs/Symptoms as evidenced by estimated PO intake meeting <50% of estimated energy needs >5 days ; unintentional wt loss of 16. 7#/8% wt loss <1 month Status Active Problem Recommendation Dietitian Recommendations/Changes PO/appetite poor and pt with signs/symptoms of malnutrition , will liberalize diet to sodium-restricted in an effort to improve oral intake at meals; fluid restriction as per nephrology as needed. Will try Nepro 120 ml PO TID w / meals as tolerated. Lab / Micro Data Result Diagrams: 12/09/22 05:22 12/09/22 05:22 Labs: Laboratory Results - last 24 hr 12/09/22 05:22: WBC 12.4 H, RBC 4.56 L, Hgb 10.0 L, Hct 33.9 L, MCV 74.3 L, MCH 21.9 L, MCHC 29.5 L, RDW Std Deviation 56.1 H, RDW Coeff of Angel 21.6 H, Plt Count 671 H, MPV 9.5, Immature Gran % (Auto) 0.800, Neut % (Auto) 84.2 H, Lymph % (Auto) 6.1 L, [place] % (Auto) 6.5, Eos % (Auto) 1.8, Baso % (Auto) 0.6, Absolute Neuts (auto) 10.5 H, Absolute Lymphs (auto) 0.76 L, Nucleated RBC % 0.2, Plt Morphology Comment LARGE, Anisocytosis 2+, Ovalocytes 1+ 12/09/22 05:22: Sodium 133 L, Potassium 4.6, Chloride 101, Carbon Dioxide 18.0 L , Anion Gap 14, BUN 75 H, Creatinine 4.23 H, Estim Creat Clear Calc 13.45, Est GFR (MDRD) Af Amer 18 L, Est GFR (MDRD) Non-Af 15 L, BUN/Creatinine Ratio 17.7, Glucose 135 H, Calcium 8.4 L, Total Bilirubin 0.40, AST 40 H, ALT 9 L, Alkaline Phosphatase 75, Total Protein 7.4, Albumin 1.7 L, Globulin 5.7 H, Albumin/Globulin Ratio 0.3 L Rhythm Strip Rhythm Strip: Sinus Tach Rate: 114 Ectopy: None Physical Exam Const alert, oriented x3 and no apparent distress General Appearance: well developed Orientation / Consciousness: oriented to person, oriented to place and oriented to time HEENT normocephalic Head and Scalp: atraumatic Neck no lymphadenopathy Resp no use of accessory muscles GI GI Narrative: Abdomen is nontender, but significantly distended with ascites, no rebound Extremity full ROM Skin no rashes or lesions noted Assessment & Plan Assessment/Plan (1) Chronic kidney disease, stage 4 (severe): PLAN: There is very little change in creatinine, although I am noticing a trend up. I do believe it is due to hemodynamic impact and I do agree with IV fluids. Paracentesis might have contributed to increasing creatinine. Blood pressure is in the 90s, so he would benefit from IV fluids at this point. His acidosis is very mild and he cannot tolerate oral bicarb. I do not think we need to switch him to IV bicarb at this point, I will stop oral bicarb. No diuretics (2) ARACELI (acute kidney injury): PLAN: See above
[2022-12-09 13:45] LABS: Bacteria 0 SEEN /hpf (None Seen); Mucous, Urine 0 SEEN /hpf (<or=2+); Red Blood Cells-Urine 0 SEEN /hpf (0-5); Squamous Epithelial Cells - UA 0 SEEN /hpf (0-5); White Blood Cells 0 SEEN /hpf (0-5)
[2022-12-09 13:49] LABS: Color, Urine Yellow (Yellow); Glucose, Dipstick Normal (Normal); Ketone-Dipstick Negative (Negative); Leukocyte Esterase-Dipstick Negative /ul (Negative); Nitrite-Dipstick Negative (Negative); Occult Blood-Urine 10 /ul (Negative); Protein-Dipstick 30 mg/dl (Negative); Specific Gravity, Urine 1.025 (1.002-1.030); Urine Bilirubin Dipstick Negative (Negative); Urine Clarity Clear (Clear); Urine Urobilinogen Normal (Normal)
[2022-12-09 13:57] LABS: Fine Granular Cast- Urine 0-5 SEEN /lpf (0-5)
[2022-12-09 14:00] LABS: Urea Nitrogen, Urine 799 mg/dL (NO RANGE EST.)
--- NOTE | 2022-12-09 16:57 | PCM.PROGNOTE ---
Subjective Subjective Patient was complaining of some mild dysuria. He does feel better after getting fluid drained off of his abdomen. His appetite is poor. He denies any nausea. He denies any chest pain or shortness of breath. Objective Data Objective Data Vital Signs: Vital Signs Temp Pulse Resp BP Pulse Ox O2 Del Method O2 Flow Rate 98.1 F 112 H 18 97/77 96 Room Air 2 12/09/22 11:00 12/09/22 11:00 12/09/22 11:00 12/09/22 11:00 12/09/22 11:00 12/09/22 13:45 12/07/22 14:55 Oxygen Flow Rate (L/min) 2 Oxygen Delivery Method [2] Room Air Oxygen Delivery Method [1 ( Room Air Initial Baseline)] Oxygen Delivery Method [3] Room Air Oxygen Delivery Method [2] Room Air Oxygen Delivery Method [1 ( Room Air Initial Baseline)] Oxygen Delivery Method Room Air Weight: 203 lb 4.259 oz Body Mass Index (BMI) 36.0 Intake & Output: Intake and Output for Last 24 Hours 12/07/22 12/08/22 12/09/22 23:59 23:59 23:59 Intake Total 579.75 / 609.75 900 / 1200 660 / 660 Balance 579.75 / 609.75 900 / 1200 660 / 660 Medical Nutrition Assessment Dietitian: Malnutrition Criteria Met Start: 11/30/22 13:40 Freq: Status: Active Protocol: Document 12/06/22 13:17 RMA (Rec: 12/06/22 13:17 RMA [id number]) Nutrition Malnutrition Evidence of Malnutrition Exists Yes Malnutrition (severe): Acute Illness/Injury Evidenced By Suboptimal Energy Intake ( Severe),Weight Loss (Severe) Clinical Problem Acute Disease or Injury Related Malnutrition Etiology severe, acute malnutrition related to inadequate oral intake d/t GI dysfunction Signs/Symptoms as evidenced by estimated PO intake meeting <50% of estimated energy needs >5 days ; unintentional wt loss of 16. 7#/8% wt loss <1 month Status Active Problem Recommendation Dietitian Recommendations/Changes PO/appetite poor and pt with signs/symptoms of malnutrition , will liberalize diet to sodium-restricted in an effort to improve oral intake at meals; fluid restriction as per nephrology as needed. Will try Nepro 120 ml PO TID w / meals as tolerated. Lab / Micro Data Result Diagrams: 12/09/22 05:22 12/09/22 05:22 Labs: Laboratory Results - last 24 hr 12/09/22 05:22: WBC 12.4 H, RBC 4.56 L, Hgb 10.0 L, Hct 33.9 L, MCV 74.3 L, MCH 21.9 L, MCHC 29.5 L, RDW Std Deviation 56.1 H, RDW Coeff of Angel 21.6 H, Plt Count 671 H, MPV 9.5, Immature Gran % (Auto) 0.800, Neut % (Auto) 84.2 H, Lymph % (Auto) 6.1 L, [place] % (Auto) 6.5, Eos % (Auto) 1.8, Baso % (Auto) 0.6, Absolute Neuts (auto) 10.5 H, Absolute Lymphs (auto) 0.76 L, Nucleated RBC % 0.2, Plt Morphology Comment LARGE, Anisocytosis 2+, Ovalocytes 1+ 12/09/22 05:22: Sodium 133 L, Potassium 4.6, Chloride 101, Carbon Dioxide 18.0 L, Anion Gap 14, BUN 75 H, Creatinine 4.23 H, Estim Creat Clear Calc 13.45, Est GFR (MDRD) Af Amer 18 L, Est GFR (MDRD) Non-Af 15 L, BUN/Creatinine Ratio 17.7, Glucose 135 H, Calcium 8.4 L, Total Bilirubin 0.40, AST 40 H, ALT 9 L, Alkaline Phosphatase 75, Total Protein 7.4, Albumin 1.7 L, Globulin 5.7 H, Albumin/Globulin Ratio 0.3 L 12/09/22 13:35: Urine Color Yellow, Urine Clarity Clear, Urine pH 5.0, Ur Specific [place] 1.025, Urine Protein 30 H, Urine Glucose (UA) Normal, Urine Ketones Negative, Urine Occult Blood 10 H, Urine Nitrite Negative, Urine Bilirubin Negative, Urine Urobilinogen Normal, Ur Leukocyte Esterase Negative, Urine RBC 0 SEEN, Urine WBC 0 SEEN, Ur Squamous Epith Cells 0 SEEN, Urine Bacteria 0 SEEN, Fine Granular Casts 0-5 SEEN, Urine Mucus 0 SEEN 12/09/22 13:35: Urine Creatinine 201.00, Urine Urea Nitrogen 799 Rhythm Strip Rhythm Strip: Sinus Tach Rate: 114 Ectopy: None Physical Exam Const alert, oriented x3 and no apparent distress General Appearance: well developed Orientation / Consciousness: oriented to person, oriented to place and oriented to time HEENT normocephalic Head and Scalp: atraumatic Neck no lymphadenopathy Resp no use of accessory muscles GI GI Narrative: Abdomen is nontender, but significantly distended with ascites, no rebound Extremity full ROM Skin no rashes or lesions noted Assessment & Plan Assessment/Plan (1) Acute renal failure (ARF): PLAN: I suspect that his kidney function may be getting worse secondary to his frequent removal of fluid from his abdomen. We may have to have him on more scheduled albumin. We will wait for nephrology recommendations. He may also benefit from midodrine. (2) Abdominal distension: PLAN: Asites: ultrasound-guided paracentesis with plans to send for cytology in addition to other studies. 12/01/2022 patient underwent ultrasound-guided paracentesis on 11/30/2022; A total of 5950 ml of ? lorenzo-colored fluid? were removed from the peritoneal cavity.?He has a Low SAAG gradient that is not consistent with cirrhosis. 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 12/04/2022 malignant ascites confirmed by positive cytology 12/06/2022 Pleurx catheter was placed at the bedside 12/09/2022 patient had serosanguineous fluid removed from the abdomen today. (3) Anemia: PLAN: Anemia secondary to GI bleed from right sided colonic mass. Hgb seems to stable for now. (4) Primary colon cancer with invasion or adherence to other organ or structure (T4b): PLAN: He has a malignant stricture at the level of the hepatic flexure and at this time is not a surgical candidate due to peritoneal carcinomatosis. He will have to undergo a colonic stent placement. 12/07/2022-fully covered colonic stent was placed at the hepatic flexure into the ascending colon with good expansion. Recommend Colace 100 mg p.o. twice daily. (5) Cirrhosis: PLAN: Decompensated cirrhosis with a meld of 14, child Almeida class C, due to his ascites. He did not have any varices and is esophagus or stomach on his upper endoscopy. He needs alpha-fetoprotein, ammonia level. I will start him on Xifaxan 550 mg p.o. twice daily. I would not give him neomycin due to his renal failure.??Colorectal cancer patients with liver cirrhosis have poorer OS compared to those without liver cirrhosis; however, the PRF rates are similar. It might be due to the mortality from the liver, and surgical treatment should be actively considered for patients with MELD-Na score <10. His hemoglobin and platelet count have been very good. PLAN: Plan pathology report following his colonoscopy demonstrated poorly differentiated adenocarcinoma Case discussed with Dr. Jacob with oncology. Poor prognosis in the setting of cirrhosis and the need for chemotherapy/immunotherapy. Charges/Coding Visit Charges Inpatient E&M: 30712 Subs Hosp L3
[2022-12-09 17:00] VITALS: BP 115/86; PULSE 107; RESP 18; TEMP 36.7; O2SAT 95
[2022-12-09] MEDS: Albumin Human 25% (100 mL) 25 GM/100 ML BAG IV (17:11)
[2022-12-09 19:32] LABS: Urine Chloride < 10 mmol/L (Not Establ.); Urine Sodium < 5 mmol/L (Not Establ.)
[2022-12-09 21:14] VITALS: BP 122/85; PULSE 103; RESP 20; TEMP 36.4; O2SAT 97
[2022-12-09] MEDS: Docusate Sodium 100 MG Capsule PO (21:16)
[2022-12-09] MEDS: oxyCODONE 5 MG Tablet PO (21:16)
[2022-12-09] MEDS: Acetaminophen 325 MG Tablet 650 MG PO (21:16)
[2022-12-09] MEDS: Menthol/Lanolin/Calamine/Znox 113 GM Tube 1 APPLIC TOPICAL (21:17)
[2022-12-10 03:32] VITALS: BP 123/76; PULSE 106; RESP 18; TEMP 36.4; O2SAT 95
[2022-12-10 05:58] LABS: Absolute Lymphocyte Count 0.41 X10^3/uL (0.83-4.51); Absolute Neutrophil Count 10.4 X10^3/uL (2.0-7.7); Basophil# 0.09 X10^3/uL; Basophil% 0.8 % (0-1); Eosinophil# 0.23 X10^3/uL; Hematocrit 31.3 % (40-54); Hemoglobin 9.2 g/dL (13.0-16.5); Lymphocyte # 0.41 X10^3/ul (0.83-4.51); Lymphocyte % 3.5 % (19-41); Mean Corp Hgb Conc 29.4 g/dL (32-36); Mean Corpuscular Volume 74.9 fL (80-94); Mean Platelet Vol. 9.3 fl (6.2-12.0); Monocyte% 5.1 % (0-10); NRBC Flagged by Analyzer 0 % (0-5); Neutrophil # 10.35 X10^3/uL (2.7-7.7); Neutrophil % 87.9 % (47-70); POSITIVE DIFFERENTIAL YES; POSITIVE MORPHOLOGY YES; Platelet Count 578 K/mm3 (150-450); RBC Distribution Width CV 21.2 % (11.6-14.6); Red Blood Count 4.18 M/mm3 (4.6-6.2); White Blood Count 11.8 K/mm3 (4.4-11.0)
[2022-12-10 06:07] LABS: Differential Indicated SCAN CRITERIA MET
[2022-12-10 06:19] LABS: Anisocytosis 2+; Differential Comment SCANNED
[2022-12-10 06:20] LABS: Hypochromasia 1+; Microcytosis 2+
[2022-12-10 06:31] LABS: ALB/GLOB Ratio 0.4 RATIO (0.9-2.4); AST(SGOT) 36 U/L (15-37); Alanine Aminotransfer ALT/SGPT 9 U/L (16-61); Albumin, Serum 1.9 g/dL (3.2-5.0); Alkaline Phosphatase 66 U/L (45-117); Anion Gap 10 (5-15); BUN 77 mg/dL (7-18); BUN/Creat Ratio 19.6 RATIO (10-20); Calcium,Total 8.3 mg/dL (8.5-10.1); Chloride 102 mmol/L (98-107); Creatinine, Serum 3.93 mg/dL (0.70-1.30); EST Glomerular Filtration Rate 16 mL/min (>60); Est Glom Filt Rate - Afr Amer 20 mL/min (>60); Estimated Creatinine Clearance 14.48 ml/min; Glucose 184 mg/dL (74-106); Potassium 5.4 mmol/L (3.5-5.1); Protein, Total 6.9 g/dL (6.4-8.2); Sodium Level 133 mmol/L (136-145)
[2022-12-10] MEDS: Tamsulosin HCl 0.4 MG Capsule PO (08:30)
[2022-12-10 09:30] VITALS: BP 128/87; PULSE 96; RESP 20; TEMP 36.4; O2SAT 95
--- NOTE | 2022-12-10 13:35 | PN.HOSP_ITS ---
Subjective Subjective Reports feeling like he needs more fluid taken off of his abdomen, still feels generally weak, not having the burning with urination any further. Still suboptimal appetite Objective Data Objective Data Vital Signs: Vital Signs Temp Pulse Resp BP Pulse Ox O2 Del Method O2 Flow Rate 97.6 F L 96 20 H 128/87 H 95 Room Air 2 12/10/22 09:30 12/10/22 09:30 12/10/22 09:30 12/10/22 09:30 12/10/22 09:30 12/10/22 10:00 12/07/22 14:55 Oxygen Flow Rate (L/min) 2 Oxygen Delivery Method [2] Room Air Oxygen Delivery Method [1 ( Room Air Initial Baseline)] Oxygen Delivery Method [3] Room Air Oxygen Delivery Method [2] Room Air Oxygen Delivery Method [1 ( Room Air Initial Baseline)] Oxygen Delivery Method Room Air Weight: 86.3 kg Body Mass Index (BMI) 36.0 Intake & Output: Intake and Output for Last 24 Hours 12/08/22 12/09/22 12/10/22 23:59 23:59 23:59 Intake Total 900 / 1200 1760 / 1960 600 / 600 Balance 900 / 1200 1760 / 1960 600 / 600 Medical Nutrition Assessment Dietitian: Malnutrition Criteria Met Start: 11/30/22 13:40 Freq: Status: Active Protocol: Document 12/06/22 13:17 RMA (Rec: 12/06/22 13:17 RMA [id number]) Nutrition Malnutrition Evidence of Malnutrition Exists Yes Malnutrition (severe): Acute Illness/Injury Evidenced By Suboptimal Energy Intake ( Severe),Weight Loss (Severe) Clinical Problem Acute Disease or Injury Related Malnutrition Etiology severe, acute malnutrition related to inadequate oral intake d/t GI dysfunction Signs/Symptoms as evidenced by estimated PO intake meeting <50% of estimated energy needs >5 days ; unintentional wt loss of 16. 7#/8% wt loss <1 month Status Active Problem Recommendation Dietitian Recommendations/Changes PO/appetite poor and pt with signs/symptoms of malnutrition , will liberalize diet to sodium-restricted in an effort to improve oral intake at meals; fluid restriction as per nephrology as needed. Will try Nepro 120 ml PO TID w / meals as tolerated. Lab / Micro Data Result Diagrams: 12/10/22 04:53 12/10/22 04:53 Labs: Laboratory Results - last 24 hr 12/09/22 13:35: Urine Color Yellow, Urine Clarity Clear, Urine pH 5.0, Ur Specific [place] 1.025, Urine Protein 30 H, Urine Glucose (UA) Normal, Urine Ketones Negative, Urine Occult Blood 10 H, Urine Nitrite Negative, Urine Bilirubin Negative, Urine Urobilinogen Normal, Ur Leukocyte Esterase Negative, Urine RBC 0 SEEN, Urine WBC 0 SEEN, Ur Squamous Epith Cells 0 SEEN, Urine Bacteria 0 SEEN, Fine Granular Casts 0-5 SEEN, Urine Mucus 0 SEEN 12/09/22 13:35: Urine Creatinine 201.00, Urine Urea Nitrogen 799 12/09/22 13:35: Ur Random Sodium < 5, Urine Potassium 52.0, Urine Chloride < 10 12/10/22 04:53: WBC 11.8 H, RBC 4.18 L, Hgb 9.2 L, Hct 31.3 L, MCV 74.9 L, MCH 22.0 L, MCHC 29.4 L, RDW Std Deviation 57.0 H, RDW Coeff of Angel 21.2 H, Plt Count 578 H, MPV 9.3, Immature Gran % (Auto) 0.700, Neut % (Auto) 87.9 H, Lymph % (Auto) 3.5 L, [place] % (Auto) 5.1, Eos % (Auto) 2.0, Baso % (Auto) 0.8, Absolute Neuts (auto) 10.4 H, Absolute Lymphs (auto) 0.41 L, Nucleated RBC % 0, Differ ential Comment SCANNED, Hypochromasia 1+, Anisocytosis 2+, Microcytosis 2+ 12/10/22 04:53: Sodium 133 L, Potassium 5.4 H, Chloride 102, Carbon Dioxide 21.0, Anion Gap 10, BUN 77 H, Creatinine 3.93 H, Estim Creat Clear Calc 14.48, Est GFR (MDRD) Af Amer 20 L, Est GFR (MDRD) Non-Af 16 L, BUN/Creatinine Ratio 19.6, Glucose 184 H, Calcium 8.3 L, Total Bilirubin 0.30, AST 36, ALT 9 L, Alkaline Phosphatase 66, Total Protein 6.9, Albumin 1.9 L, Globulin 5.0 H, Albumin/Globulin Ratio 0.4 L Rhythm Strip Rhythm Strip: Sinus Tach Rate: 114 Ectopy: None Physical Exam Narrative General: Alert, oriented, no apparent distress HEENT: Atraumatic, normocephalic Eyes: Anicteric, normal conjunctiva, extraocular movements grossly intact Neck: Supple Respiratory: Clear to auscultation bilaterally, normal respiratory effort Cardiovascular: Regular rate and rhythm GI: Slightly more distended, no rebound, no guarding, no rigidity Extremities: No edema Musculoskeletal: Moving all extremities Neuro: No overt focal neurological deficits Skin: No rashes appreciated Psych: Cooperative Assessment & Plan Assessment/Plan (1) ARACELI (acute kidney injury): (2) Chronic kidney disease, stage 4 (severe): (3) Hyperkalemia: (4) Metabolic acidosis: (5) Anemia: PLAN: Plan Patient is a 66-year-old gentleman with history of B-cell lymphoma recently discharged from the hospital following admission for symptomatic anemia he underwent EGD found to have grade a reflux esophagitis.? Presented back to the emergency department with significant abdominal distention and worsening kidney function #Acute on chronic stage IV kidney disease Most recent creatinine was 2.41 and then on admission was 4.90 Nephrology consulted No obstruction on CT abdomen pelvis on 11/29 and UA benign on 11/29 as well 12/07: Slightly improved today 12/08: Slightly worse today but overall only fluctuating slightly, nephrology following, discussed with waste and batting waste chopper today and they would be comfortable with discharge home tomorrow with follow-up with nephrology on DC if stable 12/09: Somewhat worse today, will give some gentle hydration and encourage increasing p.o. we will additionally give albumin. Nephrology following 12/10: Got some crystalloid and also albumin yesterday and creatinine and blood pressure improved thus abdominal distention. With continued need for drainage from his abdominal cavity unclear best way to keep up with losses on an outpatient basis. Appreciate nephrology recommendation on albumin and fluids #Marked abdominal ascites On 11/30 he had ultrasound-guided paracentesis with a total of 6 L of lorenzo- colored fluid removed. Had reaccumulation and had repeat paracentesis on 12/03. Ascitic fluid culture came back positive for malignant cells and plan is for abdominal Pleurx catheter for drainage, drain placed today per surgery and to liters were drained 12/07: He will follow with Dr. Dubois in the office on discharge in several days for drain teaching. 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 Jacob at [facility] to initiate immunotherapy Dr. Frazier with GI also on board and plan is to undergo colonic stenting to prevent complete obstruction as there was hepatic flexure stricture on colonoscopy, stenting likely tomorrow. N.p.o. at midnight and bowel prep ordered 12/07: Colonoscopy today showed the obstructing tumor in the hepatic flexure was injected and treated with heater probe and then dilated and a prosthesis was placed. 12/08: Discussed with GI, diet advanced and he was started on Colace twice daily 22: Will transition to oral pain medication to begin preparation for discharge which may be tomorrow as his creatinine worsened and he is having pelvic pain 2: Creatinine improved and is closer to discharge however given his frequent abdominal draining and kidney function may be difficult to maintain fluid balance and blood pressure #Burning on urination Is reporting some burning on urination and lower pelvic discomfort Had bladder scan with no retention UA unremarkable, did report burning was mostly after urination may be that he is just dehydrated. #Anemia secondary to iron deficiency from adenocarcinoma of the colon Patient underwent patient underwent EGD by Dr. Frazier on 11/19/2022 findings included -?LA Grade A reflux esophagitis.? Biopsied. - Small hiatal hernia. - No gross lesions in the second portion of the duodenum. Subsequently had CT of abdomen pelvis which demonstrated thickening of the ascen ding colon concerning for malignancy as well as retroperitoneal lymphadenopathy and he underwent colonoscopy 11/30 with findings including stricture of hepatic flexure which was biopsied and path report positive for invasive poorly differentiated adenocarcinoma and given paracentesis results it was determined he had metastatic adenocarcinoma and oncology consulted Started on IV iron #History of B-cell lymphoma Status postchemotherapy and has been in remission from that for 6 years #History of frontal lobe CVA Continue monitoring #History of hep C Did complete treatment in 2014 in [place] and has remained in remission #Decompensated liver cirrhosis MELD 12 and child Alme[place] class C due to his ascites No varices on recent EGD Rifaximin started #Severe, acute malnutrition -related to inadequate oral intake d/t GI dysfunction as evidenced by estimated PO intake meeting <50% of estimated energy needs >5 days; unintentional wt loss of 16.7#/8% wt loss <1 month. Plan for regular/sodium restricted diet as tolerated; ensure plus high protein 120mL 4x/day w/medpass when diet advanced. #DVT ppx: SCDs Vidhya Bryson MD time spent in the patient's overall evaluation,decision-making process, review of diagnostic data, adjustment of management, discussion with other providers, nursing nursing and ancillary staff involved in patient's care documentation, 30 minutes Charges/Coding Visit Charges Inpatient E&M: 56865 Subs Hosp L2
--- NOTE | 2022-12-10 13:36 | PCM.PN.REN ---
Subjective Subjective Follow-up on ARACELI on advanced CKD. Has received IV fluids, had paracentesis today, 3.7 L being removed, currently receiving albumin. Still with poor oral intake Objective Data Objective Data Vital Signs: Vital Signs Temp Pulse Resp BP Pulse Ox O2 Del Method O2 Flow Rate 97.6 F L 96 20 H 128/87 H 95 Room Air 2 12/10/22 09:30 12/10/22 09:30 12/10/22 09:30 12/10/22 09:30 12/10/22 09:30 12/10/22 10:00 12/07/22 14:55 Oxygen Flow Rate (L/min) 2 Oxygen Delivery Method [2] Room Air Oxygen Delivery Method [1 ( Room Air Initial Baseline)] Oxygen Delivery Method [3] Room Air Oxygen Delivery Method [2] Room Air Oxygen Delivery Method [1 ( Room Air Initial Baseline)] Oxygen Delivery Method Room Air Weight: 86.3 kg Body Mass Index (BMI) 36.0 Intake & Output: Intake and Output for Last 24 Hours 12/08/22 12/09/22 12/10/22 23:59 23:59 23:59 Intake Total 900 / 1200 1760 / 1960 600 / 600 Balance 900 / 1200 1760 / 1960 600 / 600 Medical Nutrition Assessment Dietitian: Malnutrition Criteria Met Start: 11/30/22 13:40 Freq: Status: Active Protocol: Document 12/06/22 13:17 RMA (Rec: 12/06/22 13:17 RMA [id number]) Nutrition Malnutrition Evidence of Malnutrition Exists Yes Malnutrition (severe): Acute Illness/Injury Evidenced By Suboptimal Energy Intake ( Severe),Weight Loss (Severe) Clinical Problem Acute Disease or Injury Related Malnutrition Etiology severe, acute malnutrition related to inadequate oral intake d/t GI dysfunction Signs/Symptoms as evidenced by estimated PO intake meeting <50% of estimated energy needs >5 days ; unintentional wt loss of 16. 7#/8% wt loss <1 month Status Active Problem Recommendation Dietitian Recommendations/Changes PO/appetite poor and pt with signs/symptoms of malnutrition , will liberalize diet to sodium-restricted in an effort to improve oral intake at meals; fluid restriction as per nephrology as needed. Will try Nepro 120 ml PO TID w / meals as tolerated. Lab / Micro Data Attestation: I reviewed the patient's lab results. Result Diagrams: 12/10/22 04:53 12/10/22 04:53 Labs: Laboratory Results - last 24 hr 12/09/22 13:35: Urine Color Yellow, Urine Clarity Clear, Urine pH 5.0, Ur Specific [place] 1.025, Urine Protein 30 H, Urine Glucose (UA) Normal, Urine Ketones Negative, Urine Occult Blood 10 H, Urine Nitrite Negative, Urine Bilirubin Negative, Urine Urobilinogen Normal, Ur Leukocyte Esterase Negative, Urine RBC 0 SEEN, Urine WBC 0 SEEN, Ur Squamous Epith Cells 0 SEEN, Urine Bacteria 0 SEEN, Fine Granular Casts 0-5 SEEN, Urine Mucus 0 SEEN 12/09/22 13:35: Urine Creatinine 201.00, Urine Urea Nitrogen 799 12/09/22 13:35: Ur Random Sodium < 5, Urine Potassium 52.0, Urine Chloride < 10 12/10/22 04:53: WBC 11.8 H, RBC 4.18 L, Hgb 9.2 L, Hct 31.3 L, MCV 74.9 L, MCH 22.0 L, MCHC 29.4 L, RDW Std Deviation 57.0 H, RDW Coeff of [place] 21.2 H, Plt Count 578 H, MPV 9.3, Immature Gran % (Auto) 0.700, Neut % (Auto) 87.9 H, Lymph % (Auto) 3.5 L, [place] % (Auto) 5.1, Eos % (Auto) 2.0, Baso % (Auto) 0.8, Absolute Neuts (auto) 10.4 H, Absolute Lymphs (auto) 0.41 L, Nucleated RBC % 0, Differential Comment SCANNED, Hypochromasia 1+, Anisocytosis 2+, Microcytosis 2+ 12/10/22 04:53: Sodium 133 L, Potassium 5.4 H, Chloride 102, Carbon Dioxide 21.0, Anion Gap 10, BUN 77 H, Creatinine 3.93 H, Estim Creat Clear Calc 14.48, Est GFR (MDRD) Af Amer 20 L, Est GFR (MDRD) Non-Af 16 L, BUN/Creatinine Ratio 19.6, Glucose 184 H, Calcium 8.3 L, Total Bilirubin 0.30, AST 36, ALT 9 L, Alkaline Phosphatase 66, Total Protein 6.9, Albumin 1.9 L, Globulin 5.0 H, Albumin/Globulin Ratio 0.4 L Rhythm Strip Rhythm Strip: Sinus Tach Rate: 114 Ectopy: None Physical Exam Const alert, oriented x3 and no apparent distress Orientation / Consciousness: oriented to person, oriented to place and oriented to time HEENT normocephalic Head and Scalp: atraumatic Neck no lymphadenopathy Resp no use of accessory muscles and clear to auscultation bilaterally Cardio regular rate GI non-tender Auscultation: normoactive bowel sounds Palpation: ascites Assessment & Plan Assessment/Plan (1) ARACELI (acute kidney injury): PLAN: Has ARACELI on CKD 4, kidney function close to baseline. Has improved a little bit with albumin and IV fluids. He has no respiratory compromise, no edema, so no diuretics needed at the moment. Avoid hypotension and dehydration
[2022-12-10 15:14] VITALS: BP 115/89; PULSE 108; RESP 20; TEMP 36.9; O2SAT 98
--- NOTE | 2022-12-10 15:40 | PN_ITS ---
Progress Note Patient was feeling full so I connected his Pleurx to suction and removed 3600 cc of ascites. Gallo Dubois MD Pager: [facility] [address] [place] [address] [address] [place] [address] Office:
--- NOTE | 2022-12-10 15:40 | PCM.PN.BLA ---
Progress Note Patient was feeling full so I connected his Pleurx to suction and removed 3600 cc of ascites. Gallo Dubois MD Pager: [facility] [address] [place] [address] [address] [place] [address] Office:
[2022-12-10] MEDS: Lactulose 20 GM/30 ML UDC 10 GM PO ×2 (17:54→23:25)
[2022-12-10] MEDS: Albumin Human 25% (100 mL) 25 GM/100 ML BAG IV (17:54)
[2022-12-10] MEDS: 0.9% Saline Lock 10 ML Syringe IV ×2 (17:55→19:43)
[2022-12-10] MEDS: Ondansetron 4 MG/2 ML Vial IV (19:43)
[2022-12-10 21:01] VITALS: BP 122/87; PULSE 105; RESP 18; TEMP 36.4; O2SAT 97
[2022-12-10 23:23] VITALS: BP 114/82; PULSE 97; RESP 20; TEMP 36.9; O2SAT 94
[2022-12-10] MEDS: Docusate Sodium 100 MG Capsule PO (23:26)
[2022-12-10] MEDS: Acetaminophen 325 MG Tablet 650 MG PO (23:26)
[2022-12-10] MEDS: Mirtazapine 15 MG Tablet PO (23:26)
--- NOTE | 2022-12-10 23:26 | NURSING ---
pt requests medication be given between 11pm-12 PM. remains at bedside to help pt with care.
[2022-12-10] MEDS: oxyCODONE 5 MG Tablet PO (23:27)
[2022-12-11 05:15] VITALS: BP 100/77; PULSE 89; RESP 20; TEMP 36.4; O2SAT 96
[2022-12-11 06:29] LABS: Absolute Lymphocyte Count 0.77 X10^3/uL (0.83-4.51); Absolute Neutrophil Count 10.3 X10^3/uL (2.0-7.7); Basophil# 0.07 X10^3/uL; Basophil% 0.6 % (0-1); Eosinophil# 0.31 X10^3/uL; Eosinophils% 2.5 % (0-5); Hematocrit 32.2 % (40-54); Hemoglobin 9.4 g/dL (13.0-16.5); Lymphocyte # 0.77 X10^3/ul (0.83-4.51); Lymphocyte % 6.3 % (19-41); Mean Corp Hgb Conc 29.2 g/dL (32-36); Mean Corpuscular Volume 75.4 fL (80-94); Mean Platelet Vol. 9.4 fl (6.2-12.0); Monocyte% 5.7 % (0-10); NRBC Flagged by Analyzer 0.2 % (0-5); Neutrophil # 10.25 X10^3/uL (2.7-7.7); Neutrophil % 83.8 % (47-70); POSITIVE MORPHOLOGY YES; Platelet Count 575 K/mm3 (150-450); RBC Distribution Width CV 21.2 % (11.6-14.6); RBC Distribution Width SD 57.3 fl (35.1-43.9); Red Blood Count 4.27 M/mm3 (4.6-6.2); White Blood Count 12.2 K/mm3 (4.4-11.0)
[2022-12-11 06:30] LABS: Differential Indicated SCAN CRITERIA MET
[2022-12-11 06:48] LABS: Anion Gap 9 (5-15); BUN 69 mg/dL (7-18); BUN/Creat Ratio 19.6 RATIO (10-20); Calcium,Total 8.7 mg/dL (8.5-10.1); Chloride 104 mmol/L (98-107); Creatinine, Serum 3.52 mg/dL (0.70-1.30); EST Glomerular Filtration Rate 18 mL/min (>60); Est Glom Filt Rate - Afr Amer 22 mL/min (>60); Estimated Creatinine Clearance 16.16 ml/min; Glucose 114 mg/dL (74-106); Potassium 4.7 mmol/L (3.5-5.1); Sodium Level 134 mmol/L (136-145)
[2022-12-11 07:26] LABS: Anisocytosis 1+; Differential Comment SCANNED; Hypochromasia 1+; Microcytosis 1+; Ovalocyte RARE; Tear Drop Cell RARE
[2022-12-11 09:45] VITALS: BP 119/78; PULSE 118; RESP 16; TEMP 36.6; O2SAT 94
[2022-12-11] MEDS: Lactulose 20 GM/30 ML UDC 10 GM PO (09:48)
[2022-12-11] MEDS: Tamsulosin HCl 0.4 MG Capsule PO (09:49)
[2022-12-11] MEDS: Docusate Sodium 100 MG Capsule PO (09:49)
[2022-12-11] MEDS: oxyCODONE 5 MG Tablet PO (09:51)
--- NOTE | 2022-12-11 15:51 | CASEMGMT ---
ZOHAIB DALEY Follow-up: Informed pt and inquiring about cost of Home health services. This RN CM to pt's room. Pt alert and at bedside. Discussed coverage for home health care would be 100% but this can be verified by calling their insurance provider. Discuss HHC can be established through their PCP after discharge if they decide they would like this service. Pt and both expressed understanding and state they will verify and then decide after discharge. Chris Rubio RN CM
[2022-12-11 16:18] VITALS: BP 118/75; PULSE 115; RESP 16; TEMP 37.1; O2SAT 96
--- NOTE | 2022-12-11 16:23 | PN.HOSP_ITS ---
Subjective Subjective Feeling tired today and somewhat rundown, reports he has been having bowel movements and just feels like that has made him lose his voice and he does not feel as well, did not sleep last night. Abdomen somewhat improved after draining. Patient got up to move was in the room and took several steps and said he felt very winded and got back into bed. Objective Data Objective Data Vital Signs: Vital Signs Temp Pulse Resp BP Pulse Ox O2 Del Method O2 Flow Rate 98.8 F 115 H 16 118/75 96 Room Air 2 12/11/22 16:18 12/11/22 16:18 12/11/22 16:18 12/11/22 16:18 12/11/22 16:18 12/11/22 16:18 12/07/22 14:55 Oxygen Flow Rate (L/min) 2 Oxygen Delivery Method [2] Room Air Oxygen Delivery Method [1 ( Room Air Initial Baseline)] Oxygen Delivery Method [3] Room Air Oxygen Delivery Method [2] Room Air Oxygen Delivery Method [1 ( Room Air Initial Baseline)] Oxygen Delivery Method Room Air Weight: 83.2 kg Body Mass Index (BMI) 36.0 Intake & Output: Intake and Output for Last 24 Hours 12/09/22 12/10/22 12/11/22 23:59 23:59 23:59 Intake Total 1760 / 1960 1100 / 1350 935 / 935 Output Total 3600 / 3600 Balance 1760 / 1960 -2500 / -2250 935 / 935 Medical Nutrition Assessment Dietitian: Malnutrition Criteria Met Start: 11/30/22 13:40 Freq: Status: Active Protocol: Document 12/06/22 13:17 RMA (Rec: 12/06/22 13:17 RMA [id number]) Nutrition Malnutrition Evidence of Malnutrition Exists Yes Malnutrition (severe): Acute Illness/Injury Evidenced By Suboptimal Energy Intake ( Severe),Weight Loss (Severe) Clinical Problem Acute Disease or Injury Related Malnutrition Etiology severe, acute malnutrition related to inadequate oral intake d/t GI dysfunction Signs/Symptoms as evidenced by estimated PO intake meeting <50% of estimated energy needs >5 days ; unintentional wt loss of 16. 7#/8% wt loss <1 month Status Active Problem Recommendation Dietitian Recommendations/Changes PO/appetite poor and pt with signs/symptoms of malnutrition , will liberalize diet to sodium-restricted in an effort to improve oral intake at meals; fluid restriction as per nephrology as needed. Will try Nepro 120 ml PO TID w / meals as tolerated. Lab / Micro Data Result Diagrams: 12/11/22 06:08 12/11/22 06:08 Labs: Laboratory Results - last 24 hr 12/11/22 06:08: WBC 12.2 H, RBC 4.27 L, Hgb 9.4 L, Hct 32.2 L, MCV 75.4 L, MCH 2 2.0 L, MCHC 29.2 L, RDW Std Deviation 57.3 H, RDW Coeff of Angel 21.2 H, Plt Count 575 H, MPV 9.4, Immature Gran % (Auto) 1.100 H, Neut % (Auto) 83.8 H, Lymph % (Auto) 6.3 L, Powell % (Auto) 5.7, Eos % (Auto) 2.5, Baso % (Auto) 0.6, Absolute Neuts (auto) 10.3 H, Absolute Lymphs (auto) 0.77 L, Nucleated RBC % 0.2, Differential Comment SCANNED, Hypochromasia 1+, Anisocytosis 1+, Microcytosis 1+, Tear Drop Cells RARE, Ovalocytes RARE 12/11/22 06:08: Sodium 134 L, Potassium 4.7, Chloride 104, Carbon Dioxide 21.0, Anion Gap 9, BUN 69 H, Creatinine 3.52 H, Estim Creat Clear Calc 16.16, Est GFR (MDRD) Af Amer 22 L, Est GFR (MDRD) Non-Af 18 L, BUN/Creatinine Ratio 19.6, Glucose 114 H, Calcium 8.7 Micro: Microbiology 12/09/22 13:35 Urine, Clean Catch Urine Culture - Preliminary Staphylococcus species Rhythm Strip Rhythm Strip: Sinus Tach Rate: 114 Ectopy: None Physical Exam Narrative General: Alert, oriented, no apparent distress but appears slightly more tired HEENT: Atraumatic, normocephalic Eyes: Anicteric, normal conjunctiva, extraocular movements grossly intact Neck: Supple Respiratory: Clear to auscultation , normal respiratory effort Cardiovascular: Regular rate and rhythm GI: Fairly soft, no rebound, no guarding, no rigidity Extremities: No edema Musculoskeletal: Moving all extremities Neuro: No overt focal neurological deficits Skin: No rashes appreciated Psych: Cooperative Assessment & Plan Assessment/Plan (1) ARACELI (acute kidney injury): (2) Chronic kidney disease, stage 4 (severe): (3) Hyperkalemia: (4) Metabolic acidosis: (5) Anemia: PLAN: Plan Patient is a 66-year-old gentleman with history of B-cell lymphoma recently discharged from the hospital following admission for symptomatic anemia he underwent EGD found to have grade a reflux esophagitis.? Presented back to the emergency department with significant abdominal distention and worsening kidney function #Acute on chronic stage IV kidney disease Most recent creatinine was 2.41 and then on admission was 4.90 Nephrology consulted No obstruction on CT abdomen pelvis on 11/29 and UA benign on 11/29 as well 12/07: Slightly improved today 12/08: Slightly worse today but overall only fluctuating slightly, nephrology following, discussed with corporate staff accountant today and they would be comfortable with discharge home tomorrow with follow-up with nephrology on DC if stable 12/09: Somewhat worse today, will give some gentle hydration and encourage increasing p.o. we will additionally give albumin. Nephrology following 12/10: Got some crystalloid and also albumin yesterday and creatinine and blood pressure improved thus abdominal distention. With continued need for drainage from his abdominal cavity unclear best way to keep up with losses on an outpatient basis. Appreciate nephrology recommendation on albumin and fluids 12/11: Kidney function better today, nephrology following #Marked abdominal ascites On 11/30 he had ultrasound-guided paracentesis with a total of 6 L of lorenzo- colored fluid removed. Had reaccumulation and had repeat paracentesis on 12/03. Ascitic fluid culture came back positive for malignant cells and plan is for abdominal Pleurx catheter for drainage, drain placed today per surgery and to liters were drained 12/07: He will follow with Dr. Dubois in the office on discharge in several days for drain teaching. 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 Jacob at [facility] to initiate immunotherapy Dr. Frazier with GI also on board and plan is to undergo colonic stenting to prevent complete obstruction as there was hepatic flexure stricture on colonoscopy, stenting likely tomorrow. N.p.o. at midnight and bowel prep ordered 12/07: Colonoscopy today showed the obstructing tumor in the hepatic flexure was injected and treated with heater probe and then dilated and a prosthesis was placed. 12/08: Discussed with GI, diet advanced and he was started on Colace twice daily 12/09: Will transition to oral pain medication to begin preparation for discharge which may be tomorrow as his creatinine worsened and he is having pelvic pain 12/09: Creatinine improved and is closer to discharge however given his frequent abdominal draining and kidney function may be difficult to maintain fluid balance and blood pressure 12/11: Now on lactulose and Colace and is now moving his bowels. He was also started on Remeron by GI. He did get up with me in the room as we were talking about discharge planning and he took several steps and felt he wanted and went back to bed, will really consult physical therapy for an evaluation as his plan was home with no home health but he had significant difficulty when I was in the room with him. #Anemia secondary to iron deficiency from adenocarcinoma of the colon Patient underwent patient underwent EGD by Dr. Frazier on 11/19/2022 findings included -?LA Grade A reflux esophagitis.? Biopsied. - Small hiatal hernia. - No gross lesions in the second portion of the duodenum. Subsequently had CT of abdomen pelvis which demonstrated thickening of the ascending colon concerning for malignancy as well as retroperitoneal lymphaden opathy and he underwent colonoscopy 11/30 with findings including stricture of hepatic flexure which was biopsied and path report positive for invasive poorly differentiated adenocarcinoma and given paracentesis results it was determined he had metastatic adenocarcinoma and oncology consulted Started on IV iron #History of B-cell lymphoma Status postchemotherapy and has been in remission from that for 6 years #History of frontal lobe CVA Continue monitoring #History of hep C Did complete treatment in 2014 in [place] and has remained in remission #Decompensated liver cirrhosis MELD 12 and child Almeida class C due to his ascites No varices on recent EGD Rifaximin started #Severe, acute malnutrition -related to inadequate oral intake d/t GI dysfunction as evidenced by estimated PO intake meeting <50% of estimated energy needs >5 days; unintentional wt loss of 16.7#/8% wt loss <1 month. Plan for regular/sodium restricted diet as tolerated; ensure plus high protein 120mL 4x/day w/medpass when diet advanced. #DVT ppx: SCDs, has been up and moving, if moving progressively less and needs to stay for more days will likely need pharmacologic prophylaxis Vidhya Bryson MD time spent in the patient's overall evaluation,decision-making process, review of diagnostic data, adjustment of management, discussion with other providers, nursing nursing and ancillary staff involved in patient's care documentation, 30 minutes Charges/Coding Visit Charges Inpatient E&M: 09510 Subs Hosp L2
[2022-12-11 20:50] VITALS: BP 104/77; PULSE 117; RESP 20; TEMP 36.7; O2SAT 95
--- NOTE | 2022-12-11 23:23 | NURSING ---
pt requests all HS medications be given at midnight with PRN pain medication.
[2022-12-12 00:10] VITALS: BP 113/73; PULSE 112; RESP 20; TEMP 36.6; O2SAT 94
[2022-12-12] MEDS: Lactulose 20 GM/30 ML UDC 10 GM PO ×3 (00:13→23:43)
[2022-12-12] MEDS: Docusate Sodium 100 MG Capsule PO ×3 (00:13→23:44)
[2022-12-12] MEDS: Mirtazapine 15 MG Tablet PO ×2 (00:13→23:44)
[2022-12-12] MEDS: oxyCODONE 5 MG Tablet PO (00:14)
[2022-12-12] MEDS: Acetaminophen 325 MG Tablet 650 MG PO ×2 (00:14→23:44)
[2022-12-12 05:39] VITALS: BP 90/69; PULSE 106; RESP 18; TEMP 36.4; O2SAT 95
[2022-12-12 07:50] LABS: Absolute Neutrophil Count 12.2 X10^3/uL (2.0-7.7); Basophil# 0.08 X10^3/uL; Basophil% 0.6 % (0-1); Eosinophil# 0.38 X10^3/uL; Eosinophils% 2.6 % (0-5); Hematocrit 37.3 % (40-54); Hemoglobin 10.8 g/dL (13.0-16.5); Lymphocyte % 5.5 % (19-41); Mean Corpuscular Hgb 21.8 pg (27.0-32.0); Mean Corpuscular Volume 75.4 fL (80-94); Mean Platelet Vol. 9.6 fl (6.2-12.0); Monocyte# 0.77 X10^3/uL; Monocyte% 5.3 % (0-10); NRBC Flagged by Analyzer 0.1 % (0-5); Neutrophil # 12.23 X10^3/uL (2.7-7.7); Neutrophil % 84.7 % (47-70); POSITIVE MORPHOLOGY YES; Platelet Count 676 K/mm3 (150-450); RBC Distribution Width CV 21.6 % (11.6-14.6); RBC Distribution Width SD 57.1 fl (35.1-43.9); Red Blood Count 4.95 M/mm3 (4.6-6.2); White Blood Count 14.5 K/mm3 (4.4-11.0)
[2022-12-12 07:58] LABS: Differential Indicated SCAN CRITERIA MET
[2022-12-12 08:06] VITALS: BP 109/79; PULSE 108; RESP 17; TEMP 36.6; O2SAT 93
[2022-12-12 08:16] LABS: Anisocytosis 1+; Platelet Estimate SLT INC (ADEQ)
[2022-12-12 08:17] LABS: Microcytosis 1+
[2022-12-12 08:21] LABS: Anion Gap 12 (5-15); BUN 73 mg/dL (7-18); BUN/Creat Ratio 18.8 RATIO (10-20); Calcium,Total 8.6 mg/dL (8.5-10.1); Chloride 104 mmol/L (98-107); Creatinine, Serum 3.89 mg/dL (0.70-1.30); EST Glomerular Filtration Rate 16 mL/min (>60); Est Glom Filt Rate - Afr Amer 20 mL/min (>60); Estimated Creatinine Clearance 14.63 ml/min; Glucose 125 mg/dL (74-106); Sodium Level 134 mmol/L (136-145)
[2022-12-12] MEDS: Tamsulosin HCl 0.4 MG Capsule PO (08:25)
--- NOTE | 2022-12-12 11:04 | PN_ITS ---
Progress Note The patient reports feeling full again. I connected his Pleurx to suction and removed 1700 cc of ascites. Drain was recapped. Gallo Dubois MD Pager: [facility] [address] [place] [address] [address] [place] [address] Office:
--- NOTE | 2022-12-12 11:04 | PCM.PN.BLA ---
Progress Note The patient reports feeling full again. I connected his Pleurx to suction and removed 1700 cc of ascites. Drain was recapped. Gallo Dubois MD Pager: [facility] [address] [place] [address] [address] [place] [address] Office:
--- NOTE | 2022-12-12 14:56 | PN.HOSP_ITS ---
Subjective Subjective Abdomen feeling full again, feeling generalized weakness. Objective Data Objective Data Vital Signs: Vital Signs Temp Pulse Resp BP Pulse Ox O2 Del Method O2 Flow Rate 97.8 F 108 H 17 109/79 93 Room Air 2 12/12/22 08:06 12/12/22 08:06 12/12/22 08:06 12/12/22 08:06 12/12/22 08:06 12/12/22 08:35 12/07/22 14:55 Oxygen Flow Rate (L/min) 2 Oxygen Delivery Method [2] Room Air Oxygen Delivery Method [1 ( Room Air Initial Baseline)] Oxygen Delivery Method [3] Room Air Oxygen Delivery Method [2] Room Air Oxygen Delivery Method [1 ( Room Air Initial Baseline)] Oxygen Delivery Method Room Air Weight: 83.3 kg Body Mass Index (BMI) 36.0 Intake & Output: Intake and Output for Last 24 Hours 12/10/22 12/11/22 12/12/22 23:59 23:59 23:59 Intake Total 1100 / 1350 1385 / 1535 510 / 510 Output Total 3600 / 3600 3400 / 3400 Balance -2500 / -2250 1385 / 1535 -2890 / -2890 Medical Nutrition Assessment Dietitian: Malnutrition Criteria Met Start: 11/30/22 13:40 Freq: Status: Active Protocol: Document 12/06/22 13:17 RMA (Rec: 12/06/22 13:17 RMA [id number]) Nutrition Malnutrition Evidence of Malnutrition Exists Yes Malnutrition (severe): Acute Illness/Injury Evidenced By Suboptimal Energy Intake ( Severe),Weight Loss (Severe) Clinical Problem Acute Disease or Injury Related Malnutrition Etiology severe, acute malnutrition related to inadequate oral intake d/t GI dysfunction Signs/Symptoms as evidenced by estimated PO intake meeting <50% of estimated energy needs >5 days ; unintentional wt loss of 16. 7#/8% wt loss <1 month Status Active Problem Recommendation Dietitian Recommendations/Changes PO/appetite poor and pt with signs/symptoms of malnutrition , will liberalize diet to sodium-restricted in an effort to improve oral intake at meals; fluid restriction as per nephrology as needed. Will try Nepro 120 ml PO TID w / meals as tolerated. Lab / Micro Data Result Diagrams: 12/12/22 07:31 12/12/22 07:31 Labs: Laboratory Results - last 24 hr 12/12/22 07:31: WBC 14.5 H, RBC 4.95, Hgb 10.8 L, Hct 37.3 L, MCV 75.4 L, MCH 21.8 L, MCHC 29.0 L, RDW Std Deviation 57.1 H, RDW Coeff of Angel 21.6 H, Plt Count 676 H, MPV 9.6, Immature Gran % (Auto) 1.300 H, Neut % (Auto) 84.7 H, Lymph % (Auto) 5.5 L, Ogle % (Auto) 5.3, Eos % (Auto) 2.6, Baso % (Auto) 0.6, Absolute Neuts (auto) 12.2 H, Absolute Lymphs (auto) 0.80 L, Nucleated RBC % 0.1, Platelet Estimate SLT INC, Anisocytosis 1+, Microcytosis 1+ 12/12/22 07:31: Sodium 134 L, Potassium 5.0, Chloride 104, Carbon Dioxide 18.0 L , Anion Gap 12, BUN 73 H, Creatinine 3.89 H, Estim Creat Clear Calc 14.63, Est GFR (MDRD) Af Amer 20 L, Est GFR (MDRD) Non-Af 16 L, BUN/Creatinine Ratio 18.8, Glucose 125 H, Calcium 8.6 Micro: Microbiology 12/09/22 13:35 Urine, Clean Catch Urine Culture - Final Staphylococcus haemolyticus Rhythm Strip Rhythm Strip: Sinus Tach Rate: 114 Ectopy: None Physical Exam Narrative General: Alert, oriented, no apparent distress but appears tired HEENT: Atraumatic, normocephalic Eyes: Anicteric, normal conjunctiva, extraocular movements grossly intact Neck: Supple Respiratory: Clear to auscultation , normal respiratory effort Cardiovascular: Regular rate and rhythm GI: Fairly soft but slightly more distended today, no rebound, no guarding, no rigidity Extremities: No edema Musculoskeletal: Moving all extremities Neuro: No overt focal neurological deficits Skin: No rashes appreciated Psych: Cooperative Assessment & Plan Assessment/Plan (1) ARACELI (acute kidney injury): (2) Chronic kidney disease, stage 4 (severe): (3) Hyperkalemia: (4) Metabolic acidosis: (5) Anemia: PLAN: Plan Patient is a 66-year-old gentleman with history of B-cell lymphoma recently discharged from the hospital following admission for symptomatic anemia he underwent EGD found to have grade a reflux esophagitis.? Presented back to the emergency department with significant abdominal distention and worsening kidney function #Generalized weakness Patient had been improving and there was discussion of discharge over this weekend however yesterday when he got up with me in the room he took several stops and said he was too winded and sat back down Formal physical therapy evaluation today 12/12 recommended TCU/SNF/rehab Family initially did not want this and did not even want home health however this was when patient initially worked with physical therapy and was not nearly as weak We will need to revisit discharge options considering the worsening weakness, suspect that this has been progressing over days but when faced with discharge and functional needs the weakness was brought to light #Acute on chronic stage IV kidney disease Most recent creatinine was 2.41 and then on admission was 4.90 Nephrology consulted No obstruction on CT abdomen pelvis on 11/29 and UA benign on 11/29 as well 12/07: Slightly improved today 12/08: Slightly worse today but overall only fluctuating slightly, nephrology following, discussed with still operator helper today and they would be comfortable with discharge home tomorrow with follow-up with nephrology on DC if stable 12/09: Somewhat worse today, will give some gentle hydration and encourage increasing p.o. we will additionally give albumin. Nephrology following 12/10: Got some crystalloid and also albumin yesterday and creatinine and blood pressure improved thus abdominal distention. With continued need for drainage from his abdominal cavity unclear best way to keep up with losses on an outpatient basis. Appreciate nephrology recommendation on albumin and fluids 12/11: Kidney function better today, nephrology following 12/12: Kidney function continues to fluctuate, still requiring frequent and large drainage out of abdominal catheter which often impacts blood pressure and creatinine and has been requiring intermittent albumin. Nephrology following. Nutrition has been assessing and making recommendations as well #Marked abdominal ascites On 11/30 he had ultrasound-guided paracentesis with a total of 6 L of lorenzo- colored fluid removed. Had reaccumulation and had repeat paracentesis on 12/03. Ascitic fluid culture came back positive for malignant cells and plan is for abdominal Pleurx catheter for drainage, drain placed today per surgery and to liters were drained 12/07: He will follow with Dr. Dubois in the office on discharge in several days for drain teaching. 12/08: Was given drain training, he and have declined home health 2/2: Has had fluid drained off abdomen multiple times, give albumin 22: Given albumin yesterday which improved blood pressure and kidney function however he continues to required draining frequently with decent volume 2: Kidney function is better today, continues to have significant amount to drain 2/5: 1700 drain today, kidney function fluctuated and BP was somewhat lower. 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 Jacob at [facility] to initiate immunotherapy Dr. Frazier with GI also on board and plan is to undergo colonic stenting to prevent complete obstruction as there was hepatic flexure stricture on colonoscopy, stenting likely tomorrow. N.p.o. at midnight and bowel prep ordered 12/07: Colonoscopy today showed the obstructing tumor in the hepatic flexure was injected and treated with heater probe and then dilated and a prosthesis was placed. 2: Discussed with GI, diet advanced and he was started on Colace twice daily 22: Will transition to oral pain medication to begin preparation for discharge which may be tomorrow as his creatinine worsened and he is having pelvic pain 22: Creatinine improved and is closer to discharge however given his frequent abdominal draining and kidney function may be difficult to maintain fluid balance and blood pressure 2: Now on lactulose and Colace and is now moving his bowels. He was also started on Remeron by GI. He did get up with me in the room as we were talking about discharge planning and he took several steps and felt he wanted and went back to bed, will really consult physical therapy for an evaluation as his plan was home with no home health but he had significant difficulty when I was in the room with him. 12/12: We will need to see Dr. Jacob as an outpatient, dietitian saw 12/09 and gave updated recommendations. GI following. Has been having bowel movements now #Anemia secondary to iron deficiency from adenocarcinoma of the colon Patient underwent patient underwent EGD by Dr. Frazier on 11/19/2022 findings included -?LA Grade A reflux esophagitis.? Biopsied. - Small hiatal hernia. - No gross lesions in the second portion of the duodenum. Subsequently had CT of abdomen pelvis which demonstrated thickening of the ascending colon concerning for malignancy as well as retroperitoneal lympha denopathy and he underwent colonoscopy 11/30 with findings including stricture of hepatic flexure which was biopsied and path report positive for invasive poorly differentiated adenocarcinoma and given paracentesis results it was determined he had metastatic adenocarcinoma and oncology consulted Had been given IV iron #History of B-cell lymphoma Status postchemotherapy and has been in remission from that for 6 years #History of frontal lobe CVA Continue monitoring #History of hep C Did complete treatment in 2014 in [place] and has remained in remission #Decompensated liver cirrhosis MELD 12 and child Almeida class C due to his ascites No varices on recent EGD Rifaximin started #Severe, acute malnutrition -related to inadequate oral intake d/t GI dysfunction as evidenced by estimated PO intake meeting <50% of estimated energy needs >5 days; unintentional wt loss of 16.7#/8% wt loss <1 month. Plan for regular/sodium restricted diet as tolerated; ensure plus high protein 120mL 4x/day w/medpass when diet advanced. #DVT ppx: SCDs, has been up and moving, if moving progressively less and needs to stay for more days will likely need pharmacologic prophylaxis Vidhya Bryson MD time spent in the patient's overall evaluation,decision-making process, review of diagnostic data, adjustment of management, discussion with other providers, nursing nursing and ancillary staff involved in patient's care documentation, 30 minutes Charges/Coding Visit Charges Inpatient E&M: 60661 Subs Hosp L2
[2022-12-12 16:06] VITALS: BP 115/50; PULSE 100; RESP 16; TEMP 36.5; O2SAT 97
[2022-12-12] MEDS: 0.9% Saline Lock 10 ML Syringe IV (16:21)
[2022-12-12] MEDS: Albumin Human 25% (100 mL) 25 GM/100 ML BAG IV (16:21)
[2022-12-12 18:42] LABS: Lactic Acid 2.2 mmol/L (0.4-1.9)
[2022-12-12] MEDS: Lactated Ringers 1,000 ML 100 ML IV (19:02)
--- NOTE | 2022-12-12 19:43 | PN.RENAL_ITS ---
Subjective Subjective no new events s/p paracentesis Objective Data Objective Data Vital Signs: Vital Signs Temp Pulse Resp BP Pulse Ox O2 Del Method O2 Flow Rate 97.7 F L 100 16 115/50 L 97 Room Air 2 12/12/22 16:06 12/12/22 16:06 12/12/22 16:06 12/12/22 16:06 12/12/22 16:06 12/12/22 16:36 12/07/22 14:55 Oxygen Flow Rate (L/min) 2 Oxygen Delivery Method [2] Room Air Oxygen Delivery Method [1 ( Room Air Initial Baseline)] Oxygen Delivery Method [3] Room Air Oxygen Delivery Method [2] Room Air Oxygen Delivery Method [1 ( Room Air Initial Baseline)] Oxygen Delivery Method Room Air Weight: 83.3 kg Body Mass Index (BMI) 36.0 Intake & Output: Intake and Output for Last 24 Hours 12/10/22 12/11/22 12/12/22 23:59 23:59 23:59 Intake Total 1100 / 1350 1385 / 1535 850 / 850 Output Total 3600 / 3600 3400 / 3400 Balance -2500 / -2250 1385 / 1535 -2550 / -2550 Medical Nutrition Assessment Dietitian: Malnutrition Criteria Met Start: 11/30/22 13:40 Freq: Status: Active Protocol: Document 12/06/22 13:17 RMA (Rec: 12/06/22 13:17 RMA [id number]) Nutrition Malnutrition Evidence of Malnutrition Exists Yes Malnutrition (severe): Acute Illness/Injury Evidenced By Suboptimal Energy Intake ( Severe),Weight Loss (Severe) Clinical Problem Acute Disease or Injury Related Malnutrition Etiology severe, acute malnutrition related to inadequate oral intake d/t GI dysfunction Signs/Symptoms as evidenced by estimated PO intake meeting <50% of estimated energy needs >5 days ; unintentional wt loss of 16. 7#/8% wt loss <1 month Status Active Problem Recommendation Dietitian Recommendations/Changes PO/appetite poor and pt with signs/symptoms of malnutrition , will liberalize diet to sodium-restricted in an effort to improve oral intake at meals; fluid restriction as per nephrology as needed. Will try Nepro 120 ml PO TID w / meals as tolerated. Lab / Micro Data Result Diagrams: 12/12/22 07:31 12/12/22 07:31 Labs: Laboratory Results - last 24 hr 12/12/22 07:31: WBC 14.5 H, RBC 4.95, Hgb 10.8 L, Hct 37.3 L, MCV 75.4 L, MCH 21.8 L, MCHC 29.0 L, RDW Std Deviation 57.1 H, RDW Coeff of Angel 21.6 H, Plt Count 676 H, MPV 9.6, Immature Gran % (Auto) 1.300 H, Neut % (Auto) 84.7 H, Lymph % (Auto) 5.5 L, [place] % (Auto) 5.3, Eos % (Auto) 2.6, Baso % (Auto) 0.6, Absolute Neuts (auto) 12.2 H, Absolute Lymphs (auto) 0.80 L, Nucleated RBC % 0.1, Platelet Estimate SLT INC, Anisocytosis 1+, Microcytosis 1+ 12/12/22 07:31: Sodium 134 L, Potassium 5.0, Chloride 104, Carbon Dioxide 18.0 L , Anion Gap 12, BUN 73 H, Creatinine 3.89 H, Estim Creat Clear Calc 14.63, Est GFR (MDRD) Af Amer 20 L, Est GFR (MDRD) Non-Af 16 L, BUN/Creatinine Ratio 18.8, Glucose 125 H, Calcium 8.6 12/12/22 17:45: Lactic Acid 2.2 H* Micro: Microbiology 12/09/22 13:35 Urine, Clean Catch Urine Culture - Final Staphylococcus haemolyticus Rhythm Strip Rhythm Strip: Sinus Tach Rate: 114 Ectopy: None Physical Exam Narrative Alert awake oriented x 3, no obvious distress Heart tone is normal s1s2 no murmurs lungs clear to auscultation anteriorly abdomen is distended. However, abdomen is not tense. There is no pain, guarding or rebound on palpation. no lower extremity edema no cyanosis Const alert, oriented x3, no apparent distress and average body habitus General Appearance: well developed Orientation / Consciousness: oriented to person, oriented to place and oriented to time HEENT normocephalic Eyes PERRL Neck no lymphadenopathy Resp no use of accessory muscles and clear to auscultation bilaterally Cardio regular rate and no rub GI non-tender GI Narrative: Abdomen is nontender, but significantly distended with ascites, no rebound Auscultation: normoactive bowel sounds Palpation: ascites Extremity full ROM Skin no rashes or lesions noted Neuro moves all extremities and no focal motor deficits Psych cooperative Assessment & Plan Assessment/Plan (1) ARACELI (acute kidney injury): PLAN: Has ARACELI on CKD 4. prior to this his creatinine is around 2.4 or so. since admit his creatinine has fluctuated between 3.5 to 4. malignant ascitis. requiring paracentesis as needed. No obstruction. Bp is acceptable. no further work up for now.
[2022-12-12 21:15] VITALS: BP 121/75; PULSE 112; RESP 20; TEMP 36.4; O2SAT 93
[2022-12-12 21:54] LABS: Reflex Lactate? Y
[2022-12-12 23:42] VITALS: BP 99/82; PULSE 105; RESP 20; TEMP 36.3; O2SAT 94
[2022-12-13 04:19] VITALS: BP 109/74; PULSE 91; RESP 18; TEMP 36.4; O2SAT 93
[2022-12-13 06:49] LABS: Absolute Lymphocyte Count 0.79 X10^3/uL (0.83-4.51); Absolute Neutrophil Count 11.9 X10^3/uL (2.0-7.7); Basophil# 0.08 X10^3/uL; Basophil% 0.6 % (0-1); Eosinophil# 0.41 X10^3/uL; Eosinophils% 2.9 % (0-5); Hematocrit 35.4 % (40-54); Hemoglobin 10.5 g/dL (13.0-16.5); Lymphocyte # 0.79 X10^3/ul (0.83-4.51); Lymphocyte % 5.6 % (19-41); Mean Corp Hgb Conc 29.7 g/dL (32-36); Mean Corpuscular Hgb 22.1 pg (27.0-32.0); Mean Corpuscular Volume 74.5 fL (80-94); Mean Platelet Vol. 9.2 fl (6.2-12.0); Monocyte# 0.78 X10^3/uL; Monocyte% 5.5 % (0-10); NRBC Flagged by Analyzer 0 % (0-5); Neutrophil # 11.88 X10^3/uL (2.7-7.7); Neutrophil % 84.3 % (47-70); POSITIVE MORPHOLOGY YES; Platelet Count 630 K/mm3 (150-450); RBC Distribution Width CV 21.7 % (11.6-14.6); RBC Distribution Width SD 57.1 fl (35.1-43.9); Red Blood Count 4.75 M/mm3 (4.6-6.2); White Blood Count 14.1 K/mm3 (4.4-11.0)
[2022-12-13 07:19] LABS: ALB/GLOB Ratio 0.4 RATIO (0.9-2.4); AST(SGOT) 40 U/L (15-37); Alanine Aminotransfer ALT/SGPT 9 U/L (16-61); Albumin, Serum 2.2 g/dL (3.2-5.0); Alkaline Phosphatase 78 U/L (45-117); Anion Gap 10 (5-15); BUN 77 mg/dL (7-18); BUN/Creat Ratio 19.1 RATIO (10-20); Calcium,Total 8.6 mg/dL (8.5-10.1); Chloride 106 mmol/L (98-107); Creatinine, Serum 4.04 mg/dL (0.70-1.30); EST Glomerular Filtration Rate 16 mL/min (>60); Est Glom Filt Rate - Afr Amer 19 mL/min (>60); Estimated Creatinine Clearance 14.08 ml/min; Globulin 5.1 g/dL (2.2-4.2); Glucose 111 mg/dL (74-106); Potassium 5.1 mmol/L (3.5-5.1); Protein, Total 7.3 g/dL (6.4-8.2); Sodium Level 135 mmol/L (136-145)
[2022-12-13 07:37] LABS: Differential Indicated SCAN CRITERIA MET
[2022-12-13 07:43] LABS: Microcytosis 1+; Platelet Estimate MKD INC (ADEQ)
[2022-12-13 07:44] LABS: Anisocytosis 2+
--- NOTE | 2022-12-13 07:54 | PN.ONC_ITS ---
Subjective Subjective Blood counts are stable. However he remains very weak. Pleurx was placed for ascites. He has been draining. 1700 cc yesterday. He underwent repeat colonoscopy with stent placed across the obstructing hepatic flexure tumor. He remains very weak. Extremely short of breath walking short distances in the room. Physical Exam Const oriented x3 Eyes no scleral icterus Lymph Lymphatic: no lymphadenopathy noted Resp normal respiratory effort Cardio regular rhythm GI soft to palpation and non-distended Vital Signs Temperature 97.5 F L 12/13/22 04:19 Temperature Source Axillary 12/13/22 04:19 Pulse Rate 91 12/13/22 04:19 Pulse Strength Normal (2+) 12/12/22 21:16 Respiratory Rate 18 12/13/22 04:19 Respiratory Effort 12/13/22 04:20 Respiratory Depth Normal 12/13/22 04:20 Respiratory Pattern Normal 12/13/22 04:20 Blood Pressure 109/74 12/13/22 04:19 Blood Pressure Mean 85 12/13/22 04:19 Blood Pressure Source Monitor 12/13/22 04:19 Blood Pressure Position Supine 12/13/22 04:19 Blood Pressure Location Left Arm 12/13/22 04:19 Baseline BP 126/80 12/07/22 14:55 Pulse Ox 93 12/13/22 04:19 Oxygen Delivery Method Room Air 12/13/22 04:20 Oxygen Flow Rate (L/min) 2 12/07/22 14:55 Laboratory Results - last 24 hr 12/12/22 07:31: WBC 14.5 H, RBC 4.95, Hgb 10.8 L, Hct 37.3 L, MCV 75.4 L, MCH 21.8 L, MCHC 29.0 L, RDW Std Deviation 57.1 H, RDW Coeff of Angel 21.6 H, Plt Count 676 H, MPV 9.6, Immature Gran % (Auto) 1.300 H, Neut % (Auto) 84.7 H, Lymph % (Auto) 5.5 L, [place] % (Auto) 5.3, Eos % (Auto) 2.6, Baso % (Auto) 0.6, Absolute Neuts (auto) 12.2 H, Absolute Lymphs (auto) 0.80 L, Nucleated RBC % 0.1, Platelet Estimate SLT INC, Anisocytosis 1+, Microcytosis 1+ 12/12/22 07:31: Sodium 134 L, Potassium 5.0, Chloride 104, Carbon Dioxide 18.0 L , Anion Gap 12, BUN 73 H, Creatinine 3.89 H, Estim Creat Clear Calc 14.63, Est GFR (MDRD) Af Amer 20 L, Est GFR (MDRD) Non-Af 16 L, BUN/Creatinine Ratio 18.8, Glucose 125 H, Calcium 8.6 12/12/22 17:45: Lactic Acid 2.2 H* 12/12/22 22:07: Lactic Acid 2.0 12/13/22 05:40: WBC 14.1 H, RBC 4.75, Hgb 10.5 L, Hct 35.4 L, MCV 74.5 L, MCH 22.1 L, MCHC 29.7 L, RDW Std Deviation 57.1 H, RDW Coeff of Angel 21.7 H, Plt Count 630 H, MPV 9.2, Immature Gran % (Auto) 1.100 H, Neut % (Auto) 84.3 H, Lymph % (Auto) 5.6 L, [place] % (Auto) 5.5, Eos % (Auto) 2.9, Baso % (Auto) 0.6, Absolute Neuts (auto) 11.9 H, Absolute Lymphs (auto) 0.79 L, Nucleated RBC % 0, Platelet Estimate MKD INC, Anisocytosis 2+, Microcytosis 1+ 12/13/22 05:40: Sodium 135 L, Potassium 5.1, Chloride 106, Carbon Dioxide 19.0 L , Anion Gap 10, BUN 77 H, Creatinine 4.04 H, Estim Creat Clear Calc 14.08, Est GFR (MDRD) Af Amer 19 L, Est GFR (MDRD) Non-Af 16 L, BUN/Creatinine Ratio 19.1, Glucose 111 H, Calcium 8.6, Total Bilirubin 0.50, AST 40 H, ALT 9 L, Alkaline Phosphatase 78, Total Protein 7.3, Albumin 2.2 L, Globulin 5.1 H, Albumin/Globulin Ratio 0.4 L Microbiology 12/09/22 13:35 Urine, Clean Catch Urine Culture - Final Staphylococcus haemolyticus Diagnostic Data Chest X-Ray 11/29/22 13:03 IMPRESSION: Elevation of the right hemidiaphragm with increased markings at the lung bases more prominent at the left lung base suggestive of either bibasilar atelectasis and/or early infiltrates. Electronically Signed: John Paul Kahn MD at 13:19 EST , Abdomen/Pelvis CT 11/29/22 14:38 IMPRESSION: 1. Thick-walled ascending colon suspicious for malignancy versus infectious or inflammatory colitis. 2. Retroperitoneal adenopathy concerning for metastatic disease. Right lower quadrant adenopathy is nonspecific and may be due to malignancy versus infectious or inflammatory colon etiology. 3. Ascites. 4. Right renal hypodensities not characterized without contrast. Follow-up is not indicated per ACR guidelines. Electronically Signed: Sandrita Maya MD at 16:54 EST Reading Location ID and State: [id number] / Tel , Service support , ADDENDUM: 11/29/22 1735 IMPRESSION: 1. Thick-walled ascending colon suspicious for malignancy versus infectious or inflammatory colitis. 2. Retroperitoneal adenopathy concerning for metastatic disease. Right lower quadrant adenopathy is nonspecific and may be due to malignancy versus infectious or inflammatory colon etiology. 3. Ascites. 4. Right renal hypodensities not characterized without contrast. Follow-up is not indicated per ACR guidelines. N.B. : Matthew Martínez RN, confirmed on 11/29/2022 17:28:11 (ET) that the healthcare facility has received the radiology report. Electronically Signed: Sandrita Maya MD at 16:54 EST Reading Location ID and State: [id number] / Tel , Service support , Lung Scan-VQ NM 11/29/22 14:43 IMPRESSION: 1. NORMAL 99m Tc MAA pulmonary perfusion imaging examination, according to PIOPED II interpretive criteria. (Solloyd et al, Radiology 246: 941, 2008 Solloyd et al, J Nucl Med 49: 1741, 2008). 2. Central clumping of the aerosol may be secondary to obstructive airway mechanics and or clinical tachypnea. Electronically Signed: Kumar Mccain, at 16:02 EST , Paracentesis Ultrasound 12/03/22 08:00 IMPRESSION: Ultrasound guided paracentesis. Electronically Signed: John Paul Kahn MD at 10:42 EST , Chest CT 12/03/22 13:46 IMPRESSION: Increased markings in the posterior aspect of the right upper lobe suggestive of atelectasis and/or scarring as well as at the lung bases. Ascites. Omental metastasis. Electronically Signed: John Paul Kahn MD at 14:59 EST , KUB X-Ray 12/07/22 12:40 IMPRESSION: Fluoroscopic assistance images were obtained. Dictation for documentation purposes only. 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 -Now with metastatic colon cancer with carcinomatosis and malignant ascites. -MMR deficient. -History of hepatitis C.? Evidently received treatment in [place] in 2014. Hepatitis C viral RNA not detected on testing 03/2019. -Chronic kidney disease--estimated GFR 10-20 cc/min. -Cirrhosis. -MINDI. -Hypoalbuminemia. -KPS is 30% -On initial consultation, had discussed potential for immunotherapy. However his PS has declined and he remains very weak overall. The potential risks of immunotherapy at this point are significant and I recommended hospice care. He and his were in agreement. He endorsed he does not want to undergo therapy that may potentially hasten his decline. Recommendations: -Consult hospice for evaluation inpatient vs home hospice. -Discussed with Dr. Vigil.
[2022-12-13 09:46] VITALS: BP 91/63; PULSE 117; RESP 18; TEMP 36.4; O2SAT 96
[2022-12-13] MEDS: Tamsulosin HCl 0.4 MG Capsule PO (09:51)
--- NOTE | 2022-12-13 09:57 | CASEMGMT ---
Addendum entered by Mary Kay Carrillo 12/13/22 14:25: Social Work SW spoke with [facility]. Pt signed papers for hospice services and has been accepted into the [facility]. [facility] to arranged transportation via Hospice transport. Nursing and Physician updated. Disposition: Inpatient Hospice Unit today. GERRI Greer Addendum entered by Mary Kay Carrillo 12/13/22 12:21: Social Work Call from Nichol at hospice who states [facility] will be here [id number] to meet with pt and family. DYLAN updated pt and bedside nurse. GERRI Greer Original Note: Social Work Per physician, hospice referral is recommended and pt and family would like the [facility]. DYLAN met with pt, and daughter and they confirm wishes for referral to hospice [facility]. Phone call to [facility] and VM left with referral. Clinical information faxed to [facility]. DYLAN requested that hospice contact pt to set appointment to meet today. GERRI Greer
[2022-12-13 15:45] VITALS: BP 109/74; PULSE 116; RESP 18; TEMP 36.3; O2SAT 98
--- NOTE | 2022-12-13 16:16 | DS.PCM_ITS ---
Providers Date of Admission: 11/29/22 Date of Discharge: 12/13/22 Primary Care Physician: Dr. Bobby Salguero MD Consultations 11/30/22 12:00 Consult: Nephrology Routine Consulting Provider: Yariel Stuart Reason for Consult: ARACELI EMERGENT Consult: No Notified: Yes Date Notified: 11/30/22 Time Notified: 12:00 Method of Notification: Text 12/03/22 13:47 Consult: Oncology/Hematology Routine Consulting Provider: Bobby Jacob Reason for Consult: ADENOCARCINOMA OF THE COLON EMERGENT Consult: No Notified: Yes Date Notified: 12/03/22 Time Notified: 13:48 Method of Notification: Verbal 12/04/22 08:25 Consult: General Surgery Routine Consulting Provider: Gallo Dubois Reason for Consult: for Abd Pluerex catheter EMERGENT Consult: No Notified: Yes Date Notified: 12/04/22 Time Notified: 08:26 Method of Notification: Verbal 12/13/22 09:40 Consult: Hospice / Palliative Care Routine Consulting Provider: [facility] Reason for Consult: cancer EMERGENT Consult: No Notified: Yes Date Notified: 12/13/22 Time Notified: 09:40 Method of Notification: SW Reason For Visit: ACUTE RENAL FAILURE Diagnosis Discharge Diagnosis (1) Primary colon cancer with invasion or adherence to other organ or structure (T4b): Status: Acute Code(s): C18.9 - Malignant neoplasm of colon, unspecified (2) Malignant ascites: Status: Acute Code(s): R18.0 - Malignant ascites (3) Metastatic colon cancer to liver: Status: Acute Code(s): C18.9 - Malignant neoplasm of colon, unspecified; C78.7 - Secondary malignant neoplasm of liver and intrahepatic bile duct Plan #Marked ascites, concerning for malignancy * admit to PCU o.a of chest pain, though I think chest pain is more likely due to discomfort from massive ascites * CT abdomen and pelvis showed evidence of thickening in the ascending colon concerning for malignancy as well as retroperitoneal lymphadenopathy, concerning for metastatic malignancy * consult gastroenterology. He was due to have colonoscopy as part of work-up for anemia. Recent EGD done showed only esophagitis * Keep n.p.o. for now. * Will order this tomorrow. This will be a diagnostic and therapeutic paracentesis. * Hydrate very gently with IV fluids. * #Elevated D-dimer * This was concerning for PE. VQ scan done however showed normal perfusion. Did show central clumping of aerosol which may be secondary to obstructive airway mechanics or clinical tachypnea and indeed patient was short of breath. 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 * hasnt really been following up with oncology * #CKD IV * Cr today is 4.9 * egFR i 13. This is likely due to worsening ascites. * will hydrate gently with IVF and trend * #History of frontal lobe CVA: Has emotional fragility as a result. Will monitor. #Hyperension: losartan held due to ARACELI on CKD IV #BPH: on flomax #History of hepatitis C: s/p treatment. Says it is in remission. DVT prophylaxis; SCDs. CODE STATUS: Full code * Patient counseled extensively about different types of CODE STATUS including full code, DNR CCA and DNR CCA. Patient elects to be full code. * Total [id number] time 17 minutes. Medications at Discharge Home Medications Acid Relief 1 ea PO/SL DAILY GERD 11/18/22 losartan 25 mg tablet 25 mg PO QHS BP 11/18/22 tamsulosin 0.4 mg capsule 0.4 mg PO DAILY PROSTATE 11/18/22 pantoprazole 40 mg tablet,delayed release 40 mg PO BID #120 tabs 11/20/22 Hospital Course Operations None Procedures Colonoscopy, EGD and Paracentesis Summary of Care Provided Minutes Spent on Discharge: 60 Hospital Course: DARWIN MILLER, is a 66 M with a PMh as outlined? who presents via the ED on 11/29/2022 with a complaint of shortness of breath. He went to see his PCP today with a complaitn of shortness of breath. He was admitted recently for acute on chronic anemia due to GI bleed. He got blood during that admission, and had an EGD which showed esophagitis,and was discharged home, to follow up for colonoscopy on outpatient basis. He saw his PCP today, who was concerned that he was looking very unwell, with abdominal distension. HE had associated chest pain and shortness of breath, and said his abdominal distension had been worsening. He denied any syncope, nausea, vomiting or diarrhea.? He states he not been able to eat or drink and he feels satisfied quickly when he does eat.? He is lost about 30 pounds since September and this was corroborated by his .? He denies any bloody or dark stools but says he has difficulty with bowel movements and feels like he has to strain before he can go.? Review of systems is otherwise negative. Vitals were blood pressure 111/69, pulse rate of 99 and respiratory of 18 and te mperature of 97.7 Fahrenheit.? Was saturating at 98% on room air.? CBC showed hemoglobin of 9.9 with WBC of 11.3 and platelets of 705.? D-dimer was markedly elevated at more than 20.? Chemistry shows sodium of 134 with bicarb of 14 and anion gap of 10.? Creatinine was 4.9 and EGFR was 13.? Initial troponin was negative.? Lipase was 130.? Urinalysis showed no evidence of UTI with 0 bacteria and only [address] abdomen and pelvis showed ascites with thick-walled ascending colon suspicious for malignancy versus infectious or inflammatory colitis and retroperitoneal lymphadenopathy as well as right renal hypodensities.? VQ scan done showed normal pulmonary perfusion and central c lumping of the aerosols may be secondary to obstructive airway mechanics and no clinical tachypnea.? He was admitted to be managed for ascites concerning for malignancy. He had a long, complicated hospital course. He had ultrasound guided paracentesis with removal of fluid; fluid cytology was positive for malignant cells and he had abdominal pleurx catheter. Oncology, GI and general surgery were consulted. HE had colonoscopy which showed an obstructing tumor in the hepatic flexure and the stricture was dilated and a prosthesis placed. Nephrology was also consulted o/.a of acute on chronic stage IV CKD. Patient wasnt improving, and oncology eventually informed patient that though they had initially discussed immunotherapy, the risks of immunotherapy were significant, and recommended hospice care. Patient and were agreeable to hospice, and hospice was consulted. He was accepted to inpatient hospice on 12/13/2022. Patient was seen and examined prior to discharge. was by his bedside. He had no active complaints. Review of systems otherwise negative. Labs and vitals reviewed. Home meds reivewed and reconciled. Physical Exam Const alert, oriented x3 and no apparent distress General Appearance: cooperative and comfortable Orientation / Consciousness: awake Exam Limitations: no limitations HEENT normocephalic, head/scalp atraumatic, hearing grossly normal bilaterally and moist oral mucous membranes Mouth: oral and palatal mucosa normal Eyes PERRL, EOMs intact bilaterally and conjunctivae normal Neck no lymphadenopathy and supple Resp normal respiratory effort, no retractions, no use of accessory muscles and clear to auscultation bilaterally Cardio regular rate, regular rhythm, S1 normal heart sound, S2 normal heart sound and no murmurs GI soft to palpation, non-tender and non-distended GI Narrative: abdomen markedly distended, positive fluid thrill, mild generalised tenderness, no organomegaly. Extremity normal to inspection, full ROM and no clubbing, cyanosis or edema Skin no rashes or lesions noted Neuro oriented x3, CN's II-XII intact bilaterally, moves all extremities and no focal motor deficits Sensorium / Orientation: awake and alert Speech: speech normal Motor Exam: strength 5/5 throughout Psych Psych Narrative: Cooperative Medical Records Data Medical Nutrition Assessment Dietitian: Malnutrition Criteria Met Start: 11/30/22 13:40 Freq: Status: Active Protocol: Document 12/13/22 12:14 RMA (Rec: 12/13/22 12:14 RMA [id number]) Nutrition Malnutrition Evidence of Malnutrition Exists Yes Malnutrition (severe): Acute Illness/Injury Evidenced By Suboptimal Energy Intake ( Severe),Weight Loss (Severe) Clinical Problem Acute Disease or Injury Related Malnutrition Etiology severe, acute malnutrition related to inadequate oral intake d/t GI dysfunction Signs/Symptoms as evidenced by estimated PO intake meeting <50% of estimated energy needs >5 days ; unintentional wt loss of 16. 7#/8% wt loss <1 month Status Active Problem Recommendation Dietitian Recommendations/Changes Continue Regular Diet given signs/symptoms of malnutrition . Milk w/ meals; pt is refusing oral medical/nutrition supplements. Hospice referral noted. Weight / BMI Weight Weight: 183 lb 3.266 oz Body Mass Index (BMI) 36.0 ABG / Lab / Microbiology Data Result Diagrams: 12/13/22 05:40 12/13/22 05:40 Laboratory: Laboratory Results - last 24 hr 12/12/22 17:45: Lactic Acid 2.2 H* 12/12/22 22:07: Lactic Acid 2.0 12/13/22 05:40: WBC 14.1 H, RBC 4.75, Hgb 10.5 L, Hct 35.4 L, MCV 74.5 L, MCH 22.1 L, MCHC 29.7 L, RDW Std Deviation 57.1 H, RDW Coeff of Angel 21.7 H, Plt Count 630 H, MPV 9.2, Immature Gran % (Auto) 1.100 H, Neut % (Auto) 84.3 H, Lymph % (Auto) 5.6 L, [place] % (Auto) 5.5, Eos % (Auto) 2.9, Baso % (Auto) 0.6, Absolute Neuts (auto) 11.9 H, Absolute Lymphs (auto) 0.79 L, Nucleated RBC % 0, Platelet Estimate MKD INC, Anisocytosis 2+, Microcytosis 1+ 12/13/22 05:40: Sodium 135 L, Potassium 5.1, Chloride 106, Carbon Dioxide 19.0 L , Anion Gap 10, BUN 77 H, Creatinine 4.04 H, Estim Creat Clear Calc 14.08, Est GFR (MDRD) Af Amer 19 L, Est GFR (MDRD) Non-Af 16 L, BUN/Creatinine Ratio 19.1, Glucose 111 H, Calcium 8.6, Total Bilirubin 0.50, AST 40 H, ALT 9 L, Alkaline Phosphatase 78, Total Protein 7.3, Albumin 2.2 L, Globulin 5.1 H, Albumin/Globulin Ratio 0.4 L Microbiology: Microbiology 12/09/22 13:35 Urine, Clean Catch Urine Culture - Final Staphylococcus haemolyticus D/C Instructions Discharge Diet: No restrictions Discharge Activity: Return to Normal Activity Call your doctor if you observe: Fever of 101 or Higher, Shortness of breath, Dizziness, Swelling in the ankles, Chest pain and Increased palpitations (irregular heartbeat) Meaningful Use Info Meaningful Use Diagnoses (Choose all that apply): None applicable Discharge Plan Admission Admit Date/Time: 11/29/22 18:45 Primary Reason for Your Visit: metastatic adenocarcinoma with mets to the [facility] Attending Provider: Erin Vigil Primary Care Provider: Bobby Salguero Consulting Providers: Erin Vigil ; Yariel Stuart ; Bobby Jacob ; Gallo Dubois ; Carlos Rocha ; Vidhya Bryson ; Mehnaz Hobson ; Carlos Rodriguez ; Rebeca Hackett ; Joanna Lofton ; Jenna Holley LEAD APPLIER Instructions Patient Instructions: KYLE RN Paracentesis Dc Discharge Orders/Prescriptions Prescriptions: Continued tamsulosin 0.4 mg capsule 0.4 mg PO DAILY Label Comments: TAKE 1 CAPSULE BY MOUTH EVERY DAY losartan 25 mg tablet 25 mg PO QHS Label Comments: TAKE 1 TABLET BY MOUTH EVERY DAY Acid Relief 1 ea PO/SL DAILY pantoprazole 40 mg tablet,delayed release (DR/EC) 40 mg PO BID Qty: 120 0RF Referrals / Follow Up: Bobby Salguero MD [Primary Care Provider] - Within 2 Weeks Disposition Disposition (needs filled in before D/C Order can be placed): Hospice in Medical Facility Charges/Coding Visit Charges Inpatient E&M: 06556 Disch Hosp >30min
--- NOTE | 2022-12-13 16:32 | DCINST_ITS ---
Discharge Instructions Diet Discharge Diet: No restrictions Dressing / Incision Call your doctor if you observe: Fever of 101 or Higher, Shortness of breath, Dizziness, Swelling in the ankles, Chest pain and Increased palpitations (irregular heartbeat) Follow Up Care Test Results: Test results from this visit will be discussed in further detail at your follow- up appointment, if applicable. 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 Attending Provider: Erin Vigil Primary Care Provider: Bobby Salguero Consulting Providers: Erin Vigil ; Yariel Stuart ; Bobby Jacob ; Gallo Dubois ; Carlos Rocha ; Vidhya Bryson ; Mehnaz Hobson ; Carlos Rodriguez ; Rebeca Hackett ; Joanna Lofton ; Jenna Holley [employer] Instructions Patient Instructions: KYLE RN Paracentesis Dc Discharge Orders/Prescriptions Prescriptions: Continued tamsulosin 0.4 mg capsule 0.4 mg PO DAILY Label Comments: TAKE 1 CAPSULE BY MOUTH EVERY DAY losartan 25 mg tablet 25 mg PO QHS Label Comments: TAKE 1 TABLET BY MOUTH EVERY DAY Acid Relief 1 ea PO/SL DAILY pantoprazole 40 mg tablet,delayed release (DR/EC) 40 mg PO BID Qty: 120 0RF Referrals / Follow Up: Bobby Salguero MD [Primary Care Provider] - Within 2 Weeks Disposition Disposition (needs filled in before D/C Order can be placed): Hospice in Medical Facility
--- NOTE | 2022-12-13 16:53 | NURSING ---
Gave report to Magi PENNY at inpatient hospice
== END 2022-12-13 17:14 | disposition hospice, inpatient (51) | DRG 374 ==
LOC: ED 15:14 → PCU 20:32
PROVIDERS: Internal Medicine; Internal Medicine Gastroenterology; Internal Medicine Hematology & Oncology; Internal Medicine Nephrology; Admitting Provider Student in an Organized Health Care Education/Training Program; Emergency Provider Emergency Medicine; PCP Family Medicine; Visit Provider Student in an Organized Health Care Education/Training Program
PROC: 0DJD8ZZ Inspection of Lower Intestinal Tract, Via Natural or Artificial Opening Endoscopic (ICD-10-PCS; CPT 45378; principal; 2022-11-30 16:25)
DX: C18.3 Malignant neoplasm of hepatic flexure (principal); E43 Unspecified severe protein-calorie malnutrition; N17.0 Acute kidney failure with tubular necrosis; R18.0 Malignant ascites; C78.6 Secondary malignant neoplasm of retroperitoneum and peritoneum; E87.20 Acidosis, unspecified; C78.7 Secondary malignant neoplasm of liver and intrahepatic bile duct; N18.4 Chronic kidney disease, stage 4 (severe); I95.9 Hypotension, unspecified; K74.60 Unspecified cirrhosis of liver; E88.09 Other disorders of plasma-protein metabolism, not elsewhere classified; D50.9 Iron deficiency anemia, unspecified; D63.0 Anemia in neoplastic disease; I12.9 Hypertensive chronic kidney disease with stage 1 through stage 4 chronic kidney disease, or unspecified chronic kidney disease; E87.5 Hyperkalemia; Z68.36 Body mass index [BMI] 36.0-36.9, adult; N40.0 Benign prostatic hyperplasia without lower urinary tract symptoms; E66.9 Obesity, unspecified; Z79.899 Other long term (current) drug therapy; Z85.72 Personal history of non-Hodgkin lymphomas; Z92.21 Personal history of antineoplastic chemotherapy; Z86.73 Personal history of transient ischemic attack (TIA), and cerebral infarction without residual deficits; Z87.891 Personal history of nicotine dependence; Z86.19 Personal history of other infectious and parasitic diseases
CPT/HCPCS: 36415; 49083; 71045; 71250; 74018; 74176; 76000; 78582; 80048; 80053; 80069; 80076; 81001; 82378; 82436; 82570; 82728; 82945; 83540; 83550; 83605; 83615; 83690; 83735; 83880; 84100; 84133; 84157; 84300; 84484; 84540; 85025; 85379; 86706; 86803; 87077; 87086; 87088; 87186; 87340; 87522; 88108; 88305; 88313; 88341; 88342; 89050; 93005; 97162; 97166; 97530; 97802; 97803; 99285; A9540; A9567; J7030; J7120; P9047; A4216; A4648; C1769; J2405